=== PATIENT | male | born 1945 | race Caucasian/White ===

== ENCOUNTER 2017-03-23 18:47 | Inpatient (IN) | payer MEDICARE, BC ==
[~2017-03-23] VITALS: Ht 182.9 cm; Wt 112.5 kg
[~2017-03-23 18:47] MED LIST: AMLO10TA2 PO; ASPI81TA2 PO; ATOR40TA59 PO; CEFE1FRO IV; CINN500C PO; GABA-585 PO; HYDR-2868 PO; HYDR1TAB12 PO; INSU100C4 SQ; LISI40TA PO; METR500T PO; MULT-208 PO; RANI300C PO; THYR30TA PO
--- NOTE | 2017-03-23 18:49 | ED.ADGEN ---
Past History Past Medical History: A-Fib, CAD, Diabetes, High Cholesterol, Heart Disease, Hypertension, [place], Renal Failure, Other Past Surgical History: Cervical Fusion, Pacemaker, Other Smoking: Non-smoker Alcohol Use: None Drug Use: None Adult General Chief Complaint Chief Complaint " I got this Lt. hand.. and facial numbness like I had before... it started yesterday... the hand was probably my neck problems.... But the facial numbness and the area around my Lt. eye was still yenifer numb tonight.. .. I was here in .. this year for same thing...they just upped my Gabapentin to 300 three times a day... and it got better.. I usually see Dr. Jean-Baptiste... and I do see the 's at for everything else..." HPI HPI Patient is a 71 year old male who presents with above hx and complaints of Lt facial numbness and Lt hand numbness starting yesterday. Currently only has Lt. facial numbness primarily area upper trigeminal. Slight upper lid lag Lt eye. Pt. denies any visual changes. Patient denies any mental status changes. Patient denies any changes in meds. reports no mental status changes or motor changes. Both and patient states presentation is similar to prior episode in December and previous episodes last year. Patient has recently had a pacer placement. Patient has been taking his meds as directed. The Pt. did Increased his gabapentin to 300mg three times a day for this current complaint as directed directed in December of this year. Patient has been given a diagnosis of Trigeminal and cervical neuralgia. Patient has long- standing cervical neuropathy and cervical stenosis . Pt. had prior cervical surgeries with hardware placement for his cervical DJD and stenosis. Patient reports his sugars have been fairly well controlled with the checks been between 80-120. No history of trauma. No history of travel. No history of specific immunosuppression. Patient is ambulatory without problems from his baseline. 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 Patient does have a [id number] amputation on right limb secondary PVDz and diabetic osteomyelitis. Patient has had multiple medical problems including diabetes, hypertension, hyper cholesterol, peripheral vascular disease, coronary artery disease, renal insufficiency, and renal insufficiency. Patient states the left betty orbital numbness usually goes away within a day. Review of Systems Review of Systems Constitutional: Denies fever or chills [] Eyes: Denies change in visual acuity, redness, or eye pain [] HENT: Denies nasal congestion or sore throat [] complaints of left trigeminal numbness Respiratory: Denies cough or shortness of breath [] Cardiovascular: No additional information not addressed in HPI [] GI: Denies abdominal pain, nausea, vomiting, bloody stools or diarrhea [] : Denies dysuria or hematuria [] Musculoskeletal: Denies back pain or joint pain [] Integument: Denies rash or skin lesions [] Neurologic: Denies headache, focal weakness or sensory changes [] Endocrine: Denies polyuria or polydipsia [] Family History Family History Diabetes hypertension Current Medications Current Medications Current Medications Medications (Trade) Dose Ordered Sig/Rain Start Time Stop Time Status Last Admin Dose Admin Aspirin (Children'S Aspirin) 324 mg 1X ONCE 03/23/17 19:30 03/23/17 19:31 DC 03/23/17 20:01 324 MG Ondansetron HCl (Zofran) 4 mg PRN Q4HRS PRN 03/23/17 20:45 03/24/17 20:44 Allergies Allergies Allergies Coded Allergies Type Severity Reaction Last Updated Verified NKMA Allergy Unknown 03/23/17 Yes oxaprozin Adverse Reaction Intermediate 11/20/15 Yes Physical Exam Physical Exam Constitutional: no acute distress, non-toxic appearance. [] HENT: Normocephalic, atraumatic, bilateral external ears normal, oropharynx moist, no oral exudates, nose normal. Left periorbital numbness as per HPI. TM' s intact. No rash Eyes: PERRLA, EOMI, conjunctiva normal, no discharge. Glasses. Lens implants Neck: Decreased range of motion, no tenderness, supple, no stridor. No bruit appreciated in carotids. Old surgical scars Cardiovascular: Slightly irregular Heart rate and rhythm, no murmur, PMI to Lt. Lungs & Thorax: Bilateral breath sounds clear to auscultation in the apexes. Pacer scar lt. Abdomen: Bowel sounds normal, soft, no tenderness, no masses, no pulsatile masses. [] Skin: Warm, dry, no erythema, no rash. [] Back: No tenderness, no CVA tenderness. [] Extremities: No tenderness, no cyanosis, no clubbing, ROM intact, no edema. Rt. below knee amputation Rt. left. toe amputations and foot scars. Pt. ambulates extremely well with the prosthesis. Neurologic: Alert and oriented X 3, no gross motor function deficits, no gross sensory function deficits other than noted in HPI. Slight decreased Vib. distal Lt. leg. Subjective Lt betty orbital numbness. Numbness appears to be upper trigeminal distribution. No drift. Band Booker equal. DTR +2 brachial. AC >BC, No lateralization. Slight decrease AC on Lt. Psychologic: Affect normal, judgement normal, mood normal. [] Current Patient Data Vital Signs Vital Signs Date Time Temp Pulse Resp B/P Pulse Ox O2 Delivery O2 Flow Rate FiO2 03/23/17 18:50 98.2 70 20 97 Room Air Lab Results Laboratory Tests Test 03/23/17 19:30 03/23/17 19:50 White Blood Count 6.9x10^3/uL (4.0-11.0) Red Blood Count 3.75x10^6/uL (4.30-5.70) L Hemoglobin 11.1g/dL (13.0-17.5) L Hematocrit 33.7% (39.0-53.0) L Mean Corpuscular Volume 90fL (79-100) Mean Corpuscular Hemoglobin 30pg (25-35) Mean Corpuscular Hemoglobin Concent 33g/dL (31-37) Red Cell Distribution Width 14.6% (11.5-14.5) H Platelet Count 187x10^3/uL (140-400) Neutrophils (%) (Auto) 62% (31-73) Lymphocytes (%) (Auto) 22% (24-48) L Monocytes (%) (Auto) 10% (0-9) H Eosinophils (%) (Auto) 5% (0-3) H Basophils (%) (Auto) 1% (0-3) Neutrophils # (Auto) 4.3x10^3uL (1.8-7.7) Lymphocytes # (Auto) 1.5x10^3/uL (1.0-4.8) Monocytes # (Auto) 0.7x10^3/uL (0.0-1.1) Eosinophils # (Auto) 0.3x10^3/uL (0.0-0.7) Basophils # (Auto) 0.1x10^3/uL (0.0-0.2) Prothrombin Time 10.5SEC (9.4-11.4) Prothrombin Time INR 1.0 (0.9-1.1) PTT 23SEC (23-33) Sodium Level 141mmol/L (136-145) Potassium Level 5.3mmol/L (3.5-5.1) H Chloride Level 106mmol/L (98-107) Carbon Dioxide Level 24mmol/L (21-32) Anion Gap 11 (6-14) Blood Urea Nitrogen 47mg/dL (8-26) H Creatinine 2.1mg/dL (0.7-1.3) H Estimated GFR (Cockcroft-Gault) 31.1 Glucose Level 138mg/dL (70-99) H Calcium Level 8.5mg/dL (8.5-10.1) Magnesium Level 2.3mg/dL (1.8-2.4) Total Bilirubin 0.3mg/dL (0.2-1.0) Direct Bilirubin 0.1mg/dL (0.0-0.2) Aspartate Amino Transferase (AST) 22U/L (15-37) Alanine Aminotransferase (ALT) 24U/L (16-63) Alkaline Phosphatase 98U/L (46-116) Creatine Kinase 264U/L (39-308) Creatine Kinase MB (Mass) 2.6ng/mL (0.0-3.6) Creatine Kinase MB Relative Index 1.0% (0-4) Troponin I Quantitative 0.026ng/mL (0-0.055) TW-Eub-O-Type Natriuretic Peptide 942pg/mL (0-124) H Total Protein 6.9g/dL (6.4-8.2) Albumin 3.7g/dL (3.4-5.0) Lipase 238U/L (73-393) Urine Collection Type Unknown Urine Color Yellow Urine Clarity Clear Urine pH 7.0 Urine Specific Bivins 1.015 Urine Protein 30 mg/dl (NEG-TRACE) Urine Glucose (UA) Negmg/dL (NEG) Urine Ketones (Stick) Negmg/dL (NEG) Urine Blood Neg (NEG) Urine Nitrite Neg (NEG) Urine Bilirubin Neg (NEG) Urine Urobilinogen Dipstick 0.2mg/dL (0.2 mg/dL) Urine Leukocyte Esterase Neg (NEG) Urine RBC 3-5/HPF (0-2) Urine WBC Occ/HPF (0-4) Urine Squamous Epithelial Cells Few/LPF Urine Bacteria 0/HPF (0-FEW) Urine Opiates Screen Neg (NEG) Urine Methadone Screen Neg (NEG) Urine Barbiturates Neg (NEG) Urine Phencyclidine Screen Neg (NEG) Urine Amphetamine/Methamphetamine Neg (NEG) Urine Benzodiazepines Screen Neg (NEG) Urine Cocaine Screen Neg (NEG) Urine Cannabinoids Screen Neg (NEG) Urine Ethyl Alcohol Neg (NEG) EKG EKG My interpretation EKG shows a irregular rhythm with marked intraventricular block. Does appear to have a P-wave . However Do notice occasional paced rhythm on monitor [] Radiology/Procedures Radiology/Procedures My interpretation chest x-ray shows borderline cardiomegaly. But no acute cardiopulmonary changes. Does have a pacer placement since last comparison x- ray. My interpretation CT head shows no shift, mass, edema, bleed, fracture or findings acute CVA. No findings of sinusitis. Cervical shows marked cervical degenerative joint changes and cervical fusions C3-4-5 6 and 7 . Patient does have narrowing and facet arthritic changes. No obvious acute fracture. Hardware appears to be stable. See formal report when available Course & Med Decision Making Course & Med Decision Making Pertinent Labs and Imaging studies reviewed. (See chart for details) Stress presentation, testing and treatment plan with . Will admit pt. for observation and consult with Dr. Barnard. [] Final Impression Final Impression 1. Facial Numbness[] periorbital 2. Hx. Trigeminal Neuralgia Lt. (appears primarily in I, & II) 3. Cervical Neuropathy- cervical stenosis 4. DM 5. HTN 6. CADz 7. Elevated Creat. 8. Anemia 9. Hyperkalemia 10. Possible TIA vs CVA- 11. Hx. PVDz 12. Hyperkalemia Problems: Dragon Disclaimer Dragon Disclaimer This electronic medical record was generated, in whole or in part, using a voice recognition dictation system. VASILIY GRAVES MD Mar 23, 2017 18:49
[2017-03-23] MEDS ORDERED: ASPIRIN 81 MG TAB.CHEW PO ONE (19:30)
--- NOTE | 2017-03-23 19:35 | RAD ---
PROCEDURE CT brain without contrast, CT cervical spine without contrast HISTORY LEFT SIDE FACIAL AND ARM NUMBNESS, NECK STIFFNESS,
PRIOR CT HEAD SENT
TECHNIQUE CT scan of the brain was done without contrast. CT scan of the cervical spine was done without contrast, sagittal and coronal reconstructed images were reviewed. One or more of the following individualized dose reduction techniques were utilized for this examination: 1. Automated exposure control; 2. Adjustment of the mA and/or kV according to patient size; 3. Use of iterative reconstruction technique.One or more of the following individualized dose reduction techniques were utilized for this examination: 1. Automated exposure control; 2. Adjustment of the mA and/or kV according to patient size; 3. Use of iterative reconstruction technique. COMPARISON Comparison made with a CT brain from December 26, [address] brain There is no mass or shift of the midline. There is no intracranial hemorrhage or subdural hematoma. An acute CVA is not identified. A skull fracture is not evident. Sinuses are clear. CT cervical spine Axial CT images were obtained through the cervical spine. Sagittal and coronal reconstructed images were reviewed. Patient had previous anterior cervical fusion. A focal disc protrusion is not identified. The right thyroid is enlarged, the patient apparently is had left thyroidectomy. Patient has had previous cervical fusions from C3 to C5 and at C6-7. There is disc space narrowing at C5-6. There is facet arthritis at C2-3 on the left and C3-4 on the left. An acute fracture is not identified. Plates and screws remain in good position from the previous fusions. IMPRESSION No intracranial hemorrhage or mass or acute finding noted intracranially Previous cervical fusions. Degenerative changes in the cervical spine No C-spine fracture noted Electronically signed by: Johan Fong MD (Mar 23, 2017 19:33:11)
[2017-03-23 19:53] LABS: BASO # 0.1 x10^3/uL (0.0-0.2); BASO % 1 % (0-3); EOS # 0.3 x10^3/uL (0.0-0.7); EOS % 5 % (0-3); HEMATOCRIT 33.7 % (39.0-53.0); HEMOGLOBIN 11.1 g/dL (13.0-17.5); LYMPH # 1.5 x10^3/uL (1.0-4.8); LYMPH % 22 % (24-48); MEAN CORPUSCULAR HEMOGLOBIN 30 pg (25-35); MEAN CORPUSCULAR HGB CONC 33 g/dL (31-37); MEAN CORPUSCULAR VOLUME 90 fL (79-100); MONO # 0.7 x10^3/uL (0.0-1.1); MONO % 10 % (0-9); NEUT # 4.3 x10^3uL (1.8-7.7); NEUT % 62 % (31-73); PLATELET COUNT 187 x10^3/uL (140-400); RED BLOOD COUNT 3.75 x10^6/uL (4.30-5.70); RED CELL DISTRIBUTION WIDTH 14.6 % (11.5-14.5); WHITE BLOOD COUNT 6.9 x10^3/uL (4.0-11.0)
[2017-03-23 20:10] LABS: ALBUMIN 3.7 g/dL (3.4-5.0); CALCIUM 8.5 mg/dL (8.5-10.1); CREATININE 2.1 mg/dL (0.7-1.3); DIRECT BILIRUBIN 0.1 mg/dL (0.0-0.2); GFR 31.1; MAGNESIUM 2.3 mg/dL (1.8-2.4); POTASSIUM 5.3 mmol/L (3.5-5.1); TOTAL BILIRUBIN 0.3 mg/dL (0.2-1.0); TOTAL PROTEIN 6.9 g/dL (6.4-8.2)
[2017-03-23 20:22] LABS: AMPHETAMINE/METHAMPHETAMINE NEG (NEG); BARBITURATES NEG (NEG); BENZODIAZEPINES NEG (NEG); CANNABINOIDS NEG (NEG); COCAINE NEG (NEG); METHADONE NEG (NEG); OPIATES NEG (NEG); PHENCYCLIDINE NEG (NEG)
[2017-03-23 20:31] LABS: BILIRUBIN,URINE NEG (NEG); CLARITY,URINE CLEAR; COLOR,URINE YELLOW; GLUCOSE,URINE NEG (NEG)
[2017-03-23 20:32] LABS: BACTERIA,URINE 0 /HPF (0-FEW); NITRITE,URINE NEG (NEG); SQUAMOUS EPITHELIAL CELL,UR FEW /LPF; UROBILINOGEN,URINE 0.2 mg/dL (0.2 mg/dL); WBC,URINE OCC /HPF (0-4)
[2017-03-23] MEDS ORDERED: ONDANSETRON PF 4 MG/2 ML VIAL. IV PRN (20:45)
[2017-03-23] MEDS: ENOXAPARIN ** NOTE DOSE ** SYRINGE SQ SCH ×2 (21:00→21:24)
[2017-03-23] MEDS: GABAPENTIN 100 MG CAPSULE. PO ONE ×2 (21:08→21:24)
--- NOTE | 2017-03-23 23:20 | NUR ---
The patient, HAVEN DOMINGUEZ, 71 y/o, M admitted by SULTANA RODRIGUEZ MD, was given written information regarding hospital policies, unit procedures and contact persons. Valuables were checked and logged. Will continue to monitor.
[2017-03-23 23:37] VITALS: BP 151/62
[2017-03-23] MEDS ORDERED: HYDR-2869 PO (23:51)
[2017-03-23] MEDS ORDERED: GABA300C8 PO (23:51)
[2017-03-24] MEDS ORDERED: OMEG-33 PO (00:18)
--- NOTE | 2017-03-24 05:13 | EKG ---
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
[2017-03-24 06:35] VITALS: BP 155/66
[2017-03-24 06:53] LABS: BASO % 1 % (0-3); EOS # 0.3 x10^3/uL (0.0-0.7); EOS % 5 % (0-3); HEMATOCRIT 34.7 % (39.0-53.0); HEMOGLOBIN 11.4 g/dL (13.0-17.5); LYMPH # 1.3 x10^3/uL (1.0-4.8); LYMPH % 21 % (24-48); MEAN CORPUSCULAR HEMOGLOBIN 30 pg (25-35); MEAN CORPUSCULAR HGB CONC 33 g/dL (31-37); MEAN CORPUSCULAR VOLUME 91 fL (79-100); MONO # 0.6 x10^3/uL (0.0-1.1); MONO % 10 % (0-9); NEUT # 3.9 x10^3uL (1.8-7.7); NEUT % 63 % (31-73); PLATELET COUNT 181 x10^3/uL (140-400); RED BLOOD COUNT 3.83 x10^6/uL (4.30-5.70); RED CELL DISTRIBUTION WIDTH 14.3 % (11.5-14.5); WHITE BLOOD COUNT 6.1 x10^3/uL (4.0-11.0)
[2017-03-24 07:06] LABS: ALBUMIN 3.5 g/dL (3.4-5.0); CALCIUM 8.7 mg/dL (8.5-10.1); CREATININE 1.9 mg/dL (0.7-1.3); GFR 34.9; POTASSIUM 4.8 mmol/L (3.5-5.1); TOTAL BILIRUBIN 0.3 mg/dL (0.2-1.0); TOTAL PROTEIN 7.1 g/dL (6.4-8.2)
--- NOTE | 2017-03-24 07:25 | NUR ---
Neuro consult paged to Dr. Barnard.
--- NOTE | 2017-03-24 10:05 | RAD ---
PA and lateral chest radiographs 03/23/2017 Clinical history: Hypertension. Diabetes. Left face and arm numbness. PA and lateral digital radiographs of the chest were obtained. Comparison study is dated 03/19/2016. The right arm PICC has been removed. Anterior plates and bone screws overlie the mid and lower cervical spine, unchanged. A pacemaker has been placed into the left anterior chest. Leads extends to the right atrium and right ventricle of the heart. The cardiac silhouette is borderline enlarged. Atherosclerotic calcification of the thoracic aorta is seen. The thoracic aorta is mildly tortuous. No acute pulmonary infiltrate is seen. No pleural effusion or pneumothorax is noted. Degenerative changes are seen involving the thoracic spine. Impression: No acute abnormality is seen.
[2017-03-24] MEDS: ENOXAPARIN ** NOTE DOSE ** SYRINGE SQ SCH ×2 (10:07→20:56)
[2017-03-24 11:28] VITALS: BP 136/61
[2017-03-24] MEDS: MULTIVITAMIN with MINERAL TABLET. PO SCH (13:07)
[2017-03-24] MEDS: OMEGA-3 FATTY ACIDS/FISH OIL 1,000 MG CAPSULE. PO SCH ×2 (13:07→20:55)
[2017-03-24] MEDS: LISINOPRIL 20 MG TABLET PO SCH (13:08)
[2017-03-24] MEDS: ASPIRIN 81 MG TAB.CHEW PO SCH (13:09)
[2017-03-24] MEDS: HYDRALAZINE 50 MG TABLET PO SCH ×2 (13:10→20:55)
--- NOTE | 2017-03-24 13:29 | HP ---
ADMIT DATE: 03/23/2017 HISTORY OF PRESENT ILLNESS: This is a 71-year-old gentleman, who is complaining of left hand and facial numbness. This has occurred before and he has been extensively investigated in the past. He continues to have intermittent left facial parathesias. He has had an MRI and MRA showing trigeminal nerve to be normal, but it is assumed that he does have trigeminal neuralgia. In December his gabapentin had been increased to 300 mg 3 times a day and he felt that that was helping except yesterday it was persistent. PAST MEDICAL HISTORY: The patient has longstanding diabetes, which has been poorly controlled in the past. He states his last hemoglobin A was 6.1. He uses an insulin pump. He also has hypothyroidism, hypertension and coronary artery disease. 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 He had chronic osteomyelitis of the right foot and leg. 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 Chronic staph infections. PAST SURGICAL HISTORY: Extensive, but recent surgeries he had a right BKA, 04/11/2016; 07/09/2016 he had a pacemaker placed. MEDICATIONS: Reviewed. Current medications coming from his first in the list, he is on insulin pump 2 units an hour, amlodipine 10 mg a day, lisinopril 40 mg a day, hydralazine 50 mg t.i.d., aspirin 81 mg 2 daily, total of 160; atorvastatin 40 mg a day, Capulin Thyroid 30 mg a day, gabapentin 300 mg 3 times a day, fish oil 1000 mg b.i.d., multivitamin 1 a day, cinnamon 1000 mg daily, and ranitidine 300 mg b.i.d. IMMUNIZATIONS: The patient has got a pneumonia shot in 2010 and flu shot in 08/2015. REVIEW OF SYSTEMS: As per HPI, this intermittent left facial and left arm numbness. Denies sore throat. Denies fever. Denies chest pain, shortness of breath. SOCIAL HISTORY: The patient is retired. He worked. 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 No smoking or alcohol, been for 50 years. OBJECTIVE: VITAL SIGNS: Blood pressure is 136/61, pulse 70, respirations 20, temperature 97.9, and pulse ox 98% on room air. HEENT: The patient's hearing is normal. His eyes are clear. He wears glasses. His nose is patent. His throat is clear. NECK: Supple. LUNGS: Clear to auscultation. CARDIOVASCULAR: Regular rhythm and rate with a paced rhythm. ABDOMEN: Soft, nontender. EXTREMITIES: Left extremity, he has with appearance of a Charcot joint. Right, he has a right BKA. NEUROLOGIC: The patient went through all of the cranial nerves without difficulty, could not discern any deficits related to the trigeminal nerve. Reflexes are 2+/4. Follows directions. LABORATORY DATA: Fairly unremarkable. BUN 45, creatinine 1.9; improved from 47 and 2.1. BNP is 942. Troponin 0.026 and 0.027. ASSESSMENT: 1. Recurrence of left facial numbness/trigeminal neuralgia with a history of trigeminal neuralgia. 2. Acute kidney injury, improved with fluids. 3. Type 2 diabetes, longstanding. 4. Peripheral neuropathy. 5. Normochromic normocytic anemia. PLAN: Dr. Barnard to see. It appears that if this episode resolves, he could probably discharge later on in the day. I will increase his gabapentin to 400 mg t.i.d. as recommended by Dr. Jean-Baptiste. TOMAS NG DO DR: ISRRAEL/regine JOB#: [id number] / [id number]
[2017-03-24] MEDS: THYROID PORK 15 MG PO SCH (13:31)
[2017-03-24] MEDS ORDERED: GABAPENTIN 300 MG CAPSULE. PO SCH (14:00)
--- NOTE | 2017-03-24 16:14 | RAD ---
Bilateral carotid arterial duplex study 03/24/2017 Clinical History: Numbness and tingling in head. Technique: Using a combination of real-time ultrasound imaging and color-flow and pulse Doppler imaging techniques, duplex evaluation of the carotid and vertebral arterial structures within the neck was performed. Multiple images were obtained. Findings: Mild to moderate atheromatous/atherosclerotic plaque formation is seen involving both carotid bifurcations and proximal internal carotid arteries, right greater than left. The peak systolic velocities are not significantly elevated. No hemodynamically significant stenosis is seen. The vertebral arteries demonstrate normal antegrade flow. Impression: Mild to moderate atheromatous/atherosclerotic plaque formation is seen involving both carotid bifurcations and proximal internal carotid arteries, right greater than left.. No hemodynamically significant stenosis or area of occlusion is seen. Please note that stenosis calculations for carotid ultrasound studies are derived from validated velocity criteria which are known to correlate with the NASCET methodology.
[2017-03-24 16:37] VITALS: BP 143/65
[2017-03-24] MEDS: GABAPENTIN 400 MG CAPSULE. PO SCH ×2 (17:02→20:53)
[2017-03-24 19:45] VITALS: BP 128/68
[2017-03-24] MEDS: FAMOTIDINE 20 MG TABLET PO SCH (20:55)
[2017-03-24] MEDS ORDERED: NON FORMULARY ITEM (Cinnamon Bark (Cinnamon) 1,000 MG) PO SCH (21:00)
[2017-03-24] MEDS ORDERED: ATORVASTATIN CALCIUM 20 MG TABLET PO SCH (21:00)
[2017-03-24] MEDS ORDERED: AMLODIPINE BESYLATE 10 MG TABLET PO SCH (21:00)
[2017-03-24 21:03] VITALS: BP 128/52
[2017-03-25 05:25] VITALS: BP 142/71
[2017-03-25] MEDS: MULTIVITAMIN with MINERAL TABLET. PO SCH (07:32)
[2017-03-25] MEDS: THYROID PORK 15 MG PO SCH (07:32)
[2017-03-25] MEDS: OMEGA-3 FATTY ACIDS/FISH OIL 1,000 MG CAPSULE. PO SCH (07:32)
[2017-03-25] MEDS: HYDRALAZINE 50 MG TABLET PO SCH ×2 (07:33→13:20)
[2017-03-25] MEDS: GABAPENTIN 400 MG CAPSULE. PO SCH ×2 (07:33→13:20)
[2017-03-25] MEDS: FAMOTIDINE 20 MG TABLET PO SCH (07:33)
[2017-03-25] MEDS: ASPIRIN 81 MG TAB.CHEW PO SCH (07:33)
[2017-03-25] MEDS: LISINOPRIL 20 MG TABLET PO SCH (07:34)
[2017-03-25] MEDS: ENOXAPARIN ** NOTE DOSE ** SYRINGE SQ SCH (07:34)
[2017-03-25 11:14] VITALS: BP 140/68
--- NOTE | 2017-03-25 12:12 | PN ---
DATE: 03/25/2017 SUBJECTIVE: The patient continues to have numbness of the right face and left upper extremity. The patient feels like he doing better. He denies any new medical neurological complaints. Carotid Doppler study revealed mild to moderate bilateral epithelial sclerotic plaque formation in both carotid bifurcation and proximal internal carotid arteries but no hemodynamic significant stenosis. OBJECTIVE: GENERAL: Obese white male, not in acute distress. VITAL SIGNS: Blood pressure 142/71, respiratory rate 18, pulse is 75, afebrile, oxygen saturation 99% on room air. HEENT: Normocephalic, atraumatic, otherwise unremarkable. NECK: Supple. Negative for carotid bruit, lymphadenopathy or thyromegaly. LUNGS: Clear to A and P. CARDIOVASCULAR: Regular rate and rhythm, normal S1, S2. Abdomen: Soft. Bowel sounds positive. EXTREMITIES: Negative for cyanosis, clubbing or pitting edema. NEUROLOGICAL EXAM: Mental Status: The patient is alert and oriented x 3. Speech is fluent. There is no language dysfunction, otherwise unremarkable. Cranial nerves are intact. Motor Examination: No focal muscle bulk was seen. The tone is normal. The strength is 5/5 throughout. Sensory examination revealed moderately diminished pinprick and light touch senses over the left face and upper extremity, otherwise unremarkable. Deep tendon reflexes were symmetric and hypoactive with absent Achilles responses. Gait not tested as the patient had artificial right lower extremity. IMPRESSION: 1. Numbness and paresthesia of the left face and upper extremity with history of left trigeminal neuralgia. 2. Radicular neck pain radiating into the left upper extremity. 3. Multiple risk factors for stroke and includes hypertension, hyperlipidemia, diabetes mellitus, peripheral vascular disease, coronary artery disease and age. RECOMMENDATIONS: 1. Increase aspirin to 325 mg coated aspirin once daily. 2. Continue with current management and medications. 3. Follow up with Dr. Sheets. We will arrange for EMG/NCS of the left upper extremity to rule out entrapment neuropathy versus cervical radiculopathy. M Al SHEETS MD DR: MARCUS/regine JOB#: [id number] / [id number]
--- NOTE | 2017-03-25 13:17 | CONS ---
DATE OF CONSULTATION: 03/23/2017 REFERRING PHYSICIAN: Dr. Jean-Baptiste/Gualberto. REASON FOR CONSULTATION: Recurrent numbness and tingling of the left face and left arm and hand. HISTORY OF PRESENT ILLNESS: This is a 71-year-old male, who was admitted through Emergency Room yesterday on 03/23/2017 after he presented with 3-day history of recurrent numbness and tingling confined to the left face, upper and lower extremities. The patient stated on occasions he will have left facial pain. He has had this kind of symptoms for at least 1-1/2 years and he was diagnosed with possible trigeminal neuralgia and placed on gabapentin. According to the patient, gabapentin 300 mg t.i.d. usually alleviated his symptoms. The patient also complains of neck pain radiating to the left upper extremity. He denies any recent fall or injuries. He denies headaches, visual disturbances, nausea, vomiting, chest pain, shortness of breath or palpitation, dysarthria or dysphagia. However, when he had severe symptoms of pain and numbness he would have slurred speech. Initial nonenhanced head CT scan revealed no abnormalities. The patient denies weakness of the upper extremities or left lower extremity. PAST MEDICAL HISTORY: Quite significant for multiple medical problems includes hypertension, hyperlipidemia, coronary artery disease, myocardial infarctions, recurrent left facial numbness and possible paresthesia consistent with trigeminal neuralgia, hypothyroidism, diabetes mellitus, obesity and renal disease. PAST SURGICAL HISTORY: Significant for pacemaker placement, cervical spine surgeries x 3. The first one was to remove a cervical bony spur and the second and third one had cervical fusion in early 1999. Status post pacemaker placement, skin graft, status post right below knee amputation secondary to peripheral vascular disease and osteomyelitis, history of GERD. SOCIAL HISTORY: The patient denies smoking, alcohol drinking, or illicit drug use. He is and retired. FAMILY HISTORY: Noncontributory. REVIEW OF SYSTEMS: As mentioned above in history of present illness, otherwise unremarkable. CURRENT MEDICATIONS: Aspirin 162 mg daily, Lipitor 40 mg at bedtime, amlodipine 10 mg at bedtime, hydralazine 50 mg t.i.d., gabapentin 300 mg t.i.d., Zofran IV p.r.n. ALLERGIES: OXAPROZIN. PHYSICAL EXAMINATION: GENERAL: Obese white male, not in acute distress. He weighs 251 pounds. VITAL SIGNS: Blood pressure 136/61, respiratory rate 20, pulse is 70 and regular, temperature 97.9, oxygen saturation is 98% on room air. HEENT: Normocephalic, atraumatic, otherwise unremarkable. NECK: Supple. Negative for carotid bruit, lymphadenopathy or thyromegaly. LUNGS: Clear to A and P. CARDIOVASCULAR: Regular rate and rhythm, normal S1, S2. There is no S3, S4 or murmur. ABDOMEN: Soft. Bowel sounds positive. EXTREMITIES: Negative for cyanosis, clubbing or pitting edema. NEUROLOGICAL EXAM: Mental Status: The patient is alert and oriented x 3. The speech is fluent. There is no language dysfunction. Memory is intact. Judgment and abstract thinking is normal. The patient denies hallucination or delusion. Visual walker are full. The pupils are reactive to light and accommodation. The extraocular movements are intact. There is no nystagmus. There is no facial motor or sensory deficit. Hearing is intact bilaterally. The palate is elevated symmetrically. Sternocleidomastoid muscles are powerful bilaterally. The patient shrugs his shoulders symmetrically and protrudes his tongue in the midline without fasciculation or atrophy. MOTOR: No focal muscle bulk was seen. The tone is normal. The strength is 5/5 throughout. Sensory examination revealed normal pinprick, light touch, vibratory and position senses. Deep tendon reflexes are symmetric and hypoactive without pathology responses. GAIT: Gait and coordination are normal. DIAGNOSTIC: Head nonenhanced head CT scan as described above. Chest x-ray, no acute abnormalities were seen. LABORATORY DATA: CBC revealed white blood cells of 6.1 thousand, hemoglobin 11.4, hematocrit 34.7, platelet count 181,000. Chemistry revealed sodium of 140, potassium 4.8, chloride 107, CO2 of ____, BUN 45, creatinine 1.9, glucose 186, calcium 8.7. Liver enzymes are normal. Troponin level 0.027. IMPRESSION: 1. Intermittent numbness and paresthesia of the left face and upper extremity, rule out transient ischemic attack. 2. Chronic radicular neck pain radiating into the left upper extremity and associated with numbness and paresthesia, rule out radiculopathy versus entrapment neuropathy in the left upper extremity. 3. Multiple medical problems and risk factor for stroke and transient ischemic attack includes diabetes mellitus, hypertension, hyperlipidemia, age, coronary artery disease and cardiac arrhythmia. RECOMMENDATIONS: 1. We will obtain carotid Doppler study. 2. Continue with current home medications and care initiated by Dr. Jean-Baptiste. 3. We will arrange for chemical EMG/NCS to be done on outpatient basis to rule out entrapment neuropathy versus cervical radiculopathy. M Al SHEETS MD DR: MARCUS/regine JOB#: [id number] / [id number]
[2017-03-25 13:20] VITALS: BP 140/68
[2017-03-25] MEDS ORDERED: ASPI325T11 PO (13:38)
[2017-03-25] MEDS ORDERED: GABA-585 PO (13:38)
--- NOTE | 2017-03-25 14:14 | NUR ---
discharge note- Pt. is discharged home with self-care, pt. and received D/C teaching including. prescriptions given to pt., pt. walked out to car by aide. Pt. aware of follow up appointment with neurology and iv taken out.
--- NOTE | 2017-03-25 15:12 | DS ---
DATE OF DISCHARGE: 03/25/2017 HOSPITAL COURSE: The patient is a 71-year-old male patient who was admitted with complaint of tingling and numbness in his left face and upper extremity with history of left trigeminal neuralgia. He has also had particular neck pain radiating to his left upper extremity. He is obviously known to have type 2 diabetes mellitus with peripheral vascular disease, hypertension, hyperlipidemia. He was evaluated by Dr. Barnard who recommended increasing his gabapentin to 400 mg 3 times a day, increase his aspirin to 325 mg once a day and to be discharged home to follow with him for an EMG and nerve conduction studies of his left upper extremity to rule out entrapment neuropathy versus cervical radiculopathy. When I saw him this afternoon, he was resting slightly propped up in bed, in no apparent distress. He was awake, alert. He stated that his tingling and numbness is way much better compared to the day he came in. PHYSICAL EXAMINATION: GENERAL: When I examined him, he looked well and was clearly in no apparent respiratory distress, pale, but no jaundice, cyanosis, or thyromegaly. No jugular venous distention. No limb edema. VITAL SIGNS: His heart rate was 71, blood pressure was 140/68, temperature was 97.7, respiratory rate 20 and oxygen saturation was 97%. HEAD, EYES, EARS, NOSE AND THROAT: Showed normocephalic, atraumatic. NECK: Supple. HEART: Showed normal first and second sounds. No gallop, rub or murmur. CHEST: Clear to auscultation. No crepitation or rhonchi. ABDOMEN: Distended, soft, nontender. NEUROLOGIC: He is awake, alert, responding appropriately. Cranial nerves intact. He moves upper extremities to much good extent than his lower extremities. EXTREMITIES: He has right below knee amputation. LABORATORY DATA: As of this morning showed a white cell count 6100, hemoglobin 11.4, hematocrit 34.7, MCV 91, and platelet count of 181,000 with normal manual differential. His chemistry showed a serum sodium 140, potassium 4.8, chloride 107, bicarbonate 24, anion gap of 9, BUN of 45, creatinine 1.9. Estimated GFR was 35 mL per minute. His glucose was 186. Calcium was 8.7. Total bilirubin, AST, ALT, alkaline phosphatase were normal. His total protein was 7.1, albumin 3.5. TSH was 0.720. His prothrombin time was ____ INR of 1, aPTT was 23. Urinalysis was essentially unremarkable and toxic screen was negative. His nasal screen for MRSA by PCR was negative. DISCHARGE MEDICATIONS: The patient was discharged home to continue on aspirin enteric coated 325 mg once a day, gabapentin 400 mg 3 times a day, amlodipine 10 mg once a day, atorvastatin 40 mg at bedtime, Cinnamon Bark 500 mg capsules 6000 mg twice a day, hydralazine 50 mg p.o. t.i.d., NovoLog insulin as insulin sliding scale, lisinopril 40 mg once a day, multivitamin 1 tablet once a day, omega-3 fatty acid 1000 mg twice a day, ranitidine 300 mg twice a day, thyroid pork for [place] Thyroid 30 mg once a day. FINAL DISCHARGE DIAGNOSES: 1. Recurrence of left facial numbness/trigeminal neuralgia with history of trigeminal neuralgia. 2. Acute kidney injury, improving. 3. Type 2 diabetes, longstanding with multiple complications. 4. Peripheral neuropathy. 5. Normochromic normocytic anemia. PLAN: For him to be discharged home with increased gabapentin to 400 mg 3 times a day, aspirin enteric coated 325 mg once a day, should follow with Dr. Barnard as an outpatient for EMG and/or nerve conduction studies. MO VELASCO MD DR: JASEN/regine JOB#: [id number] / [id number]
== END 2017-03-25 14:16 | disposition home or self-care (01) | DRG 73 ==
LOC: ER 18:48 → ICU 20:57
PROVIDERS: ADMIT Family Medicine; ATTEND Family Medicine
DX: G50.0 Trigeminal neuralgia (principal); N17.0 Acute kidney failure with tubular necrosis; M86.9 Osteomyelitis, unspecified; D64.9 Anemia, unspecified; E03.9 Hypothyroidism, unspecified; E11.51 Type 2 diabetes mellitus with diabetic peripheral angiopathy without gangrene; E11.69 Type 2 diabetes mellitus with other specified complication; E78.00 Pure hypercholesterolemia, unspecified; E78.5 Hyperlipidemia, unspecified; Z96.41 Presence of insulin pump (external) (internal); I10 Essential (primary) hypertension; E87.5 Hyperkalemia; M48.02 Spinal stenosis, cervical region; I25.10 Atherosclerotic heart disease of native coronary artery without angina pectoris; E66.9 Obesity, unspecified; I48.91 Unspecified atrial fibrillation; K21.9 Gastro-esophageal reflux disease without esophagitis; Z79.899 Other long term (current) drug therapy; Z82.49 Family history of ischemic heart disease and other diseases of the circulatory system; Z89.511 Acquired absence of right leg below knee; Z83.3 Family history of diabetes mellitus; Z95.0 Presence of cardiac pacemaker; Z88.8 Allergy status to other drugs, medicaments and biological substances; Z68.33 Body mass index [BMI] 33.0-33.9, adult
CPT/HCPCS: 36415; 70450; 71020; 72125; 80048; 80053; 80076; 81001; 82553; 82947; 83036; 83690; 83735; 83880; 84443; 84484; 85027; 85610; 85730; 87641; 93005; 93880; G0481; J1650; 99285-25

== ENCOUNTER 2017-05-20 14:36 | Observation (INO) | payer MEDICARE, BC ==
[~2017-05-20] VITALS: Ht 182.9 cm; Wt 114.1 kg
[~2017-05-20 14:36] MED LIST changes: +ASPI-630 PO; +ASPI325T11 PO; -ASPI81TA2 PO; -CINN500C PO; +CINN500C2 PO; +GABA300C8 PO; +HYDR-2869 PO; +OMEG-33 PO
--- NOTE | 2017-05-20 15:13 | RAD ---
CT head without contrast History: Code stroke, left eye closed for 2 hours. Comparison: None. Procedure: Axial images are obtained of the head from the skull base through the vertex without IV contrast. Findings: The ventricles and sulci are normal for the patient's age. No mass-effect, intracranial mass, midline shift, hemorrhage or obvious acute infarction is identified. Basilar cisterns are patent. Bone windows demonstrate no significant calvarial abnormality. The visualized paranasal sinuses appear clear. Impression: 1. No acute intracranial process. Results called to [facility] at 3:08 PM. PQRS Compliance Statement: One or more of the following individualized dose reduction techniques were utilized for this examination: 1. Automated exposure control 2. Adjustment of the mA and/or kV according to patient size 3. Use of iterative reconstruction technique faint
[2017-05-20] MEDS: IV NORMAL SALINE 1,000ML 1,000 ML IV SCH ×2 (15:15→20:57)
[2017-05-20 15:16] LABS: BASO # 0.1 x10^3/uL (0.0-0.2); BASO % 1 % (0-3); EOS # 0.3 x10^3/uL (0.0-0.7); EOS % 5 % (0-3); HEMATOCRIT 34.9 % (39.0-53.0); HEMOGLOBIN 11.7 g/dL (13.0-17.5); LYMPH # 1.4 x10^3/uL (1.0-4.8); LYMPH % 20 % (24-48); MEAN CORPUSCULAR HEMOGLOBIN 30 pg (25-35); MEAN CORPUSCULAR HGB CONC 34 g/dL (31-37); MEAN CORPUSCULAR VOLUME 90 fL (79-100); MONO # 0.7 x10^3/uL (0.0-1.1); MONO % 10 % (0-9); NEUT # 4.4 x10^3uL (1.8-7.7); NEUT % 65 % (31-73); PLATELET COUNT 187 x10^3/uL (140-400); RED BLOOD COUNT 3.88 x10^6/uL (4.30-5.70); RED CELL DISTRIBUTION WIDTH 14.5 % (11.5-14.5); WHITE BLOOD COUNT 6.9 x10^3/uL (4.0-11.0)
--- NOTE | 2017-05-20 15:19 | EKG ---
[address] [address] Test Date: 2017-05-20 Test Time: 14:58:13 Pat Name: HAVEN DOMINGUEZ Department: Room: Gender: M [employer]: : 1945 Requested By: JESSICA CONTI Order Number: [id number] Reading MD: Jerrod Guido Measurements Intervals Robinson Rate: 71 P: ME: QRS: 9 QRSD: 144 T: 144 QT: 436 QTc: 479 Interpretive Statements PROBABLE V PACED Electronically Signed On 05-22-2017 11:16:38 CDT by Jerrod Guido
[2017-05-20 15:25] LABS: ALBUMIN 3.8 g/dL (3.4-5.0); ALBUMIN/GLOBULIN RATIO 1.1 (1.0-1.7); CALCIUM 8.7 mg/dL (8.5-10.1); CREATININE 2.1 mg/dL (0.7-1.3); GFR 31.1; TOTAL BILIRUBIN 0.4 mg/dL (0.2-1.0); TOTAL PROTEIN 7.4 g/dL (6.4-8.2)
[2017-05-20] MEDS ORDERED: ASPIRIN ENTERIC COATED 325 MG TABLET.DR. PO ONE (15:30)
--- NOTE | 2017-05-20 15:37 | RAD ---
Indication shortness of air. A single view of the chest was obtained and is compared to an examination 03/23/2017. The heart and pulmonary vessels appear normal. There is no acute parenchymal infiltrate in either lung. A significant change compared to the previous exam is not seen. Bipolar cardiac pacing device is noted as well as postoperative changes in the lower cervical spine IMPRESSION: No acute finding. No significant change
--- NOTE | 2017-05-20 15:53 | PHYS DOC ---
Past History Past Medical History: Diabetes, High Cholesterol, Hypertension, [place] Past Surgical History: Pacemaker, Other Smoking: Non-smoker Alcohol Use: None Drug Use: None Adult General Chief Complaint Chief Complaint: FACE PROBLEM HPI HPI Patient is a 71 year old man who presents with left facial weakness and some loss of strength in his left hand. He states that these symptoms occurred about an hour and a half prior to his arrival in the emergency department. The patient has had these kind of problems in the past however felt to be neuropathies involving his face and his upper extremity. He has been followed by with these problems. He was last admitted with these problems in March. She has numerous other medical problems including diabetes mellitus, peripheral vascular disease and a right below the knee amputation secondary to osteomyelitis. He also has a history of coronary artery disease and renal insufficiency. His neuropathies in the past have been considered as possible TIAs and strokes however the final diagnoses have been neuropathies. Patient does take one aspirin daily Review of Systems Review of Systems Constitutional: Denies fever or chills [] Eyes: Denies change in visual acuity, redness, or eye pain [] HENT: Denies nasal congestion or sore throat [] Respiratory: Denies cough or shortness of breath [] Cardiovascular: No additional information not addressed in HPI [] GI: Denies abdominal pain, nausea, vomiting, bloody stools or diarrhea [] : Denies dysuria or hematuria [] Musculoskeletal: Denies back pain or joint pain [] Integument: Denies rash or skin lesions [] Neurologic: Denies headache, please see history of present illness and review old charts [] Endocrine: Denies polyuria or polydipsia [] Current Medications Current Medications Current Medications Medications (Trade) Dose Ordered Sig/[facility] Start Time Stop Time Status Last Admin Dose Admin Aspirin (Aspirin Enteric Coated) 325 mg 1X ONCE 05/20/17 15:30 05/20/17 15:31 DC 05/20/17 15:26 325 MG Sodium Chloride 1,000 ml @ 100 mls/hr Q10H 05/20/17 15:15 05/21/17 01:14 05/20/17 15:15 100 MLS/HR Allergies Allergies Allergies Coded Allergies Type Severity Reaction Last Updated Verified NKMA Allergy Unknown 03/23/17 Yes oxaprozin Adverse Reaction Intermediate 11/20/15 Yes Physical Exam Physical Exam Constitutional: Well developed, well nourished, no acute distress, non-toxic appearance. [] HENT: Normocephalic, atraumatic, bilateral external ears normal, oropharynx moist, no oral exudates, nose normal. There does seem to be some left facial droop and closing of the left eyelid Eyes: PERRLA, EOMI, conjunctiva normal, no discharge. Left eyelid lags Neck: Normal range of motion, no tenderness, supple, no stridor. [] Cardiovascular:Heart rate regular rhythm, no murmur [] Lungs & Thorax: Bilateral breath sounds clear to auscultation [] Abdomen: Bowel sounds normal, soft, no tenderness, no masses, no pulsatile masses. [] Skin: Warm, dry, no erythema, no rash. [] Back: No tenderness, no CVA tenderness. [] Extremities: No tenderness is some edema of the left lower extremity which is about 2+, there is a right [id number] amputation Neurologic: Alert and oriented X 3, there is decreased motion of the right face , there is no drift of either upper extremity or lower extremity however there does seem to be some slight decreased customer service receptionist on the left hand, normal sensory function, no focal deficits noted with the exception of his left face and possibly left hand NIHSS Score is 1 because of his decreased L facial motion. Psychologic: Affect normal, judgement normal, mood normal. [] Current Patient Data Vital Signs Vital Signs Date Time Temp Pulse Resp B/P (MAP) Pulse Ox O2 Delivery O2 Flow Rate FiO2 05/20/17 14:40 97.8 71 18 97 Room Air Lab Results Laboratory Tests Test 05/20/17 14:41 05/20/17 14:50 Glucose (Fingerstick) 137 mg/dL (70-99) H White Blood Count 6.9 x10^3/uL (4.0-11.0) Red Blood Count 3.88 x10^6/uL (4.30-5.70) L Hemoglobin 11.7 g/dL (13.0-17.5) L Hematocrit 34.9 % (39.0-53.0) L Mean Corpuscular Volume 90 fL (79-100) Mean Corpuscular Hemoglobin 30 pg (25-35) Mean Corpuscular Hemoglobin Concent 34 g/dL (31-37) Red Cell Distribution Width 14.5 % (11.5-14.5) Platelet Count 187 x10^3/uL (140-400) Neutrophils (%) (Auto) 65 % (31-73) Lymphocytes (%) (Auto) 20 % (24-48) L Monocytes (%) (Auto) 10 % (0-9) H Eosinophils (%) (Auto) 5 % (0-3) H Basophils (%) (Auto) 1 % (0-3) Neutrophils # (Auto) 4.4 x10^3uL (1.8-7.7) Lymphocytes # (Auto) 1.4 x10^3/uL (1.0-4.8) Monocytes # (Auto) 0.7 x10^3/uL (0.0-1.1) Eosinophils # (Auto) 0.3 x10^3/uL (0.0-0.7) Basophils # (Auto) 0.1 x10^3/uL (0.0-0.2) Prothrombin Time 10.3 SEC (9.4-11.4) Prothrombin Time INR 1.0 (0.9-1.1) PTT 24 SEC (23-33) Sodium Level 140 mmol/L (136-145) Potassium Level 5.0 mmol/L (3.5-5.1) Chloride Level 106 mmol/L (98-107) Carbon Dioxide Level 23 mmol/L (21-32) Anion Gap 11 (6-14) Blood Urea Nitrogen 50 mg/dL (8-26) H Creatinine 2.1 mg/dL (0.7-1.3) H Estimated GFR (Cockcroft-Gault) 31.1 BUN/Creatinine Ratio 24 (6-20) H Glucose Level 147 mg/dL (70-99) H Calcium Level 8.7 mg/dL (8.5-10.1) Total Bilirubin 0.4 mg/dL (0.2-1.0) Aspartate Amino Transferase (AST) 19 U/L (15-37) Alanine Aminotransferase (ALT) 23 U/L (16-63) Alkaline Phosphatase 104 U/L (46-116) Troponin I Quantitative 0.017 ng/mL (0-0.055) Total Protein 7.4 g/dL (6.4-8.2) Albumin 3.8 g/dL (3.4-5.0) Albumin/Globulin Ratio 1.1 (1.0-1.7) EKG EKG [] Radiology/Procedures Radiology/Procedures CT scan of the head is negative [] Impressions: Left facial weakness left arm weakness neuropathies Course & Med Decision Making Course & Med Decision Making Pertinent Labs and Imaging studies reviewed. (See chart for details) CT scan of the head is negative for any acute abnormalities. His BUNs 50 creatinine is 2.1 The remainder of his laboratory evaluation is essentially unremarkable I talked with Dr. Barnard early in his evaluation and the neurologist did not feel any intervention with TPA was warranted at this time He apparently has had these episodes in the past with resolution. Dr. Barnard suggested we admit the patient to observation and he will see the patient I have talked with who will accept the patient. [] Dragon Disclaimer Dragon Disclaimer This chart was dictated in whole or in part using Voice Recognition software in a busy, high-work load, and often noisy Emergency Department environment. It may contain unintended and wholly unrecognized errors or omissions. Departure Departure: Referrals: SULTANA RODRIGUEZ MD (PCP) JESSICA CONTI MD May 20, 2017 15:53
[2017-05-20 17:27] VITALS: BP 145/72
--- NOTE | 2017-05-20 17:29 | NUR ---
patient weight is with prosthetic leg and both shoes on Addendum: 05/20/17 at 1730 by JOSE FOX CNA Amended: Links added.
--- NOTE | 2017-05-20 18:00 | NUR ---
Admission: Patient admitted from the ER to room 122. Patient transferred to room via gurney accompanied by EMS. Recieved report from JOSH Ortega. Oriented patient to room. Patient reported numbness and tingling in hands and facial droop since 1300. Te provided list of current medications and past medical history. at bedside. Reviewed orders and plan of care. Xitent verbalized understanding and agreement of goals. Call light with in reach. Will continue to monitor.
--- NOTE | 2017-05-20 18:39 | NUR ---
Consult: Routine consult called to Dr. Al Barnard
[2017-05-20] MEDS ORDERED: ASPI325T11 PO (20:00)
[2017-05-20] MEDS ORDERED: GABA-587 PO (20:00)
--- NOTE | 2017-05-20 20:21 | NUR ---
RENAL DOSING: patient normally takes ranitidine 300mg BID at home, formulary substitution would be famotidine 40mg BID however, patient's creatinine clearance <50mL/min, dose limited to 20mg q24hrs, pharmacy will continue to monitor renal function and dose adjust accordingly.
[2017-05-20] MEDS: OMEGA-3 FATTY ACIDS/FISH OIL 1,000 MG CAPSULE. PO SCH (20:58)
[2017-05-20] MEDS: GABAPENTIN 400 MG CAPSULE. PO SCH (20:58)
[2017-05-20] MEDS ORDERED: amLODIPine BESYLATE 10 MG TABLET PO SCH (21:00)
[2017-05-20] MEDS ORDERED: ATORVASTATIN CALCIUM 20 MG TABLET PO SCH (21:00)
[2017-05-20 23:05] VITALS: BP 105/68
--- NOTE | 2017-05-21 01:25 | CONS ---
DATE OF CONSULTATION: 05/20/2017 REFERRING PHYSICIAN: Dr. Vee. REASON FOR CONSULTATION: Left facial numbness and weakness. HISTORY OF PRESENT ILLNESS: This is a 71-year-old right-handed white male who was admitted through Emergency Room after he presented with 1.5-2 hours history of sudden onset of numbness and paresthesia confined to the left face and associated with left facial drooping. The patient denies headaches, diplopia, dysphagia, dysarthria, chest pain, shortness of breath, or palpitations. On arrival to the Emergency Room, he was found to have mild left facial drooping, which has improved. The patient was alert and oriented. His blood pressure was 140/69. Initial nonenhanced head CT scan revealed no evidence of acute intracranial process. The patient had similar episode in 03/2017, required admission with diagnosis of possible TIA. His carotid Doppler study revealed [id number] atherosclerotic without significant occlusive lesions. The patient has been on aspirin 325 mg p.o. daily. During the interview, the patient denies any new medical or neurological complaints. He stated he is almost back to normal, but still have some strange feeling confined to the left face and intermittent closing of his left eye. PAST MEDICAL HISTORY: Significant for hypertension, hyperlipidemia, hypothyroidism, peripheral neuropathy of the lower extremity, coronary artery disease, status post myocardial infarction, status post pacemaker placement and coronary stent placement, GERD, renal disease, osteomyelitis of the left lower extremity required amputation. PAST SURGICAL HISTORY: Status post C5-C7 spinal surgery, status post cervical spine fusion x 2, status post insulin pump placement, thyroidectomy. SOCIAL HISTORY: The patient denies smoking, alcohol drinking, or illicit drug use. CURRENT MEDICATIONS: Aspirin 325 mg p.o. daily. CURRENT HOME MEDICATIONS: Includes Lipitor 40 mg p.o. daily, amlodipine 10 mg p.o. daily, gabapentin 400 mg t.i.d., insulin NovoLog, lisinopril 40 mg p.o. daily, multivitamins, fish oil, ranitidine 300 mg p.o. daily and [place] Thyroid 30 mg p.o. daily. ALLERGIES: NKMA, OXAPROZIN. REVIEW OF SYSTEMS: A 10-point review of systems was performed and consistent with intermittent left facial weakness and paresthesia along with intermittent ptosis. PHYSICAL EXAMINATION: GENERAL: Obese white male, not in acute distress. He weighs 253 pounds. VITAL SIGNS: Blood pressure 145/72, respiratory rate 20, pulse is 70 and regular, temperature 97.5, oxygen saturation 97% on room air. HEENT: Normocephalic, atraumatic, otherwise unremarkable. NECK: Supple. Negative for carotid bruit, lymphadenopathy or thyromegaly. LUNGS: Clear to A and P. CARDIOVASCULAR: Regular rate and rhythm, normal S1, S2. There is no S3, S4 or murmur. ABDOMEN: Soft. Bowel sounds positive. EXTREMITIES: Status post right lower extremity prosthesis due to previous amputation. NEUROLOGICAL: Mental Status: The patient is alert and oriented x 3. Speech is fluent. There is no language dysfunction. Memory, judgment, and abstract thinking are normal. The patient denies hallucination or delusion. CRANIAL NERVES: Visual walker are full. The pupils are reactive to light and accommodation. The extraocular movements are intact. There is no nystagmus. There is intermittent ptosis of the left eye, but the patient is able to open his eye. There is no facial motor or sensory deficit. Hearing is intact bilaterally. Palate is elevated symmetrically. Sternocleidomastoid muscles are powerful bilaterally. The patient shrugs his shoulders symmetrically and protrudes his tongue in the midline without fasciculation or atrophy. III MOTOR: No focal muscle bulk was seen. The tone is normal. The strength is 5/5 throughout. IV SENSORY: Revealed normal pinprick, light touch, vibratory and position senses. V: Deep tendon reflexes were symmetric and hypoactive at 1/4 throughout. Gait: The patient uses a cane for ambulation. LABORATORY DATA: CBC revealed white blood cells of 6.9 thousand, hemoglobin 11.7, hematocrit 34.9, platelet count 187,000. Chemistry reveals sodium 140, potassium 5, chloride 106, CO2 23, BUN 50, creatinine 2.1 and glucose 147, and calcium 8.7. Liver enzymes are normal. Troponin level is normal. Coagulation, INR is 1, PT is 10.3. DIAGNOSTIC DATA: Head CT scan as described above and chest x-ray revealed no evidence of acute findings. IMPRESSION: 1. Questionable transient ischemic attack. 2. Intermittent left eye ptosis. 3. Multiple medical problems include hypertension, hyperlipidemia, diabetes mellitus, gastroesophageal reflux disease, peripheral neuropathy in the lower extremities, coronary artery disease, status post pacemaker placement, chronic renal disease. RECOMMENDATIONS: Continue with current management and home medications. M Al SHEETS MD DR: MARCUS/regine JOB#: [id number] / [id number]
[2017-05-21 05:50] VITALS: BP 120/71
[2017-05-21 06:40] LABS: BASO # 0.1 x10^3/uL (0.0-0.2); BASO % 1 % (0-3); EOS # 0.4 x10^3/uL (0.0-0.7); EOS % 6 % (0-3); HEMATOCRIT 34.1 % (39.0-53.0); HEMOGLOBIN 11.5 g/dL (13.0-17.5); LYMPH # 1.4 x10^3/uL (1.0-4.8); LYMPH % 24 % (24-48); MEAN CORPUSCULAR HEMOGLOBIN 30 pg (25-35); MEAN CORPUSCULAR HGB CONC 34 g/dL (31-37); MEAN CORPUSCULAR VOLUME 90 fL (79-100); MONO # 0.6 x10^3/uL (0.0-1.1); MONO % 10 % (0-9); NEUT # 3.5 x10^3uL (1.8-7.7); NEUT % 59 % (31-73); PLATELET COUNT 166 x10^3/uL (140-400); RED CELL DISTRIBUTION WIDTH 14.5 % (11.5-14.5); WHITE BLOOD COUNT 5.9 x10^3/uL (4.0-11.0)
[2017-05-21 06:57] LABS: ALBUMIN 3.5 g/dL (3.4-5.0); CALCIUM 8.3 mg/dL (8.5-10.1); CREATININE 1.8 mg/dL (0.7-1.3); GFR 37.2; POTASSIUM 4.8 mmol/L (3.5-5.1); TOTAL BILIRUBIN 0.3 mg/dL (0.2-1.0)
[2017-05-21] MEDS ORDERED: THYROID PORK 15 MG PO SCH (07:00)
[2017-05-21] MEDS: OMEGA-3 FATTY ACIDS/FISH OIL 1,000 MG CAPSULE. PO SCH (08:20)
[2017-05-21] MEDS: GABAPENTIN 400 MG CAPSULE. PO SCH ×2 (08:20→13:00)
[2017-05-21] MEDS ORDERED: FAMOTIDINE 20 MG TABLET PO SCH ×2 (09:00→21:00)
[2017-05-21] MEDS ORDERED: MULTIVITAMIN with MINERAL TABLET. PO SCH (09:00)
[2017-05-21] MEDS ORDERED: NON FORMULARY ITEM (Cinnamon Bark (Cinnamon) 1,000 MG) PO SCH (09:00)
[2017-05-21] MEDS ORDERED: LISINOPRIL 20 MG TABLET PO SCH (09:00)
[2017-05-21] MEDS ORDERED: ASPIRIN ENTERIC COATED 325 MG TABLET.DR. PO SCH (09:00)
--- NOTE | 2017-05-21 09:29 | PN ---
DATE: 05/20/2017 SUBJECTIVE: The patient continues to have intermittent numbness and parathesias confined to the left side of his face. He denies headaches, visual disturbance, nausea, vomiting, chest pain, shortness of breath, palpitation, dysarthria, dysphagia, or weakness. OBJECTIVE: GENERAL: A well-developed and well-nourished white male, not in acute distress. VITAL SIGNS: Stable. Blood pressure 120/71, respiratory rate 20, pulse 72 and regular, temperature 97.8, and oxygen saturation 95% on room air. HEENT: Normocephalic and atraumatic. Otherwise, unremarkable. NECK: Supple. Negative for carotid bruits, lymphadenopathy, JVD, or thyromegaly. LUNGS: Clear to A and P. CARDIOVASCULAR: Regular rate and rhythm. Normal S1 and S2. There is no S3, S4, or murmur. ABDOMEN: Soft. Bowel sounds positive. EXTREMITIES: Negative for cyanosis, clubbing, or pitting edema. 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 NEUROLOGIC EXAMINATION: Normal mental status and intact cranial nerves. There are no focal motor or sensory deficits. Deep tendon reflexes are symmetrical and hypoactive with absent Achilles responses. Gait not tested. LABORATORY DATA: White blood cells of 5.9 thousands, hemoglobin 11.5, hematocrit 34.1, and platelet count 166,000. Chemistries, sodium 142, potassium 4.8, chloride 108, CO2 24, BUN 42, creatinine 1.8, and glucose 92. IMPRESSION: 1. Intermittent left facial numbness with normal neurological examination. 2. Multiple medical problem includes hypertension, hyperlipidemia, diabetes mellitus, gastroesophageal reflux disease, peripheral neuropathy, coronary artery disease, and status post pacemaker placement. 3. Chronic renal disease. 4. Chronic disease type anemia. RECOMMENDATION: Continue with current management initially by Dr. Vee and home medications. RISHABH ALMEIDA MD DR: HERBIE/regine JOB#: [id number] / [id number]
--- NOTE | 2017-05-21 09:37 | NUR ---
RENAL DOSING NOTE: The patient's renal function has improved, and his home dose of Pepcid (autosub for ranitidine 300mg bid) was reordered. Signed: 05/21/17 at 0939 by ATA EDWARDS
[2017-05-21 11:38] VITALS: BP 133/68
--- NOTE | 2017-05-21 14:52 | HP ---
ADMIT DATE: 05/21/2017 HISTORY OF PRESENT ILLNESS: The patient is a 71-year-old male patient, who came to the Emergency Room complaining of left facial weakness and some loss of strength in his left hand. He stated these symptoms occurred about an hour and half prior to the arrival to the Emergency Room Department. Apparently, he has had these kinds of problems in the past; however, felt to be neuropathies involving his face and his upper extremity. He has been followed by Dr. Barnard with these problems. He was last admitted with these problems in March of this year. He apparently was extensively investigated and CT scan of the head was negative and Dr. Barnard was contacted, who did not feel that the patient needs any TPA and recommended admission for evaluation. The patient was admitted to monitor him and to consult Dr. Barnard for further evaluation and treatment. PAST MEDICAL HISTORY: Significant for hypertension, hyperlipidemia, hypothyroidism, peripheral neuropathy of both lower extremities, coronary artery disease, status post myocardial infarction, status post pacemaker placement and coronary stent deployment, gastroesophageal reflux disease, chronic renal disease, osteomyelitis of his right lower extremity requiring amputation. PAST SURGICAL HISTORY: Significant for C5-C7 spinal surgery, status post cervical spine fusion x 2, status post insulin pump placement, thyroidectomy and right below knee amputation. ALLERGIES: He is allergic to OXAPROZIN. MEDICATIONS: He is currently on following medications: Amlodipine 10 mg once a day, aspirin 325 mg once a day, atorvastatin calcium 40 mg at bedtime, cinnamon Bark 1000 mg once a day, gabapentin 400 mg 4 times a day, hydralazine 50 mg 3 times a day and NovoLog insulin as insulin sliding scale. He is on lisinopril 40 mg once a day, multivitamin 1 tablet once a day, omega-3 fatty acids 1000 mg twice a day, ranitidine 300 mg p.o. b.i.d. and 30 mg once a day. FAMILY HISTORY: Unremarkable. SOCIAL HISTORY: The patient has been for 50 years. He is retired. He does not smoke, drink alcohol or use any illicit drugs. REVIEW OF SYSTEMS: As per history of present illness. PHYSICAL EXAMINATION: GENERAL: On arrival to the Emergency Room, he looked well and was clearly in no apparent respiratory distress, pale, but no jaundice, cyanosis, or thyromegaly. No jugular venous distention. No limb edema. VITAL SIGNS: His heart rate was 71, blood pressure was 149/69, temperature was 97.8, respiratory rate was 18 and oxygen saturation was 97% on room air. HEAD, EYES, EARS, NOSE AND THROAT: Showed normocephalic, atraumatic. NECK: Supple, with no lymphadenopathy, no thyromegaly. No jugular distention. No audible bruit. HEART: Showed normal first and second heart sounds with no gallop, rub or murmur. CHEST: Clear to auscultation. No crepitation or rhonchi. ABDOMEN: Distended, soft, nontender. No guarding or rigidity. No organomegaly. All hernial orifices intact. Bowel sounds normal. NEUROLOGIC: He was alert and oriented x 3. There is decreased motion of the right. 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 Normal sensory function. No focal deficits noted except of his left facial and possibly left hand weakness. His affect, judgment and mood were normal. LABORATORY DATA: His lab work while in the Emergency Room showed a white cell count of 6900, hemoglobin 11.7, hematocrit 35, MCV 90 and platelet count of 187,000. His chemistry showed a serum sodium 140, potassium 5, chloride 106, bicarbonate 23, anion gap of 11, BUN 50, creatinine 2.1, estimated GFR was 51 mL per minute. His glucose was 147, calcium was 8.7. Total bilirubin, AST, ALT, alkaline phosphatase were normal. Total protein 7.4, albumin 3.8. His prothrombin time was 10.3, INR 1, aPTT was 24. IMPRESSION: In summary, this is a 71-year-old male patient with multiple medical problems, who came in with left facial weakness and left arm weakness. He has also mild acute on chronic kidney injury. His CT scan was basically unremarkable and showed that there is no acute intracranial process. The patient was admitted for further observation and to consult Dr. Barnard. He has his own insulin infusion pump. MO VELASCO MD DR: JASEN/regine JOB#: [id number] / [id number]
--- NOTE | 2017-05-21 15:00 | NUR ---
Discharge: Teaching verbal and written. Reviewed medications, follow-up, neuropathy, ect. Patient and verbalized understanding. IV removed without complications, catheter tip in-tact. All belongings with patient. Patient ambulated off of unit independently with nurse and .
--- NOTE | 2017-05-21 21:03 | DS ---
DATE OF DISCHARGE: 05/21/2017 HOSPITAL COURSE: The patient was admitted yesterday with a complaint of left facial numbness and weakness. He has had a CT scan, which was unremarkable. He has been extensively investigated before, had a Doppler ultrasound only about 6 weeks ago, which was normal and he is already on aspirin and atorvastatin. He was evaluated by Dr. Barnard, who did not recommend any changes in his medication. When I saw him this afternoon, he looked well and was clearly in no apparent distress. All his symptoms have disappeared and therefore a decision was made to discharge him home to continue on all his current medication. PHYSICAL EXAMINATION: GENERAL: When I examined him, he looked pale, but no jaundice, cyanosis, or thyromegaly. No jugular venous distention. No limb edema. VITAL SIGNS: His heart rate was 69, blood pressure 133/68, temperature was 97.8, respiratory rate 20, and oxygen saturation was 96% on room air. HEAD, EYES, EARS, NOSE AND THROAT: Showed normocephalic, atraumatic. NECK: Supple. HEART: Showed normal first and second heart sounds with no gallop, rub or murmur. CHEST: Clear to auscultation. No crepitation or rhonchi. ABDOMEN: Distended, soft, nontender. NEUROLOGIC: He is awake, alert, responding appropriately. All cranial nerves are intact. EXTREMITIES: He moves extremities without difficulty. He ambulates with a walker. He has right below-knee amputation, using prostheses. LABORATORY DATA: His lab work today showed a white cell count of 5900, hemoglobin 11.5, hematocrit 34, MCV 90 and platelet count 266,000. His chemistry this morning showed a serum sodium 142, potassium 4.8, chloride 108, bicarbonate 24, anion gap of 10, BUN 42, creatinine 1.8. Estimated GFR was 37 mL per minute. His glucose was 92, calcium was 8.3. Total bilirubin, AST, ALT, alkaline phosphatase were normal. His total protein was 7 and albumin 3.5. DISCHARGE MEDICATIONS: The patient was discharged home to continue on amlodipine 10 mg once a day, aspirin 325 mg once a day, atorvastatin calcium 40 mg at bedtime, cinnamon bark 1000 mg once a day, gabapentin 400 mg 4 times a day, hydralazine 50 mg 3 times a day. He has insulin infusion pump, lisinopril 40 mg once a day, multivitamin 1 tablet once a day, omega-3 fatty acid 1000 mg twice a day, ranitidine 300 mg twice a day, [place] Thyroid 30 mg once a day. FINAL DISCHARGE DIAGNOSES: Questionable transient ischemic attack, intermittent left eye ptosis, hypertension, hyperlipidemia, type 2 diabetes, gastroesophageal reflux disease, peripheral neuropathy, coronary artery disease, status post pacemaker placement, and chronic renal disease and he has actually [id number] kidney injury. His creatinine came down from 2.1 to 1.8. MO VELASCO MD DR: JASEN/regine JOB#: [id number] / [id number]
== END 2017-05-21 15:00 | disposition home or self-care (01) ==
LOC: ER 14:36 → 1 SOUTH 16:19
PROVIDERS: ADMIT Internal Medicine; ATTEND Internal Medicine
DX: R20.0 Anesthesia of skin (principal); R29.810 Facial weakness; R53.1 Weakness; H02.402 Unspecified ptosis of left eyelid; I25.10 Atherosclerotic heart disease of native coronary artery without angina pectoris; E78.5 Hyperlipidemia, unspecified; K21.9 Gastro-esophageal reflux disease without esophagitis; N17.9 Acute kidney failure, unspecified; I12.9 Hypertensive chronic kidney disease with stage 1 through stage 4 chronic kidney disease, or unspecified chronic kidney disease; N18.9 Chronic kidney disease, unspecified; E11.42 Type 2 diabetes mellitus with diabetic polyneuropathy; E11.51 Type 2 diabetes mellitus with diabetic peripheral angiopathy without gangrene; E11.69 Type 2 diabetes mellitus with other specified complication; M86.8X6 Other osteomyelitis, lower leg; E03.9 Hypothyroidism, unspecified; E11.22 Type 2 diabetes mellitus with diabetic chronic kidney disease; E78.00 Pure hypercholesterolemia, unspecified; I25.2 Old myocardial infarction; D63.8 Anemia in other chronic diseases classified elsewhere; Z96.41 Presence of insulin pump (external) (internal); Z95.5 Presence of coronary angioplasty implant and graft; Z79.4 Long term (current) use of insulin; Z95.0 Presence of cardiac pacemaker; Z98.1 Arthrodesis status; Z79.82 Long term (current) use of aspirin; Z89.511 Acquired absence of right leg below knee
CPT/HCPCS: 36415; 70450; 71010; 80053; 82947; 84484; 85027; 85610; 85730; 93005; 96360; 96361; 97162; 97166; 99285; G0378; G8978; G8979; G8980; J7030; G0379

== ENCOUNTER → 2017-06-25 | Outpatient (CLI) | payer MEDICARE, BC ==
[~2017-06-25] MED LIST changes: +GABA-587 PO
[2017-06-25 08:54] LABS: ALBUMIN 3.7 g/dL (3.4-5.0); CALCIUM 8.8 mg/dL (8.5-10.1); CREATININE 2.1 mg/dL (0.7-1.3); GFR 31.1; MAGNESIUM 2.3 mg/dL (1.8-2.4); POTASSIUM 4.7 mmol/L (3.5-5.1)
[2017-06-25 08:55] LABS: HEMOGLOBIN 11.9 g/dL (13.0-17.5)
[2017-06-26 00:07] LABS: CALCIUM PTH 8.8 mg/dL (8.6-10.2); CREATININE PTH 1.84 mg/dL (0.76-1.27); MICRO CREAT RATIO 283.9 mg/g creat (0.0-30.0); PTH INTACT 45 pg/mL (15-65); TOTAL PROTEIN CREATININE RATIO 493 mg/g creat (0-200); UR PROTEIN RD 26.9 mg/dL (Not Estab.)
== END | disposition home or self-care (01) ==
LOC: LAB 07:43
PROVIDERS: ATTEND Internal Medicine Nephrology
DX: N18.3 Chronic kidney disease, stage 3 (moderate) (principal); D63.1 Anemia in chronic kidney disease
CPT/HCPCS: 36415; 80069; 82043; 82570; 82728; 83540; 83550; 83735; 83970; 84156; 85014; 85018

== ENCOUNTER → 2018-01-29 | Outpatient (CLI) | payer MEDICARE, BC ==
--- NOTE | 2018-01-29 16:58 | RAD ---
Examination: Ultrasound thyroid History: History of left thyroidectomy, thyroid nodule Comparison: None available. Findings: The right lobe of thyroid gland measures 6.0 x 2.9 x 3.2 cm. The left lobe of the thyroid gland is not identified. There are multiple solid nodules identified in the right lobe of the thyroid gland with the largest measuring 2.1 cm in the inferior right lobe of thyroid gland. Small cystic structure identified in the right lower thyroid gland measuring 1.6 cm likely a colloid cyst. The isthmus demonstrates a 1 cm small nodule. Impression 1. Multiple solid nodules identified in the right lobe of the thyroid gland with the largest being 2.1 cm. Fine-needle aspiration can be considered.
== END | disposition home or self-care (01) ==
LOC: US 15:34
PROVIDERS: ATTEND Internal Medicine Endocrinology, Diabetes & Metabolism
DX: E04.2 Nontoxic multinodular goiter (principal); Z86.39 Personal history of other endocrine, nutritional and metabolic disease
CPT/HCPCS: 76536

== ENCOUNTER 2018-02-16 12:38 | Emergency (ER) | payer MEDICARE, BC ==
[2018-02-16 12:45] VITALS: BP 146/75
--- NOTE | 2018-02-16 12:52 | PHYS DOC ---
Past History Past Medical History: Diabetes, High Cholesterol, Hypertension, [place] Past Surgical History: Pacemaker, Other Smoking: Non-smoker Alcohol Use: None Drug Use: None Adult General Chief Complaint Chief Complaint: hand laceration HPI HPI Patient is a 72 year old male who presents with laceration to the thenar area of his left hand. He is right-hand dominant. He is diabetic. He was using his pocket knife when it slipped and stabbed him thenar aspect of his right hand. He states it bled profusely. He was able pressure and it to stop bleeding. He denies any loss of sensation or strength in his thumb. He is unsure when his last tetanus shot was. Review of Systems Review of Systems Constitutional: Denies fever or chills [] Eyes: Denies change in visual acuity, redness, or eye pain [] HENT: Denies nasal congestion or sore throat [] Respiratory: Denies cough or shortness of breath [] Cardiovascular: No additional information not addressed in HPI [] GI: Denies abdominal pain, nausea, vomiting, bloody stools or diarrhea [] : Denies dysuria or hematuria [] Musculoskeletal: Denies back pain or joint pain [] Integument: Denies rash or skin lesions [] Neurologic: Denies headache, focal weakness or sensory changes [] Endocrine: Denies polyuria or polydipsia [] All other systems were reviewed and found to be within normal limits, except as documented in this note. Allergies Allergies Allergies Coded Allergies Type Severity Reaction Last Updated Verified NKMA Allergy Unknown 03/23/17 Yes oxaprozin Adverse Reaction Intermediate 11/20/15 Yes Physical Exam Physical Exam Constitutional: Well developed, well nourished, no acute distress, non-toxic appearance. [] HENT: Normocephalic, atraumatic, bilateral external ears normal, oropharynx moist, no oral exudates, nose normal. [] Eyes: PERRLA, EOMI, conjunctiva normal, no discharge. [] Neck: Normal range of motion, no tenderness, supple, no stridor. [] Cardiovascular:Heart rate regular rhythm, no murmur [] Lungs & Thorax: Bilateral breath sounds clear to auscultation [] Abdomen: Bowel sounds normal, soft, no tenderness, no masses, no pulsatile masses. [] Skin: Warm, dry, no erythema, no rash. 1 cm laceration over the base of his left thumb on the palmar aspect Back: No tenderness, no CVA tenderness. [] Extremities: No tenderness, no cyanosis, no clubbing, ROM intact, no edema. [] Neurologic: Alert and oriented X 3, normal motor function, normal sensory function, no focal deficits noted. [] Psychologic: Affect normal, judgement normal, mood normal. [] EKG EKG [] Radiology/Procedures Radiology/Procedures [] Impressions: Hand laceration Course & Med Decision Making Course & Med Decision Making Pertinent Labs and Imaging studies reviewed. (See chart for details) Head and this was updated. Wound closed with Dermabond. Patient being discharged with 5 days of Augmentin. Return precautions given. Dragon Disclaimer Dragon Disclaimer This electronic medical record was generated, in whole or in part, using a voice recognition dictation system. Laceration Repair Lac Repair Indication: Laceration Procedure: The patient was placed in the appropriate position. The area was then sterile water. The laceration was and closed with Dermabond. The wound area was then dressed with a sterile dressing. Total repaired wound length: 1 cm in length. The patient tolerated the procedure well. Complications: No complications. Departure Departure: Impression: Primary Impression: Laceration Disposition: 01 HOME, SELF-CARE Condition: STABLE Referrals: SULTANA RODRIGUEZ MD (PCP) Patient Instructions: Laceration Care, Adult Additional Instructions: Your tetanus was updated. The laceration was closed with glue. The glue should follow off in the next 5-7 days. If it opens up and start bleeding please return back to the ER for sutures. Do not use antibiotic ointment on the wound as this will dissolve the glue prematurely. If you develop fevers, swelling, pain, decreased sensation or weakness in your hand return back to the ER immediately. Scripts Amoxicillin/Potassium Clav (AUGMENTIN 875-125 TABLET) 1 Each Tablet 1 TAB PO BID, #14 TAB Prov: ANEUDY LEMUS MD 02/16/18 ANEUDY LEMUS MD Feb 16, 2018 12:52
[2018-02-16] MEDS ORDERED: DIPHTH,PERTUSS(ACELL),TET TOX 0.5 ML DISP.SYRIN. VAX IM ONE (13:00)
[2018-02-16] MEDS ORDERED: AMOX1TAB61 PO (13:02)
== END 2018-02-16 13:46 | disposition home or self-care (01) ==
LOC: ER 12:38
DX: S61.412A Laceration without foreign body of left hand, initial encounter (principal); E11.9 Type 2 diabetes mellitus without complications; E78.00 Pure hypercholesterolemia, unspecified; I10 Essential (primary) hypertension; I25.2 Old myocardial infarction; Z95.0 Presence of cardiac pacemaker; Z88.8 Allergy status to other drugs, medicaments and biological substances; W26.0XXA Contact with knife, initial encounter; Y93.89 Activity, other specified; Y99.8 Other external cause status; Y92.89 Other specified places as the place of occurrence of the external cause
CPT/HCPCS: 12001; 90471; 90715; 99283-25

== ENCOUNTER 2018-05-17 07:08 | Emergency (ER) | payer MEDICARE, BC ==
[~2018-05-17] VITALS: Ht 182.9 cm; Wt 117.6 kg
[~2018-05-17 07:08] MED LIST changes: +AMOX1TAB61 PO
[2018-05-17 07:15] VITALS: BP 149/79
[2018-05-17] MEDS ORDERED: CEPH-264 PO (07:35)
--- NOTE | 2018-05-17 07:36 | PHYS DOC ---
Past History Past Medical History: CAD, Diabetes, GERD, Heart Disease, Hypertension, [place], Renal Disease, Other Past Surgical History: Pacemaker, Other Smoking: Non-smoker Alcohol Use: None Drug Use: None Adult General Chief Complaint Chief Complaint: left forearm injury HPI HPI 72-year-old male patient with history of diabetes mellitus states he scratched left forearm yesterday and had leaking bloody discharge last night with redness of affected area and is concern for possible infection because he had right below knee amputation after infection of his foot. Patient is up-to-date with his tetanus immunization. Review of Systems Review of Systems Constitutional: Denies fever or chills [] Eyes: Denies change in visual acuity, redness, or eye pain [] HENT: Denies nasal congestion or sore throat [] Respiratory: Denies cough or shortness of breath [] Cardiovascular: No additional information not addressed in HPI [] GI: Denies abdominal pain, nausea, vomiting, bloody stools or diarrhea [] : Denies dysuria or hematuria [] Musculoskeletal: Denies back pain or joint pain [] Integument: Denies rash or skin lesions [] Neurologic: Denies headache, focal weakness or sensory changes [] Endocrine: Denies polyuria or polydipsia [] All other systems were reviewed and found to be within normal limits, except as documented in this note. Allergies Allergies Allergies Coded Allergies Type Severity Reaction Last Updated Verified NKMA Allergy Unknown 03/23/17 Yes oxaprozin Adverse Reaction Intermediate 11/20/15 Yes Physical Exam Physical Exam Constitutional: Well developed, well nourished, no acute distress, non-toxic appearance. [] HENT: Normocephalic, atraumatic Eyes: PERRLA, EOMI, conjunctiva normal, no discharge. [] Neck: Normal range of motion, no tenderness, supple, no stridor. [] Cardiovascular:Heart rate regular rhythm, no murmur [] Lungs & Thorax: Bilateral breath sounds clear to auscultation [] Skin: Left forearm with 0.5 cm abrasion with mild erythema without sign of infection in hid shaft of forearm and 2 areas of abrasion in lateral side of elbow Back: No tenderness, no CVA tenderness. [] Extremities: No tenderness, no cyanosis, no clubbing, ROM intact, no edema. [] Neurologic: Alert and oriented X 3, normal motor function, normal sensory function, no focal deficits noted. [] Psychologic: Affect normal, judgement normal, mood normal. [] EKG EKG [] Radiology/Procedures Radiology/Procedures [] Course & Med Decision Making Course & Med Decision Making Evaluation of patient in ER showed 72-year-old male patient with history of diabetes mellitus presented with abrasion of left forearm since yesterday with erythema involving and concent for infection. Patient did not have sign of infection and laceration was repaired with Dermabond and Steri-Strip and prescription for Keflex was given. Dragon Disclaimer Dragon Disclaimer This electronic medical record was generated, in whole or in part, using a voice recognition dictation system. Departure Departure: Impression: Primary Impression: Forearm abrasion Disposition: HOME, SELF-CARE (At 0731) Condition: IMPROVED Referrals: SULTANA RODRIGUEZ MD (PCP) Patient Instructions: Abrasions Additional Instructions: Follow-up at your primary care physician in 3-4 days Return to emergency room as needed Scripts Cephalexin (KEFLEX) 500 Mg Capsule 1 CAP PO TID, #21 CAP Prov: AARON BYRNES MD 05/17/18 Laceration Repair Lac Repair Indication: [left forearm abrasion] Procedure: The patient was placed in the appropriate position x 2 of 0.5 cm abrasion of left forearm was repaired with Dermabond and Steri-Strip. Total repaired wound length: [1 cm]. Other Items: [OTHER ITEMS] The patient tolerated the procedure [well Complications: none]. AARON BYRNES MD May 17, 2018 07:35
== END 2018-05-17 07:37 | disposition home or self-care (01) ==
LOC: ER 07:08
DX: S50.812A Abrasion of left forearm, initial encounter (principal); I25.810 Atherosclerosis of coronary artery bypass graft(s) without angina pectoris; E11.9 Type 2 diabetes mellitus without complications; K21.9 Gastro-esophageal reflux disease without esophagitis; I11.9 Hypertensive heart disease without heart failure; I25.2 Old myocardial infarction; Z95.0 Presence of cardiac pacemaker; Z88.8 Allergy status to other drugs, medicaments and biological substances; W50.4XXA Accidental scratch by another person, initial encounter; Y93.89 Activity, other specified; Y99.8 Other external cause status; Y92.89 Other specified places as the place of occurrence of the external cause
CPT/HCPCS: 12001; 99283

== ENCOUNTER 2018-12-27 16:14 | Observation (INO) | payer MEDICARE, BC ==
[~2018-12-27] VITALS: Ht 182.9 cm; Wt 104.5 kg
[~2018-12-27 16:14] MED LIST changes: -AMLO10TA2 PO; +AMLO10TA6 PO; +CEPH-264 PO
--- NOTE | 2018-12-27 16:28 | ED.ADGEN ---
Past History Past Medical History: CAD, Diabetes, GERD, Heart Disease, Hypertension, [place], Renal Disease, Other Past Surgical History: Pacemaker, Other Smoking: Non-smoker Alcohol Use: None Drug Use: None Adult General Chief Complaint Chief Complaint Chest pain HPI HPI Patient is a 73-year-old male with history of GERD, diabetes, CAD, pacemaker placement who presents left-sided chest pain radiating to left shoulder. Pain is described as sharp, lasting for seconds followed by a dull component lasting for hours. Current episode started 3 hours prior to ED arrival. Is not associated with nausea, shortness of breath or sweats. Denies leg pain or swelling. No history of DVT or PE. No abdominal pain or tenderness. Last stress test was less than 6 month ago and reported as normal per patient.[] Review of Systems Review of Systems Review symptoms as per history of present illness. All other review symptoms are negative. All other systems were reviewed and found to be within normal limits, except as documented in this note. Current Medications Current Medications Current Medications Medications (Trade) Dose Ordered Sig/Rain Start Time Stop Time Status Last Admin Dose Admin Iohexol (Omnipaque 350 Mg/ml) 80 ml 1X ONCE 12/27/18 17:15 12/27/18 17:22 DC Nitroglycerin (Nitrostat) 0.4 mg 1X ONCE 12/27/18 17:15 12/27/18 17:16 DC 12/27/18 17:18 0.4 MG Allergies Allergies Allergies Coded Allergies Type Severity Reaction Last Updated Verified NKMA Allergy Unknown 03/23/17 Yes oxaprozin Adverse Reaction Intermediate 11/20/15 Yes Physical Exam Physical Exam Constitutional: Well developed, well nourished, no acute distress, non-toxic appearance. [] HENT: Normocephalic, atraumatic, bilateral external ears normal, nose normal. [] Eyes: PERRLA, EOMI, conjunctiva normal, no discharge. [] Neck: Normal range of motion, no tenderness, supple, no stridor. [] Cardiovascular:Heart rate regular rhythm, no murmur, left chest wall pain, no tenderness swelling or subcutaneous emphysema [] Lungs & Thorax: Bilateral breath sounds clear to auscultation [] Abdomen: Bowel sounds normal, soft, no tenderness, no masses, no pulsatile masses. [] Skin: Warm, dry, no erythema, no rash. [] Back: No tenderness. [] Extremities: Right BKA. [] Neurologic: Alert and oriented X 3, normal motor function, normal sensory function, no focal deficits noted. [] Psychologic: Affect normal, judgement normal, mood normal. [] Current Patient Data Vital Signs Vital Signs Date Time Temp Pulse Resp B/P (MAP) Pulse Ox O2 Delivery O2 Flow Rate FiO2 12/27/18 17:18 71 148/78 12/27/18 16:41 20 98 Room Air 12/27/18 16:15 97.4 Lab Results Laboratory Tests Test 12/27/18 16:18 White Blood Count 7.0 x10^3/uL (4.0-11.0) Red Blood Count 4.58 x10^6/uL (4.30-5.70) Hemoglobin 13.9 g/dL (13.0-17.5) Hematocrit 42.4 % (39.0-53.0) Mean Corpuscular Volume 92 fL (79-100) Mean Corpuscular Hemoglobin 30 pg (25-35) Mean Corpuscular Hemoglobin Concent 33 g/dL (31-37) Red Cell Distribution Width 14.1 % (11.5-14.5) Platelet Count 174 x10^3/uL (140-400) Neutrophils (%) (Auto) 61 % (31-73) Lymphocytes (%) (Auto) 24 % (24-48) Monocytes (%) (Auto) 9 % (0-9) Eosinophils (%) (Auto) 5 % (0-3) H Basophils (%) (Auto) 1 % (0-3) Neutrophils # (Auto) 4.3 x10^3uL (1.8-7.7) Lymphocytes # (Auto) 1.7 x10^3/uL (1.0-4.8) Monocytes # (Auto) 0.7 x10^3/uL (0.0-1.1) Eosinophils # (Auto) 0.3 x10^3/uL (0.0-0.7) Basophils # (Auto) 0.1 x10^3/uL (0.0-0.2) Sodium Level 140 mmol/L (136-145) Potassium Level 4.0 mmol/L (3.5-5.1) Chloride Level 103 mmol/L (98-107) Carbon Dioxide Level 27 mmol/L (21-32) Anion Gap 10 (6-14) Blood Urea Nitrogen 41 mg/dL (8-26) H Creatinine 1.7 mg/dL (0.7-1.3) H Estimated GFR (Cockcroft-Gault) 39.5 BUN/Creatinine Ratio 24 (6-20) H Glucose Level 66 mg/dL (70-99) L Calcium Level 9.0 mg/dL (8.5-10.1) Total Bilirubin 0.4 mg/dL (0.2-1.0) Aspartate Amino Transferase (AST) 26 U/L (15-37) Alanine Aminotransferase (ALT) 29 U/L (16-63) Alkaline Phosphatase 93 U/L (46-116) Troponin I Quantitative < 0.017 ng/mL (0-0.055) Total Protein 7.6 g/dL (6.4-8.2) Albumin 3.9 g/dL (3.4-5.0) Albumin/Globulin Ratio 1.1 (1.0-1.7) EKG EKG [EKG: Normal sinus rhythm, no acute ST-T wave changes.] Radiology/Procedures Radiology/Procedures [Chest x-ray: No acute findings per radiology report] Course & Med Decision Making Course & Med Decision Making Pertinent Labs and Imaging studies reviewed. (See chart for details) [Typical chest pain not relieved with nitroglycerin. EKG, troponin nonacute. Patient is not a candidate for CTA of chest due to decreased kidney function. Dr. Higgins to admit for cardiac rule out and VQ scan. Aspirin not given due to ocular surgery scheduled this upcoming week. Aspirin will be withheld unless troponin is positive or patient otherwise demonstrates positive findings of acute CAD Final Impression Final Impression [1. Chest pain] Dragon Disclaimer Dragon Disclaimer This electronic medical record was generated, in whole or in part, using a voice recognition dictation system. CELINE HUFF DO Dec 27, 2018 16:28
[2018-12-27 16:37] LABS: BASO # 0.1 x10^3/uL (0.0-0.2); BASO % 1 % (0-3); EOS # 0.3 x10^3/uL (0.0-0.7); EOS % 5 % (0-3); HEMATOCRIT 42.4 % (39.0-53.0); HEMOGLOBIN 13.9 g/dL (13.0-17.5); LYMPH # 1.7 x10^3/uL (1.0-4.8); LYMPH % 24 % (24-48); MEAN CORPUSCULAR HEMOGLOBIN 30 pg (25-35); MEAN CORPUSCULAR HGB CONC 33 g/dL (31-37); MEAN CORPUSCULAR VOLUME 92 fL (79-100); MONO # 0.7 x10^3/uL (0.0-1.1); MONO % 9 % (0-9); NEUT # 4.3 x10^3uL (1.8-7.7); NEUT % 61 % (31-73); PLATELET COUNT 174 x10^3/uL (140-400); RED BLOOD COUNT 4.58 x10^6/uL (4.30-5.70); RED CELL DISTRIBUTION WIDTH 14.1 % (11.5-14.5)
--- NOTE | 2018-12-27 16:38 | EKG ---
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
--- NOTE | 2018-12-27 16:49 | RAD ---
Single view chest dated 12/27/2018. Comparison made to 06/19/2017. CLINICAL INDICATION: Chest pain for one to 2 days. FINDINGS: Single upright portable exam performed. Heart and mediastinal contours are stable. There is a 3-lead left subclavian pacer in place, unchanged. Lungs are somewhat hypoinflated but otherwise clear. No consolidation or pleural effusion. No pneumothorax. IMPRESSION: No acute radiographic abnormality. Stable findings compared to 12/20/2016. Electronically signed by: Denys Meredith MD (12/27/2018 4:45 PM) [facility] – [place], [place]
[2018-12-27 16:52] LABS: ALBUMIN 3.9 g/dL (3.4-5.0); ALBUMIN/GLOBULIN RATIO 1.1 (1.0-1.7); CREATININE 1.7 mg/dL (0.7-1.3); GFR 39.5; TOTAL BILIRUBIN 0.4 mg/dL (0.2-1.0); TOTAL PROTEIN 7.6 g/dL (6.4-8.2)
[2018-12-27] MEDS ORDERED: IOHEXOL 350 MG/ML 100 ML VIAL. IV ONE (17:15)
[2018-12-27] MEDS ORDERED: NITROGLYCERIN SUBLINGUAL 0.4 MG BOTTLE OF 25. SL ONE (17:15)
[2018-12-27] MEDS ORDERED: ONDANSETRON PF 4 MG/2 ML VIAL. IV PRN (18:00)
[2018-12-27] MEDS ORDERED: HYDROcodone/APAP 5/325MG 1 TAB TABLET PO PRN ×2 (18:00)
--- NOTE | 2018-12-27 19:23 | RAD ---
CT of the chest without contrast Clinical indications: Shortness of breath. TECHNIQUE: Noncontrast helical CT scanning of the chest was performed. No IV contrast was given due to decreased GFR. Without contrast, the sensitivity to detect organ pathology is decreased. PQRS compliance Statement One or more of the following individualized dose reduction techniques were utilized for this study: 1. Automated exposure control 2. Adjustment of the mA and/or kV according to patient size 3. Use of iterative reconstruction technique FINDINGS: Enlarged right lobe of the thyroid gland is seen displacing the trachea towards the left side. The heart size is normal without pericardial effusion. Calcified atheromatous disease of coronary arteries is seen. No focal aneurysmal dilatation of the thoracic aorta is seen. Evaluation for dissection or intimal flap cannot be made without contrast. However the thoracic aorta does not appear to be abnormally enlarged. No enlarged thoracic lymphadenopathy is evident. No lung mass or lung consolidation or pleural effusion or pneumothorax is seen. The proximal bronchial tree is patent. No adrenal mass is evident. No lytic process is seen. IMPRESSION: No acute lung infiltrate. Calcified atheromatous disease of coronary arteries. Enlarged right lobe of the thyroid gland displacing the trachea towards the left side. This may be further evaluated with outpatient thyroid sonography. Electronically signed by: Balbir Taveras MD (12/27/2018 7:19 PM) [facility]
[2018-12-27 19:37] VITALS: BP 156/79
--- NOTE | 2018-12-27 21:36 | RAD ---
V/Q LUNG SCAN CLINICAL INDICATIONS: Chest pain and shortness of breath for 2 days. Positive d-dimer. COMPARISON: Chest x-ray performed today. V/Q lung scan dated March 15, 2016. TECHNIQUE: After inhalation of 12.4 mCi of Xenon 133 gas, anterior and posterior planar images of the lung walker were performed in the single breath and equilibrium and washout phases. After IV infusion of 5.5 mCi of technetium 99m MAA, multiplanar images of both lung walker were performed. FINDINGS: No ventilatory defect or significant retention of radiotracer activity is seen. Normal physiologic perfusion is seen. IMPRESSION: Normal V/Q lung scan. Electronically signed by: Balbir Taveras MD (12/27/2018 9:32 PM) [facility]
[2018-12-27] MEDS ORDERED: ASPI-630 PO (22:09)
[2018-12-27] MEDS ORDERED: LISI-334 PO (22:10)
[2018-12-27] MEDS ORDERED: THYR30TA PO (22:13)
[2018-12-27] MEDS ORDERED: GABA600T2 PO (22:13)
[2018-12-27] MEDS ORDERED: RANI300C PO (22:15)
[2018-12-27] MEDS ORDERED: CARV25TA2 PO (22:16)
[2018-12-27] MEDS ORDERED: THYR15TA PO (22:19)
[2018-12-27] MEDS ORDERED: FURO-68 PO (22:19)
[2018-12-28 00:30] VITALS: BP 124/66
[2018-12-28] MEDS ORDERED: LISINOPRIL 20 MG TABLET PO SCH (11:00)
[2018-12-28] MEDS ORDERED: FUROSEMIDE 40 MG TABLET PO SCH (11:00)
[2018-12-28] MEDS ORDERED: FAMOTIDINE 20 MG TABLET PO SCH (11:00)
[2018-12-28] MEDS ORDERED: THYROID,PORK 60 MG TABLET PO SCH (11:00)
[2018-12-28] MEDS ORDERED: MULTIVITAMIN with MINERAL TABLET. PO SCH (11:00)
[2018-12-28] MEDS ORDERED: CARVEDILOL 12.5 MG TABLET PO SCH (11:00)
[2018-12-28] MEDS: GABAPENTIN 300 MG CAPSULE. PO SCH ×2 (11:28→13:56)
[2018-12-28 11:32] VITALS: BP 154/78
--- NOTE | 2018-12-28 11:45 | HP ---
ADMIT DATE: 12/28/2018 HISTORY OF PRESENT ILLNESS: A 73-year-old male with long history of coronary artery disease as well as pacemaker placement, complains of left-sided chest discomfort radiating down into his left shoulder. Pain is described as sharp, lasting for several seconds, still component sometimes for hours. He has had this previously. This was of the pacemakers apparently. The patient noted mild diaphoresis, but he said his sugar was also only 66, so that may have been precipitated. In any case, by the time the patient came to the Emergency Room within 3 hours from the onset till when he got into the Emergency Room and was admitted for rule out PA protocol as well as further evaluation of this chest discomfort. PAST MEDICAL HISTORY: Includes thyroid disease, neurological symptoms of facial droop, peripheral neuropathy, numbness. He has had previous PA, cardiac surgery, cardiac catheterization with stent placement, pacemaker placement x 2, respiratory symptoms, obesity, type 2 diabetes. He has had C6 and C7 spinal surgery, cervical fusion, prosthesis of the right leg, endocrine disorders, thyroidectomy, renal disease, GERD. Influenza and pneumococcal vaccinations are up-to-date. SURGERIES: Bilateral optic lens implants, skin graft, right lower extremity existing wound FAMILY HISTORY: Father apparently passed with asthma. ALLERGIES: OXAPROZIN. MEDICATIONS: Lipitor 40, omega 3, carvedilol 25 b.i.d., lisinopril 20, aspirin, gabapentin, furosemide 40, Zantac 300 b.i.d., NovoLog insulin sliding scale, [place] Thyroid 15 mg daily, cinnamon bark. SOCIAL HISTORY: No recorded history of smoking or drinking presently. REVIEW OF SYSTEMS: Positive for diabetic peripheral neuropathy, trigeminal neuralgia left side of the face, weakness and pain on the left side of the face. Otherwise, denies any headaches, visual changes, blurred vision, double vision. Denies any shortness of breath, but does have chest discomfort, brought underneath the pacemaker in the left upper lobe of the chest wall. No clubbing, cyanosis, nor edema. No problems with urination. No bowel problems. Chronic problems with his leg as indicated. PHYSICAL EXAMINATION: GENERAL: White male. VITAL SIGNS: Blood pressure 156/82, respiratory rate 25, pulse 70, afebrile, 98% oxygen saturation. HEENT: Head is atraumatic, normocephalic. Eyes: PERRLA without jaundice. LUNGS: Diminished, but clear. CARDIOVASCULAR: Regular sinus rhythm. The area over the pacemaker showed some tenderness. ABDOMEN: Protuberant, soft, nontender, no rebound or guarding. Positive bowel sounds, no hepatosplenomegaly was noted. The patient has a right BKA. Left leg appropriate. NEUROLOGIC: Alert and oriented x 3. Speech fluent, but is appropriate. Cranial nerves 2-12 grossly intact. The patient otherwise affect normal, judgment normal. SKIN: Warm and dry. IMPRESSION AND PLAN: Chest pain, chest discomfort, type 2 diabetes, peripheral neuropathy with BKA, history of trigeminal neuralgia left side of the face, facial paresis, paresthesia that is facial paresthesia, history of coronary artery disease, history of GERD, history of hypothyroidism, history of type 2 diabetes as I mentioned. The patient continued to be monitored cardiac enzymes with Dr. Rodas and branch credit counselor to review. He normally sees doctor and make further evaluation on him as indicated. RISHABH ALMEIDA MD DR: HERBIE/regine JOB#: [id number] / [id number]
[2018-12-28 14:32] VITALS: BP 116/69
--- NOTE | 2018-12-28 14:54 | RAD ---
CT HEAD WO CONTRAST Clinical indications: left arm numbness, no hx of strokes COMPARISON: May 20, 2017. Technique: Noncontrast axial cross sectional scanning of the head was performed. PQRS compliance Statement One or more of the following individualized dose reduction techniques were utilized for this study: 1. Automated exposure control 2. Adjustment of the mA and/or kV according to patient size 3. Use of iterative reconstruction technique Findings: No acute intracranial hemorrhage or midline shift or mass-effect or hydrocephalus or extra-axial fluid collection is seen. No focal hypodense area or sulci effacement is seen to indicate an acute infarct or edema radiographically. No skull fracture or pneumocephalus is seen. No opacification of the mastoid sinuses or the paranasal sinuses is seen. The maxillary sinuses are not completely seen in this study. Impression: No acute intracranial abnormality is seen. Electronically signed by: Balbir Taveras MD (12/28/2018 2:50 PM) [facility]
[2018-12-28] MEDS ORDERED: ATORVASTATIN CALCIUM 20 MG TABLET PO SCH (21:00)
[2018-12-28] MEDS ORDERED: OMEGA-3 FATTY ACIDS/FISH OIL 1,000 MG CAPSULE. PO SCH (21:00)
[2018-12-28] MEDS ORDERED: NON FORMULARY ITEM (Ranitidine Hcl 300 MG) PO SCH (21:00)
[2018-12-29] MEDS ORDERED: ASPIRIN 81 MG TAB.CHEW PO SCH (08:00)
[2018-12-29] MEDS ORDERED: NON FORMULARY ITEM (Cinnamon Bark (Cinnamon) 1,000 MG) PO SCH (09:00)
--- NOTE | 2018-12-29 10:43 | CONS ---
DATE OF CONSULTATION: 12/28/2018 REFERRING PHYSICIAN: Mitesh Severino MD REASON FOR CONSULTATION: Rule out TIA versus stroke. HISTORY OF PRESENT ILLNESS: This is a 73-year-old right-handed male, who was admitted through Emergency Room yesterday after he presented with chief complaint of left-sided chest pain radiating into the left upper extremity and associated with diaphoresis. The patient described his chest pain at the beginning as intermittent, sharp pain lasted few seconds. He continued to have intermittent chest pain for several hours. Today, the patient stated his pain has somewhat improved, but did not respond to nitroglycerin. On arrival to Emergency Room, his blood sugar was 66, which is low for him. The patient did have a pacemaker placement, which was centigrade and revealed no abnormalities. Currently; the patient denies headaches, visual disturbances, nausea, vomiting, dysarthria, or dysphagia. He also complains of intermittent numbness and paresthesia of the left upper extremity, but these symptoms has been ongoing and intermittently for the last 2 weeks. Initial EKG revealed normal sinus rhythm without acute changes. Chemistry revealed normal troponin level. The patient was not given any aspirin because he has been scheduled for an eye surgery this week. PAST MEDICAL HISTORY: Significant for coronary artery disease, peripheral neuropathy in the lower extremities, history of myocardial infarction, status post cardiac surgeries and catheterization required placement x 2, diabetes mellitus type 2, C6-C7 spinal fusion, status post right below knee amputation required prosthesis, hypothyroidism, renal insufficiency, GERD, influenza, hyperlipidemia, and hypertension. PAST SURGICAL HISTORY: As mentioned above are consistent with cardiac surgery and cervical spine fusion. FAMILY HISTORY: Father , had asthma. CURRENT MEDICATIONS: Lisinopril 20 mg daily, gabapentin, furosemide 40 mg daily, Zantac 300 mg t.i.d., carvedilol 25 mg b.i.d., Lipitor 40 mg, fish oil, [place] Thyroid 15 mg daily. REVIEW OF SYSTEMS: A 10-point review of system was performed as mentioned above in history of present illness consistent with left-sided chest pain radiating to the shoulder plate and left upper extremity and associated with mild diaphoresis. Intermittent numbness and paresthesia of the left upper extremity, otherwise unremarkable. PHYSICAL EXAMINATION: GENERAL: Well-developed, well-nourished male, not in acute distress. He weighs 230 pounds. VITAL SIGNS: Blood pressure 116/69, respiratory rate 20, pulse is 70, temperature 98.1, oxygen saturation 98% on room air. HEENT: Normocephalic, atraumatic, otherwise unremarkable. NECK: Supple. Negative for carotid bruit, lymphadenopathy or thyromegaly. LUNGS: Clear to A and P. CARDIOVASCULAR: Regular rate and rhythm, normal S1, S2. There is no S3, S4 or murmur. ABDOMEN: Soft. Bowel sounds positive. EXTREMITIES: Status post right below-knee amputation and negative for pitting edema or cyanosis, NEUROLOGIC: Mental Status: The patient is alert and oriented x 3. The speech is fluent. There is no language dysfunction. Memory, judgment, and abstracting thinking are normal. The patient denies hallucination or delusion. CRANIAL NERVES: Visual walker are full. The pupils are reactive to light and accommodation. The extraocular movements are intact. There is no nystagmus. There is no facial motor or sensory deficit. Hearing is intact bilaterally. The palate is elevated symmetrically. Sternocleidomastoid muscles are powerful bilaterally. The patient shrugs his shoulder and protrudes his tongue symmetrically and protrudes his tongue without fasciculation or atrophy. MOTOR: No focal muscle bulk was seen. The tone is normal. The strength is 4/5 throughout. Sensory examination revealed normal pinprick, light touch, vibratory and position senses. Deep tendon reflexes were symmetric and hypoactive with absent Achilles responses. Gait not tested. DIAGNOSTIC: Initial nonenhanced CT scan revealed no evidence of acute intracranial process. Chest x-ray revealed cardiopulmonary process and pulmonary pressure and V/Q revealed negative for pulmonary embolism. LABORATORY DATA: CBC revealed white blood cells of 7000, hemoglobin 13.9, hematocrit 42.4, platelet count 174,000. Chemistry revealed sodium of 140, potassium 4, chloride 103, CO2 of 27, BUN 41, creatinine 1.7, glucose 66. Hemoglobin A1c is 6, lactic acid is 1.4. Calcium 9, magnesium 2.3. Iron 447. Troponin level is 0.018. IMPRESSION: 1. Intermittent numbness and paresthesia of the left upper extremity, rule out neuropathy. 2. Intermittent chest pain, probably noncardiac. 3. History of myocardial infarction, coronary artery disease, status post stent placement x 2 and cardiac surgery. 4. Multiple medical problems include hypertension, hyperlipidemia, diabetes mellitus type 2, GERD. RECOMMENDATIONS: 1. Continue with current management initiated by Dr. Severino. 2. The patient has a followup with us on 01/08/2019. 3. The patient is neurologically stable. M Al SHEETS MD DR: MARCUS/regine JOB#: [id number] / [id number]
== END 2018-12-28 16:38 | disposition home or self-care (01) ==
LOC: ER 16:14 → 1 SOUTH 19:08
PROVIDERS: ADMIT Family Medicine; ATTEND Family Medicine
DX: R07.89 Other chest pain (principal); I25.10 Atherosclerotic heart disease of native coronary artery without angina pectoris; K21.9 Gastro-esophageal reflux disease without esophagitis; E11.42 Type 2 diabetes mellitus with diabetic polyneuropathy; E89.0 Postprocedural hypothyroidism; E78.5 Hyperlipidemia, unspecified; I10 Essential (primary) hypertension; I25.2 Old myocardial infarction; Z88.8 Allergy status to other drugs, medicaments and biological substances; Z79.899 Other long term (current) drug therapy; Z82.5 Family history of asthma and other chronic lower respiratory diseases; Z95.0 Presence of cardiac pacemaker; Z95.5 Presence of coronary angioplasty implant and graft; Z96.1 Presence of intraocular lens; Z97.13 Presence of artificial right leg (complete) (partial)
CPT/HCPCS: 36415; 70450; 71045; 71250; 78582; 80053; 82947; 84484; 85025; 85379; 93005; 99284; A9540; A9558; G0378; 96374; G0379

== ENCOUNTER → 2019-01-07 | Outpatient (CLI) | payer MEDICARE, BC ==
[2018-12-28 14:32] VITALS: BP 116/69
[~2019-01-07] MED LIST changes: -AMLO10TA6 PO; +AMLO10TA8 PO; +CARV25TA2 PO; +FURO-68 PO; +GABA600T7 PO; -HYDR1TAB12 PO; +HYDR1TAB13 PO; +LISI-334 PO; +THYR15TA PO
--- NOTE | 2019-01-07 14:42 | RAD ---
Examination: Ultrasound thyroid HISTORY: History of thyroid nodules COMPARISON: 01/21/2018 FINDINGS: The right lobe of the thyroid gland measures 6.3 x 2.7 x 3.3 cm. The isthmus measures 2.4 mm in AP dimension. The left lower thyroid gland could not be identified. There are multiple small nodules identified in the right lobe of the thyroid gland with the largest measuring 2.1 cm in the inferior right lobe of the thyroid gland similar to prior exam. There are small hypoechogenic nodules identified in the right lobe of thyroid gland. There is a small cyst identified in the right lobe of the thyroid gland measuring 1.3 cm. IMPRESSION: Multiple nodules right lobe of the thyroid gland with the largest measuring 2.1 cm similar to prior exam. Electronically signed by: Kana Obrien MD (01/07/2019 2:37 PM) [facility]
== END | disposition home or self-care (01) ==
LOC: US 12:42
PROVIDERS: ATTEND Family Medicine
DX: E04.2 Nontoxic multinodular goiter (principal)
CPT/HCPCS: 76536

== ENCOUNTER 2019-03-06 19:37 | Inpatient (IN) | payer MEDICARE, BC ==
[~2019-03-06] VITALS: Ht 182.9 cm; Wt 104.9 kg
[2019-03-06] MEDS ORDERED: IV NORMAL SALINE 1,000ML 1,000 ML IV SCH (19:48)
--- NOTE | 2019-03-06 19:48 | ED.ADGEN ---
Past History Past Medical History: Arthritis, CAD, Diabetes, GERD, Heart Disease, Hypertension, IA, Renal Disease, Other Past Surgical History: Pacemaker, Other Past Surgical History cardiac stents x 2 Smoking: Non-smoker Alcohol Use: None Drug Use: None Adult General Chief Complaint Chief Complaint ".. I got a couple episodes of chest pain today..." HPI HPI Patient is a 73 year old male who presents with know CADz and complaints of central chest pain. No specific radiation. Patient does have a history coronary artery disease with pacer and fibular placement as well as stents 2. Patient's invasive cardiac evaluation to have been done at . Patient does have a history of diabetes, elevated cholesterol, hyper tension. Chronic renal insufficiency, arthritis, and IA. Patient has followed with Dr. Jean-Baptiste, and at . Patient's interrogation of his monitor defibrillator was reportedly normal from the past year. Review of Systems Review of Systems Constitutional: Denies fever or chills [] Eyes: Denies change in visual acuity, redness, or eye pain [] HENT: Denies nasal congestion or sore throat [] Respiratory: Denies cough or shortness of breath [] Cardiovascular: No additional information not addressed in HPI [] GI: Denies abdominal pain, nausea, vomiting, bloody stools or diarrhea [] : Denies dysuria or hematuria [] Musculoskeletal: Denies back pain or joint pain [] Integument: Denies rash or skin lesions [] Neurologic: Denies headache, focal weakness or sensory changes [] Endocrine: Denies polyuria or polydipsia [] All other systems were reviewed and found to be within normal limits, except as documented in this note. Family History Family History Noncontributory Current Medications Current Medications Current Medications Medications (Trade) Dose Ordered Sig/Rain Start Time Stop Time Status Last Admin Dose Admin Enoxaparin Sodium (Lovenox 100mg Syringe) 100 mg 1X ONCE 03/06/19 20:15 03/06/19 20:16 DC 03/06/19 20:15 100 MG Nitroglycerin (Nitro-Bid Oint) 1 inch 1X ONCE 03/06/19 20:00 03/06/19 20:01 DC Sodium Chloride 1,000 ml @ 100 mls/hr Q10H 03/06/19 19:48 03/07/19 05:47 03/06/19 20:48 100 MLS/HR Allergies Allergies Allergies Coded Allergies Type Severity Reaction Last Updated Verified oxaprozin Adverse Reaction Intermediate 11/20/15 Yes Physical Exam Physical Exam Constitutional: , no acute distress, non-toxic appearance. [] HENT: Normocephalic, atraumatic, bilateral external ears normal, oropharynx moist, no oral exudates, nose normal. [] Eyes: PERRLA, EOMI, conjunctiva normal, no discharge. [] Glasses Neck: Normal range of motion, no tenderness, supple, no stridor. [] Cardiovascular:Heart rate regular rhythm, no murmur [], PMI to the left Lungs & Thorax: Bilateral breath sounds equal at apex on auscultation []pacer scar left Abdomen: Bowel sounds normal, soft, no tenderness, no masses, no pulsatile masses. [] Obese Skin: Warm, dry, no erythema, no rash. [] Back: No tenderness, no CVA tenderness. [] Extremities: No tenderness, no cyanosis, no clubbing, ROM intact, no edema. [] No cording noted Neurologic: Alert and oriented X 3, normal motor function, normal sensory function, no focal deficits noted. [] Psychologic: Affect anxious, judgement normal, mood normal. [] Current Patient Data Vital Signs Vital Signs Date Time Temp Pulse Resp B/P (MAP) Pulse Ox O2 Delivery O2 Flow Rate FiO2 03/06/19 20:40 71 18 121/59 (79) 95 Room Air 03/06/19 19:41 97.7 Lab Results Laboratory Tests Test 03/06/19 19:53 03/06/19 20:25 White Blood Count 5.4 x10^3/uL (4.0-11.0) Red Blood Count 4.20 x10^6/uL (4.30-5.70) L Hemoglobin 12.9 g/dL (13.0-17.5) L Hematocrit 38.0 % (39.0-53.0) L Mean Corpuscular Volume 91 fL (79-100) Mean Corpuscular Hemoglobin 31 pg (25-35) Mean Corpuscular Hemoglobin Concent 34 g/dL (31-37) Red Cell Distribution Width 14.4 % (11.5-14.5) Platelet Count 167 x10^3/uL (140-400) Neutrophils (%) (Auto) 54 % (31-73) Lymphocytes (%) (Auto) 30 % (24-48) Monocytes (%) (Auto) 10 % (0-9) H Eosinophils (%) (Auto) 5 % (0-3) H Basophils (%) (Auto) 1 % (0-3) Neutrophils # (Auto) 3.0 x10^3uL (1.8-7.7) Lymphocytes # (Auto) 1.6 x10^3/uL (1.0-4.8) Monocytes # (Auto) 0.6 x10^3/uL (0.0-1.1) Eosinophils # (Auto) 0.3 x10^3/uL (0.0-0.7) Basophils # (Auto) 0.0 x10^3/uL (0.0-0.2) Prothrombin Time 10.4 SEC (9.4-11.4) Prothrombin Time INR 1.0 (0.9-1.1) PTT 24 SEC (23-33) D-Dimer ([place]) 1.95 mg/L (0.00-0.50) H Sodium Level 141 mmol/L (136-145) Potassium Level 4.1 mmol/L (3.5-5.1) Chloride Level 105 mmol/L (98-107) Carbon Dioxide Level 26 mmol/L (21-32) Anion Gap 10 (6-14) Blood Urea Nitrogen 53 mg/dL (8-26) H Creatinine 1.9 mg/dL (0.7-1.3) H Estimated GFR (Cockcroft-Gault) 34.7 Glucose Level 121 mg/dL (70-99) H Calcium Level 9.0 mg/dL (8.5-10.1) Magnesium Level 2.0 mg/dL (1.8-2.4) Total Bilirubin 0.3 mg/dL (0.2-1.0) Direct Bilirubin 0.1 mg/dL (0.0-0.2) Aspartate Amino Transferase (AST) 24 U/L (15-37) Alanine Aminotransferase (ALT) 23 U/L (16-63) Alkaline Phosphatase 85 U/L (46-116) Creatine Kinase 166 U/L (39-308) Troponin I Quantitative < 0.017 ng/mL (0-0.055) VM-Wam-M-Type Natriuretic Peptide 464 pg/mL (0-449) H Total Protein 7.1 g/dL (6.4-8.2) Albumin 3.6 g/dL (3.4-5.0) Lipase 225 U/L (73-393) Urine Collection Type Unknown Urine Color Yellow Urine Clarity Clear Urine pH 6.0 Urine Specific [place] 1.010 Urine Protein Neg (NEG-TRACE) Urine Glucose (UA) Neg mg/dL (NEG) Urine Ketones (Stick) Neg mg/dL (NEG) Urine Blood Neg (NEG) Urine Nitrite Neg (NEG) Urine Bilirubin Neg (NEG) Urine Urobilinogen Dipstick 0.2 mg/dL (0.2 mg/dL) Urine Leukocyte Esterase Neg (NEG) Urine RBC 0 /HPF (0-2) Urine WBC Occ /HPF (0-4) Urine Squamous Epithelial Cells Occ /LPF Urine Bacteria 0 /HPF (0-FEW) Urine Opiates Screen Neg (NEG) Urine Methadone Screen Neg (NEG) Urine Barbiturates Neg (NEG) Urine Phencyclidine Screen Neg (NEG) Urine Amphetamine/Methamphetamine Neg (NEG) Urine Benzodiazepines Screen Neg (NEG) Urine Cocaine Screen Neg (NEG) Urine Cannabinoids Screen Neg (NEG) Urine Ethyl Alcohol Neg (NEG) EKG EKG My interpretation EKG shows a paced rhythm at 72 bpm. Does have patient spikes. No findings acute STEMI with contralateral changes[] Radiology/Procedures Radiology/Procedures I interpretation chest x-ray shows no acute cardiopulmonary findings. Does have pacer. Borderline cardiomegaly.[] Course & Med Decision Making Course & Med Decision Making Pertinent Labs and Imaging studies reviewed. (See chart for details). Heart Score 4-5 Patient to be admitted to Dr. Vee- for further eval. and tx. Cardiology consult and interrogation of pacer/defib. [] Final Impression Final Impression 1. Chest Pain 2. HTN 3. DM 121 4. Elevated Cholesterol 5. Hx. CADz, Pacer -Dif. and Stents x 2, - approximately 1 yr ago[] 6. History chronic renal disease Creat 1.9 7. Elev. D-dimer 1.95 Dragon Disclaimer Dragon Disclaimer This electronic medical record was generated, in whole or in part, using a voice recognition dictation system. Discharge Summary Visit Information Final Diagnosis Problems Medical Problems: (1) Chest pain Status: Acute Brief Hospital Course Allergies Allergies Coded Allergies Type Severity Reaction Last Updated Verified oxaprozin Adverse Reaction Intermediate 11/20/15 Yes Vital Signs Vital Signs Date Time Temp Pulse Resp B/P (MAP) Pulse Ox O2 Delivery O2 Flow Rate FiO2 03/06/19 20:40 71 18 121/59 (79) 95 Room Air 03/06/19 19:41 97.7 Lab Results Laboratory Tests Test 03/06/19 19:53 03/06/19 20:25 White Blood Count 5.4 x10^3/uL (4.0-11.0) Red Blood Count 4.20 x10^6/uL (4.30-5.70) Hemoglobin 12.9 g/dL (13.0-17.5) Hematocrit 38.0 % (39.0-53.0) Mean Corpuscular Volume 91 fL (79-100) Mean Corpuscular Hemoglobin 31 pg (25-35) Mean Corpuscular Hemoglobin Concent 34 g/dL (31-37) Red Cell Distribution Width 14.4 % (11.5-14.5) Platelet Count 167 x10^3/uL (140-400) Neutrophils (%) (Auto) 54 % (31-73) Lymphocytes (%) (Auto) 30 % (24-48) Monocytes (%) (Auto) 10 % (0-9) Eosinophils (%) (Auto) 5 % (0-3) Basophils (%) (Auto) 1 % (0-3) Neutrophils # (Auto) 3.0 x10^3uL (1.8-7.7) Lymphocytes # (Auto) 1.6 x10^3/uL (1.0-4.8) Monocytes # (Auto) 0.6 x10^3/uL (0.0-1.1) Eosinophils # (Auto) 0.3 x10^3/uL (0.0-0.7) Basophils # (Auto) 0.0 x10^3/uL (0.0-0.2) Prothrombin Time 10.4 SEC (9.4-11.4) Prothromb Time International Ratio 1.0 (0.9-1.1) Activated Partial Thromboplast Time 24 SEC (23-33) D-Dimer ([place]) 1.95 mg/L (0.00-0.50) Sodium Level 141 mmol/L (136-145) Potassium Level 4.1 mmol/L (3.5-5.1) Chloride Level 105 mmol/L (98-107) Carbon Dioxide Level 26 mmol/L (21-32) Anion Gap 10 (6-14) Blood Urea Nitrogen 53 mg/dL (8-26) Creatinine 1.9 mg/dL (0.7-1.3) Estimated GFR (Cockcroft-Gault) 34.7 Glucose Level 121 mg/dL (70-99) Calcium Level 9.0 mg/dL (8.5-10.1) Magnesium Level 2.0 mg/dL (1.8-2.4) Total Bilirubin 0.3 mg/dL (0.2-1.0) Direct Bilirubin 0.1 mg/dL (0.0-0.2) Aspartate Amino Transf (AST/SGOT) 24 U/L (15-37) Alanine Aminotransferase (ALT/SGPT) 23 U/L (16-63) Alkaline Phosphatase 85 U/L (46-116) Creatine Kinase 166 U/L (39-308) Troponin I Quantitative < 0.017 ng/mL (0-0.055) DD-Fwo-H-Type Natriuretic Peptide 464 pg/mL (0-449) Total Protein 7.1 g/dL (6.4-8.2) Albumin 3.6 g/dL (3.4-5.0) Lipase 225 U/L (73-393) Urine Collection Type Unknown Urine Color Yellow Urine Clarity Clear Urine pH 6.0 Urine Specific [place] 1.010 Urine Protein Neg (NEG-TRACE) Urine Glucose (UA) Neg mg/dL (NEG) Urine Ketones (Stick) Neg mg/dL (NEG) Urine Blood Neg (NEG) Urine Nitrite Neg (NEG) Urine Bilirubin Neg (NEG) Urine Urobilinogen Dipstick 0.2 mg/dL (0.2 mg/dL) Urine Leukocyte Esterase Neg (NEG) Urine RBC 0 /HPF (0-2) Urine WBC Occ /HPF (0-4) Urine Squamous Epithelial Cells Occ /LPF Urine Bacteria 0 /HPF (0-FEW) Urine Opiates Screen Neg (NEG) Urine Methadone Screen Neg (NEG) Urine Barbiturates Neg (NEG) Urine Phencyclidine Screen Neg (NEG) Urine Amphetamine/Methamphetamine Neg (NEG) Urine Benzodiazepines Screen Neg (NEG) Urine Cocaine Screen Neg (NEG) Urine Cannabinoids Screen Neg (NEG) Urine Ethyl Alcohol Neg (NEG) Brief Hospital Course Mr. Castro is a 73 old male who presented with CP. Admitted Dr. Mariusz roberson. tx. Discharge Information Condition at Discharge: Improved, Stable Dischare Medications Current Medications Sodium Chloride 1,000 ml @ 100 mls/hr Q10H IV Last administered on 03/06/19at 20 :48; Admin Dose 100 MLS/HR; Start 03/06/19 at 19:48; Stop 03/07/19 at 05:47 Nitroglycerin (Nitro-Bid Oint) 1 inch 1X ONCE TP ; Start 03/06/19 at 20:00; Stop 03/06/19 at 20:01; Status DC Enoxaparin Sodium (Lovenox 100mg Syringe) 100 mg 1X ONCE SQ Last administered on 03/06/19at 20:15; Admin Dose 100 MG; Start 03/06/19 at 20:15; Stop 03/06/19 at 20 :16; Status DC Active Scripts Active Reported Lasix (Furosemide) 40 Mg Tablet 1 Tab PO DAILY [place] Thyroid (Thyroid,Pork) 15 Mg Tablet 15 Mg PO DAILY07 Carvedilol 25 Mg Tablet 25 Mg PO BIDWMEALS Gabapentin 600 Mg Tablet 600 Mg PO TID Lisinopril 20 Mg Tablet 1 Tab PO DAILY Aspirin 81 Mg Tab.chew 81 Mg PO DAILY [place] 3 1,000 Mg Softgel ([place]-3 Fatty Acids/Fish Oil) 1 Each Capsule 1,000 Mg PO BID LAST DOSE GIVEN: DATE: TIME: NEXT DOSE DUE: DATE: TIME: Ranitidine Hcl 300 Mg Capsule 300 Mg PO BID LAST DOSE GIVEN: DATE: TIME: NEXT DOSE DUE: DATE: TIME: Cinnamon (Cinnamon Bark) 500 Mg Capsule 1,000 Mg PO DAILY LAST DOSE GIVEN: DATE: TIME: NEXT DOSE DUE: DATE: TIME: Multi-Day Vitamins (Multivitamin) 1 Each Tablet 1 Tab PO DAILY LAST DOSE GIVEN: DATE: TIME: NEXT DOSE DUE: DATE: TIME: Atorvastatin Calcium 40 Mg Tablet 40 Mg PO DAILY LAST DOSE GIVEN: DATE: TIME: NEXT DOSE DUE: DATE: TIME: Novolog (Insulin Aspart) 100 Unit/1 Ml Cartridge 1 Unit SQ LAST DOSE GIVEN: DATE: TIME: NEXT DOSE DUE: DATE: TIME: [place] Disclaimer This chart was dictated in whole or in part using Voice Recognition software in a busy, high-work load, and often noisy Emergency Department environment. It may contain unintended and wholly unrecognized errors or omissions. VASILIY GRAVES MD Mar 06, 2019 19:48
[2019-03-06] MEDS ORDERED: NITROGLYCERIN OINT 1 GM PACKET. TP ONE (20:00)
[2019-03-06 20:12] LABS: BASO % 1 % (0-3); EOS # 0.3 x10^3/uL (0.0-0.7); EOS % 5 % (0-3); HEMOGLOBIN 12.9 g/dL (13.0-17.5); LYMPH # 1.6 x10^3/uL (1.0-4.8); LYMPH % 30 % (24-48); MEAN CORPUSCULAR HEMOGLOBIN 31 pg (25-35); MEAN CORPUSCULAR HGB CONC 34 g/dL (31-37); MEAN CORPUSCULAR VOLUME 91 fL (79-100); MONO # 0.6 x10^3/uL (0.0-1.1); MONO % 10 % (0-9); NEUT % 54 % (31-73); PLATELET COUNT 167 x10^3/uL (140-400); RED CELL DISTRIBUTION WIDTH 14.4 % (11.5-14.5); WHITE BLOOD COUNT 5.4 x10^3/uL (4.0-11.0)
[2019-03-06] MEDS ORDERED: ENOXAPARIN ** NOTE DOSE ** SYRINGE SQ ONE (20:15)
[2019-03-06 20:35] LABS: ALBUMIN 3.6 g/dL (3.4-5.0); CREATININE 1.9 mg/dL (0.7-1.3); DIRECT BILIRUBIN 0.1 mg/dL (0.0-0.2); GFR 34.7; POTASSIUM 4.1 mmol/L (3.5-5.1); TOTAL BILIRUBIN 0.3 mg/dL (0.2-1.0); TOTAL PROTEIN 7.1 g/dL (6.4-8.2)
[2019-03-06 20:58] LABS: BARBITURATES NEG (NEG); BENZODIAZEPINES NEG (NEG); CANNABINOIDS NEG (NEG); COCAINE NEG (NEG); METHADONE NEG (NEG); OPIATES NEG (NEG); PHENCYCLIDINE NEG (NEG)
[2019-03-06 21:01] LABS: BILIRUBIN,URINE NEG (NEG); CLARITY,URINE CLEAR; COLOR,URINE YELLOW; GLUCOSE,URINE NEG (NEG)
[2019-03-06 21:02] LABS: BACTERIA,URINE 0 /HPF (0-FEW); NITRITE,URINE NEG (NEG); RBC,URINE 0 /HPF (0-2); SQUAMOUS EPITHELIAL CELL,UR OCC /LPF; UROBILINOGEN,URINE 0.2 mg/dL (0.2 mg/dL); WBC,URINE OCC /HPF (0-4)
--- NOTE | 2019-03-06 21:03 | RAD ---
PROCEDURE: PORTABLE CHEST 1V CLINICAL INDICATION: CHEST PAIN, PACEMAKER COMPARISON: None FINDINGS: Left chest wall cardiac pacer is seen with its leads projecting over the heart. No pneumothorax identified. Cardiac and mediastinal contours unremarkable. No pulmonary consolidation or acute airspace disease. No acute osseous abnormalities identified. IMPRESSION: No pulmonary consolidation or acute airspace disease. Electronically signed by: Abhi Bruno DO (03/06/2019 9:00 PM) [facility]
[2019-03-06 21:04] LABS: AMPHETAMINE/METHAMPHETAMINE NEG (NEG)
[2019-03-06] MEDS ORDERED: MORPHINE SULFATE 4 MG/ML DISP.SYRIN. IV PRN (21:45)
[2019-03-06] MEDS ORDERED: ONDANSETRON PF 4 MG/2 ML VIAL. IV PRN (21:45)
[2019-03-06 23:15] VITALS: BP 113/62
[2019-03-07 05:36] VITALS: BP 147/80
[2019-03-07 06:51] LABS: BASO # 0.1 x10^3/uL (0.0-0.2); BASO % 2 % (0-3); EOS # 0.3 x10^3/uL (0.0-0.7); EOS % 6 % (0-3); HEMATOCRIT 38.8 % (39.0-53.0); HEMOGLOBIN 12.9 g/dL (13.0-17.5); LYMPH # 1.4 x10^3/uL (1.0-4.8); LYMPH % 27 % (24-48); MEAN CORPUSCULAR HEMOGLOBIN 31 pg (25-35); MEAN CORPUSCULAR HGB CONC 33 g/dL (31-37); MEAN CORPUSCULAR VOLUME 92 fL (79-100); MONO # 0.6 x10^3/uL (0.0-1.1); MONO % 12 % (0-9); NEUT # 2.8 x10^3uL (1.8-7.7); NEUT % 53 % (31-73); PLATELET COUNT 147 x10^3/uL (140-400); RED BLOOD COUNT 4.21 x10^6/uL (4.30-5.70); RED CELL DISTRIBUTION WIDTH 14.6 % (11.5-14.5); WHITE BLOOD COUNT 5.3 x10^3/uL (4.0-11.0)
[2019-03-07 07:04] LABS: CALCIUM 8.7 mg/dL (8.5-10.1); CREATININE 1.8 mg/dL (0.7-1.3); POTASSIUM 4.1 mmol/L (3.5-5.1)
[2019-03-07] MEDS ORDERED: IPRATRPIUM/ALBUTEROL 0.5/2.5MG 3 ML NEBU. NEB SCH (08:00)
[2019-03-07] MEDS ORDERED: ASPIRIN 81 MG TAB.CHEW PO SCH (09:00)
[2019-03-07] MEDS ORDERED: ENOXAPARIN ** NOTE DOSE ** SYRINGE SQ SCH (09:00)
--- NOTE | 2019-03-07 10:18 | RAD ---
Exam: VENOUS LOWER EXT BILATERAL Indication: Elevated d-dimer Technique: Color-flow and pulsed wave duplex ultrasound with compression of venous structures of the bilateral lower extremities. Comparison: None Available. Findings: Duplex ultrasound with compression of the deep venous structures of the bilateral lower extremities from the common femoral vein through the popliteal vein is negative for DVT. 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 The left posterior tibial vein is segmentally visualized and patent where seen. The left peroneal vein could not be clearly identified. Normal venous waveforms and augmentation are noted throughout the visualized venous structures. Impression: No evidence for DVT in the bilateral lower extremities. Of note, patient has a right below-knee amputation. Electronically signed by: Fer Ponce MD (03/07/2019 10:14 AM) [facility]
[2019-03-07 10:21] LABS: THYROID STIM HORMONE (TSH) 1.626 uIU/mL (0.358-3.740)
[2019-03-07 10:34] VITALS: BP 135/77
[2019-03-07] MEDS: NITROGLYCERIN OINT 1 GM PACKET. TP SCH ×2 (10:43→14:06)
--- NOTE | 2019-03-07 11:57 | RAD ---
NUCLEAR MEDICINE VENTILATION PERFUSION SCAN History: Shortness of air, chest pain Comparison: Chest radiograph dated 03/06/2019, VQ scan dated 12/27/2018 Technique: Ventilation portion performed after inhalation from a vial containing 12.8 mCi 133 xenon aerosol. Perfusion portion performed after intravenous administration of 5.5 mCi Technetium 99m MAA. Multiple projection planar images of the lungs were obtained. Findings: Ventilation images appear within normal limits. Perfusion images demonstrate no perfusion defects. IMPRESSION: No mismatched defect to indicate pulmonary embolism. Electronically signed by: Fer Ponce MD (03/07/2019 11:54 AM) [facility]
--- NOTE | 2019-03-07 14:24 | PDOC2 ---
CONSULT Date of Admission DATE: 03/07/19 TIME: 14:16 Reason for Consult: Chest pressure Referring Physician: Dr. Vee Chief Complaint Chest pressure Source: Chart review, Patient Problem List Problems Medical Problems: (1) Chest pain Status: Acute History of Present Illness The patient is a 73-year-old male with a history of a device as well as coronary artery disease with previous stent placement by report. He was admitted through the emergency room for episodes of discomfort in his chest. This discomfort is in the area of his device. It mildly increased with palpation. His EKG shows a paced rhythm. His cardiac enzymes were normal. The patient reports his discomfort has improved. He also reports a similar episode of discomfort approximately 3 months ago. He was then followed up by his primary wood sash and frame carpenter at and had reportedly normal stress test. The pain as outlined above is in the area of the device. It is not generalized. It is not increased with exertion. Cardiovascular: CAD, HTN, hyperipidemia, Other (pacemaker or ICD.) Musculoskeletal: Osteoarthritis Endocrine: Diabetes Past Surgical History: Other (coronary stent, implantable device, right BKA) Family History: Hypertension Smoke: No ALCOHOL: none Current Medications Current Medications Sodium Chloride 1,000 ml @ 100 mls/hr Q10H IV Last administered on 03/06/19at 20 :48; Start 03/06/19 at 19:48; Stop 03/07/19 at 05:48; Status DC Nitroglycerin (Nitro-Bid Oint) 1 inch 1X ONCE TP ; Start 03/06/19 at 20:00; Stop 03/06/19 at 20:01; Status DC Enoxaparin Sodium (Lovenox 100mg Syringe) 100 mg 1X ONCE SQ Last administered on 03/06/19at 20:15; Start 03/06/19 at 20:15; Stop 03/06/19 at 20:16; Status DC Ondansetron HCl (Zofran) 4 mg PRN Q4HRS PRN IV NAUSEA/VOMITING; Start 03/06/19 at 21:45; Stop 03/07/19 at 21:44 Morphine Sulfate (Morphine 4mg Syringe) 2 mg PRN Q2HR PRN IV PAIN; Start at 21:45; Stop 03/07/19 at 21:44 Albuterol/ Ipratropium (Duoneb) 3 ml RTQID NEB ; Start 03/07/19 at 08:00; Stop at 13:30; Status DC Enoxaparin Sodium (Lovenox 100mg Syringe) 100 mg BID SQ Last administered on 03/07/19at 10:41; Start 03/07/19 at 09:00 Nitroglycerin (Nitro-Bid Oint) 0.5 inch TID TP Last administered on 03/07/19at 14 :06; Start 03/07/19 at 09:00 Aspirin (Children'S Aspirin) 81 mg DAILY PO Last administered on 03/07/19at 10:41 ; Start 03/07/19 at 09:00 Active Scripts Active Reported Lasix (Furosemide) 40 Mg Tablet 1 Tab PO DAILY [place] Thyroid (Thyroid,Pork) 15 Mg Tablet 15 Mg PO DAILY07 Carvedilol 25 Mg Tablet 25 Mg PO BIDWMEALS Gabapentin 600 Mg Tablet 600 Mg PO TID Lisinopril 20 Mg Tablet 1 Tab PO DAILY Aspirin 81 Mg Tab.chew 81 Mg PO DAILY [place] 3 1,000 Mg Softgel ([place]-3 Fatty Acids/Fish Oil) 1 Each Capsule 1,000 Mg PO BID LAST DOSE GIVEN: DATE: TIME: NEXT DOSE DUE: DATE: TIME: Ranitidine Hcl 300 Mg Capsule 300 Mg PO BID LAST DOSE GIVEN: DATE: TIME: NEXT DOSE DUE: DATE: TIME: Cinnamon (Cinnamon Bark) 500 Mg Capsule 1,000 Mg PO DAILY LAST DOSE GIVEN: DATE: TIME: NEXT DOSE DUE: DATE: TIME: Multi-Day Vitamins (Multivitamin) 1 Each Tablet 1 Tab PO DAILY LAST DOSE GIVEN: DATE: TIME: NEXT DOSE DUE: DATE: TIME: Atorvastatin Calcium 40 Mg Tablet 40 Mg PO DAILY LAST DOSE GIVEN: DATE: TIME: NEXT DOSE DUE: DATE: TIME: Novolog (Insulin Aspart) 100 Unit/1 Ml Cartridge 1 Unit SQ LAST DOSE GIVEN: DATE: TIME: NEXT DOSE DUE: DATE: TIME: Allergies: Coded Allergies: oxaprozin (Verified Adverse Reaction, Intermediate, 11/20/15) BLOOD IN URIN General: YES: Fatigue Cardiovascular: yes: Chest Pain General: No acute distress HEENT: Atraumatic Lungs: Clear to auscultation Heart: Other (regular rate and rhythm. Mildly tender in the area of his previously implanted device.) Abdomen: Normal bowel sounds VITALS Vital Signs Date Time Temp Pulse Resp B/P (MAP) Pulse Ox O2 Delivery O2 Flow Rate FiO2 03/07/19 14:06 72 135/77 03/07/19 10:34 97.7 20 97 Room Air Labs Laboratory Tests Test 03/06/19 19:53 03/06/19 20:25 03/07/19 06:03 03/07/19 06:35 White Blood Count 5.4 x10^3/uL (4.0-11.0) 5.3 x10^3/uL (4.0-11.0) Red Blood Count 4.20 x10^6/uL (4.30-5.70) 4.21 x10^6/uL (4.30-5.70) Hemoglobin 12.9 g/dL (13.0-17.5) 12.9 g/dL (13.0-17.5) Hematocrit 38.0 % (39.0-53.0) 38.8 % (39.0-53.0) Mean Corpuscular Volume 91 fL (79-100) 92 fL (79-100) Mean Corpuscular Hemoglobin 31 pg (25-35) 31 pg (25-35) Mean Corpuscular Hemoglobin Concent 34 g/dL (31-37) 33 g/dL (31-37) Red Cell Distribution Width 14.4 % (11.5-14.5) 14.6 % (11.5-14.5) Platelet Count 167 x10^3/uL (140-400) 147 x10^3/uL (140-400) Neutrophils (%) (Auto) 54 % (31-73) 53 % (31-73) Lymphocytes (%) (Auto) 30 % (24-48) 27 % (24-48) Monocytes (%) (Auto) 10 % (0-9) 12 % (0-9) Eosinophils (%) (Auto) 5 % (0-3) 6 % (0-3) Basophils (%) (Auto) 1 % (0-3) 2 % (0-3) Neutrophils # (Auto) 3.0 x10^3uL (1.8-7.7) 2.8 x10^3uL (1.8-7.7) Lymphocytes # (Auto) 1.6 x10^3/uL (1.0-4.8) 1.4 x10^3/uL (1.0-4.8) Monocytes # (Auto) 0.6 x10^3/uL (0.0-1.1) 0.6 x10^3/uL (0.0-1.1) Eosinophils # (Auto) 0.3 x10^3/uL (0.0-0.7) 0.3 x10^3/uL (0.0-0.7) Basophils # (Auto) 0.0 x10^3/uL (0.0-0.2) 0.1 x10^3/uL (0.0-0.2) Prothrombin Time 10.4 SEC (9.4-11.4) Prothromb Time International Ratio 1.0 (0.9-1.1) Activated Partial Thromboplast Time 24 SEC (23-33) D-Dimer ([place]) 1.95 mg/L (0.00-0.50) Sodium Level 141 mmol/L (136-145) 143 mmol/L (136-145) Potassium Level 4.1 mmol/L (3.5-5.1) 4.1 mmol/L (3.5-5.1) Chloride Level 105 mmol/L (98-107) 110 mmol/L (98-107) Carbon Dioxide Level 26 mmol/L (21-32) 25 mmol/L (21-32) Anion Gap 10 (6-14) 8 (6-14) Blood Urea Nitrogen 53 mg/dL (8-26) 50 mg/dL (8-26) Creatinine 1.9 mg/dL (0.7-1.3) 1.8 mg/dL (0.7-1.3) Estimated GFR (Cockcroft-Gault) 34.7 37.0 Glucose Level 121 mg/dL (70-99) 90 mg/dL (70-99) Calcium Level 9.0 mg/dL (8.5-10.1) 8.7 mg/dL (8.5-10.1) Magnesium Level 2.0 mg/dL (1.8-2.4) Total Bilirubin 0.3 mg/dL (0.2-1.0) Direct Bilirubin 0.1 mg/dL (0.0-0.2) Aspartate Amino Transf (AST/SGOT) 24 U/L (15-37) Alanine Aminotransferase (ALT/SGPT) 23 U/L (16-63) Alkaline Phosphatase 85 U/L (46-116) Creatine Kinase 166 U/L (39-308) Troponin I Quantitative < 0.017 ng/mL (0-0.055) TV-Fzp-I-Type Natriuretic Peptide 464 pg/mL (0-449) Total Protein 7.1 g/dL (6.4-8.2) Albumin 3.6 g/dL (3.4-5.0) Triglycerides Level 141 mg/dL (0-150) Cholesterol Level 107 mg/dL (0-200) LDL Cholesterol, Calculated 45 mg/dL (0-100) VLDL Cholesterol, Calculated 28 mg/dL (0-40) Non-HDL Cholesterol Calculated 73 mg/dL (0-129) HDL Cholesterol 34 mg/dL (40-60) Cholesterol/HDL Ratio 3.0 Lipase 225 U/L (73-393) Thyroid Stimulating Hormone (TSH) 1.626 uIU/mL (0.358-3.740) Urine Collection Type Unknown Urine Color Yellow Urine Clarity Clear Urine pH 6.0 Urine Specific [place] 1.010 Urine Protein Neg (NEG-TRACE) Urine Glucose (UA) Neg mg/dL (NEG) Urine Ketones (Stick) Neg mg/dL (NEG) Urine Blood Neg (NEG) Urine Nitrite Neg (NEG) Urine Bilirubin Neg (NEG) Urine Urobilinogen Dipstick 0.2 mg/dL (0.2 mg/dL) Urine Leukocyte Esterase Neg (NEG) Urine RBC 0 /HPF (0-2) Urine WBC Occ /HPF (0-4) Urine Squamous Epithelial Cells Occ /LPF Urine Bacteria 0 /HPF (0-FEW) Urine Opiates Screen Neg (NEG) Urine Methadone Screen Neg (NEG) Urine Barbiturates Neg (NEG) Urine Phencyclidine Screen Neg (NEG) Urine Amphetamine/Methamphetamine Neg (NEG) Urine Benzodiazepines Screen Neg (NEG) Urine Cocaine Screen Neg (NEG) Urine Cannabinoids Screen Neg (NEG) Urine Ethyl Alcohol Neg (NEG) Glucose (Fingerstick) 49 mg/dL (70-99) 85 mg/dL (70-99) Test 03/07/19 11:30 Glucose (Fingerstick) 118 mg/dL (70-99) Images Chest x-ray with no acute changes. V/Q scan which is low probability for pulmonary emboli. Lower extremity ultrasound with no evidence of DVTs. Assessment/Plan 1. Chest pressure. Patient is feeling better today. He has no elevation in troponin. His EKG shows a V paced rhythm. The episodes of discomfort are in the area of his previously implanted device. He reports a similar episode 3 months ago with a follow-up normal stress test through his wood sash and frame carpenter. VQ scan shows low probability for PE. At this time will continue present medications increase activity. Patient will be following up with his routine wood sash and frame carpenter at . 2. Shortness of breath. VQ scan shows low probability for PE and lower venous ultrasound study showed no DVT. 3. Hypertension. Under better control this morning. Continue present medications. 4. Device implant. Probable permanent pacemaker. Recently checked through his primary wood sash and frame carpenter office with reportedly normal function. No episodes of dizziness or lightheadedness. 5. Diabetes mellitus. Continuing present treatment. 6. Chronic kidney disease. Would continue present treatment. Thank you for allowing us to participate in the care of your patient. ZOILA GOVEA MD Mar 07, 2019 14:24
[2019-03-07 15:14] VITALS: BP 145/74
[2019-03-07] MEDS ORDERED: CARVEDILOL 12.5 MG TABLET PO SCH (17:00)
--- NOTE | 2019-03-07 18:17 | EKG ---
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
--- NOTE | 2019-03-07 18:58 | HP ---
ADMIT DATE: 03/06/2019 HISTORY OF PRESENT ILLNESS: The patient is a 73-year-old male who was brought to the Emergency Room complaining of chest pain that is described as stabbing, staying around the area of his pacemaker, which lasts only for few seconds. He has a continuous discomfort, it happened when they were seating, playing cards. He denied any nausea or vomiting. Denied any shortness of breath. Denied any diaphoresis. He did complain of some tingling and numbness on the right side of the face that he attributes to the fact that he has not taken his Neurontin. He was evaluated in the Emergency Room. His EKG showed paced rhythm at 72 beats per minute. There is no ST segment elevation myocardial infarction. Chest x-ray showed no acute cardiopulmonary findings. Does have a pacer, borderline cardiomegaly. He has had lab work that is mostly unremarkable except that he has hypoglycemia on arrival. His D-dimer was high at 1.95 mg/dL. His urinalysis is unremarkable. Tox screen was negative and the patient was admitted to do 2 more troponins. Consult the Cardiology team. Given the elevated D-dimer and abnormal kidney function, he also was admitted to arrange for him to have a pulmonary perfusion imaging and also bilateral lower extremity venous Doppler ultrasound. PAST MEDICAL HISTORY: Significant for hypertension, hyperlipidemia, hypothyroidism, peripheral neuropathy of both lower extremities, coronary artery disease, status post myocardial infarction, status post pacemaker placement and coronary stent deployment, gastroesophageal reflux disease, chronic renal disease, osteomyelitis of his right lower extremity requiring amputation. PAST SURGICAL HISTORY: Significant for C5-C7 spinal surgery, status post cervical spine fusion x 2, status post insulin pump placement, thyroidectomy and right below knee amputation. ALLERGIES: HE IS ALLERGIC TO CARBAMAZEPINE AND OXAPROZIN. MEDICATIONS: He is currently on following medications: He is on atorvastatin calcium 40 mg daily, omega 3 fatty acid 1000 mg twice a day, carvedilol 25 mg twice a day with meals, lisinopril 20 mg daily, aspirin 81 mg once a day, gabapentin 600 mg 3 times a day, furosemide 40 mg daily, ranitidine 300 mg twice a day, NovoLog insulin as insulin sliding scale before meals, [place] Thyroid 15 mg daily, multivitamin 1 tablet once a day, and cinnamon bark 1000 mg daily. FAMILY HISTORY: He is the only child. His father of committing suicide; however, he is known to have severe COPD and alcoholism. Mother at the age of 75 because of brain tumor. SOCIAL HISTORY: He is , has 1 daughter. He does not smoke, drink alcohol or use recreational drugs. REVIEW OF SYSTEMS: The patient denied any blurring of vision, cataract, glaucoma or macular degeneration. Denied any earache, tinnitus or sensorineural deafness. Denied any nosebleeds, stuffy nose or postnasal drip. Denied any sore throat, sore tongue, toothache, hoarseness of voice or difficulty swallowing. Denied any nausea, vomiting, diarrhea or constipation. Denied any hematemesis, melena or hematochezia. Denied any dysuria, frequency or hematuria. He did complain of left-sided chest discomfort and stabbing chest pain that lasts only few seconds. PHYSICAL EXAMINATION: GENERAL: On arrival to the Emergency Room, he looked well and was clearly in no apparent respiratory distress, pale, but no jaundice, cyanosis, or thyromegaly. No jugular venous distention. No limb edema. VITAL SIGNS: His heart rate was 71, blood pressure was 125/63, temperature was 98, respiratory rate was 16 and oxygen saturation was 96% on room air. HEAD, EYES, EARS, NOSE, AND THROAT: Showed normocephalic, atraumatic. NECK: Supple. HEART: Showed normal first and second heart sounds with no gallop, rub or murmur. CHEST: Clear to auscultation. No crepitation or rhonchi. ABDOMEN: Distended, soft, nontender. NEUROLOGIC: He is awake, alert, responding appropriately. All cranial nerves intact. EXTREMITIES: He moves extremities without difficulty, ambulates with a walker. LABORATORY DATA: On arrival to the Emergency Room showed a white cell count of 5400, hemoglobin 12.9, hematocrit 38, MCV 91, and platelet count of 167,000. His chemistry showed a serum sodium of 141, potassium 4.1, chloride 105, bicarbonate 26, anion gap of 10, BUN 53, creatinine was 1.9, estimated GFR was 54 mL per minute. His glucose 121, calcium was 9, magnesium was 2. Total bilirubin, AST, ALT, alkaline phosphatase were normal. CK was 166, troponin I was less than 0.017. Beta natriuretic peptide was 464. Total protein was 7.1, albumin was 3.6. Lipase was 225. His prothrombin time was 10.4, INR of 1, aPTT was 24 and D-dimer was 1.95. Urinalysis showed the urine was yellow, clear with a pH of 6, specific gravity of 1.010. The urine was negative for protein, glucose, ketones, blood, nitrite and leukocyte esterase. There are no rbc's, no wbc's, and no bacteria. His tox screen was negative. His chest x-ray showed that his left chest wall projecting over the heart. No pneumothorax identified. Cardiac and mediastinal contours unremarkable. No pulmonary consolidation or acute airspace disease, no acute osseous abnormalities identified. ASSESSMENT AND PLAN: The patient was admitted to consult the cardiology team and to arrange given his elevated D-dimer and abnormal kidney function. We will arrange for him to have pulmonary perfusion imaging and lower extremity ultrasound. MO VELASCO MD DR: JASEN/regine JOB#: [id number] / [id number]
[2019-03-07] MEDS ORDERED: FAMOTIDINE 20 MG TABLET PO SCH (21:00)
[2019-03-07] MEDS ORDERED: GABAPENTIN 300 MG CAPSULE. PO SCH (21:00)
[2019-03-07] MEDS ORDERED: OMEGA-3 FATTY ACIDS/FISH OIL 1,000 MG CAPSULE. PO SCH (21:00)
[2019-03-08] MEDS ORDERED: THYROID,PORK 60 MG TABLET PO SCH (07:00)
[2019-03-08] MEDS ORDERED: ASPIRIN 81 MG TAB.CHEW PO SCH (08:00)
[2019-03-08] MEDS ORDERED: ATORVASTATIN CALCIUM 20 MG TABLET PO SCH (09:00)
[2019-03-08] MEDS ORDERED: MULTIVITAMIN with MINERAL TABLET. PO SCH (09:00)
[2019-03-08] MEDS ORDERED: LISINOPRIL 20 MG TABLET PO SCH (09:00)
[2019-03-08] MEDS ORDERED: NON FORMULARY ITEM (Cinnamon Bark (Cinnamon) 1,000 MG) PO SCH (09:00)
[2019-03-08] MEDS ORDERED: FUROSEMIDE 40 MG TABLET PO SCH (09:00)
--- NOTE | 2019-03-08 09:07 | DS ---
DATE OF DISCHARGE: 03/07/2019 HOSPITAL COURSE: The patient was admitted with a sharp pain that lasts only seconds in the left side of his chest around his pacemaker, had about 3-4 episodes of that. He has also dull constant pain. He was extensively investigated. He came with chest pain that is sharp, started when they are sitting playing cards. The pain did not radiate and the pain is not associated with any exertion. Denied any shortness of breath, nausea, vomiting, diaphoresis or radiation. He was seen in the Emergency Room, his EKG showed a paced rhythm and cardiac enzyme was normal. He has elevated D-dimer and he has V/Q scan done, which showed no mismatch defect to indicate pulmonary embolism. He did have also bilateral lower extremity venous Doppler ultrasound, which showed no evidence of deep vein thrombosis in the bilateral lower extremities. He was seen in consultation by the cnc operator machinist and basically not recommend any further workup and that he should follow with his primary cnc operator machinist at [facility]. PHYSICAL EXAMINATION: GENERAL: When I examined him this afternoon, he looked well and was clearly in no apparent respiratory distress. No pallor, jaundice, cyanosis or thyromegaly. No jugular venous distention. No limb edema. VITAL SIGNS: His heart rate was 72, blood pressure was 128/69, temperature was 98, respiratory rate was 16, and oxygen saturation was 96% on room air. HEAD, EYES, EARS, NOSE AND THROAT: Showed normocephalic, atraumatic. NECK: Supple. HEART: Showed normal first and second sounds. No gallop, rub or murmur. CHEST: Clear to auscultation. No crepitation or rhonchi. ABDOMEN: Distended, soft, nontender. NEUROLOGIC: He was awake, alert, responding appropriately. All cranial nerves intact. EXTREMITIES: He moves extremities without difficulty. LABORATORY DATA: His lab work this morning showed a white cell count 5300, hemoglobin 13, hematocrit 39, MCV 92, and platelet count of 147,000. His chemistry showed a serum sodium 143, potassium 4.1, chloride 110, bicarbonate 25, anion gap of 8, BUN 50, creatinine 1.8, estimated GFR was 57 mL per minute. His glucose was 90, glucose was 118, calcium was 8.7. His serum triglycerides 141, total cholesterol 107, LDL cholesterol of 45, VLDL was 28, and HDL cholesterol was 54, the ratio was 3. TSH was normal at 1.66. DISCHARGE MEDICATIONS: He was discharged home to continue on his usual home medication including aspirin 81 mg once a day, atorvastatin calcium 40 mg daily, carvedilol 25 mg p.o. b.i.d. with meals, cinnamon bark 1000 mg daily, furosemide 40 mg once a day, gabapentin 600 mg two times a day, NovoLog insulin as insulin sliding scale, lisinopril 20 mg once a day, multivitamin 1 tablet once a day, omega-3 fatty acid 1000 mg twice a day, ranitidine 300 mg twice a day and [place] Thyroid 15 mg p.o. daily. FINAL DISCHARGE DIAGNOSES: 1. Atypical chest pain. 2. Hypertension. 3. Hyperlipidemia. 4. Chronic kidney disease. 5. Hypothyroidism. 6. Coronary artery disease status post myocardial infarction, status post PCI with stent deployment x 2. MO VELASCO MD DR: JASEN/regine JOB#: [id number] / [id number]
== END 2019-03-07 15:00 | disposition home or self-care (01) | DRG 313 ==
LOC: ER 19:37 → 1 SOUTH 21:00
PROVIDERS: ADMIT Internal Medicine; ATTEND Internal Medicine
DX: R07.89 Other chest pain (principal); I25.10 Atherosclerotic heart disease of native coronary artery without angina pectoris; K21.9 Gastro-esophageal reflux disease without esophagitis; M19.90 Unspecified osteoarthritis, unspecified site; I25.2 Old myocardial infarction; E78.00 Pure hypercholesterolemia, unspecified; N18.9 Chronic kidney disease, unspecified; E11.22 Type 2 diabetes mellitus with diabetic chronic kidney disease; I12.9 Hypertensive chronic kidney disease with stage 1 through stage 4 chronic kidney disease, or unspecified chronic kidney disease; E78.5 Hyperlipidemia, unspecified; E11.42 Type 2 diabetes mellitus with diabetic polyneuropathy; Z96.41 Presence of insulin pump (external) (internal); E89.0 Postprocedural hypothyroidism; Z95.5 Presence of coronary angioplasty implant and graft; Z88.8 Allergy status to other drugs, medicaments and biological substances; Z95.0 Presence of cardiac pacemaker; Z98.1 Arthrodesis status; Z89.511 Acquired absence of right leg below knee; Z79.4 Long term (current) use of insulin; Z79.899 Other long term (current) drug therapy; Z79.82 Long term (current) use of aspirin; Z82.5 Family history of asthma and other chronic lower respiratory diseases; Z82.49 Family history of ischemic heart disease and other diseases of the circulatory system
CPT/HCPCS: 36415; 71045; 78582; 80048; 80061; 80076; 80307; 81001; 82550; 82947; 83690; 83735; 83880; 84443; 84484; 85025; 85379; 85610; 85730; 93005; 93970; 96360; 96361; 96372; 96374; A9540; A9558; G0238; J1650; 99285-25; J7030

== ENCOUNTER 2019-05-10 12:34 | Emergency (ER) | payer MEDICARE, BC ==
[~2019-05-10] VITALS: Ht 182.9 cm; Wt 107.8 kg
[2019-05-10 12:47] VITALS: BP 109/67
--- NOTE | 2019-05-10 12:51 | PHYS DOC ---
Past History Past Medical History: Arthritis, CAD, Diabetes, GERD, Heart Disease, Hypertension, [place], Renal Disease, Other Past Surgical History: Angioplasty, Cervical Fusion, Pacemaker, Other Smoking: Non-smoker Alcohol Use: None Drug Use: None Adult General Chief Complaint Chief Complaint: HEAD INJURY/TRAUMA HPI HPI 73-year-old male presents with report of left temporal scalp laceration after being struck by pole part of a pole saw he was using to cut some branches in the trees in his yard. Denies loss of consciousness. Reports last tetanus shot less than 5 years ago. Denies nausea or vomiting. Denies neck pain. Patient does report using an 81 mg aspirin daily. Review of Systems Review of Systems Constitutional: Denies fever or chills Eyes: Denies redness or eye pain HENT: Denies nasal congestion or sore throat Respiratory: Denies cough or shortness of breath Cardiovascular: Denies chest pain or palpitations GI: Denies abdominal pain, nausea, or vomiting : Denies dysuria or hematuria Musculoskeletal: Denies back pain or joint pain Integument: Denies rash; reports laceration to scalp Neurologic: Denies headache, focal weakness or sensory changes Complete systems were reviewed and found to be within normal limits, except as documented in this note. Current Medications Current Medications Current Medications Medications (Trade) Dose Ordered Sig/Rain Start Time Stop Time Status Last Admin Dose Admin Lidocaine/ Epinephrine (Xylocaine 2%-Epi 1:100,000) 20 ml 1X ONCE 05/10/19 12:45 05/10/19 12:46 UNV Neomycin/ Polymyxin/ Bacitracin (Triple Antibiotic Ointment) 1 pkt 1X ONCE 05/10/19 12:45 05/10/19 12:46 UNV Allergies Allergies Allergies Coded Allergies Type Severity Reaction Last Updated Verified oxaprozin Adverse Reaction Intermediate 11/20/15 Yes Physical Exam Physical Exam Constitutional: Well developed, well nourished, no acute distress, non-toxic appearance HENT: Normocephalic, oropharynx moist, 3cm laceration to left temporal scalp, external canals clear, no Ter[place]as sign noted Eyes: PERRL, EOMI, conjunctiva normal, no discharge, no periorbital ecchymosis Neck: Normal range of motion, no midline tenderness, supple Cardiovascular: Heart rate normal, regular rhythm Lungs & Thorax: Bilateral breath sounds clear to auscultation, no wheezing Skin: Warm, dry, no erythema, laceration as above Extremities: No tenderness, ROM intact, no edema Neurologic: Alert and oriented X 3, normal motor function, normal sensory function, no focal deficits noted Psychologic: Affect normal, judgement normal EKG EKG [] Radiology/Procedures Radiology/Procedures [] Course & Med Decision Making Course & Med Decision Making Patient presents with temporal scalp laceration. Denies loss of consciousness. No active bleeding noted at this time. Patient without signs of skull fracture. Patient neurologically intact. Wound cleaned, anesthetized, and repaired with emmie. Empiric antibiotic ointment applied. Patient stable for discharge with outpatient follow-up with PCP. Discussed findings and plan with patient and family, who acknowledge understanding and agreement. Dragon Disclaimer Dragon Disclaimer This electronic medical record was generated, in whole or in part, using a voice recognition dictation system. Laceration/Wound Repair Laceration/Wound Repair : Wound Location: head Wound's Depth, Shape: superficial, flap Wound Length (cm): 3 Wound Explored: no foreign body removed Irrigated w/ Saline (ccs): 200 Anesthesia: Lidocaine w/ Epi (2%) Volume Anesthetic (ccs): 2 Wound Debrided: minimal Progress Verbal consent obtained. Time out performed. Hand hygiene utilized. Wound cleaned with ChloraPrep. Anesthesia obtained via a 25-gauge hypodermic needle with (2) mL's of lidocaine 2% with epinephrine. Copious irrigation performed. Wound well approximated with (emmie x 5). Patient tolerated procedure well and without difficulty. Empiric antibiotic ointment applied. Departure Departure: Impression: Primary Impression: Laceration of scalp Disposition: 01 HOME, SELF-CARE Condition: STABLE Referrals: SULTANA RODRIGUEZ MD (PCP) Patient Instructions: Head Injury, Adult, [id number], Laceration Care, Adult, [id number], Staple Wound Closure, [id number] Additional Instructions: Do not soak your wound. You may shower. Clean wound daily with soap and water. Change dressing 2 times daily. Use over the counter antibiotic ointment with each dressing change. Kim need to be removed in 7 days. Present to your family doctor or local urgent care for removal. You may also present to the ED but it will be an additional visit/charge. Use over the counter Tylenol and Ibuprofen for pain or discomfort. Problem Qualifiers Primary Impression: Laceration of scalp Encounter type: initial encounter Qualified Codes: S01.01XA - Laceration without foreign body of scalp, initial encounter FRANKY FIGUEROA DO May 10, 2019 12:51
[2019-05-10] MEDS ORDERED: NEOMY/BACITR/POLYMYXIN OINT PACKET. TP ONE (13:00)
[2019-05-10] MEDS ORDERED: LIDOCAINE 2%/EPI 1:100,000 20 ML VIAL. IJ ONE (13:00)
== END 2019-05-10 13:14 | disposition home or self-care (01) ==
LOC: ER 12:34
DX: S01.01XA Laceration without foreign body of scalp, initial encounter (principal); M19.90 Unspecified osteoarthritis, unspecified site; I25.10 Atherosclerotic heart disease of native coronary artery without angina pectoris; E11.9 Type 2 diabetes mellitus without complications; K21.9 Gastro-esophageal reflux disease without esophagitis; I11.9 Hypertensive heart disease without heart failure; I25.2 Old myocardial infarction; Z98.61 Coronary angioplasty status; Z95.0 Presence of cardiac pacemaker; Z88.8 Allergy status to other drugs, medicaments and biological substances; W27.8XXA Contact with other nonpowered hand tool, initial encounter; Y93.89 Activity, other specified; Y92.89 Other specified places as the place of occurrence of the external cause; Y99.8 Other external cause status
CPT/HCPCS: 12002; 99283

== ENCOUNTER 2019-09-28 12:19 | Inpatient (IN) | payer MEDICARE, BC ==
[~2019-09-28] VITALS: Ht 182.9 cm; Wt 105.8 kg
--- NOTE | 2019-09-28 12:34 | PHYS DOC ---
Past History Past Medical History: Arthritis, CAD, Diabetes, GERD, Heart Disease, Hypertension, [place], Renal Disease, Other Past Surgical History: Angioplasty, Cervical Fusion, Pacemaker, Other Smoking: Non-smoker Alcohol Use: None Drug Use: None Adult General Chief Complaint Chief Complaint: NEURO SYMPTOMS/DEFICITS [facility] Patient is a 73-year-old male who presents with report of left-sided facial droop that started yesterday. Patient's also indicates that patient was having some stuttering with his speech last night. He denies any lateralizing weakness of the extremities. He denies any sensory changes. He also denies any headache. Patient states that he is had a similar episode one time the past for which she was admitted to .[] Review of Systems Review of Systems Constitutional: Denies fever or chills [] Eyes: Denies change in visual acuity, redness, or eye pain [] HENT: Denies nasal congestion or sore throat [] Respiratory: Denies cough or shortness of breath [] Cardiovascular: No additional information not addressed in HPI [] GI: Denies abdominal pain, nausea, vomiting, bloody stools or diarrhea [] : Denies dysuria or hematuria [] Musculoskeletal: Denies back pain or joint pain [] Integument: Denies rash or skin lesions [] Neurologic: Denies headache, focal weakness or sensory changes [] Endocrine: Denies polyuria or polydipsia [] All other systems were reviewed and found to be within normal limits, except as documented in this note. Allergies Allergies Allergies Coded Allergies Type Severity Reaction Last Updated Verified oxaprozin Adverse Reaction Intermediate 11/20/15 Yes Physical Exam Physical Exam Constitutional: Well developed, well nourished, no acute distress, non-toxic appearance. [] HENT: Normocephalic, atraumatic, bilateral external ears normal, oropharynx moist, no oral exudates, nose normal. [] Eyes: PERRLA, EOMI, conjunctiva normal, no discharge. [] Neck: Normal range of motion, no tenderness, supple, no stridor. [] Cardiovascular:Heart rate regular rhythm, no murmur [] Lungs & Thorax: Bilateral breath sounds clear to auscultation [] Abdomen: Bowel sounds normal, soft, no tenderness, no masses, no pulsatile masses. [] Skin: Warm, dry, no erythema, no rash. [] Back: No tenderness, no CVA tenderness. [] Extremities: No tenderness, no cyanosis, no clubbing, ROM intact, no edema. [] Neurologic: Alert and oriented X 3, normal motor function, normal sensory function, no focal deficits noted. [] Psychologic: Affect normal, judgement normal, mood normal. [] EKG EKG EKG demonstrates normal sinus rhythm with rate of 70.[] Radiology/Procedures Radiology/Procedures [] Impressions: PROCEDURE: CT HEAD WO CONTRAST CT of the head Axial CT images of the head were obtained without IV contrast. Exposure: One or more of the following individualized dose reduction techniques were utilized for this examination: 1. Automated exposure control 2. Adjustment of the mA and/or kV according to patient size 3. Use of iterative reconstruction technique Comparison: 12/28/2018. Indication: Left-sided facial droop Findings: No mass, mass effect or hemorrhage is seen. The ventricles and cortical sulci are mildly enlarged. There are diffuse periventricular white matter hypodensities. The basilar cisterns are unremarkable. No midline shift is noted. There is no intra or extra axial fluid collection. There is diffuse calcification of the bilateral internal carotid arteries and vertebral arteries. No bony or soft tissue abnormality is seen. The visualized paranasal sinuses are clear. Impression: 1. No acute mass, mass effect or hemorrhage. 2. Periventricular white matter ischemic change. Age appropriate brain atrophy. 3. Diffuse mild atherosclerotic disease of the intracranial vessels. Electronically signed by: Jimmie Mak MD (09/28/2019 12:52 PM) [facility] Course & Med Decision Making Course & Med Decision Making Pertinent Labs and Imaging studies reviewed. (See chart for details) [] Dragon Disclaimer Dragon Disclaimer This electronic medical record was generated, in whole or in part, using a voice recognition dictation system. Departure Departure: Impression: Primary Impression: Facial droop Disposition: 09 ADMITTED INPATIENT Admitting Physician: Sharad Vee Condition: IMPROVED Referrals: SULTANA RODRIGUEZ MD (PCP) SWATI GRIFFIN Jr., DO Sep 28, 2019 12:34
--- NOTE | 2019-09-28 12:55 | RAD ---
CT of the head Axial CT images of the head were obtained without IV contrast. Exposure: One or more of the following individualized dose reduction techniques were utilized for this examination: 1. Automated exposure control 2. Adjustment of the mA and/or kV according to patient size 3. Use of iterative reconstruction technique Comparison: 12/28/2018. Indication: Left-sided facial droop Findings: No mass, mass effect or hemorrhage is seen. The ventricles and cortical sulci are mildly enlarged. There are diffuse periventricular white matter hypodensities. The basilar cisterns are unremarkable. No midline shift is noted. There is no intra or extra axial fluid collection. There is diffuse calcification of the bilateral internal carotid arteries and vertebral arteries. No bony or soft tissue abnormality is seen. The visualized paranasal sinuses are clear. Impression: 1. No acute mass, mass effect or hemorrhage. 2. Periventricular white matter ischemic change. Age appropriate brain atrophy. 3. Diffuse mild atherosclerotic disease of the intracranial vessels. Electronically signed by: Jimmie Mak MD (09/28/2019 12:52 PM) [facility]
--- NOTE | 2019-09-28 13:15 | EKG ---
[address] [address] Test Date: 2019-09-28 Test Time: 13:06:32 Pat Name: HAVEN DOMINGUEZ Department: Room: Gender: M [employer] Officer: DORI : 1945 Requested By: SWATI GRIFFIN Order Number: [id number] Reading MD: Wilbert Servin MD Measurements Intervals [place] Rate: 70 P: -56 AL: 70 QRS: -97 QRSD: 146 T: 98 QT: 446 QTc: 485 Interpretive Statements A-V PACED Electronically Signed On 10-12-2019 9:30:04 [employer] by Wilbert Servin MD
[2019-09-28 13:17] LABS: BASO % 1 % (0-3); EOS # 0.4 x10^3/uL (0.0-0.7); EOS % 6 % (0-3); HEMATOCRIT 40.3 % (39.0-53.0); HEMOGLOBIN 13.4 g/dL (13.0-17.5); LYMPH # 1.4 x10^3/uL (1.0-4.8); LYMPH % 23 % (24-48); MEAN CORPUSCULAR HEMOGLOBIN 31 pg (25-35); MEAN CORPUSCULAR HGB CONC 33 g/dL (31-37); MEAN CORPUSCULAR VOLUME 93 fL (79-100); MONO # 0.5 x10^3/uL (0.0-1.1); MONO % 9 % (0-9); NEUT # 3.6 x10^3uL (1.8-7.7); NEUT % 61 % (31-73); PLATELET COUNT 175 x10^3/uL (140-400); RED BLOOD COUNT 4.32 x10^6/uL (4.30-5.70); RED CELL DISTRIBUTION WIDTH 14.1 % (11.5-14.5); WHITE BLOOD COUNT 5.9 x10^3/uL (4.0-11.0)
[2019-09-28 13:43] LABS: BACTERIA,URINE 0 /HPF (0-FEW); BILIRUBIN,URINE NEG (NEG); CLARITY,URINE CLEAR; COLOR,URINE STRAW; GLUCOSE,URINE NEG (NEG); NITRITE,URINE NEG (NEG); RBC,URINE RARE /HPF (0-2); SQUAMOUS EPITHELIAL CELL,UR OCC /LPF; UROBILINOGEN,URINE 0.2 mg/dL (0.2 mg/dL); WBC,URINE OCC /HPF (0-4)
[2019-09-28] MEDS ORDERED: DEXTROSE 25% 10 ML DISP.SYRIN. IV ONE (15:45)
[2019-09-28 16:03] LABS: ALBUMIN 3.7 g/dL (3.4-5.0); CALCIUM 8.8 mg/dL (8.5-10.1); CREATININE 1.8 mg/dL (0.7-1.3); POTASSIUM 4.2 mmol/L (3.5-5.1); TOTAL BILIRUBIN 0.4 mg/dL (0.2-1.0); TOTAL PROTEIN 7.5 g/dL (6.4-8.2)
[2019-09-28 18:05] VITALS: BP 180/90
[2019-09-28 19:26] VITALS: BP 151/83
[2019-09-28] MEDS: GABAPENTIN 300 MG CAPSULE. PO SCH (20:28)
[2019-09-28] MEDS: FAMOTIDINE 20 MG TABLET PO SCH (20:28)
[2019-09-28] MEDS: OMEGA-3 FATTY ACIDS/FISH OIL 1,000 MG CAPSULE. PO SCH (20:28)
[2019-09-28] MEDS: CARVEDILOL 12.5 MG TABLET PO SCH (20:58)
[2019-09-28] MEDS ORDERED: LISINOPRIL 20 MG TABLET PO SCH (21:00)
[2019-09-28 23:18] VITALS: BP 143/74
[2019-09-29] MEDS ORDERED: THYROID,PORK 60 MG TABLET PO SCH (06:00)
[2019-09-29 06:12] VITALS: BP 101/74
[2019-09-29] MEDS ORDERED: CARVEDILOL 12.5 MG TABLET PO SCH (08:00)
[2019-09-29] MEDS: GABAPENTIN 300 MG CAPSULE. PO SCH (08:04)
[2019-09-29] MEDS: OMEGA-3 FATTY ACIDS/FISH OIL 1,000 MG CAPSULE. PO SCH (08:04)
[2019-09-29] MEDS: CARVEDILOL 12.5 MG TABLET PO SCH (08:05)
[2019-09-29] MEDS: FAMOTIDINE 20 MG TABLET PO SCH (08:05)
[2019-09-29] MEDS ORDERED: ATORVASTATIN CALCIUM 20 MG TABLET PO SCH (09:00)
[2019-09-29] MEDS ORDERED: NON FORMULARY ITEM (Cinnamon Bark (Cinnamon) 1,000 MG) PO SCH (09:00)
[2019-09-29] MEDS ORDERED: FUROSEMIDE 40 MG TABLET PO SCH (09:00)
[2019-09-29] MEDS ORDERED: MULTIVITAMIN with MINERAL TABLET. PO SCH (09:00)
[2019-09-29] MEDS ORDERED: LISINOPRIL 20 MG TABLET PO SCH (09:00)
[2019-09-29] MEDS ORDERED: ASPIRIN 81 MG TAB.CHEW PO SCH (09:00)
[2019-09-29 09:54] VITALS: BP 116/71
--- NOTE | 2019-09-29 10:30 | CONS ---
DATE OF CONSULTATION: 09/28/2019 REFERRING PHYSICIAN: Dr. Vee. REASON FOR CONSULTATION: Left facial numbness. HISTORY OF PRESENT ILLNESS: This is a 73-year-old right-handed male who was admitted through Emergency Room on account of left facial droop began yesterday night associated with stuttering speech. The patient has noticed numbness and paresthesia confined to the left face, which has improved gradually overnight. Currently, he denies headaches, diplopia, dysphagia, weakness, paresthesia, vertigo, headache, chest pain, shortness of breath or palpitation. The patient stated he had similar episode a few years back when he was admitted to to rule out stroke versus TIA. PAST MEDICAL HISTORY: Significant for coronary artery disease, hypertension, hyperlipidemia, hypothyroidism, peripheral neuropathy of the lower extremities, gastroesophageal reflux disease, chronic renal disease, history of osteomyelitis of the right ankle required below knee ambulation and diabetes mellitus. PAST SURGICAL HISTORY: Significant for pacemaker placement, coronary stent placement, cervical spine fusion x 2, post-insulin pump placement, thyroidectomy, right below knee amputation for osteomyelitis and status post left eye laser surgery for retinopathy.. FAMILY HISTORY: Father of suicide. He was alcoholic with COPD. Mother at age of 75 of brain tumor. SOCIAL HISTORY: The patient is , he has one daughter, he denies smoking, alcohol drinking, or illicit drug use. REVIEW OF SYSTEMS: A 10-point review of system was performed as mentioned above in the history of present illness, but also the patient had a cataract. The patient also had a blurred vision, probably due to cataract or macular degeneration. CURRENT MEDICATIONS: Multivitamins and calcium, Lipitor 40 mg daily, furosemide 40 mg daily, aspirin 81 mg p.o. daily, [place] Thyroid 15 mg daily, lisinopril 20 mg at bedtime, carvedilol 25 mg twice daily, Pepcid 40 mg twice daily, fish oil 1000 twice daily and gabapentin 600 mg 3 times daily. PHYSICAL EXAMINATION: GENERAL: Well-developed, well-nourished, obese male, not in acute distress. He weighs 105.7 kilos. VITAL SIGNS: Blood pressure 151/83, respiratory rate 18, pulse is 69 and regular, temperature 97.2, oxygen saturation 96% on room air. HEENT: Normocephalic, atraumatic, otherwise unremarkable. NECK: Supple. Negative for carotid bruit, lymphadenopathy, JVD or thyromegaly. LUNGS: Clear to A and P. CARDIOVASCULAR: Regular rate and rhythm, normal S1, S2. ABDOMEN: Soft. Bowel sounds positive. EXTREMITIES: Negative for cyanosis, clubbing or pitting edema, status post right below-knee amputation. NEUROLOGICAL EXAM: Mental Status: The patient is alert and oriented x 3. Speech is fluent. There is no language dysfunction. Memory, judgment, and abstracting thinking are normal. The patient denies hallucination or delusion. CRANIAL NERVES: Visual walker are full. The pupils are reactive to light and accommodation. The extraocular movements are intact. There is no nystagmus. There is no facial motor or sensory deficit. Hearing is intact bilaterally. The palate is elevated symmetrically. Sternocleidomastoid muscles are powerful bilaterally. The patient shrugs his shoulders symmetrically, protrudes his tongue in the midline without fasciculation or atrophy. MOTOR: No focal muscle bulk was seen. The tone is normal. The strength is 5/5 throughout. Sensory examination revealed diminished pinprick and light touch senses in patchy distributions in both distal lower extremities. Deep tendon reflexes were asymmetric and hypoactive with absent Achilles responses on the left side. Gait not tested. DIAGNOSTIC DATA: Nonenhanced head CT scan revealed no acute intracranial process, but showed periventricular white matter ischemic changes. LABORATORY DATA: CBC revealed white blood cells of 5.9, hemoglobin 13.4, hematocrit 40.3, platelet count 175,000. Chemistry revealed sodium of 141, potassium 4.2, chloride 105, CO2 of 25, BUN 46, creatinine 1.8, glucose 75 and calcium 8.8. Liver enzymes are normal. Troponin level is normal. Urinalysis is negative for urinary tract infections. IMPRESSION: 1. Acute onset of stuttering speech and left facial drooping and paresthesia - resolved, rule out transient ischemic attack. 2. Multiple medical problems include diabetes mellitus, hypertension, hyperlipidemia, coronary artery disease, hypothyroidism and peripheral neuropathy. RECOMMENDATIONS: 1. Continue with current medical care. 2. CT angio of the brain and neck. M Al SHEETS MD DR: MARCUS/regine JOB#: [id number] / [id number]
--- NOTE | 2019-09-29 15:37 | SSS ---
ADMIT DATE: HISTORY OF PRESENT ILLNESS: The patient is a 73-year-old male patient who presented with reported left sided facial droop that started yesterday for. His indicated that the patient was having some stuttering with his speech last night. He denies any lateralizing weakness of the extremities. He denies any sensory changes. He also denies any headache. The patient stated that he had multiple similar episode one time in the past for which he was admitted to [facility]. He was extensively investigated and has had lab work including CBC, which was unremarkable. His chemistry showed mildly impaired kidney function; however, that has been stable. Urinalysis was also unremarkable. He has had a CT scan of the head without contrast which basically showed that there is no mass, mass effect or hemorrhage seen and we did consult Dr. Barnard who basically recommended that the patient can be discharged home to follow him at his clinic with a plan to have outpatient MRI and MRA. PAST MEDICAL HISTORY: Significant for hypertension, hyperlipidemia, hypothyroidism, peripheral neuropathy of both lower extremities, coronary artery disease, status post myocardial infarction, status post pacemaker placement and coronary stent deployment, gastroesophageal reflux disease, chronic renal disease, osteomyelitis of his right lower extremity requiring amputation. PAST SURGICAL HISTORY: Significant for C5-C7 spinal surgery, status post cervical spine fusion x 2, status post insulin pump placement, thyroidectomy and right below knee amputation. ALLERGIES: HE IS ALLERGIC TO OXCARBAZEPINE. MEDICATIONS: As per list. FAMILY HISTORY: Unremarkable. SOCIAL HISTORY: The patient has been for 50 years. He retired. He does not smoke, drink alcohol or use any recreational drugs. REVIEW OF SYSTEMS: As per history of present illness. MEDICATIONS: He is currently on following medications: He is on atorvastatin 40 mg daily, omega-3 fatty acid 1000 mg twice a day, carvedilol 25 mg twice a day with meals, lisinopril 20 mg at bedtime, aspirin 81 mg once a day, gabapentin 600 mg 3 times a day, furosemide 40 mg daily, ranitidine 300 mg twice a day, thyroid pork for [place] Thyroid 15 mg p.o. daily. He is on multivitamin 1 tablet once a day and cinnamon bark 1000 mg daily. PHYSICAL EXAMINATION: GENERAL: On examining him on arrival, he looked well and was clearly in no apparent respiratory distress, was somewhat pale, but no jaundice, cyanosis or thyromegaly. No jugular venous distention. No limb edema. VITAL SIGNS: Heart rate was 70, blood pressure was slightly high at 178/100, temperature was 97.4, respiratory rate was 18 and oxygen saturation was 98%. HEAD, EYES, EARS, NOSE AND THROAT: Showed normocephalic, atraumatic. NECK: Supple. HEART: Showed normal first and second heart sounds. No gallop or murmur. CHEST: Clear to auscultation. No crepitation or rhonchi. ABDOMEN: Distended, soft, nontender. NEUROLOGIC: He was awake, alert, responding appropriately. All his cranial nerves are intact. EXTREMITIES: He moves upper extremities without difficulty. He has right below knee amputation with prosthesis. He ambulates with a prosthesis. LABORATORY DATA: Lab work on arrival showed that his white cell count was 5900, hemoglobin 13, hematocrit 40, MCV 93, and platelet count of 175,000. Serum sodium 141, potassium 4.2, chloride 105, bicarbonate 25, anion gap of 11, BUN 46, creatinine 1.8, estimated GFR was 37 mL per minute, his glucose was 75, calcium was 8.8, magnesium was 2.1. Total bilirubin, AST, ALT, alkaline phosphatase were normal. Total protein was 7.5, albumin was 3.7. Urinalysis showed the urine was straw colored, clear with a pH of 6, specific gravity 1.005. The urine was negative for protein, glucose, ketones, blood, nitrite and leukocyte esterase. There are no rbc's, no wbc's, no bacteria. His CT scan of the head showed that he has no mass, mass effect or hemorrhages seen. The ventricles and cortical sulci are mildly enlarged. There are diffuse periventricular white matter hypodensities. Basilar cisterns are unremarkable with midline shift noted. There is no intra or extraaxial fluid collection. There is diffuse calcification of the bilateral internal carotid arteries and vertebral arteries. No bony or soft tissue abnormalities seen. The visualized paranasal sinuses are clear. Apparently, he was admitted with a similar presentation before and has had a carotid Doppler ultrasound done, which showed no significant stenosis. As all symptoms have resolved and has had no further episode of tingling and numbness around his left side of the face, no ptosis and no stuttering, a decision was made in collaboration with Dr. Barnard to discharge him home to be followed in [facility] in a week's time and perhaps arrange an outpatient MRI and MRA of the head and neck. FINAL DISCHARGE DIAGNOSES: Possible transient ischemic attack. Other medical problems include type 2 diabetes, hypertension, hyperlipidemia, hypothyroidism, peripheral neuropathy. MO VELASCO MD DR: JASEN/regine JOB#: [id number] / [id number]
--- NOTE | 2019-09-29 20:14 | PN ---
DATE: SUBJECTIVE: The patient denies any new medical or neurological complaints. He denies headaches, visual disturbances, chest pain, shortness of breath or palpitation, dysarthria or dysphagia. OBJECTIVE: GENERAL: Well-developed, well-nourished male, not in acute distress. VITAL SIGNS: Blood pressure is 101/74, respiratory rate 18, pulse is 70 and regular, temperature 97.2, oxygen saturation 96% on room air. HEENT: Normocephalic, atraumatic, otherwise unremarkable. NECK: Supple. Negative for carotid bruit, lymphadenopathy or thyromegaly. LUNGS: Clear to A and P. CARDIOVASCULAR: Regular rate and rhythm, normal S1, S2. There is no S3, S4 or murmurs. ABDOMEN: Soft. Bowel sounds positive. EXTREMITIES: Negative for cyanosis, clubbing, pitting edema. NEUROLOGICAL EXAM: Normal mental status and intact cranial nerves. There is no motor deficit. Deep tendon reflexes are symmetric and hypoactive with absent Achilles responses. Gait not tested. IMPRESSION: 1. Acute onset of left facial drooping with paresthesia and slurred speech, resolved, rule out transient ischemic attack. 2. Multiple medical problems including coronary artery disease, hypertension, hyperlipidemia, chronic kidney disease, diabetes mellitus and arthritis. RECOMMENDATION: 1. Continue with current medical care. 2. Await for CT angio of the head and neck. M Al SHEETS MD DR: MARCUS/regine JOB#: [id number] / [id number]
== END 2019-09-29 15:12 | disposition home or self-care (01) | DRG 69 ==
LOC: ER 12:19 → 1 SOUTH 16:00
PROVIDERS: ADMIT Internal Medicine; ATTEND Internal Medicine
DX: G45.9 Transient cerebral ischemic attack, unspecified (principal); I25.10 Atherosclerotic heart disease of native coronary artery without angina pectoris; K21.9 Gastro-esophageal reflux disease without esophagitis; I25.2 Old myocardial infarction; M19.90 Unspecified osteoarthritis, unspecified site; E11.22 Type 2 diabetes mellitus with diabetic chronic kidney disease; I12.9 Hypertensive chronic kidney disease with stage 1 through stage 4 chronic kidney disease, or unspecified chronic kidney disease; N18.9 Chronic kidney disease, unspecified; R29.810 Facial weakness; E11.42 Type 2 diabetes mellitus with diabetic polyneuropathy; E78.5 Hyperlipidemia, unspecified; E89.0 Postprocedural hypothyroidism; Z96.41 Presence of insulin pump (external) (internal); E11.319 Type 2 diabetes mellitus with unspecified diabetic retinopathy without macular edema; Z79.4 Long term (current) use of insulin; Z82.5 Family history of asthma and other chronic lower respiratory diseases; Z98.1 Arthrodesis status; Z95.5 Presence of coronary angioplasty implant and graft; Z88.8 Allergy status to other drugs, medicaments and biological substances; Z95.0 Presence of cardiac pacemaker; Z89.511 Acquired absence of right leg below knee
CPT/HCPCS: 36415; 70450; 80053; 81001; 82947; 83735; 84484; 85025; 93005; 96374; J7060; 99285-25

== ENCOUNTER 2019-10-20 18:14 | Emergency (ER) | payer MEDICARE, BC ==
[~2019-10-20] VITALS: Ht 182.9 cm; Wt 112.0 kg
--- NOTE | 2019-10-20 18:28 | EKG ---
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 : 1945 Requested By: CELINE HUFF Order Number: [id number] Reading MD: Measurements Intervals [place] Rate: 75 P: 90 FL: 154 QRS: -99 QRSD: 150 T: 81 QT: 442 QTc: 497 Interpretive Statements SINUS RHYTHM ATRIAL PREMATURE COMPLEX(ES) ABNORMAL RIGHT SUPERIOR AXIS DEVIATION S1,S2,S3 PATTERN RIGHT BUNDLE BRANCH BLOCK QRS(T) CONTOUR ABNORMALITY CONSISTENT WITH ANTEROLATERAL INFARCT PROBABLY OLD ABNORMAL ECG RI6.01 Compared to ECG 09/28/2019 13:06:32 Right superior axis now present Right bundle-branch block now present Myocardial infarct finding now present AV dual-paced complex(es) or rhythm no longer present
--- NOTE | 2019-10-20 18:33 | RAD ---
STUDY: CT head without contrast INDICATION: Code stroke. COMPARISON: Most recently on 09/28/2019 TECHNIQUE: Axial CT imaging through the head without the use of intravenous contrast. Sagittal and coronal reformats were obtained. One or more of the following individualized dose reduction techniques were utilized for this examination: 1. Automated exposure control 2. Adjustment of the mA and/or kV according to patient size 3. Use of iterative reconstruction technique. FINDINGS: No localized area of john-white matter differentiation loss is identified. No acute intracranial hemorrhage. No mass effect, midline shift or hydrocephalus. Intracranial atherosclerotic calcifications. Parenchymal volume loss and ex vacuo ventricular prominence unchanged from the prior. Unchanged calvarium, orbits, paranasal sinuses and mastoid air cells IMPRESSION: No CT evidence for an acute cortical infarction. No acute intracranial hemorrhage. FOR INTERNAL CODING PURPOSES RESULT CODE: (C) The results the study were discussed with Dr. Kerns by telephone on 10/20/2019 at 1830 hours. Electronically signed by: MUSA LUJAN MD (10/20/2019 6:30 PM) [facility]
[2019-10-20 18:52] LABS: BASO # 0.1 x10^3/uL (0.0-0.2); BASO % 1 % (0-3); EOS # 0.3 x10^3/uL (0.0-0.7); EOS % 5 % (0-3); HEMATOCRIT 39.8 % (39.0-53.0); HEMOGLOBIN 13.3 g/dL (13.0-17.5); LYMPH # 1.7 x10^3/uL (1.0-4.8); LYMPH % 28 % (24-48); MEAN CORPUSCULAR HEMOGLOBIN 31 pg (25-35); MEAN CORPUSCULAR HGB CONC 33 g/dL (31-37); MEAN CORPUSCULAR VOLUME 94 fL (79-100); MONO # 0.6 x10^3/uL (0.0-1.1); MONO % 10 % (0-9); NEUT # 3.3 x10^3uL (1.8-7.7); NEUT % 56 % (31-73); PLATELET COUNT 175 x10^3/uL (140-400); RED BLOOD COUNT 4.26 x10^6/uL (4.30-5.70); RED CELL DISTRIBUTION WIDTH 14.6 % (11.5-14.5)
[2019-10-20] MEDS ORDERED: IV NORMAL SALINE 1,000ML 1,000 ML IV ONE (19:00)
[2019-10-20] MEDS ORDERED: PROCHLORPERAZINE 10 MG/2 ML VIAL. IM ONE (19:15)
[2019-10-20] MEDS ORDERED: diphenhydrAMINE 50 MG/ML VIAL IVP ONE (19:15)
[2019-10-20] MEDS ORDERED: METOCLOPRAMIDE HCL 10 MG/2 ML VIAL. IVP ONE (19:15)
[2019-10-20 19:16] LABS: ALBUMIN 3.7 g/dL (3.4-5.0); ALBUMIN/GLOBULIN RATIO 1.2 (1.0-1.7); CALCIUM 8.6 mg/dL (8.5-10.1); CREATININE 1.9 mg/dL (0.7-1.3); GFR 34.7; MAGNESIUM 2.2 mg/dL (1.8-2.4); POTASSIUM 4.3 mmol/L (3.5-5.1); TOTAL BILIRUBIN 0.3 mg/dL (0.2-1.0); TOTAL PROTEIN 6.9 g/dL (6.4-8.2)
[2019-10-20 20:10] VITALS: BP 132/68
--- NOTE | 2019-10-20 20:10 | RAD ---
CHEST AP ONLY INDICATION: Dyspnea, weakness, diabetes. COMPARISON STUDY: 03/06/2019. FINDINGS: Left pectoral transvenous dual-chamber biventricular pacemaker Lungs: Low lung volume. Bilateral perihilar and basilar opacities. Indistinct pulmonary vasculature. Pleura: No pleural effusion or pneumothorax. Heart and Mediastinum: Stable cardiac mediastinal silhouette and great vessels. IMPRESSION: Low lung volume with bilateral perihilar and basilar opacities, which may reflect subsegmental atelectasis and/or interstitial edema. Electronically signed by: Manpreet Holguin MD (10/20/2019 8:07 PM) [email or web address]
--- NOTE | 2019-10-21 05:46 | PHYS DOC ---
Past History Past Medical History: Arthritis, CAD, Diabetes, GERD, Heart Disease, Hypertension, [place], Renal Disease, Other Additional Past Medical Histor: NEUROPATHY Past Surgical History: Angioplasty, Cervical Fusion, Pacemaker, Other Additional Past Surgical Histo: right below the knee amp Smoking: Non-smoker Alcohol Use: None Drug Use: None Adult General Chief Complaint Chief Complaint: NEURO SYMPTOMS/DEFICITS HPI HPI Patient is a 73-year-old male with history of recurrent left facial palsy presents with left facial palsy and left retro-orbital headache. Symptom onset was one half hours prior to ED arrival. Patient also reports paresthesias of left face. Denies focal extremity or weakness. History of insulin-dependent diabetes. No other acute symptoms or complaints.[] Review of Systems Review of Systems ReView symptoms as per history of present illness. All other systems were reviewed and found to be within normal limits, except as documented in this note. Current Medications Current Medications Current Medications Medications (Trade) Dose Ordered Sig/Rain Start Time Stop Time Status Last Admin Dose Admin Diphenhydramine HCl (Benadryl) 25 mg 1X ONCE 10/20/19 19:15 10/20/19 19:16 DC 10/20/19 19:20 25 MG Metoclopramide HCl (Reglan Vial) 10 mg 1X ONCE 10/20/19 19:15 10/20/19 19:16 DC 10/20/19 19:22 10 MG Prochlorperazine Edisylate (Compazine) 10 mg 1X ONCE 10/20/19 19:15 10/20/19 19:16 DC 10/20/19 19:23 10 MG Sodium Chloride 1,000 ml @ 1,000 mls/hr 1X ONCE 10/20/19 19:00 10/20/19 19:59 DC 10/20/19 19:17 1,000 MLS/HR Allergies Allergies Allergies Coded Allergies Type Severity Reaction Last Updated Verified oxaprozin Adverse Reaction Intermediate 11/20/15 Yes Physical Exam Physical Exam Constitutional: Well developed, well nourished, no acute distress, non-toxic appearance. [] HENT: Normocephalic, atraumatic, bilateral external ears normal, nose normal. [] Eyes: PERRLA, EOMI, conjunctiva normal, no discharge. [] Neck: Normal range of motion, no tenderness, supple, no stridor. [] Cardiovascular:Heart rate regular rhythm, no murmur [] Lungs & Thorax: Bilateral breath sounds clear to auscultation [] Abdomen: Bowel sounds normal, soft, no tenderness, no masses, no pulsatile masses. [] Skin: Warm, dry, no erythema, no rash. [] Back: No tenderness, no CVA tenderness. [] Extremities: No tenderness, right BKA with prosthesis.. [] Neurologic: Alert and oriented X 3, left facial palsy with eyelid involvement, decreased sensation left face, normal motor function, normal sensory function, no focal deficits noted. NIH stroke score of 1. [] Psychologic: Affect normal, judgement normal, mood normal. [] Current Patient Data Vital Signs Vital Signs Date Time Temp Pulse Resp B/P (MAP) Pulse Ox O2 Delivery O2 Flow Rate FiO2 10/20/19 20:10 72 20 132/68 (89) 96 10/20/19 18:20 97.7 Room Air Lab Results Laboratory Tests Test 10/20/19 18:25 10/20/19 18:35 Glucose (Fingerstick) 104 mg/dL (70-99) H White Blood Count 6.0 x10^3/uL (4.0-11.0) Red Blood Count 4.26 x10^6/uL (4.30-5.70) L Hemoglobin 13.3 g/dL (13.0-17.5) Hematocrit 39.8 % (39.0-53.0) Mean Corpuscular Volume 94 fL (79-100) Mean Corpuscular Hemoglobin 31 pg (25-35) Mean Corpuscular Hemoglobin Concent 33 g/dL (31-37) Red Cell Distribution Width 14.6 % (11.5-14.5) H Platelet Count 175 x10^3/uL (140-400) Neutrophils (%) (Auto) 56 % (31-73) Lymphocytes (%) (Auto) 28 % (24-48) Monocytes (%) (Auto) 10 % (0-9) H Eosinophils (%) (Auto) 5 % (0-3) H Basophils (%) (Auto) 1 % (0-3) Neutrophils # (Auto) 3.3 x10^3uL (1.8-7.7) Lymphocytes # (Auto) 1.7 x10^3/uL (1.0-4.8) Monocytes # (Auto) 0.6 x10^3/uL (0.0-1.1) Eosinophils # (Auto) 0.3 x10^3/uL (0.0-0.7) Basophils # (Auto) 0.1 x10^3/uL (0.0-0.2) Prothrombin Time 10.4 SEC (9.4-11.4) Prothrombin Time INR 1.0 (0.9-1.1) Sodium Level 144 mmol/L (136-145) Potassium Level 4.3 mmol/L (3.5-5.1) Chloride Level 105 mmol/L (98-107) Carbon Dioxide Level 26 mmol/L (21-32) Anion Gap 13 (6-14) Blood Urea Nitrogen 45 mg/dL (8-26) H Creatinine 1.9 mg/dL (0.7-1.3) H Estimated GFR (Cockcroft-Gault) 34.7 BUN/Creatinine Ratio 24 (6-20) H Glucose Level 99 mg/dL (70-99) Calcium Level 8.6 mg/dL (8.5-10.1) Magnesium Level 2.2 mg/dL (1.8-2.4) Total Bilirubin 0.3 mg/dL (0.2-1.0) Aspartate Amino Transferase (AST) 28 U/L (15-37) Alanine Aminotransferase (ALT) 22 U/L (16-63) Alkaline Phosphatase 91 U/L (46-116) Troponin I Quantitative < 0.017 ng/mL (0-0.055) Total Protein 6.9 g/dL (6.4-8.2) Albumin 3.7 g/dL (3.4-5.0) Albumin/Globulin Ratio 1.2 (1.0-1.7) EKG EKG EKG: Reviewed] Radiology/Procedures Radiology/Procedures [CT head: No acute findings per radiology report.] Course & Med Decision Making Course & Med Decision Making Pertinent Labs and Imaging studies reviewed. (See chart for details) [Headaches resolved with migraine cocktail. Patient neurologic symptoms also resolved. Suspect complex migraine given the recurrent nature of the patient's neurologic deficits. Patient offered hospital admission for observation and neurology consult. Patient declines and prefers to follow-up with his local neurologist as an outpatient. Return precautions reviewed. Patient verbalizes understanding agreement discharge instructions prior to departure.] Dragon Disclaimer Dragon Disclaimer This electronic medical record was generated, in whole or in part, using a voice recognition dictation system. Departure Departure: Impression: Primary Impression: Migraine Additional Impression: Facial paralysis on left side Disposition: 01 HOME/RESIDENCE PRIOR TO ADM Condition: STABLE Patient Instructions: Migraine Headache, [id number], Paresthesia, Easy-to-Re ad Additional Instructions: You were evaluated in the emergency department for headache and left facial droop with paresthesias. CT and lab and EKG were performed and are nondiagnostic. The cause of your symptoms has not been determined but may be related to a complex migraine. Although, stroke and other neurologic phenomena remain active considerations. Please continue home medications and follow-up with your neurologist in the next 2-3 days for reevaluation. Return to the ED if new or worsening symptoms. Problem Qualifiers CELINE HUFF DO Oct 21, 2019 05:45
== END 2019-10-20 21:52 | disposition home or self-care (01) ==
LOC: ER 18:14
DX: G43.909 Migraine, unspecified, not intractable, without status migrainosus (principal); G51.0 Bell's palsy; M19.90 Unspecified osteoarthritis, unspecified site; I25.10 Atherosclerotic heart disease of native coronary artery without angina pectoris; K21.9 Gastro-esophageal reflux disease without esophagitis; E11.40 Type 2 diabetes mellitus with diabetic neuropathy, unspecified; I11.9 Hypertensive heart disease without heart failure; I25.2 Old myocardial infarction; Z95.0 Presence of cardiac pacemaker; Z88.8 Allergy status to other drugs, medicaments and biological substances
CPT/HCPCS: 36415; 70450; 71045; 80053; 82947; 83735; 84443; 84484; 85025; 85610; 93005; 96372; 96374; 96375; 99285; J0780; J1200; J2765; J7030

== ENCOUNTER → 2019-10-20 | Outpatient (CLI) | payer MEDICARE, BC ==
[2019-09-29 09:54] VITALS: BP 116/71
[2019-10-20 09:03] LABS: HEMATOCRIT 41.7 % (39.0-53.0); HEMOGLOBIN 13.8 g/dL (13.0-17.5)
[2019-10-20 09:08] LABS: ALBUMIN 3.7 g/dL (3.4-5.0); CALCIUM 8.8 mg/dL (8.5-10.1); CREATININE 1.7 mg/dL (0.7-1.3); GFR 39.5; MAGNESIUM 2.1 mg/dL (1.8-2.4); PHOSPHORUS 3.7 mg/dL (2.6-4.7); POTASSIUM 4.7 mmol/L (3.5-5.1)
[2019-10-20 09:51] LABS: BACTERIA,URINE 0 /HPF (0-FEW); BILIRUBIN,URINE NEG (NEG); CLARITY,URINE CLEAR; COLOR,URINE YELLOW; GLUCOSE,URINE NEG (NEG); NITRITE,URINE NEG (NEG); RBC,URINE 0 /HPF (0-2); UROBILINOGEN,URINE 0.2 mg/dL (0.2 mg/dL); WBC,URINE RARE /HPF (0-4)
[2019-10-21 00:07] LABS: MICRO CREAT RATIO 187.9 mg/g creat (0.0-30.0); MICROALB RD UR 90.2 ug/mL (Not Estab.)
== END | disposition home or self-care (01) ==
LOC: LAB 08:12
PROVIDERS: ATTEND Internal Medicine Nephrology
DX: E11.21 Type 2 diabetes mellitus with diabetic nephropathy (principal); E11.22 Type 2 diabetes mellitus with diabetic chronic kidney disease; I12.9 Hypertensive chronic kidney disease with stage 1 through stage 4 chronic kidney disease, or unspecified chronic kidney disease; N18.3 Chronic kidney disease, stage 3 (moderate); D64.9 Anemia, unspecified; R80.1 Persistent proteinuria, unspecified; I25.119 Atherosclerotic heart disease of native coronary artery with unspecified angina pectoris; Z68.32 Body mass index [BMI] 32.0-32.9, adult
CPT/HCPCS: 36415; 80069; 81001; 82043; 82570; 82607; 82728; 83540; 83550; 83735; 84156; 85014; 85018

== ENCOUNTER → 2019-12-21 | Outpatient (CLI) | payer MEDICARE, BC ==
--- NOTE | 2019-12-21 10:24 | RAD ---
KNEE LEFT 3V History: Left knee pain, twisting injury 1 month ago, leg deformity Comparison: December 25, 2010 Findings: 3 views of the left knee are submitted. There are prominent patellar enthesophytes. There is prominent vascular calcification which has progressed in the interval. No acute fracture is identified by radiographs. There is probable mild chondrocalcinosis of the lateral compartment. Impression: 1. No acute fractures is identified by radiographs. There is likely mild chondrocalcinosis of the lateral compartment. 2. There is prominent vascular calcification which has progressed since 2011 exam. Electronically signed by: Manpreet Bennett MD (12/21/2019 10:21 AM) [email or web address]
== END | disposition home or self-care (01) ==
LOC: DXRAD 09:54
PROVIDERS: ATTEND Family Medicine
DX: M25.562 Pain in left knee (principal)
CPT/HCPCS: 73562

== ENCOUNTER → 2019-12-24 | Outpatient (CLI) | payer MEDICARE, BC ==
--- NOTE | 2019-12-24 16:10 | RAD ---
Left lower extremity arterial duplex ultrasound Clinical History: Lower extremity pain, history of diabetes Technique: Using a combination of real time ultrasound imaging and color-flow and pulse Doppler imaging techniques, imaging of the major arteries of the left lower extremity was performed. Findings: There is significant diffuse atherosclerotic vascular disease throughout the left lower extremity. Left common femoral, and proximal profunda femoral arteries are patent. Left superficial femoral artery appears to be patent. Bulky calcification is seen within the left popliteal artery without evidence of high-grade stenosis. Posterior tibial artery appears to be occluded. The peroneal artery may be occluded. Limited flow seen within the anterior tibial artery with blunted monophasic flow in the distal dorsalis pedis artery. IMPRESSION: 1. Diffuse atherosclerotic vascular disease 2. No gross femoral popliteal stenosis is identified 3. Occlusion of the posterior tibial artery, and possible areas of anterior tibial and peroneal artery stenosis or occlusion with reconstitution. If clinically indicated, conventional angiography could be performed for further evaluation. Electronically signed by: Jalen Freeman MD (12/24/2019 4:07 PM) [id number]
== END | disposition home or self-care (01) ==
LOC: US 12:28
PROVIDERS: ATTEND Family Medicine
DX: I70.292 Other atherosclerosis of native arteries of extremities, left leg (principal); I70.208 Unspecified atherosclerosis of native arteries of extremities, other extremity
CPT/HCPCS: 93926

== ENCOUNTER 2020-02-02 13:07 | Inpatient (IN) | payer MEDICARE, BC ==
[~2020-02-02] VITALS: Ht 182.9 cm; Wt 113.6 kg
--- NOTE | 2020-02-02 13:29 | EKG ---
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
--- NOTE | 2020-02-02 13:47 | PHYS DOC ---
Past History Past Medical History: Arthritis, CAD, Diabetes, GERD, Heart Disease, Hypertension, RI, Renal Disease, Other Additional Past Medical Histor: NEUROPATHY Past Surgical History: Angioplasty, Cervical Fusion, Pacemaker, Other Additional Past Surgical Histo: right BKA; cardiac stents; partial thyroidectomy; left toes amputation Smoking: Non-smoker Alcohol Use: None Drug Use: None Adult General Chief Complaint Chief Complaint: CHEST PAIN HPI HPI Patient is a 74 year old male who presents with complaint of left-sided weakness and chest pain. Patient states that he has been having left-sided weakness "almost every day" but started having worsening weakness today at approximately 1100. Has had similar episode in the past and diagnosed with TIA. Currently follows with Dr. Barnard of neurology. Patient has history of coronary artery disease, hypertension, previous myocardial infarction, and has a ventricular pacemaker. Currently on Eliquis for anticoagulation. Notes that he has been having left-sided chest pain off and on in the left upper portion of his chest. States that he did wake with symptoms of chest pain today. Denies abdominal p ain, nausea, or vomiting. Does admit to fatigue. notes that patient's "smile does not look right." Also notes that she felt like he was slurring words around 1100. Review of Systems Review of Systems Constitutional: Fatigue, denies fever or chills [] Eyes: Denies change in visual acuity, redness, or eye pain [] HENT: Denies nasal congestion or sore throat [] Respiratory: Denies cough or shortness of breath [] Cardiovascular: Chest pain, denies edema[] GI: Denies abdominal pain, nausea, vomiting, bloody stools or diarrhea [] : Denies dysuria or hematuria [] Musculoskeletal: Denies back pain or joint pain [] Integument: Denies rash or skin lesions [] Neurologic: Left-sided weakness, facial droop[] All other systems were reviewed and found to be within normal limits, except as documented in this note. Allergies Allergies Allergies Coded Allergies Type Severity Reaction Last Updated Verified oxaprozin Adverse Reaction Intermediate 11/20/15 Yes Physical Exam Physical Exam Constitutional: Alert, afebrile, no acute distress. [] HENT: Normocephalic, atraumatic, bilateral external ears normal, oropharynx moist, no oral exudates, nose normal. [] Eyes: PERRLA, EOMI, conjunctiva normal, no discharge. [] Neck: Normal range of motion, no tenderness, supple, no stridor. [] Cardiovascular:Heart rate regular rhythm, no murmur [] Lungs & Thorax: Bilateral breath sounds clear to auscultation [] Abdomen: Bowel sounds normal, soft, no tenderness, no masses, no pulsatile masses. [] Skin: Warm, dry, no erythema, no rash. [] Back: No tenderness, no CVA tenderness. [] Extremities: No tenderness, no cyanosis, no clubbing, ROM intact, no edema. [] Neurologic: Alert and oriented X 3, left-sided facial droop, 4 out of 5 computer instructor strength in the left upper extremity, 5 out of 5 computer instructor strength in the right upper extremity, positive finger to nose test with left upper extremity, normal [id number] with left lower extremity, no pronator drift. [] Current Patient Data Vital Signs Vital Signs Date Time Temp Pulse Resp B/P (MAP) Pulse Ox O2 Delivery O2 Flow Rate FiO2 02/02/20 13:13 97.5 72 13 130/82 (98) 96 Room Air Lab Results Laboratory Tests Test 02/02/20 13:33 02/02/20 14:05 White Blood Count 7.7 x10^3/uL Red Blood Count 4.22 x10^6/uL Hemoglobin 13.1 g/dL Hematocrit 39.2 % Mean Corpuscular Volume 93 fL Mean Corpuscular Hemoglobin 31 pg Mean Corpuscular Hemoglobin Concent 34 g/dL Red Cell Distribution Width 14.4 % Platelet Count 167 x10^3/uL Neutrophils (%) (Auto) 69 % Lymphocytes (%) (Auto) 18 % Monocytes (%) (Auto) 10 % Eosinophils (%) (Auto) 3 % Basophils (%) (Auto) 1 % Neutrophils # (Auto) 5.3 x10^3uL Lymphocytes # (Auto) 1.4 x10^3/uL Monocytes # (Auto) 0.8 x10^3/uL Eosinophils # (Auto) 0.2 x10^3/uL Basophils # (Auto) 0.1 x10^3/uL Sodium Level 141 mmol/L Potassium Level 4.3 mmol/L Chloride Level 105 mmol/L Carbon Dioxide Level 26 mmol/L Anion Gap 10 Blood Urea Nitrogen 38 mg/dL Creatinine 1.5 mg/dL Estimated GFR (Cockcroft-Gault) 45.5 BUN/Creatinine Ratio 25 Glucose Level 126 mg/dL Calcium Level 9.0 mg/dL Magnesium Level 2.1 mg/dL Total Bilirubin 0.4 mg/dL Aspartate Amino Transf (AST/SGOT) 23 U/L Alanine Aminotransferase (ALT/SGPT) 23 U/L Alkaline Phosphatase 82 U/L Creatine Kinase 222 U/L Creatine Kinase MB (Mass) 2.6 ng/mL Creatine Kinase MB Relative Index 1.2 % Troponin I Quantitative 0.021 ng/mL Total Protein 6.9 g/dL Albumin 3.5 g/dL Albumin/Globulin Ratio 1.0 Urine Collection Type Unknown Urine Color Straw Urine Clarity Clear Urine pH 6.5 Urine Specific Langston 1.015 Urine Protein Neg Urine Glucose (UA) Neg mg/dL Urine Ketones (Stick) Neg mg/dL Urine Blood Neg Urine Nitrite Neg Urine Bilirubin Neg Urine Urobilinogen Dipstick 0.2 mg/dL Urine Leukocyte Esterase Trace Urine RBC 0 /HPF Urine WBC Occ /HPF Urine Squamous Epithelial Cells Occ /LPF Urine Bacteria 0 /HPF Current Medications Medications (Trade) Dose Ordered Sig/Rain Route PRN Reason Start Time Stop Time Status Last Admin Dose Admin Iohexol (Omnipaque 350 Mg/ml) 60 ml 1X ONCE IV 02/02/20 14:15 02/02/20 14:18 DC Info (Do NOT chart on this entry -- for MONITORING) 1 each PRN DAILY PRN MC SEE COMMENTS 02/02/20 14:30 02/04/20 14:29 EKG EKG Interpreted by me: Heart rate 79, ventricularly paced rhythm, frequent PVCs, right axis deviation, no acute ST elevation or depression[] Radiology/Procedures Radiology/Procedures [address] [id number] IMAGING REPORT Signed PATIENT: HAVEN DOMINGUEZ ACCOUNT: [id number] : 1945 LOCATION: ER AGE: 74 SEX: M EXAM STATUS: REG ER ORD. PHYSICIAN: NICK ARREAGA MD REASON: chest pain PROCEDURE: PORTABLE CHEST 1V PORTABLE CHEST 1V Clinical indications: Chest pain. COMPARISON: October 20, 2019. Findings: There is a new nodular infiltrate within the medial aspect of the right upper lobe. Bilateral perihilar upper lobe round densities are seen which have been noted previously unchanged. This may be due to prominent pulmonary vasculature therefore rather than lung infiltrate. There is mild chronic elevation of the right hemidiaphragm. There is mild bibasilar atelectasis. No pleural effusion or pneumothorax is seen. 3-lead pacemaker is again evident. The heart size is normal and stable. Mediastinum is unchanged. IMPRESSION: New nodular lung infiltrate within the medial aspect of the right upper lobe. Recommend chest CT with IV contrast for further evaluation. Electronically signed by: Jordon Taveras MD (02/02/2020 1:54 PM) [facility] [place] DICTATED AND SIGNED BY: JORDON TAVERAS MD DATE: 02/02/20 1783 CC: SULTANA RODRIGUEZ MD; NICK ARREAGA MD ~ [address] [address] IMAGING REPORT Signed PATIENT: HAVEN DOMINGUEZ ACCOUNT: [id number] : 1945 LOCATION: ER AGE: 74 SEX: M EXAM STATUS: REG ER ORD. PHYSICIAN: NICK ARREAGA MD REASON: chest pain, left-sided weakness, new symptom onset at 1100 PROCEDURE: CT CODE STROKE HEAD WO CT CODE STROKE HEAD WO History: Chest pain, left-sided weakness starting at 1100 today Comparison: October 20, 2019 Technique: Noncontrast CT imaging was performed of the head. Exposure: One or more of the following individualized dose reduction techniques were utilized for this examination: 1. Automated exposure control 2. Adjustment of the mA and/or kV according to patient size 3. Use of iterative reconstruction technique. Findings: No acute extra-axial or parenchymal hemorrhage is identified. There is no significant intra-axial mass effect, midline shift, or extra-axial fluid collection. The john-white differentiation of the major vascular territories is preserved. Ventricular size is stable, mild to moderate third ventriculomegaly and mild lateral ventriculomegaly probably due to atrophy. The mastoid air cells and the visualized paranasal sinuses are aerated. There is atherosclerotic calcification of the bilateral carotid siphons and intradural vertebral arteries. No acute calvarial abnormality is identified. Impression: 1. No acute intracranial hemorrhage is identified. 2. There is again third and lateral ventriculomegaly although probably due to supratentorial atrophy. Critical results were discussed with NICK ARREAGA at 02/02/2020 1:45 PM. Electronically signed by: Zina Small MD (02/02/2020 1:45 PM) [id number] DICTATED AND SIGNED BY: ZINA SMALL MD DATE: 02/02/20 2424 CC: SULTANA RODRIGUEZ MD; NICK ARREAGA MD ~ [address] [address] IMAGING REPORT Signed PATIENT: HAVEN DOMINGUEZ ACCOUNT: [id number] : 1945 LOCATION: ER AGE: 74 SEX: M EXAM STATUS: REG ER ORD. PHYSICIAN: NICK ARREAGA MD REASON: left sided weakness PROCEDURE: CT ANGIOGRAPHY HEAD AND NECK CTA head with and without and CTA neck with contrast History: Left-sided weakness Technique: Axial helical images were obtained of the head and neck after the intravenous administration of 75 mL of Isovue-370 IV contrast. Multiplanar reconstruction was performed on an independent work station including MIP imaging and 3D angiographic imaging. Comparison: none CTA head with and without contrast. Findings: Brain: The john and white matter appears symmetrical. There is no mass effect, extra-axial fluid collections or hydrocephalus. There is no gross bleed. Distal carotid arteries: There is calcification the daniels of the intercavernous portions of the internal carotid arteries without significant narrowing. Vertebral basilar system there is a focus of approximately 50 percent stenosis of the distal left vertebral artery at the level of the skull base. Major cerebral arteries: normal Impression: Approximately 50 percent stenosis the distal left vertebral artery. end impression CTA neck with contrast: Findings: Aortic arch and origin of great vessels: normal Common carotid arteries: There is significant plaque at the level of bulbs bilaterally with less than 50 percent stenosis. Internal carotid arteries: Right: normal Left: normal Vertebral basilar system normal There is multiple nodules in the right lobe of the thyroid. Left lobe of thyroid is not well seen and likely removed. There is marked degenerative changes of the cervical spine with prior anterior fusion. Impression: No significant stenosis. See CTA head. End impression PQRS Compliance Statement - Stenosis calculations for CT, MR and conventional angiography are based upon measurement of the distal ICA diameter in accordance with the NASCET methodology. Stenosis calculations for carotid ultrasound studies are derived from validated velocity criteria which are known to correlate with the NASCET methodology. PQRS Compliance Statement: One or more of the following individualized dose reduction techniques were utilized for this examination: 1. Automated exposure control 2. Adjustment of the mA and/or kV according to patient size 3. Use of iterative reconstruction technique Electronically signed by: Arun Thompson III, MD (02/02/2020 3:18 PM) [id number] DICTATED AND SIGNED BY: ARUN THOMPSON III, MD DATE: 02/02/20 1518 CC: SULTANA RODRIGUEZ MD; NICK ARREAGA MD ~[] Course & Med Decision Making Course & Med Decision Making Pertinent Labs and Imaging studies reviewed. (See chart for details) Due to reports of worsening neurologic symptoms at 1100, the patient was ordered for a code stroke head CT. Upon receiving results, I contacted the stroke neurologist, Dr. Kwan, at [facility] at 1400. After speaking with her, and in going over previous medical history, current NIH score of 3, and currently anticoagulated without with, we agreed the patient would not be a candidate for TPA. Low NIH score also raising low suspicion for acute large vessel occlusion. Dr. Kwan agreed that if patient's CT Angio is negative, patient is good candidate for medical management. CT angiogram was completed in the emergency department with a noted 50% left distal vertebral artery stenosis. Results were communicated to Dr. Kwan at 1540. She stated that no aggressive intervention would be necessary and recommended medical management. She stated that this patient would be appropriate for continued treatment here at [facility]. I spoke with the patient's neurologist, Dr. Barnard, who agreed to follow with patient in hospital. I spoke with Dr. Vee, hospitalist who will follow patient in hospital. Patient had a noted right upper lobe infiltrate versus vascular prominence that is recommended to have CT with IV contrast completed. As patient received IV contrast with his angiogram today, this study will be deferred for tomorrow and can be done inpatient. We will also continue with rule out of myocardial infarction while in patient with repeat troponin levels. Dragon Disclaimer Dragon Disclaimer This electronic medical record was generated, in whole or in part, using a voice recognition dictation system. Departure Departure: Impression: Primary Impression: Chest pain Additional Impressions: Left-sided weakness History of myocardial infarction Right upper lobe pulmonary infiltrate Disposition: ADMITTED INPATIENT Admitting Physician: Sharad Vee Condition: STABLE Referrals: SULTANA RODRIGUEZ MD (PCP) Problem Qualifiers Primary Impression: Chest pain Chest pain type: unspecified Qualified Codes: R07.9 - Chest pain, unspecified NICK ARREAGA MD Feb 02, 2020 13:47
[2020-02-02 13:57] LABS: BASO # 0.1 x10^3/uL (0.0-0.2); BASO % 1 % (0-3); EOS # 0.2 x10^3/uL (0.0-0.7); EOS % 3 % (0-3); HEMATOCRIT 39.2 % (39.0-53.0); HEMOGLOBIN 13.1 g/dL (13.0-17.5); LYMPH # 1.4 x10^3/uL (1.0-4.8); LYMPH % 18 % (24-48); MEAN CORPUSCULAR HEMOGLOBIN 31 pg (25-35); MEAN CORPUSCULAR HGB CONC 34 g/dL (31-37); MEAN CORPUSCULAR VOLUME 93 fL (79-100); MONO # 0.8 x10^3/uL (0.0-1.1); MONO % 10 % (0-9); NEUT # 5.3 x10^3uL (1.8-7.7); NEUT % 69 % (31-73); PLATELET COUNT 167 x10^3/uL (140-400); RED BLOOD COUNT 4.22 x10^6/uL (4.30-5.70); RED CELL DISTRIBUTION WIDTH 14.4 % (11.5-14.5); WHITE BLOOD COUNT 7.7 x10^3/uL (4.0-11.0)
--- NOTE | 2020-02-02 13:57 | RAD ---
PORTABLE CHEST 1V Clinical indications: Chest pain. COMPARISON: October 20, 2019. Findings: There is a new nodular infiltrate within the medial aspect of the right upper lobe. Bilateral perihilar upper lobe round densities are seen which have been noted previously unchanged. This may be due to prominent pulmonary vasculature therefore rather than lung infiltrate. There is mild chronic elevation of the right hemidiaphragm. There is mild bibasilar atelectasis. No pleural effusion or pneumothorax is seen. 3-lead pacemaker is again evident. The heart size is normal and stable. Mediastinum is unchanged. IMPRESSION: New nodular lung infiltrate within the medial aspect of the right upper lobe. Recommend chest CT with IV contrast for further evaluation. Electronically signed by: Balbir Taveras MD (02/02/2020 1:54 PM) [facility] [place]
[2020-02-02 13:59] LABS: CREATININE 1.5 mg/dL (0.7-1.3); GFR 45.5; POTASSIUM 4.3 mmol/L (3.5-5.1)
[2020-02-02 14:15] LABS: ALBUMIN 3.5 g/dL (3.4-5.0); MAGNESIUM 2.1 mg/dL (1.8-2.4); TOTAL BILIRUBIN 0.4 mg/dL (0.2-1.0); TOTAL PROTEIN 6.9 g/dL (6.4-8.2)
[2020-02-02] MEDS ORDERED: IOHEXOL 350 MG/ML 100 ML VIAL. IV ONE (14:15)
[2020-02-02] MEDS ORDERED: CONTRAST GIVEN MC PRN (14:30)
[2020-02-02 14:39] LABS: BACTERIA,URINE 0 /HPF (0-FEW); BILIRUBIN,URINE NEG (NEG); CLARITY,URINE CLEAR; COLOR,URINE STRAW; GLUCOSE,URINE NEG (NEG); NITRITE,URINE NEG (NEG); RBC,URINE 0 /HPF (0-2); SQUAMOUS EPITHELIAL CELL,UR OCC /LPF; UROBILINOGEN,URINE 0.2 mg/dL (0.2 mg/dL); WBC,URINE OCC /HPF (0-4)
--- NOTE | 2020-02-02 15:21 | RAD ---
CTA head with and without and CTA neck with contrast History: Left-sided weakness Technique: Axial helical images were obtained of the head and neck after the intravenous administration of 75 mL of Isovue-370 IV contrast. Multiplanar reconstruction was performed on an independent work station including MIP imaging and 3D angiographic imaging. Comparison: none CTA head with and without contrast. Findings: Brain: The john and white matter appears symmetrical. There is no mass effect, extra-axial fluid collections or hydrocephalus. There is no gross bleed. Distal carotid arteries: There is calcification the daniels of the intercavernous portions of the internal carotid arteries without significant narrowing. Vertebral basilar system there is a focus of approximately 50 percent stenosis of the distal left vertebral artery at the level of the skull base. Major cerebral arteries: normal Impression: Approximately 50 percent stenosis the distal left vertebral artery. end impression CTA neck with contrast: Findings: Aortic arch and origin of great vessels: normal Common carotid arteries: There is significant plaque at the level of bulbs bilaterally with less than 50 percent stenosis. Internal carotid arteries: Right: normal Left: normal Vertebral basilar system normal There is multiple nodules in the right lobe of the thyroid. Left lobe of thyroid is not well seen and likely removed. There is marked degenerative changes of the cervical spine with prior anterior fusion. Impression: No significant stenosis. See CTA head. End impression PQRS Compliance Statement - Stenosis calculations for CT, MR and conventional angiography are based upon measurement of the distal ICA diameter in accordance with the NASCET methodology. Stenosis calculations for carotid ultrasound studies are derived from validated velocity criteria which are known to correlate with the NASCET methodology. PQRS Compliance Statement: One or more of the following individualized dose reduction techniques were utilized for this examination: 1. Automated exposure control 2. Adjustment of the mA and/or kV according to patient size 3. Use of iterative reconstruction technique Electronically signed by: Iftikhar Vazquez III, MD (02/02/2020 3:18 PM) [id number]
[2020-02-02] MEDS: IV NORMAL SALINE 1,000ML 1,000 ML IV SCH (15:57)
[2020-02-02] MEDS ORDERED: ONDANSETRON PF 4 MG/2 ML VIAL. IV PRN (16:00)
[2020-02-02] MEDS ORDERED: ACETAMINOPHEN 325 MG TABLET PO PRN (16:00)
[2020-02-02 19:34] VITALS: BP 167/65
[2020-02-02] MEDS ORDERED: APIX5TAB3 PO (20:47)
[2020-02-02] MEDS: GABAPENTIN 300 MG CAPSULE. PO SCH (22:16)
[2020-02-02] MEDS: FAMOTIDINE 20 MG TABLET PO SCH (22:16)
[2020-02-02] MEDS: OMEGA-3 FATTY ACIDS/FISH OIL 1,000 MG CAPSULE. PO SCH (22:17)
[2020-02-02] MEDS: APIXABAN 5 MG TABLET. PO SCH (22:17)
[2020-02-02 23:00] VITALS: BP 105/68
[2020-02-03 03:00] VITALS: BP 110/56
[2020-02-03] MEDS: IV NORMAL SALINE 1,000ML 1,000 ML IV SCH (05:17)
[2020-02-03 06:19] VITALS: BP 150/76
[2020-02-03 06:25] LABS: BASO % 1 % (0-3); EOS # 0.3 x10^3/uL (0.0-0.7); EOS % 5 % (0-3); HEMATOCRIT 39.6 % (39.0-53.0); HEMOGLOBIN 12.9 g/dL (13.0-17.5); LYMPH # 1.3 x10^3/uL (1.0-4.8); LYMPH % 26 % (24-48); MEAN CORPUSCULAR HEMOGLOBIN 30 pg (25-35); MEAN CORPUSCULAR HGB CONC 33 g/dL (31-37); MEAN CORPUSCULAR VOLUME 93 fL (79-100); MONO # 0.6 x10^3/uL (0.0-1.1); MONO % 11 % (0-9); NEUT # 2.9 x10^3uL (1.8-7.7); NEUT % 57 % (31-73); PLATELET COUNT 159 x10^3/uL (140-400); RED BLOOD COUNT 4.24 x10^6/uL (4.30-5.70); RED CELL DISTRIBUTION WIDTH 14.5 % (11.5-14.5); WHITE BLOOD COUNT 5.2 x10^3/uL (4.0-11.0)
[2020-02-03 06:35] LABS: CALCIUM 8.7 mg/dL (8.5-10.1); CREATININE 1.4 mg/dL (0.7-1.3); GFR 49.3; POTASSIUM 4.1 mmol/L (3.5-5.1)
[2020-02-03] MEDS ORDERED: THYROID,PORK 60 MG TABLET PO SCH (07:00)
[2020-02-03] MEDS ORDERED: CARVEDILOL 12.5 MG TABLET PO SCH (08:00)
[2020-02-03] MEDS: FAMOTIDINE 20 MG TABLET PO SCH (08:10)
[2020-02-03] MEDS: GABAPENTIN 300 MG CAPSULE. PO SCH (08:11)
[2020-02-03] MEDS: APIXABAN 5 MG TABLET. PO SCH (08:11)
[2020-02-03] MEDS: OMEGA-3 FATTY ACIDS/FISH OIL 1,000 MG CAPSULE. PO SCH (08:12)
[2020-02-03] MEDS ORDERED: LEVOTHYROXINE 50 MCG TABLET PO SCH (08:15)
[2020-02-03] MEDS ORDERED: ATORVASTATIN CALCIUM 20 MG TABLET PO SCH ×3 (08:15→21:00)
--- NOTE | 2020-02-03 08:18 | PDOC2 ---
CARDIAC CONSULT DATE OF CONSULT Date Of Consult DATE: 02/03/20 TIME: 08:08 REASON FOR CONSULT Reason for Consult Chest pain REFERRING PHYSICIAN Referring Physician Dr. Wilson SOURCE Source: Chart review, Patient HPI History of Present Illness This is a 74 yo male who presented secondary to recurrent left-sided facial weakness. Noted left facial droop around 11:30 am yesterday. Previous history of trigeminal neuralgia. Has had previous episodes of left sided facial weakness that resolved without intervention. Concerns for possible TIA in past as stroke workup has muriel negative. Left facial droop slowly resolved yesterday afternoon. Was nearly resolved by 4pm. Additionally has history of CAD, CMP s/p ICD. [place]. Craft [place] [facility] Over the last week, has had brief burning/sharp pains in his left chest. No associated dizziness, diaphoresis, SOA, or nausea/vomiting. No specific precipitating factors. Pain resolves within seconds without intervention. PAST MEDICAL HISTORY Cardiovascular: AFIB, CAD (s/p PCI/stent ), CHF, HTN, hyperipidemia CENTRAL NERVOUS SYSTEM: Periperal neuropathy, TIA GI: GERD Heme/Onc: Cancer (thyroid ) Renal/: Chronic renal insuff Endocrine: Diabetes, Hypothyroidism PAST SURGICAL HISTORY Past Surgical History: Pacemaker (AICD), Other (cervical fusion, thyroidectomy, right BKA) FAMILY HISTORY Family History: Heart Disease SOCIAL HISTORY Smoke: No ALCOHOL: none Drugs: None Lives: with Family CURRENT MEDICATIONS Current Medications Current Medications Iohexol (Omnipaque 350 Mg/ml) 60 ml 1X ONCE IV ; Start 02/02/20 at 14:15; Stop 02/02/20 at 14:18; Status DC Info (Do NOT chart on this entry -- for MONITORING) 1 each PRN DAILY PRN MC SEE COMMENTS; Start 02/02/20 at 14:30; Stop 02/04/20 at 14:29 Ondansetron HCl (Zofran) 4 mg PRN Q4HRS PRN IV NAUSEA/VOMITING; Start 02/02/20 at 16:00; Stop 02/03/20 at 15:59 Sodium Chloride 1,000 ml @ 75 mls/hr [id number] IV ; Start 02/02/20 at 15:57; Stop 02/03/20 at 15:56 Acetaminophen (Tylenol) 650 mg PRN Q4HRS PRN PO FEVER; Start 02/02/20 at 16:00; Stop 02/03/20 at 15:59 Apixaban (Eliquis) 5 mg BID PO Last administered on 02/02/20at 22:17; Start 02/02/20 at 21:00 Furosemide (Lasix) 40 mg DAILY PO ; Start 02/03/20 at 09:00 Lisinopril (Prinivil) 20 mg DAILY PO ; Start 02/03/20 at 09:00 Atorvastatin Calcium (Lipitor) 40 mg DAILY PO ; Start 02/03/20 at 09:00 Carvedilol (Coreg) 25 mg BIDWMEALS PO ; Start 02/03/20 at 08:00 Non-Formulary Medication (Cinnamon Bark (Cinnamon)) 1,000 mg DAILY PO ; Start 02/03/20 at 09:00; Stop 02/02/20 at 21:37; Status DC Gabapentin (Neurontin) 600 mg TID PO Last administered on 02/02/20at 22:16; Start 02/02/20 at 21:00 Multivitamins/ Calcium (Thera-M Plus) 1 tab DAILY PO ; Start 02/03/20 at 09:00 Fish Oil (Fish Oil) 1,000 mg BID PO Last administered on 02/02/20at 22:17; Start 02/02/20 at 21:00 Famotidine (Pepcid) 20 mg BID PO Last administered on 02/02/20at 22:16; Start 02/02/20 at 21:00 Thyroid ([place] Thyroid) 15 mg DAILY07 PO ; Start 02/03/20 at 07:00 Active Scripts Active Reported Eliquis (Apixaban) 5 Mg Tablet 5 Mg PO BID Lasix (Furosemide) 40 Mg Tablet 1 Tab PO DAILY [place] Thyroid (Thyroid,Pork) 15 Mg Tablet 15 Mg PO DAILY07 Carvedilol 25 Mg Tablet 25 Mg PO BIDWMEALS Gabapentin 600 Mg Tablet 600 Mg PO TID Lisinopril 20 Mg Tablet 1 Tab PO DAILY [place] 3 1,000 Mg Softgel ([place]-3 Fatty Acids/Fish Oil) 1 Each Capsule 1,000 Mg PO BID LAST DOSE GIVEN: DATE: TIME: NEXT DOSE DUE: DATE: TIME: Ranitidine Hcl 300 Mg Capsule 300 Mg PO BID LAST DOSE GIVEN: DATE: TIME: NEXT DOSE DUE: DATE: TIME: Cinnamon (Cinnamon Bark) 500 Mg Capsule 1,000 Mg PO DAILY LAST DOSE GIVEN: DATE: TIME: NEXT DOSE DUE: DATE: TIME: Multi-Day Vitamins (Multivitamin) 1 Each Tablet 1 Tab PO DAILY LAST DOSE GIVEN: DATE: TIME: NEXT DOSE DUE: DATE: TIME: Atorvastatin Calcium 40 Mg Tablet 40 Mg PO DAILY LAST DOSE GIVEN: DATE: TIME: NEXT DOSE DUE: DATE: TIME: ALLERGIES Allergies: Coded Allergies: oxaprozin (Verified Adverse Reaction, Intermediate, 02/02/20) BLOOD IN URIN ROS Review of Systems 14 point ROS conducted with pertinent positives noted above in HPI PHYSICAL EXAM General: Alert, Oriented X3, Cooperative, No acute distress HEENT: Atraumatic, Mucous membr. moist/pink Lungs: Clear to auscultation Heart: Regular rate, Other (2/6 systolic murmur ) Abdomen: Soft, No tenderness Extremities: No edema, Normal pulses Skin: No breakdown Neuro: Normal speech, Sensation intact Psych/Mental Status: Mental status NL, Mood NL MUSCULOSKELETAL: Osteoarthritic changes both hands VITALS Vital Signs Vital Signs Date Time Temp Pulse Resp B/P (MAP) Pulse Ox O2 Delivery O2 Flow Rate FiO2 02/03/20 06:19 97.9 70 12 150/76 (100) 97 Room Air LABS LABS Laboratory Tests Test 02/02/20 13:33 02/02/20 14:05 02/02/20 16:53 02/02/20 19:00 White Blood Count 7.7 x10^3/uL (4.0-11.0) Red Blood Count 4.22 x10^6/uL (4.30-5.70) Hemoglobin 13.1 g/dL (13.0-17.5) Hematocrit 39.2 % (39.0-53.0) Mean Corpuscular Volume 93 fL (79-100) Mean Corpuscular Hemoglobin 31 pg (25-35) Mean Corpuscular Hemoglobin Concent 34 g/dL (31-37) Red Cell Distribution Width 14.4 % (11.5-14.5) Platelet Count 167 x10^3/uL (140-400) Neutrophils (%) (Auto) 69 % (31-73) Lymphocytes (%) (Auto) 18 % (24-48) Monocytes (%) (Auto) 10 % (0-9) Eosinophils (%) (Auto) 3 % (0-3) Basophils (%) (Auto) 1 % (0-3) Neutrophils # (Auto) 5.3 x10^3uL (1.8-7.7) Lymphocytes # (Auto) 1.4 x10^3/uL (1.0-4.8) Monocytes # (Auto) 0.8 x10^3/uL (0.0-1.1) Eosinophils # (Auto) 0.2 x10^3/uL (0.0-0.7) Basophils # (Auto) 0.1 x10^3/uL (0.0-0.2) Sodium Level 141 mmol/L (136-145) Potassium Level 4.3 mmol/L (3.5-5.1) Chloride Level 105 mmol/L (98-107) Carbon Dioxide Level 26 mmol/L (21-32) Anion Gap 10 (6-14) Blood Urea Nitrogen 38 mg/dL (8-26) Creatinine 1.5 mg/dL (0.7-1.3) Estimated GFR (Cockcroft-Gault) 45.5 BUN/Creatinine Ratio 25 (6-20) Glucose Level 126 mg/dL (70-99) Calcium Level 9.0 mg/dL (8.5-10.1) Magnesium Level 2.1 mg/dL (1.8-2.4) Total Bilirubin 0.4 mg/dL (0.2-1.0) Aspartate Amino Transf (AST/SGOT) 23 U/L (15-37) Alanine Aminotransferase (ALT/SGPT) 23 U/L (16-63) Alkaline Phosphatase 82 U/L (46-116) Creatine Kinase 222 U/L (39-308) Creatine Kinase MB (Mass) 2.6 ng/mL (0.0-3.6) Creatine Kinase MB Relative Index 1.2 % (0-4) Troponin I Quantitative 0.021 ng/mL (0-0.055) 0.034 ng/mL (0-0.055) Total Protein 6.9 g/dL (6.4-8.2) Albumin 3.5 g/dL (3.4-5.0) Albumin/Globulin Ratio 1.0 (1.0-1.7) Urine Collection Type Unknown Urine Color Straw Urine Clarity Clear Urine pH 6.5 Urine Specific [place] 1.015 Urine Protein Neg (NEG-TRACE) Urine Glucose (UA) Neg mg/dL (NEG) Urine Ketones (Stick) Neg mg/dL (NEG) Urine Blood Neg (NEG) Urine Nitrite Neg (NEG) Urine Bilirubin Neg (NEG) Urine Urobilinogen Dipstick 0.2 mg/dL (0.2 mg/dL) Urine Leukocyte Esterase Trace (NEG) Urine RBC 0 /HPF (0-2) Urine WBC Occ /HPF (0-4) Urine Squamous Epithelial Cells Occ /LPF Urine Bacteria 0 /HPF (0-FEW) Glucose (Fingerstick) 110 mg/dL (70-99) Test 02/02/20 23:17 02/03/20 05:46 02/03/20 07:41 Troponin I Quantitative 0.030 ng/mL (0-0.055) 0.030 ng/mL (0-0.055) White Blood Count 5.2 x10^3/uL (4.0-11.0) Red Blood Count 4.24 x10^6/uL (4.30-5.70) Hemoglobin 12.9 g/dL (13.0-17.5) Hematocrit 39.6 % (39.0-53.0) Mean Corpuscular Volume 93 fL (79-100) Mean Corpuscular Hemoglobin 30 pg (25-35) Mean Corpuscular Hemoglobin Concent 33 g/dL (31-37) Red Cell Distribution Width 14.5 % (11.5-14.5) Platelet Count 159 x10^3/uL (140-400) Neutrophils (%) (Auto) 57 % (31-73) Lymphocytes (%) (Auto) 26 % (24-48) Monocytes (%) (Auto) 11 % (0-9) Eosinophils (%) (Auto) 5 % (0-3) Basophils (%) (Auto) 1 % (0-3) Neutrophils # (Auto) 2.9 x10^3uL (1.8-7.7) Lymphocytes # (Auto) 1.3 x10^3/uL (1.0-4.8) Monocytes # (Auto) 0.6 x10^3/uL (0.0-1.1) Eosinophils # (Auto) 0.3 x10^3/uL (0.0-0.7) Basophils # (Auto) 0.0 x10^3/uL (0.0-0.2) Sodium Level 144 mmol/L (136-145) Potassium Level 4.1 mmol/L (3.5-5.1) Chloride Level 108 mmol/L (98-107) Carbon Dioxide Level 28 mmol/L (21-32) Anion Gap 8 (6-14) Blood Urea Nitrogen 37 mg/dL (8-26) Creatinine 1.4 mg/dL (0.7-1.3) Estimated GFR (Cockcroft-Gault) 49.3 Glucose Level 101 mg/dL (70-99) Calcium Level 8.7 mg/dL (8.5-10.1) Magnesium Level 2.0 mg/dL (1.8-2.4) Glucose (Fingerstick) 108 mg/dL (70-99) ECHOCARDIOGRAM Echocardiogram <Conclusion> Left ventricle systolic function is normal. The Ejection Fraction is estimated at 55%. There is normal LV segmental wall motion. Trace aortic regurgitation. Mild mitral regurgitation. Trace tricuspid regurgitation. The PA pressure was estimated at 24 mmHg. There is no evidence of significant pericardial effusion. DATE: 03/15/16 1451 Overall left ventricular systolic function is lownormal. EF~ 50- 55% No regional wall motion abnormalities identified Valves appear structurally normal for age without signficant stenosis or regurgitation (Mild aortic sclerosis and mild mitral annular calcification) No significant pericardial effusion Normal ventricular chamber dimensions with mild LA enlargement Normal LV wall thickness Normal aortic root dimensions Estimated peak systolic PA pressure = 31 mmHg Device leads in RV and RA Negative saline bubble study: no evidence of shunting 11/18/19 - 2-D + DOPPLER ECHOCARDIOGRAM HEART CATH Heart Cath 05/15 angio for CP, slight trop release. High grade RCA, had PCI of mid & prox area, non dom LCF is occluded, LAD with mild disease, nl EF 09/03/17- cardiac catheterization revealed known occluded Cx with collaterals, minimal LAD disease, patent RCA stent with 50% stenosis in distal RCA ASSESSMENT/PLAN Assessment/Plan 1. Chest pain, atypical. AMI ruled out. Recent echo with preserved LV systolic function as noted above. 01/2019 pharmacological stress test did not show any ischemia. 2. Left-sided weakness with h/o trigeminal neuralgia and possible TIA. Recent MRA head and neck without acute findings. Symptoms resolved without intervention 3. CAD s/p PCI/stent to the RCA. 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 [place] Dr. Craft of [facility] 4. 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 Recent device check with normal function. LVEF previously 15%. Most recent echo with LVEF recovery. Clinically compensated 5. PAFIB; AV paced with underlying SR. low burden per recent device check. On OAC with Eliquis 6. Hypertension; controlled 7. Hyperlipidemia; statin 8. Diabetes, II 9. CKD 10. Hypothyroidism Recommendations Continue secondary prevention measures Consider addition of Imdur given known MONOMER PURIFICATION OPERATOR Eliquis for stroke prophylaxis. HF optimization with ACEi, BB, Lasix Follow up with Dr. Craft as previously scheduled. If CP recurrent, could consider outpatient ischemic evaluation as per primary allergist. MAHOGANY QUAN APRN Feb 03, 2020 08:18
[2020-02-03] MEDS ORDERED: MULTIVITAMIN with MINERAL TABLET. PO SCH (09:00)
[2020-02-03] MEDS ORDERED: FUROSEMIDE 40 MG TABLET PO SCH (09:00)
[2020-02-03] MEDS ORDERED: NON FORMULARY ITEM (Cinnamon Bark (Cinnamon) 1,000 MG) PO SCH (09:00)
[2020-02-03] MEDS ORDERED: LISINOPRIL 20 MG TABLET PO SCH (09:00)
[2020-02-03 11:00] VITALS: BP 69/76
--- NOTE | 2020-02-03 13:10 | SSS ---
ADMIT DATE: 02/03/2020 HISTORY OF PRESENT ILLNESS: The patient is a 74-year-old male patient who was brought to the Emergency Room with complaint of sided weakness and chest pain. He apparently had similar episodes in the past and diagnosed with TIA, currently follows with Dr. Barnard for Neurology. She is also known to have history of coronary artery disease, hypertension, previous myocardial infarction, has rapid ventricular pacemaker and currently on Eliquis. He was investigated in the Emergency Room, had an EKG, which showed a heart rate of 79 beats per minute. Ventricular paced rhythm with frequent PVCs, right axis deviation, no acute ST segment elevation. His chest x-ray showed new nodular lung infiltrate within the medial aspect of the right upper lobe. Had a CT scan of the head, which showed no acute intracranial hemorrhage identified. There is again ____ lateral ventriculomegaly, although probably due to supratentorial atrophy and he did have CT angio of the head and neck, which basically showed that the patient has approximately 50% stenosis of distal left vertebral artery. There is calcification in the daniels of the intra-cavernous portion of the internal carotid arteries without significant narrowing of vertebral basilar system. There is a focus of approximately 50% stenosis of distal left vertebral artery at the level of the skull base. However, the major cerebral arteries are normal. CT angio of the neck with contrast showed that the aortic arch and the origin of the great vessels are normal. In common carotid arteries, there is significant plaque at the level of bulbs bilaterally with less than 50% stenosis. He did have multiple sets of cardiac enzymes, showed troponin is trending down and he was seen in consultation by the night shift supervisor as well as the neurologist and both recommended that he is stable and he can be discharged home. PAST MEDICAL HISTORY: Significant for hypertension, hyperlipidemia, hypothyroidism, peripheral neuropathy of both lower extremities, coronary artery disease. He is also known to have sick sinus syndrome, status post pacemaker placement and coronary stent deployment, gastroesophageal reflux disease, chronic renal disease, osteomyelitis of his right lower extremity requiring amputation. He has also trigeminal neuralgia. PAST SURGICAL HISTORY: Significant for C5-C7 spinal surgery, status post cervical spine fusion x 2, status post insulin pump placement, thyroidectomy and right below knee amputation. ALLERGIES: HE IS ALLERGIC TO CARBAMAZEPINE AND OXAPROZIN. FAMILY HISTORY: He is an only child. His father of committing suicide; however, he is known to have severe COPD and alcoholism. Mother at the age of 75 because of brain tumor. SOCIAL HISTORY: He is , has 1 daughter. He does not smoke, drink alcohol or use recreational drugs. REVIEW OF SYSTEMS: As per history of present illness. MEDICATIONS: He is apparently on following medications: He is on apixaban 5 mg twice a day, atorvastatin calcium 40 mg daily, carvedilol 25 mg twice a day, cinnamon bark 1000 mg daily, furosemide 40 mg daily, gabapentin 600 mg 3 times a day, lisinopril 20 mg daily, multivitamin 1 tablet once a day, omega-3 fatty acid 1000 mg twice a day, ranitidine 300 mg twice a day, thyroid pork. She is now on Synthroid, dose of which is not clear. FINAL DISCHARGE DIAGNOSES: 1. Atypical chest pain, acute myocardial infarction was ruled out. 2. Left-sided weakness that has resolved. Apparently, he has had an MRA and in fact he has CT angio of the head and neck, which showed no evidence of any major hemodynamically significant stenosis and intracranial and extracranial arteries. 3. Coronary artery disease, status post PCI with stent deployment to the right coronary artery known. He follows with Dr. Craft at [facility] [place]. Patient is known to have also ischemic cardiomyopathy with ejection fraction of only 15% for which she has an AICD, paroxysmal atrial fibrillation, hypertension, hyperlipidemia, type 2 diabetes, chronic kidney disease, and hypothyroidism. MO VELASCO MD DR: JASEN/regine JOB#: [id number] / [id number]
[2020-02-03 15:10] LABS: % BASOS 1 % (0-3); % EOS 8 % (0-5); % LYMPHS 29 % (24-48); % MONOS 9 % (0-10); % SEGS 53 % (35-66)
[2020-02-03 15:11] LABS: PLT ESTIMATE ADEQUATE (ADEQUATE)
--- NOTE | 2020-02-03 15:49 | CONS ---
DATE OF CONSULTATION: NEURO CONSULT REFERRING PHYSICIAN: Dr. Vee. REASON FOR CONSULTATION: Chest pain, pain, numbness and paresthesia of the left upper and lower extremities. HISTORY OF PRESENT ILLNESS: This is a 74-year-old right-handed male who was admitted through Emergency Room this morning after he presented with 1-week history of left-sided weakness along with chest pain. The patient also complains of left-sided numbness and paresthesia as well. He described chest pain as localized pain around the pacemaker on the left side. He denies radiating pain to the shoulder blades and upper extremity, nausea, vomiting, diaphoresis, neck pain, or recent neck injuries or fall. The patient also has recently noticed increased weakness of the left side of the left upper and lower extremities, more than usual. He denies headaches, visual disturbances, dysarthria or dysphagia. Initial nonenhanced head CT scan revealed no evidence of acute intracranial process. PAST MEDICAL HISTORY: Quite extensive includes coronary artery disease, hypothyroidism, peripheral neuropathy, history of TIA, coronary artery disease, cardiac arrhythmia, required pacemaker placement, obesity, gastroesophageal reflux disease, osteomyelitis. PAST SURGICAL HISTORY: Significant for coronary stent placement x 2, cervical fusion at C6-C7, cataract removal with lens implantation, partial thyroidectomy for cancer, status post pacemaker placement, status post coronary stent placement, status post defibrillator placement, status post left eye laser surgery for retinopathy. FAMILY HISTORY: Father by suicide. He was alcoholic with COPD. Mother at age of 75 of brain tumor. SOCIAL HISTORY: The patient is . He has one daughter. He denies smoking, alcohol drinking, or illicit drug use. REVIEW OF SYSTEMS: A 12-point review of system was performed as mentioned above in history of present illness, otherwise unremarkable. CURRENT HOME MEDICATIONS: Eliquis 5 mg twice daily, aspirin 81 mg p.o. daily, Lipitor 40 mg p.o. nightly, carvedilol 25 mg twice daily or b.i.d., Lasix 40 mg daily, gabapentin 600 mg t.i.d., lisinopril 20 mg daily, multivitamins, omega-3, ranitidine 300 mg twice daily and [place] Thyroid 15 mg daily. ALLERGIES: OXAPROZIN. PHYSICAL EXAMINATION: GENERAL: Obese male, not in acute distress. He weighs 113.5 pounds. VITAL SIGNS: Blood pressure 167/65, respiratory rate 15, pulse is 70, temperature 97.6, oxygen saturation 98% on room air. HEENT: Normocephalic, atraumatic, otherwise unremarkable. NECK: Supple. Negative for carotid bruit, lymphadenopathy or thyromegaly. LUNGS: Clear to A and P. CARDIOVASCULAR: Regular rate and rhythm, normal S1, S2. There is no S3, S4 or murmur. ABDOMEN: Soft. Bowel sounds positive. EXTREMITIES: Negative for cyanosis, clubbing or pitting edema, status post right below-knee amputation. NEUROLOGICAL EXAM: Mental Status: The patient is alert and oriented x 3. Speech is fluent. There is no language dysfunction. Memory, judgment, and abstracting thinking are normal. The patient denies hallucination or delusion. CRANIAL NERVES: Visual walker are full. The pupils are reactive to light and accommodation. The extraocular movements are intact. There is no nystagmus. There is no facial motor or sensory deficit. Hearing is intact bilaterally. The palate is elevated symmetrically. Sternocleidomastoid muscles are powerful bilaterally. The patient shrugs his shoulders symmetrically, protrudes his tongue in the midline without fasciculation or atrophy. MOTOR: No focal muscle bulk was seen. The tone is normal. The strength is 5/5 in the left upper and lower extremities. Sensory examination revealed normal pinprick, light touch, vibratory and position senses over the left upper and lower extremities. Deep tendon reflexes were asymmetric and hypoactive with absent Achilles responses. Gait not tested. DIAGNOSTIC DATA: Initial nonenhanced head CT scan revealed no acute intracranial process, but showed third and lateral ventriculomegaly. CT angio of the neck revealed no significant carotid artery stenosis, but showed 50% stenosis of the distal left vertebral artery. CT angio of the head revealed no abnormalities. A chest x-ray revealed new nodular lung infiltrate within the medial aspect of the right upper lobe. LABORATORY DATA: CBC revealed white blood cells of 7700, hemoglobin 13.1, hematocrit 39.2, platelet count 167,000. Chemistry revealed sodium 141, potassium 4.3, chloride 105, CO2 of 26, BUN 38, creatinine 1.5, glucose 126, calcium is 9. Liver enzymes are normal. Troponin level is 0.021. Urinalysis revealed trace leukocyte esterase. EKG revealed normal sinus rhythm at a rate of 79 with frequent PVCs. Otherwise, no acute ST changes. IMPRESSION: 1. One week history of localized left chest wall tenderness probably noncardiac. 2. Intermittent numbness and paresthesia of the left upper extremity, rule out residual from cervical radiculopathy. 3. Multiple medical problems include coronary artery disease, status post pacemaker and defibrillator placement, status post 2 coronary stents placement, hypothyroidism, hypertension, gastroesophageal reflux disease. 4. Renal disease with elevated BUN and creatinine. 5. New nodular infiltrate of the left and right upper lobe, unchanged. RECOMMENDATIONS: 1. Continue with current home medications and current care initiated by Dr. Vee. 2. Follow up with Dr. Sheets to rule out cervical radiculopathy or neuropathy. Numbness and paresthesia of the left upper extremities, rule out cervical radiculopathy or intermittent neuropathy. 3. We will arrange for acute EMG/NCS of the left upper extremity to rule out neuropathy versus cervical radiculopathy. M Al SHEETS MD DR: MARCUS/regine JOB#: [id number] / [id number]
== END 2020-02-03 11:45 | disposition home or self-care (01) | DRG 392 ==
LOC: ER 13:07 → ICU 15:35
PROVIDERS: ADMIT Internal Medicine; ATTEND Internal Medicine
DX: K21.9 Gastro-esophageal reflux disease without esophagitis (principal); I13.0 Hypertensive heart and chronic kidney disease with heart failure and stage 1 through stage 4 chronic kidney disease, or unspecified chronic kidney disease; E11.22 Type 2 diabetes mellitus with diabetic chronic kidney disease; E11.319 Type 2 diabetes mellitus with unspecified diabetic retinopathy without macular edema; E78.5 Hyperlipidemia, unspecified; G93.89 Other specified disorders of brain; I25.10 Atherosclerotic heart disease of native coronary artery without angina pectoris; I25.2 Old myocardial infarction; I25.5 Ischemic cardiomyopathy; I25.82 Chronic total occlusion of coronary artery; I48.0 Paroxysmal atrial fibrillation; I50.9 Heart failure, unspecified; N18.9 Chronic kidney disease, unspecified; R29.810 Facial weakness; Z79.01 Long term (current) use of anticoagulants; Z79.4 Long term (current) use of insulin; Z82.5 Family history of asthma and other chronic lower respiratory diseases; Z86.73 Personal history of transient ischemic attack (TIA), and cerebral infarction without residual deficits; Z89.511 Acquired absence of right leg below knee; Z95.0 Presence of cardiac pacemaker; Z95.5 Presence of coronary angioplasty implant and graft; Z96.41 Presence of insulin pump (external) (internal); Z98.1 Arthrodesis status; E66.9 Obesity, unspecified; M19.90 Unspecified osteoarthritis, unspecified site
CPT/HCPCS: 36415; 70450; 70496; 70498; 71045; 80048; 80053; 81001; 82553; 82947; 83735; 84484; 85007; 85025; 87086; 93005; 99285-25

== ENCOUNTER 2020-03-11 10:14 | Emergency (ER) | payer MEDICARE, BC ==
[~2020-03-11] VITALS: Ht 182.9 cm; Wt 113.0 kg
[~2020-03-11 10:14] MED LIST changes: +APIX5TAB3 PO
[2020-03-11] MEDS ORDERED: LIDOCAINE 1% Multi-Dose 20 ML VIAL. IJ ONE (10:30)
[2020-03-11] MEDS ORDERED: DIPH,PERTUSS(ACELL),TET VAC/PF 0.5 ML SYRINGE. VAX IM ONE (11:45)
[2020-03-11] MEDS ORDERED: cefTRIAXone IM 1 GM VIAL IM ONE (12:00)
[2020-03-11] MEDS ORDERED: HYDROcodone/APAP 5/325MG 1 TAB TABLET PO ONE (12:00)
--- NOTE | 2020-03-11 12:15 | RAD ---
FINGER(S) RIGHT History: Injury. Pain. Technique: PA view the hand and 2 additional views of the first digit. Comparison: None. Findings: First digit soft tissue swelling and irregularity. Small calcifications along the dorsal and volar aspect of the first interphalangeal joint. Normal alignment. Moderate first carpometacarpal and triscaphe DJD. Distal interphalangeal and proximal interphalangeal degenerative changes. Chronic ununited ulnar styloid fracture. Vascular calcifications. Impression: 1. Calcifications along the volar and dorsal aspect of the first interphalangeal joint, may represent avulsion fractures. Recommend further clinical evaluation. 2. First digit soft tissue injury. Electronically signed by: Isac Daly DO (03/11/2020 12:12 PM) [id number]
[2020-03-11 12:20] VITALS: BP 136/74
--- NOTE | 2020-03-11 13:36 | PHYS DOC ---
Past History Past Medical History: Arthritis, CAD, Diabetes, GERD, High Cholesterol, Heart Disease, Hypertension, AL, Renal Disease, Other Additional Past Medical Histor: NEUROPATHY Past Surgical History: Angioplasty, Cervical Fusion, Pacemaker, Other Additional Past Surgical Histo: right BKA; cardiac stents; partial thyroidectomy; left toes amputation Smoking: Non-smoker Alcohol Use: None Drug Use: None General Adult EDM: Chief Complaint: LACERATION/AVULSION HPI: HPI: Patient Name: Charli Castro Unit Number: [id number] Date of : 1945 Patient Status: Registered Emergency Room Attending Doctor: Mirza Baldwin DO Past Medical History Past History Past Medical History: Arthritis, CAD, Diabetes, GERD, Heart Disease, Hypertension, AL, Renal Disease, Other Additional Past Medical Histor: NEUROPATHY Past Surgical History: Angioplasty, Cervical Fusion, Pacemaker, Other Additional Past Surgical Histo: right BKA; cardiac stents; partial thyroidectomy; left toes amputation Smoking: Non-smoker Alcohol Use: None Drug Use: None General Adult General Adult EDM: Chief Complaint: LACERATION/AVULSION HPI: HPI: 74-year-old male presents with right thumb laceration. The patient was using a table saw when his thumb into this. It is cut from distal to proximal along the first half of the thumb. He is on Eliquis and it has been bleeding. The bleeding has slowed since he left the house. Has feeling on the distal finger to have a pressure but not sure about light pressure. He cannot fully flex his thumb. He denies any other injuries or complaints at this time. Review of Systems: Review of Systems: Constitutional: Denies fever or chills Eyes: Denies change in visual acuity HENT: Denies nasal congestion or sore throat Respiratory: Denies cough or shortness of breath Cardiovascular: Denies chest pain or edema GI: Denies abdominal pain, nausea, vomiting, bloody stools or diarrhea : Denies dysuria Musculoskeletal: Denies back pain or joint pain Integument: Laceration right first digit Neurologic: Denies headache, focal weakness or sensory changes Endocrine: Denies polyuria or polydipsia Lymphatic: Denies swollen glands Psychiatric: Denies depression or anxiety Heart Score: Risk Factors: Risk Factors: DM, Current or recent (<one month) smoker, HTN, HLP, family history of CAD, obesity. Risk Scores: Score 0 - 3: 2.5% MACE over next 6 weeks - Discharge Home Score 4 - 6: 20.3% MACE over next 6 weeks - Admit for Clinical Observation Score 7 - 10: 72.7% MACE over next 6 weeks - Early Invasive Strategies Current Medications: Current Meds: Current Medications Medications (Trade) Dose Ordered Sig/Rain Start Time Stop Time Status Last Admin Dose Admin Lidocaine HCl 20 ml 1X ONCE 03/11/20 10:30 03/11/20 10:31 Allergies: Allergies: Allergies Coded Allergies Type Severity Reaction Last Updated Verified oxaprozin Adverse Reaction Intermediate 02/02/20 Yes Physical Exam: PE: Constitutional: Well developed, well nourished, no acute distress, non-toxic appearance. [] HENT: Normocephalic, atraumatic, bilateral external ears normal, oropharynx moist, no oral exudates, nose normal. [] Eyes: PERRLA, EOMI, conjunctiva normal, no discharge. [] Neck: Normal range of motion, no tenderness, supple, no stridor. [] Cardiovascular:Heart rate regular rhythm, no murmur [] Lungs & Thorax: Bilateral breath sounds clear to auscultation [] Abdomen: Bowel sounds normal, soft, no tenderness, no masses, no pulsatile masses. [] Skin: 3 cm long laceration of the right thumb, complete laceration of the flexor tendon between the A1 and A2 chucky, complex U-shaped flap [] Back: No tenderness, no CVA tenderness. [] Extremities: No tenderness, no cyanosis, no clubbing, ROM intact, no edema. [] Neurologic: Alert and oriented X 3, normal motor function, normal sensory function, no focal deficits noted. [] Psychologic: Affect normal, judgement normal, mood normal. [] EKG: EKG: [] Radiology/Procedures: Radiology/Procedures: [] Course & Med Decision Making: Course & Med Decision Making Pertinent Labs and Imaging studies reviewed. (See chart for details) The patient has a history of 2 stents. He has not had a heart attack. He last ate at 630 this morning. He took his Eliquis at 630 this morning. 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 I spoke with Dr. Flynn Lester at [facility]. He is a surgeon and he has accepted the patient for transfer by private vehicle. He requested that I loose suture the patient's wound for now. See note below for more details. The patient will go by private vehicle. I have given him a [place] 5/325 before discharge. He is not driving. The patient's tetanus is up to date. I gave him 1 g of Rocephin IM as this is an open wound. The laceration note is not working in the EMR. Laceration note: I obtained verbal consent from the patient for suture repair of his complex thumb laceration. This is a loose suturing that is intended to be temporary as he is having definitive repair surgery later today at . I anesthetized the wound with a digital block with 6 cc of 1% lidocaine without epinephrine. Once good anesthesia was achieved, I placed a tourniquet at the base of the finger and irrigated it thoroughly with normal saline. No foreign bodies were found. I closed the wound with six 3-0 Ethilon sutures in interrupted fashion. There was still some minor bleeding. A nonadherent pad and compression dressing was applied. The patient's tetanus is up to date in 2018. [] Dragon Disclaimer: Dragon Disclaimer: This electronic medical record was generated, in whole or in part, using a voice recognition dictation system. Departure Departure Departure: Impression: Primary Impression: Laceration of right thumb with tendon involvement Qualified Codes: S61.011A - Laceration without foreign body of right thumb without damage to nail, initial encounter Disposition: XFER SHT-TRM HOSP Condition: IMPROVED Referrals: SULTANA RODRIGUEZ MD (PCP) MIRZA BALDWIN DO Mar 11, 2020 10:28 Review of Systems: Review of Systems: Constitutional: Denies fever or chills Eyes: Denies change in visual acuity HENT: Denies nasal congestion or sore throat Respiratory: Denies cough or shortness of breath Cardiovascular: Denies chest pain or edema GI: Denies abdominal pain, nausea, vomiting, bloody stools or diarrhea : Denies dysuria Musculoskeletal: Denies back pain or joint pain Integument: Denies rash Neurologic: Denies headache, focal weakness or sensory changes Endocrine: Denies polyuria or polydipsia Lymphatic: Denies swollen glands Psychiatric: Denies depression or anxiety Heart Score: Risk Factors: Risk Factors: DM, Current or recent (<one month) smoker, HTN, HLP, family history of CAD, obesity. Risk Scores: Score 0 - 3: 2.5% MACE over next 6 weeks - Discharge Home Score 4 - 6: 20.3% MACE over next 6 weeks - Admit for Clinical Observation Score 7 - 10: 72.7% MACE over next 6 weeks - Early Invasive Strategies Current Medications: Current Meds: Current Medications Medications (Trade) Dose Ordered Sig/Rain Start Time Stop Time Status Last Admin Dose Admin Acetaminophen/ Hydrocodone Bitart (Lortab 5/325) 1 tab 1X ONCE 03/11/20 12:00 03/11/20 12:07 DC 03/11/20 12:10 1 TAB Ceftriaxone Sodium (Rocephin Im) 1 gm 1X ONCE 03/11/20 12:00 03/11/20 12:01 DC 03/11/20 12:20 1 GM Diphtheria/ Pertussis/Tetanus Vacc (ADACEL TDap SYRINGE) 0.5 ml ONCE ONCE 03/11/20 11:45 03/11/20 11:50 DC Lidocaine HCl 20 ml 1X ONCE 03/11/20 10:30 03/11/20 10:31 DC Allergies: Allergies: Allergies Coded Allergies Type Severity Reaction Last Updated Verified oxaprozin Adverse Reaction Intermediate 02/02/20 Yes Physical Exam: PE: Constitutional: Well developed, well nourished, no acute distress, non-toxic appearance. [] HENT: Normocephalic, atraumatic, bilateral external ears normal, oropharynx moist, no oral exudates, nose normal. [] Eyes: PERRLA, EOMI, conjunctiva normal, no discharge. [] Neck: Normal range of motion, no tenderness, supple, no stridor. [] Cardiovascular:Heart rate regular rhythm, no murmur [] Lungs & Thorax: Bilateral breath sounds clear to auscultation [] Abdomen: Bowel sounds normal, soft, no tenderness, no masses, no pulsatile masses. [] Skin: Warm, dry, no erythema, no rash. [] Back: No tenderness, no CVA tenderness. [] Extremities: No tenderness, no cyanosis, no clubbing, ROM intact, no edema. [] Neurologic: Alert and oriented X 3, normal motor function, normal sensory func tion, no focal deficits noted. [] Psychologic: Affect normal, judgement normal, mood normal. [] Current Patient Data: Vital Signs: Vital Signs Date Time Temp Pulse Resp B/P (MAP) Pulse Ox O2 Delivery O2 Flow Rate FiO2 03/11/20 12:10 18 03/11/20 11:20 70 146/71 (96) 98 Room Air 03/11/20 10:25 97.9 EKG: EKG: [] Radiology/Procedures: Radiology/Procedures: [] Impressions: FINGER(S) RIGHT History: Injury. Pain. Technique: PA view the hand and 2 additional views of the first digit. Comparison: None. Findings: First digit soft tissue swelling and irregularity. Small calcifications along the dorsal and volar aspect of the first interphalangeal joint. Normal alignment. Moderate first carpometacarpal and triscaphe DJD. Distal interphalangeal and proximal interphalangeal degenerative changes. Chronic ununited ulnar styloid fracture. Vascular calcifications. Impression: 1. Calcifications along the volar and dorsal aspect of the first interphalangeal joint, may represent avulsion fractures. Recommend further clinical evaluation. 2. First digit soft tissue injury. Electronically signed by: Isac Daly DO (03/11/2020 12:12 PM) [id number] DICTATED AND SIGNED BY: ISAC DALY DO DATE: 03/11/20 1212 CC: SULTANA RODRIGUEZ MD; MIRZA BALDWIN DO ~ Course & Med Decision Making: Course & Med Decision Making Pertinent Labs and Imaging studies reviewed. (See chart for details) [] Dragon Disclaimer: Dragon Disclaimer: This electronic medical record was generated, in whole or in part, using a voice recognition dictation system. Departure Departure: Impression: Primary Impression: Laceration of right thumb with tendon involvement Qualified Codes: S61.011A - Laceration without foreign body of right thumb without damage to nail, initial encounter Disposition: 02 XFER SHT-TRM HOSP Condition: IMPROVED Referrals: SULTANA RODRIGUEZ MD (PCP) MIRZA BALDWIN DO Mar 11, 2020 13:36
== END 2020-03-11 12:45 | disposition short-term general hospital (02) ==
LOC: ER 10:14
DX: S61.011A Laceration without foreign body of right thumb without damage to nail, initial encounter (principal); M19.90 Unspecified osteoarthritis, unspecified site; I25.10 Atherosclerotic heart disease of native coronary artery without angina pectoris; I11.9 Hypertensive heart disease without heart failure; I25.2 Old myocardial infarction; E11.40 Type 2 diabetes mellitus with diabetic neuropathy, unspecified; Z95.0 Presence of cardiac pacemaker; Z98.61 Coronary angioplasty status; Z88.8 Allergy status to other drugs, medicaments and biological substances; W29.8XXA Contact with other powered hand tools and household machinery, initial encounter; Y93.89 Activity, other specified; Y92.89 Other specified places as the place of occurrence of the external cause; Y99.8 Other external cause status
CPT/HCPCS: 12002; 73140; 96372; 99285; J0696

== ENCOUNTER 2020-06-11 11:37 | Emergency (ER) | payer MEDICARE, BC ==
[~2020-06-11] VITALS: Ht 182.9 cm; Wt 113.0 kg
[2020-06-11 12:17] LABS: BASO % 1 % (0-3); EOS # 0.2 x10^3/uL (0.0-0.7); EOS % 4 % (0-3); HEMATOCRIT 37.4 % (39.0-53.0); HEMOGLOBIN 12.7 g/dL (13.0-17.5); LYMPH # 1.4 x10^3/uL (1.0-4.8); LYMPH % 22 % (24-48); MEAN CORPUSCULAR HEMOGLOBIN 31 pg (25-35); MEAN CORPUSCULAR HGB CONC 34 g/dL (31-37); MEAN CORPUSCULAR VOLUME 92 fL (79-100); MONO # 0.5 x10^3/uL (0.0-1.1); MONO % 9 % (0-9); NEUT # 4.1 x10^3uL (1.8-7.7); NEUT % 65 % (31-73); PLATELET COUNT 205 x10^3/uL (140-400); RED BLOOD COUNT 4.08 x10^6/uL (4.30-5.70); RED CELL DISTRIBUTION WIDTH 14.6 % (11.5-14.5); WHITE BLOOD COUNT 6.3 x10^3/uL (4.0-11.0)
[2020-06-11 12:24] LABS: CALCIUM 8.5 mg/dL (8.5-10.1); GFR 32.6; POTASSIUM 4.5 mmol/L (3.5-5.1)
--- NOTE | 2020-06-11 12:31 | EKG ---
[address] [address] Test Date: 2020-06-11 Test Time: 11:44:50 Pat Name: HAVEN DOMINGUEZ Department: Room: Gender: M Shade Bander: : 1945 Requested By: RISHABH MONTAGUE Order Number: [id number] Reading MD: Measurements Intervals [place] Rate: 70 P: 0 ND: 206 QRS: -81 QRSD: 110 T: 83 QT: 414 QTc: 450 Interpretive Statements SINUS RHYTHM ABNORMAL LEFT AXIS DEVIATION QRS(T) CONTOUR ABNORMALITY CONSISTENT WITH ANTERIOR INFARCT PROBABLY OLD CONSISTENT WITH INFEROLATERAL INFARCT PROBABLY OLD ABNORMAL ECG RI6.02 No previous ECG available for comparison
[2020-06-11 12:36] LABS: ALBUMIN 3.4 g/dL (3.4-5.0); TOTAL BILIRUBIN 0.4 mg/dL (0.2-1.0); TOTAL PROTEIN 6.8 g/dL (6.4-8.2)
[2020-06-11] MEDS ORDERED: IV NORMAL SALINE 1,000ML 1,000 ML IV ONE (12:45)
--- NOTE | 2020-06-11 13:21 | RAD ---
CT head without contrast 06/11/2020. Reason for exam: Dizziness. Noncontrast images were performed. Exposure: One or more of the following individualized dose reduction techniques were utilized for this examination: 1. Automated exposure control 2. Adjustment of the mA and/or kV according to patient size 3. Use of iterative reconstruction technique. Comparison is made with the prior exam of 02/02/2020. FINDINGS: There is no apparent intracranial mass, hemorrhage or abnormal extra-axial fluid collection. No new area of abnormal density is seen in the brain. The ventricles and basilar cisterns are normally positioned. The sinuses and mastoid air cells appear clear. IMPRESSION: No evidence of acute intracranial abnormality. Electronically signed by: Jerrod Downs Jr., MD (06/11/2020 1:18 PM) [id number]
--- NOTE | 2020-06-11 13:26 | PHYS DOC ---
Past History Past Medical History: Arthritis, CAD, Diabetes, GERD, High Cholesterol, Heart Disease, Hypertension, ND, Renal Disease, Other Additional Past Medical Histor: NEUROPATHY Past Surgical History: Angioplasty, Cervical Fusion, Pacemaker, Other Additional Past Surgical Histo: right BKA; cardiac stents; partial thyroidectomy; left toes amputation Smoking: Non-smoker Alcohol Use: None Drug Use: None General Adult EDM: Chief Complaint: DIZZY/LIGHT HEADED HPI: HPI: Patient is a 74-year-old male who was brought here by EMS from home after he experienced a dizziness episode. Patient said he was in his garage workshop, doing some woodwork, he was sitting on a stool there. Patient said he was there for about 45 minutes, and he stood up from the stool he become dizzy and lightheaded he feels like he might pass out but he never did, patient denies any chest pain or any headache. Patient then went inside the house. He was sweating profusely. EMS was then called, they checked her blood sugar and it was normal. Patient denies any headache, no weakness or numbness anywhere, no slurred speech. By the time he got here, patient felt much better. Patient said his workshop area in the garage HOTTER than inside HIS HOUSE. Review of Systems: Review of Systems: Constitutional: Denies fever or chills Eyes: Denies change in visual acuity HENT: Denies nasal congestion or sore throat Respiratory: Denies cough or shortness of breath Cardiovascular: Denies chest pain or edema GI: Denies abdominal pain, nausea, vomiting, bloody stools or diarrhea : Denies dysuria Musculoskeletal: Denies back pain or joint pain Integument: Denies rash Neurologic: Denies headache, focal weakness or sensory changes . Positive for dizziness Endocrine: Denies polyuria or polydipsia Lymphatic: Denies swollen glands Psychiatric: Denies depression or anxiety Heart Score: Risk Factors: Risk Factors: DM, Current or recent (<one month) smoker, HTN, HLP, family history of CAD, obesity. Risk Scores: Score 0 - 3: 2.5% MACE over next 6 weeks - Discharge Home Score 4 - 6: 20.3% MACE over next 6 weeks - Admit for Clinical Observation Score 7 - 10: 72.7% MACE over next 6 weeks - Early Invasive Strategies Current Medications: Current Meds: Current Medications Medications (Trade) Dose Ordered Sig/Rain Start Time Stop Time Status Last Admin Dose Admin Sodium Chloride 1,000 ml @ 1,000 mls/hr 1X ONCE 06/11/20 12:45 06/11/20 13:44 Allergies: Allergies: Allergies Coded Allergies Type Severity Reaction Last Updated Verified oxaprozin Adverse Reaction Intermediate 02/02/20 Yes Physical Exam: PE: Constitutional: Well developed, well nourished, no acute distress, non-toxic appearance. [] HENT: Normocephalic, atraumatic, bilateral external ears normal, oropharynx moist, no oral exudates, nose normal. [] Eyes: PERRLA, EOMI, conjunctiva normal, no discharge. [] Neck: Normal range of motion, no tenderness, supple, no stridor. [] Cardiovascular:Heart rate regular rhythm, no murmur [] Lungs & Thorax: Bilateral breath sounds clear to auscultation [] Abdomen: Bowel sounds normal, soft, no tenderness, no masses, no pulsatile ma sses. [] Skin: Warm, dry, no erythema, no rash. [] Back: No tenderness, no CVA tenderness. [] Extremities: No tenderness, no cyanosis, no clubbing, ROM intact, no edema. BKA ON RIGHT LEG. Neurologic: Alert and oriented X 3, normal motor function, normal sensory function, no focal deficits noted. [] Psychologic: Affect normal, judgement normal, mood normal. [] Current Patient Data: Labs: Laboratory Tests Test 06/11/20 11:45 White Blood Count 6.3 x10^3/uL (4.0-11.0) Red Blood Count 4.08 x10^6/uL (4.30-5.70) L Hemoglobin 12.7 g/dL (13.0-17.5) L Hematocrit 37.4 % (39.0-53.0) L Mean Corpuscular Volume 92 fL (79-100) Mean Corpuscular Hemoglobin 31 pg (25-35) Mean Corpuscular Hemoglobin Concent 34 g/dL (31-37) Red Cell Distribution Width 14.6 % (11.5-14.5) H Platelet Count 205 x10^3/uL (140-400) Neutrophils (%) (Auto) 65 % (31-73) Lymphocytes (%) (Auto) 22 % (24-48) L Monocytes (%) (Auto) 9 % (0-9) Eosinophils (%) (Auto) 4 % (0-3) H Basophils (%) (Auto) 1 % (0-3) Neutrophils # (Auto) 4.1 x10^3uL (1.8-7.7) Lymphocytes # (Auto) 1.4 x10^3/uL (1.0-4.8) Monocytes # (Auto) 0.5 x10^3/uL (0.0-1.1) Eosinophils # (Auto) 0.2 x10^3/uL (0.0-0.7) Basophils # (Auto) 0.0 x10^3/uL (0.0-0.2) Prothrombin Time 10.9 SEC (9.4-11.4) Prothrombin Time INR 1.1 (0.9-1.1) Activated Partial Thromboplast Time 25 SEC (23-33) Sodium Level 138 mmol/L (136-145) Potassium Level 4.5 mmol/L (3.5-5.1) Chloride Level 102 mmol/L (98-107) Carbon Dioxide Level 26 mmol/L (21-32) Anion Gap 10 (6-14) Blood Urea Nitrogen 44 mg/dL (8-26) H Creatinine 2.0 mg/dL (0.7-1.3) H Estimated GFR (Cockcroft-Gault) 32.6 BUN/Creatinine Ratio 22 (6-20) H Glucose Level 137 mg/dL (70-99) H Calcium Level 8.5 mg/dL (8.5-10.1) Magnesium Level 2.0 mg/dL (1.8-2.4) Total Bilirubin 0.4 mg/dL (0.2-1.0) Aspartate Amino Transferase (AST) 25 U/L (15-37) Alanine Aminotransferase (ALT) 24 U/L (16-63) Alkaline Phosphatase 91 U/L (46-116) Troponin I Quantitative < 0.017 ng/mL (0-0.055) IU-Hmw-M-Type Natriuretic Peptide 625 pg/mL (0-449) H Total Protein 6.8 g/dL (6.4-8.2) Albumin 3.4 g/dL (3.4-5.0) Albumin/Globulin Ratio 1.0 (1.0-1.7) Vital Signs: Vital Signs Date Time Temp Pulse Resp B/P (MAP) Pulse Ox O2 Delivery O2 Flow Rate FiO2 06/11/20 11:37 97.5 70 12 156/80 (105) 95 Room Air EKG: EKG: EKG was done at 1144, heart rate of 70 bpm, sinus rhythm, no ST segment elevatio n. Radiology/Procedures: Radiology/Procedures: [][address] [address] IMAGING REPORT Signed PATIENT: HAVEN DOMINGUEZ ACCOUNT: [id number] : 1945 LOCATION: ER AGE: 74 SEX: M EXAM STATUS: REG ER ORD. PHYSICIAN: RISHABH MONTAGUE DO REASON: DIZZINESS PROCEDURE: CT HEAD WO CONTRAST CT head without contrast 06/11/2020. Reason for exam: Dizziness. Noncontrast images were performed. Exposure: One or more of the following individualized dose reduction techniques were utilized for this examination: 1. Automated exposure control 2. Adjustment of the mA and/or kV according to patient size 3. Use of iterative reconstruction technique. Comparison is made with the prior exam of 02/02/2020. FINDINGS: There is no apparent intracranial mass, hemorrhage or abnormal extra-axial fluid collection. No new area of abnormal density is seen in the brain. The ventricles and basilar cisterns are normally positioned. The sinuses and mastoid air cells appear clear. IMPRESSION: No evidence of acute intracranial abnormality. Electronically signed by: Zoila Downs Jr., MD (06/11/2020 1:18 PM) [id number] DICTATED AND SIGNED BY: ZOILA DOWNS Jr, MD DATE: 06/11/20 1318 CC: SULTANA RODRIGUEZ MD; RISHABH MONTAGUE DO ~ Course & Med Decision Making: Course & Med Decision Making Pertinent Labs and Imaging studies reviewed. (See chart for details) Patient is a 74-year-old male who was evaluated in ER due to dizziness while he was in his workshop. Working this morning. Patient was sweaty, suspect that he was dehydrated from overheat. Patient lab work show elevated BUN and creatinine, patient was given IV fluid, patient feelS much better. CT scan his head did not show any acute problem. Patient had no neurological deficit in ER, had no chest pain or trouble breathing. Patient will be discharged home, instructed follow-up with her family doctor on Saturday. At 1505, Patient was discharged from the ER. He declined a wheelchair occupational therapy assistant, he and his was walking out of the room, walking down the hallway, he then tripped on his shoes and fell down on the knees. Patient had BKA on the right knee, had the prosthesis on. Patient was taken back to his r oom. Patient said now he cannot straighten his right knee. Patient complained of pain on his right knee and left knee. Patient denies any upper extremity pain, no head or neck injury. On examination, there is superficial skin contusion on left knee, patient can flex and extend his left knee without any problem. Examination of right knee shown patellar deformity distracting dis tally, patient cannot straight his right knee, RIGHT DISTAL FEMUR DEFORMED, NO OPEN WOUND. xray of both knees shonw displaced fracture of distal femur on the right side. Discussed with Dr. Vogt, orthopedic surgeon at [place], will accept patient there for surgery. Discussed with Dr. VELASCO, hospitalist, agreed to accept patient for transfer there. STAT COVID-19 TEST was ordered, swab was done, sent to [facility]. Chucho Disclaimer: Chucho Disclaimer: This electronic medical record was generated, in whole or in part, using a voice recognition dictation system. Departure Departure: Impression: Primary Impression: Dizziness Disposition: HOME/RESIDENCE PRIOR TO ADM Condition: IMPROVED Referrals: SULTANA RODRIGUEZ MD (PCP) please follow up with your doctor on Saturday Patient Instructions: Dizziness Additional Instructions: Thank you for visiting our Emergency Department. We appreciate you trusting us with your care. If any additional problems come up don't hesitate to return to visit us. Please follow up with your primary care provider so they can plan additional care if needed and know about the problem that you had. If symptoms worsen come back to the Emergency Department. Any concerning symptoms that start such as chest pain, shortness of air, weakness or numbness on one side of the body, running high fevers or any other concerning symptoms return to the ER. Justification of Admission: Justification of Admission: Justification of Admission Dx: N/A RISHABH MONTAGUE 11, 2020 13:26
[2020-06-11 14:39] VITALS: BP 177/82
[2020-06-11] MEDS: ONDANSETRON PF 4 MG/2 ML VIAL. IVP ONE ×2 (15:45→16:00)
--- NOTE | 2020-06-11 16:05 | RAD ---
KNEE BILAT 3V History: Reason: FELL, BILATERAL KNEES INJURED / Spl. Instructions: / History: Technique: 3 views bilateral knees Comparison: None. Findings: Left knee: Normal alignment. No fracture. Mild tricompartment knee degenerative changes. Evaluation for knee joint effusion is degraded because of positioning on lateral view. Vascular calcifications. Anterior knee soft tissue swelling. Right knee: Acute comminuted right distal femur fracture with posterior displacement and angulation of the distal fracture fragment. Potentially open fracture. Extensive vascular calcifications. Postoperative changes below the knee amputation. Right knee degenerative changes. Impression: 1. Acute comminuted right distal femur fracture. 2. Right [id number] amputation. 3. Left anterior knee soft tissue swelling. Electronically signed by: Isac Daly DO (06/11/2020 4:02 PM) MARIA T
== END 2020-06-11 15:03 | disposition home or self-care (01) ==
LOC: ER 11:37
DX: S72.401A Unspecified fracture of lower end of right femur, initial encounter for closed fracture (principal); S80.02XA Contusion of left knee, initial encounter; R42 Dizziness and giddiness; Z20.828 Contact with and (suspected) exposure to other viral communicable diseases; K21.9 Gastro-esophageal reflux disease without esophagitis; M19.90 Unspecified osteoarthritis, unspecified site; E78.00 Pure hypercholesterolemia, unspecified; I25.10 Atherosclerotic heart disease of native coronary artery without angina pectoris; I11.9 Hypertensive heart disease without heart failure; I25.2 Old myocardial infarction; E11.40 Type 2 diabetes mellitus with diabetic neuropathy, unspecified; Z98.61 Coronary angioplasty status; Z95.0 Presence of cardiac pacemaker; Z88.8 Allergy status to other drugs, medicaments and biological substances; W01.0XXA Fall on same level from slipping, tripping and stumbling without subsequent striking against object, initial encounter; Y93.89 Activity, other specified; Y92.89 Other specified places as the place of occurrence of the external cause; Y99.8 Other external cause status
CPT/HCPCS: 36415; 70450; 73562; 80053; 83735; 83880; 84484; 85025; 85610; 85730; 93005; 96360; 99285; C9803; J7030; U0003; J2405; J3010

== ENCOUNTER 2020-06-11 15:10 | Emergency (ER) | payer MEDICARE, BC ==
[~2020-06-11] VITALS: Ht 182.9 cm; Wt 113.0 kg
--- NOTE | 2020-06-11 16:21 | PHYS DOC ---
Past History Past Medical History: Arthritis, CAD, Diabetes, GERD, High Cholesterol, Heart Disease, Hypertension, [place], Renal Disease, Other Additional Past Medical Histor: NEUROPATHY Past Surgical History: Angioplasty, Cervical Fusion, Pacemaker, Other Additional Past Surgical Histo: right BKA; cardiac stents; partial thyroidectomy; left toes amputation Smoking: Non-smoker Alcohol Use: None Drug Use: None General Adult EDM: Chief Complaint: MECHANICAL FALL HPI: HPI: Patient was seen in the ER today for dizziness. He was just discharged from the ER. His was here to take him home. At 1505, Patient was discharged from the ER. 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 Patient had BKA on the right knee, had the prosthesis on. Patient was taken back to his room. Patient said now he cannot straighten his right knee. Patient complained of pain on his right knee and left knee. Patient denies any upper extremity pain, no head or neck injury. On examination, there is superficial skin contusion on left knee, patient can flex and extend his left knee without any problem. Examination of right knee shown patellar deformity distracting distally, patient cannot straight his right knee, RIGHT DISTAL FEMUR DEFORMED, NO OPEN WOUND. Patient was seen by this physician at 1507. Review of Systems: Review of Systems: Constitutional: Denies fever or chills Eyes: Denies change in visual acuity HENT: Denies nasal congestion or sore throat Respiratory: Denies cough or shortness of breath Cardiovascular: Denies chest pain or edema GI: Denies abdominal pain, nausea, vomiting, bloody stools or diarrhea : Denies dysuria Musculoskeletal: Denies back pain. Positive for right knee pain Integument: Denies rash Neurologic: Denies headache, focal weakness or sensory changes Endocrine: Denies polyuria or polydipsia Lymphatic: Denies swollen glands Psychiatric: Denies depression or anxiety Heart Score: Risk Factors: Risk Factors: DM, Current or recent (<one month) smoker, HTN, HLP, family history of CAD, obesity. Risk Scores: Score 0 - 3: 2.5% MACE over next 6 weeks - Discharge Home Score 4 - 6: 20.3% MACE over next 6 weeks - Admit for Clinical Observation Score 7 - 10: 72.7% MACE over next 6 weeks - Early Invasive Strategies Allergies: Allergies: Allergies Coded Allergies Type Severity Reaction Last Updated Verified oxaprozin Adverse Reaction Intermediate 02/02/20 Yes Physical Exam: PE: Constitutional: Well developed, well nourished, no acute distress, non-toxic appearance. [] HENT: Normocephalic, atraumatic, bilateral external ears normal, oropharynx moist, no oral exudates, nose normal. [] Eyes: PERRLA, EOMI, conjunctiva normal, no discharge. [] Neck: Normal range of motion, no tenderness, supple, no stridor. [] Cardiovascular:Heart rate regular rhythm, no murmur [] Lungs & Thorax: Bilateral breath sounds clear to auscultation [] Abdomen: Bowel sounds normal, soft, no tenderness, no masses, no pulsatile masses. [] Skin: Warm, dry, no erythema, no rash. [] Back: No tenderness, no CVA tenderness. [] Extremities: superficial skin contusion on left anterior knee. Right knee deformed, no open wound, patient cannot extend right knee. right BKA. Neurologic: Alert and oriented X 3, normal motor function, normal sensory function, no focal deficits noted. [] Psychologic: Affect normal, judgement normal, mood normal. [] EKG: EKG: [] Radiology/Procedures: Radiology/Procedures: []KNEE BILAT 3V History: Reason: FELL, BILATERAL KNEES INJURED / Spl. Instructions: / History: Technique: 3 views bilateral knees Comparison: None. Findings: Left knee: Normal alignment. No fracture. Mild tricompartment knee degenerative changes. Evaluation for knee joint effusion is degraded because of positioning on lateral view. Vascular calcifications. Anterior knee soft tissue swelling. Right knee: Acute comminuted right distal femur fracture with posterior displacement and angulation of the distal fracture fragment. Potentially open fracture. Extensive vascular calcifications. Postoperative changes below the knee amputation. Right knee degenerative changes. Impression: 1. Acute comminuted right distal femur fracture. 2. Right [id number]-[id number]-[id number] amputation. 3. Left anterior knee soft tissue swelling. Electronically signed by: Patel Daly DO (06/11/2020 4:02 PM) [facility] DICTATED AND SIGNED BY: PATEL DALY DO DATE: 06/11/20 5257 CC: SULTANA RODRIGUEZ MD; MONTAGUE,PETER T DO ~ Course & Med Decision Making: Course & Med Decision Making Pertinent Labs and Imaging studies reviewed. (See chart for details) Patient is a 74-year-old male who sustained a fall while walking out of the ER, injured his right knee, xray shown fracture of right distal femur, discussed with Dr. PASCUAL AT [facility], RECOMMEND TO TRANSFER PATIENT THERE FO SURGERY, DISCUSSED WITH DR. VEE WHO AGREED TO ACCEPTED PATIENT FOR TRANSFER THERE. STAT COVID19 TEST WAS ORDERED, SAMPLE COLLECTED, SENT TO [facility]. A SPLINT, POTERIOR/ANTERIOR FLAP, ORTHOGLASS MATERIAL, WAS APPLIED TO RIGHT THIGH BY THIS PHYSICIAN. Dragon Disclaimer: Dragon Disclaimer: This electronic medical record was generated, in whole or in part, using a voice recognition dictation system. Departure Departure: Impression: Primary Impression: Closed fracture of right distal femur Disposition: XFER T-TRM HOSP (Transferred to [facility], accepted by Dr. Vee. ) Condition: IMPROVED Referrals: SULTANA RODRIGUEZ MD (PCP) Justification of Admission: Justification of Admission: Justification of Admission Dx: Yes Fracture: Fracture RISHABH MONTAGUE DO Jun 11, 2020 16:21
[2020-06-11] MEDS ORDERED: ONDANSETRON PF 4 MG/2 ML VIAL. IVP ONE (16:30)
[2020-06-11 17:49] VITALS: BP 153/78
== END 2020-06-11 18:17 | disposition short-term general hospital (02) ==
LOC: ER 15:10
DX: S72.401A Unspecified fracture of lower end of right femur, initial encounter for closed fracture (principal); S80.02XA Contusion of left knee, initial encounter; R42 Dizziness and giddiness; M19.90 Unspecified osteoarthritis, unspecified site; I25.10 Atherosclerotic heart disease of native coronary artery without angina pectoris; K21.9 Gastro-esophageal reflux disease without esophagitis; E78.00 Pure hypercholesterolemia, unspecified; I11.9 Hypertensive heart disease without heart failure; I25.2 Old myocardial infarction; E11.40 Type 2 diabetes mellitus with diabetic neuropathy, unspecified; Z98.61 Coronary angioplasty status; Z95.0 Presence of cardiac pacemaker; Z89.511 Acquired absence of right leg below knee; Z88.8 Allergy status to other drugs, medicaments and biological substances; W18.09XA Striking against other object with subsequent fall, initial encounter; Y93.01 Activity, walking, marching and hiking; Y92.89 Other specified places as the place of occurrence of the external cause; Y99.8 Other external cause status
CPT/HCPCS: 29505; 96374; 96375; 96376; 99285; J2405; J3010; 73562; 99284

== ENCOUNTER → 2020-07-01 | Outpatient (CLI) | payer MEDICARE, BC ==
[2020-06-11 17:49] VITALS: BP 153/78
--- NOTE | 2020-07-01 14:49 | RAD ---
2 views the right femur without comparison for history right femur fracture, ORIF. FINDINGS: There is external plate and screw fixation of comminuted complex distal metaphyseal femoral fracture, with very subtle valgus angulation, but otherwise near-anatomic alignment. Small loose butterfly fragment medially. Extensive atherosclerosis. IMPRESSION: 1. Posterior traumatic and postsurgical changes of the distal right femur as described. Electronically signed by: Christ Lewis MD (07/01/2020 2:46 PM) [id number]
== END | disposition home or self-care (01) ==
LOC: DXRAD 08:43
PROVIDERS: ATTEND Physician Assistant
DX: S72.91XA Unspecified fracture of right femur, initial encounter for closed fracture (principal); I70.201 Unspecified atherosclerosis of native arteries of extremities, right leg; X58.XXXA Exposure to other specified factors, initial encounter; Y93.89 Activity, other specified; Y92.89 Other specified places as the place of occurrence of the external cause; Y99.8 Other external cause status
CPT/HCPCS: 73552

== ENCOUNTER → 2020-09-15 | Outpatient (CLI) | payer MEDICARE, BC ==
[~2020-09-15] MED LIST changes: +AMLO-187 PO; -AMLO10TA8 PO
--- NOTE | 2020-09-15 16:31 | RAD ---
3 views the right knee compared to similar exam dated June 072023 status post knee fracture. FINDINGS: There is been interval plate and screw fixation of a comminuted distal femoral metaphyseal fracture, with significant jewish of alignment. There is 5 mm of posterior displacement of the distal fracture fragment. Callus formation appears ongoing but is not robust. Vascular calcification are present. Postsurgical changes of the BTK amputation are seen. IMPRESSION: 1. Healing fixated comminuted fracture of the distal femoral metaphysis with jewish of near-anatomic alignment. Electronically signed by: Christ Lewis MD (09/15/2020 4:29 PM) [id number]
== END ==
LOC: DXRAD 13:29
PROVIDERS: ATTEND Orthopaedic Surgery
DX: S72.491D Other fracture of lower end of right femur, subsequent encounter for closed fracture with routine healing (principal); X58.XXXD Exposure to other specified factors, subsequent encounter
CPT/HCPCS: 73560

== ENCOUNTER → 2020-10-03 | Outpatient (CLI) | payer MEDICARE, BC ==
--- NOTE | 2020-10-03 13:48 | RAD ---
EXAM: Right femur, 2 views. HISTORY: Pain. COMPARISON: 09/15/2020 and 07/01/2020 FINDINGS: 2 views of the right femur are obtained. There is internal fixation of a comminuted distal femoral metaphyseal fracture with a plate and multiple screws. The fracture lines are slightly less distinct. However, there has been no significant interval bony bridging compared to the prior exam. There is no evidence of instrumentation loosening. The degree of displacement is unchanged. There is a below-knee amputation. There is right hip joint space narrowing with subchondral sclerosis and marginal spurring. There are vascular calcifications. There is suspected bone demineralization. IMPRESSION: 1. Internal fixation of a comminuted distal femoral metaphyseal fracture. The fracture lines are slightly less distinct. However, there has been no significant bony bridging compared to a study performed 07/01/2020. 2. Mild to moderate right hip osteoarthritis. 3. Below-knee amputation. 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 Electronically signed by: Elsa Gentile MD (10/03/2020 1:45 PM) [id number]
== END ==
LOC: DXRAD 11:41
PROVIDERS: ATTEND Physician Assistant
DX: S72.91XA Unspecified fracture of right femur, initial encounter for closed fracture (principal); M16.11 Unilateral primary osteoarthritis, right hip; Z89.511 Acquired absence of right leg below knee; X58.XXXA Exposure to other specified factors, initial encounter; Y93.89 Activity, other specified; Y92.89 Other specified places as the place of occurrence of the external cause; Y99.8 Other external cause status
CPT/HCPCS: 73552

== ENCOUNTER → 2020-10-10 | Outpatient (CLI) | payer MEDICARE, BC ==
--- NOTE | 2020-10-10 16:13 | RAD ---
CHEST PA LATERAL History: Reason: SOA, CONSOLIDATION / Spl. Instructions: / History: Comparison: February 02, 2020 Findings: Right upper medial lung opacity persists although less apparent compared to prior. Bibasilar linear opacities. Stable left-sided pacemaker. Unchanged heart size. Postoperative changes lower lumbar spine. Impression: 1. Persistent right upper medial nodular opacity, may represent summation artifact or underlying lesion. Recommend apical lordotic views to further assess. Alternatively CT chest can further assess. 2. Patchy bibasilar opacities, may represent atelectasis. Recommend attention on follow-up. Electronically signed by: Isac Daly DO (10/10/2020 4:10 PM) [id number]
== END ==
LOC: DXRAD 10:38
PROVIDERS: ATTEND Internal Medicine Pulmonary Disease
DX: R06.02 Shortness of breath (principal); Z95.0 Presence of cardiac pacemaker
CPT/HCPCS: 71046

== ENCOUNTER → 2020-11-04 | Outpatient (CLI) | payer MEDICARE, BC ==
--- NOTE | 2020-11-04 17:53 | RAD ---
EXAM: CT Chest without IV contrast INDICATION: Reason: Abnormal CXR with right upper nodular follow up / Spl. Instructions: / History: TECHNIQUE: Multi-detector row CT images were acquired from the thoracic inlet through the upper abdomen without the use of IV contrast. Sagittal and coronal images were acquired from the transaxial data. All CT scans performed at this facility utilize dose optimization techniques as appropriate to the exam, including the following: Automated exposure control and adjustment of the mA and/or KV according to patient size (this includes techniques or standardized protocols for targeted exams where dose is indication/reason for exam). COMPARISON: Chest x-ray of 10/10/2020, CT chest without IV contrast of 12/27/2018 FINDINGS: The absence of IV contrast limits evaluation of soft tissue pathology. CARDIOVASCULAR: Slight increase in small pericardial effusion. Normal heart size. Normal caliber thoracic aorta with normal density. Multivessel coronary calcifications with probable extensive coronary artery stenting. Left chest multichamber AICD redemonstrated. MEDIASTINUM & YUNI: Absent left thyroid lobe. No mass or adenopathy. LUNGS: Mild respiratory motion artifact degrades detail. A 6 mm nodule along the major fissure in the posterior right upper lobe (image 45 of series 5) is noted, likely incidental. No discrete lung nodule or mass is otherwise identified in the medial upper lung. There is interlobular septal thickening present in the dependent lungs but no focal infiltrates or consolidation. PLEURAL SPACE: Trace left greater than right bilateral pleural effusions are newly apparent, insufficient for thoracentesis.. OSSEOUS & SOFT TISSUE: Multilevel thoracic spinal degenerative spondylosis most conspicuous at T1-T2. Multiple ossific spurs in the lower thoracic spine resulting in multilevel partial fusion, notably from T8 through T11. No acute fracture or aggressive appearing osseous lesions. ABDOMEN: Included upper abdomen shows bilateral perirenal soft tissue stranding in the partially imaged lesion in the left kidney that is hypodense and measures at least 3.8 cm, statistically likely to be a cyst. Similar partially imaged lower density right renal lesion measuring at least 1.7 cm also noted, also likely a cyst. IMPRESSION: 1. The medial nodular opacity in the right upper lung reported previously is not as well seen on the current examination and may have either resolved or represented artifact. 2. A 6 mm pleural-based nodule in the posterior right upper lobe is however noted. Recommend 6 month follow-up chest CT to assess stability if the patient is at high risk for lung malignancy, otherwise, follow up in 12 months is recommended. Electronically signed by: Diaz Ramos MD (11/04/2020 5:51 PM) [id number]
== END ==
LOC: CT 08:34
PROVIDERS: ATTEND Internal Medicine Pulmonary Disease
DX: I31.3 Pericardial effusion (noninflammatory) (principal); R91.1 Solitary pulmonary nodule; J90 Pleural effusion, not elsewhere classified; I25.10 Atherosclerotic heart disease of native coronary artery without angina pectoris; M47.814 Spondylosis without myelopathy or radiculopathy, thoracic region; N28.89 Other specified disorders of kidney and ureter
CPT/HCPCS: 71250

== ENCOUNTER → 2020-11-11 | Outpatient (CLI) | payer MEDICARE, BC ==
--- NOTE | 2020-11-11 17:02 | RAD ---
Right knee 3 views: Reason for examination: Knee pain. History of fracture. Comparison is made to previous studies dated 09/15/2020 and 06/11/2020.. Lateral plate and multiple screws are present across the distal femoral fracture. There is no change in postop alignment. 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 No other site of fracture or dislocation is seen. Vascular calci fication is present. Postsurgical changes from the BTK amputation are seen. IMPRESSION: Lateral plate and screws remain present across the fracture of the distal femur with no change in ali gnment. There is callus formation and sclerosis at the fracture. There continues to be nonunion at th e fracture site. Electronically signed by: Argenis Moon MD (11/11/2020 5:00 PM) [facility]ON
== END ==
LOC: DXRAD 10:25
PROVIDERS: ATTEND Physician Assistant
DX: S72.491K Other fracture of lower end of right femur, subsequent encounter for closed fracture with nonunion (principal); L84 Corns and callosities; X58.XXXD Exposure to other specified factors, subsequent encounter
CPT/HCPCS: 73560

== ENCOUNTER 2020-12-03 13:31 | Inpatient (IN) | payer MEDICARE, BC ==
[2020-12-03] VITALS (7 sets, daily range): BP systolic 124–167; BP diastolic 56–88
[~2020-12-03] VITALS: Ht 182.9 cm; Wt 116.2 kg
[~2020-12-03 13:31] MED LIST changes: -LISI-334 PO; +LISI20TA18 PO; -LISI40TA PO; +LISI40TA6 PO
--- NOTE | 2020-12-03 13:41 | PHYS DOC ---
Past History Past Medical History: Arthritis, CAD, Diabetes, GERD, High Cholesterol, Heart Disease, Hypertension, [place], Renal Disease, Other Additional Past Medical Histor: NEUROPATHY Past Surgical History: Angioplasty, Cervical Fusion, Pacemaker, Other Additional Past Surgical Histo: right BKA; cardiac stents; partial thyroidectomy; left toes amputation Smoking: Non-smoker Alcohol Use: None Drug Use: None General Adult EDM: Chief Complaint: NEURO SYMPTOMS/DEFICITS HPI: HPI: 75-year-old male past medical history significant for CAD, CHF with AICD/lasix, CKD, HTN, HLD, hypothyroidism, diabetes and peripheral neuropathy (follows w/Dr. Barnard), presents to the ED brought in by EMS as a code stroke with concern for sudden onset left facial and slurred speech while playing cards just prior to arrival, last known well approximately 12:45 PM. Patient reports no prior history of stroke. States he did not notice his speech changed, his was concerned. EMS reported glucose of 125 and blood pressure 210/110. Reports femur fx 05/2020 and since discharge, had right lateral knee pain- asks if there could be a surgical infection. Review of Systems: Review of Systems: Constitutional: Denies fever or chills Eyes: Denies change in visual acuity HENT: Denies nasal congestion or sore throat Respiratory: Denies cough or shortness of breath Cardiovascular: Denies chest pain or edema GI: Denies abdominal pain, nausea, vomiting, bloody stools or diarrhea : Denies dysuria or hematuria Musculoskeletal: Denies back pain or joint pain Integument: Denies rash or cyanosis Neurologic: Denies headache, neck stiffness, focal weakness or sensory changes Endocrine: Denies polyuria or polydipsia Lymphatic: Denies swollen glands Psychiatric: Denies depression or anxiety Allergies: Allergies: Allergies Coded Allergies Type Severity Reaction Last Updated Verified oxaprozin Adverse Reaction Intermediate 02/02/20 Yes Physical Exam: PE: Constitutional: Well developed, well nourished,obese HENT: Normocephalic, atraumatic, bilateral external ears normal, oropharynx moist Eyes: PERRLA, EOMI, no nystagmus, conjunctiva normal, no discharge. [] Neck: Normal range of motion, no tenderness, supple, no stridor. [] Cardiovascular: irregular rhythm, no murmur [] Lungs & Thorax: Bilateral breath sounds clear to auscultation [] Abdomen: Bowel sounds normal, soft, no tenderness, Skin: Warm, dry, no erythema, no rash. [] Back: No tenderness, no CVA tenderness. [] Extremities: No tenderness, no cyanosis, no clubbing, ROM intact, +R AKA, LLE +2/4 edema Neurologic: Alert and oriented X 3, normal motor function, normal sensory function, NIHSS2 (L facial droop-forehead sparing w/L eyelid droop) - no dysarthria or aphasia, Psychologic: Affect normal, judgement normal, mood normal. [] EKG: EKG: Sinus rhythm?, extreme rad, Suspect ventricular paced rhythm with right bundle branch block, QRS 140, QTc 473, T wave inversion V1 through 3 which could represent strain, T wave inversion aVL, no ST elevations or ST depressions Radiology/Procedures: Radiology/Procedures: IMAGING REPORT Signed PATIENT: HAVEN DOMINGUEZ ACCOUNT: [id number] : 1945 LOCATION: ER AGE: 75 SEX: M EXAM STATUS: REG ER ORD. PHYSICIAN: ANDERSON ARCE DO REASON: left facial droop PROCEDURE: CT HEAD WO CONTRAST Examination: CT HEAD/BRAIN WO History: left facial droop /hypertensive. Comparison/Correlation: 06/11/2020 Findings: Axial images of the head were obtained without contrast. Atrophy is present. No intracranial hemorrhage, midline shift, or mass effect. Ca lcification along the falx again seen. Bony structures are intact. Left maxillary sinus mucous retention cyst is present. Impression: No suspicious process. On 12 03 2020 at 1:48 PM, results discussed with the referring ED physician. PQRS Compliance Statement: One or more of the following individualized dose reduction techniques were utilized for this examination: 1. Automated exposure control 2. Adjustment of the mA and/or kV according to patient size 3. Use of iterative reconstruction technique Electronically signed by: Wesley Jimenes MD (12/03/2020 1:48 PM) [id number] DICTATED AND SIGNED BY: WESLEY JIMENES MD DATE: 12/03/20 1344 CC: SULTANA RODRIGUEZ MD; ANDERSON ARCE DO ~MTH0 0 IMAGING REPORT Signed PATIENT: HAVEN DOMINGUEZ ACCOUNT: [id number] : 1945 LOCATION: ER AGE: 75 SEX: M EXAM STATUS: REG ER ORD. PHYSICIAN: ANDERSON ARCE DO REASON: lateral nkee/femur pain s/p femur fx PROCEDURE: KNEE RIGHT 2V EXAM: Right knee, 2 views. HISTORY: Pain. COMPARISON: 11/11/2020 FINDINGS: 2 views of the right knee are obtained. There is a below knee amputation. There is internal fixation of a distal femoral metaphyseal fracture with a plate and multiple screws. There is callus formation along the fracture line. There is no bony bridging. There are vascular calcifications. IMPRESSION: 1. No significant change in an ununited distal femoral metaphyseal fracture status post internal fixation. 2. Below knee amputation. Electronically signed by: Elsa Martino MD (12/03/2020 2:46 PM) [facility] DICTATED AND SIGNED BY: ELSA MARTINO MD DATE: 12/03/20 1444 CC: SULTANA RODRIGUEZ MD; ANDERSON ARCE DO ~MTH0 0 Heart Score: Risk Factors: Risk Factors: DM, Current or recent (<one month) smoker, HTN, HLP, family history of CAD, obesity. Risk Scores: Score 0 - 3: 2.5% MACE over next 6 weeks - Discharge Home Score 4 - 6: 20.3% MACE over next 6 weeks - Admit for Clinical Observation Score 7 - 10: 72.7% MACE over next 6 weeks - Early Invasive Strategies Course & Med Decision Making: Course & Med Decision Making Pertinent Labs and Imaging studies reviewed. (See chart for details) Concern for left facial droop with dysarthria. Dysarthria resolved prior to ED arrival. Stroke scale of 2. Patient not a TPA candidate due to history of Eliquis. U/a pending. D/w Dr. Barnard-full consult to follow-does not recommend CTA head and neck for large vessel occlusion given patient's symptoms, low stroke scale and chronic kidney disease. Patient does not meet known criteria for LVO including gaze preference, extremity paralysis or weakness. Sxs are completely resolved which pt was observed in ed. D/w pt and at bedside who agree with above plan. Patient stable at time of admission. I have spoken with the patient and/or caregivers. I have explained the patient's condition, diagnosis and treatment plan based on the information available to me at this time. I have answered the patient's and/or caregivers questions and answered any concerns. The patient and/or caregivers have as good an understanding of the patient's diagnosis, condition and treatment plan as can be expected at this point. The patient has been stabilized within the capability of the emergency department. The patient will be transported for further care and management or will be moved to an observation or inpatient service. I have communicated with the staff or medical practitioner taking over this patient's care. Dragon Disclaimer: Dragon Disclaimer: This electronic medical record was generated, in whole or in part, using a voice recognition dictation system. Departure Departure: Impression: Primary Impression: Partial facial paralysis Additional Impressions: National Institutes of Health (NIH) Stroke Scale facial palsy score 2, partial paralysis (total or near-total paralysis of lower face) TIA (transient ischemic attack) CKD (chronic kidney disease) Disposition: 09 ADMITTED INPT THIS HOSP Admitting Physician: Sharad Vee Condition: STABLE Referrals: SULTANA RODRIGUEZ MD (PCP) ANDERSON ARCE DO Dec 03, 2020 13:41
--- NOTE | 2020-12-03 13:50 | RAD ---
Examination: CT HEAD/BRAIN WO History: left facial droop /hypertensive. Comparison/Correlation: 06/11/2020 Findings: Axial images of the head were obtained without contrast. Atrophy is present. No intracrania l hemorrhage, midline shift, or mass effect. Calcification along the falx again seen. Bony structures are intact. Left maxillary sinus mucous retention cyst is present. Impression: No suspicious process. On 12 03 2020 at 1:48 PM, results discussed with the referring ED physician. PQRS Compliance Statement: One or more of the following individualized dose reduction techniques were utilized for this examinat ion: 1. Automated exposure control 2. Adjustment of the mA and/or kV according to patient size 3. Use of iterative reconstruction technique Electronically signed by: Wesley Carranza MD (12/03/2020 1:48 PM) [id number]
[2020-12-03 14:22] LABS: BASO % 1 % (0-3); EOS # 0.2 x10^3/uL (0.0-0.7); EOS % 4 % (0-3); HEMATOCRIT 37.6 % (39.0-53.0); HEMOGLOBIN 12.4 g/dL (13.0-17.5); LYMPH # 1.1 x10^3/uL (1.0-4.8); LYMPH % 18 % (24-48); MEAN CORPUSCULAR HEMOGLOBIN 29 pg (25-35); MEAN CORPUSCULAR HGB CONC 33 g/dL (31-37); MEAN CORPUSCULAR VOLUME 90 fL (79-100); MONO # 0.5 x10^3/uL (0.0-1.1); MONO % 9 % (0-9); NEUT # 4.2 x10^3uL (1.8-7.7); NEUT % 69 % (31-73); PLATELET COUNT 168 x10^3/uL (140-400); RED CELL DISTRIBUTION WIDTH 17.6 % (11.5-14.5); WHITE BLOOD COUNT 6.1 x10^3/uL (4.0-11.0)
[2020-12-03 14:35] LABS: CALCIUM 9.8 mg/dL (8.5-10.1); CREATININE 1.6 mg/dL (0.7-1.3); GFR 42.1; POTASSIUM 4.6 mmol/L (3.5-5.1)
[2020-12-03 14:41] LABS: ALBUMIN 3.6 g/dL (3.4-5.0); ALBUMIN/GLOBULIN RATIO 0.9 (1.0-1.7); TOTAL BILIRUBIN 0.5 mg/dL (0.2-1.0); TOTAL PROTEIN 7.7 g/dL (6.4-8.2)
--- NOTE | 2020-12-03 14:48 | RAD ---
EXAM: Right knee, 2 views. HISTORY: Pain. COMPARISON: 11/11/2020 FINDINGS: 2 views of the right knee are obtained. There is a below knee amputation. There is internal fixation of a distal femoral metaphyseal fracture with a plate and multiple screws. There is callus formation along the fracture line. There is no bony bridging. There are vascular calcifications. IMPRESSION: 1. No significant change in an ununited distal femoral metaphyseal fracture status post internal fixa tion. 2. Below knee amputation. Electronically signed by: Elsa Gentile MD (12/03/2020 2:46 PM) [facility]
[2020-12-03] MEDS ORDERED: IOHEXOL 350 MG/ML 100 ML VIAL. IV ONE (15:00)
[2020-12-03] MEDS ORDERED: CONTRAST GIVEN. MC PRN (15:15)
[2020-12-03] MEDS ORDERED: ONDANSETRON PF 4 MG/2 ML VIAL. IVP PRN (16:00)
[2020-12-03] MEDS ORDERED: ACETAMINOPHEN 325 MG TABLET PO PRN (16:00)
[2020-12-03 17:01] LABS: BILIRUBIN,URINE NEG (NEG); CLARITY,URINE CLEAR; COLOR,URINE YELLOW; GLUCOSE,URINE NEG (NEG); NITRITE,URINE NEG (NEG); UROBILINOGEN,URINE 0.2 mg/dL (0.2 mg/dL)
[2020-12-03 17:22] LABS: BACTERIA,URINE FEW /HPF (0-FEW)
[2020-12-03 17:23] LABS: AMORPHOUS SEDIMENT,UR PRESENT /HPF; SQUAMOUS EPITHELIAL CELL,UR OCC /LPF
[2020-12-03] MEDS ORDERED: LEVO50TA5 PO (18:50)
--- NOTE | 2020-12-03 20:13 | EKG ---
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
[2020-12-03] MEDS: FAMOTIDINE 20 MG TABLET PO SCH (20:42)
[2020-12-03] MEDS: OMEGA-3 FATTY ACIDS/FISH OIL 1,000 MG CAPSULE. PO SCH (20:42)
[2020-12-03] MEDS: GABAPENTIN 300 MG CAPSULE. PO SCH (20:42)
[2020-12-03] MEDS: APIXABAN 5 MG TABLET. PO SCH (20:42)
[2020-12-03] MEDS: CARVEDILOL 12.5 MG TABLET PO SCH (20:43)
[2020-12-03] MEDS ORDERED: ATORVASTATIN CALCIUM 20 MG TABLET PO SCH (21:00)
[2020-12-04] VITALS (15 sets, daily range): BP systolic 109–168; BP diastolic 53–90
[2020-12-04] MEDS ORDERED: LEVOTHYROXINE 50 MCG TABLET PO SCH (06:00)
[2020-12-04] MEDS: OMEGA-3 FATTY ACIDS/FISH OIL 1,000 MG CAPSULE. PO SCH (08:41)
[2020-12-04] MEDS: FAMOTIDINE 20 MG TABLET PO SCH (08:41)
[2020-12-04] MEDS: GABAPENTIN 300 MG CAPSULE. PO SCH ×2 (08:41→14:47)
[2020-12-04] MEDS: CARVEDILOL 12.5 MG TABLET PO SCH (08:42)
[2020-12-04] MEDS: APIXABAN 5 MG TABLET. PO SCH (08:42)
[2020-12-04] MEDS ORDERED: MULTIVITAMIN with MINERAL TABLET. PO SCH (09:00)
[2020-12-04] MEDS ORDERED: LISINOPRIL 20 MG TABLET PO SCH (09:00)
[2020-12-04] MEDS ORDERED: FUROSEMIDE 40 MG TABLET PO SCH (09:00)
[2020-12-04] MEDS ORDERED: NON FORMULARY ITEM (Cinnamon Bark (Cinnamon) 1,000 MG) PO SCH (09:00)
--- NOTE | 2020-12-04 16:53 | DS ---
DATE OF DISCHARGE: 12/04/2020 HOSPITAL COURSE: The patient is a 75-year-old male patient who was admitted yesterday through the Emergency Room with the complaint of left-sided facial droop as well as dysarthria and slurring of speech of sudden onset. Apparently, by the time the patient arrived to the Emergency Room, the dysarthria has resolved. His stroke scale was only 2 and the patient was not found to be a candidate for TPA due to history of Eliquis. CT angio of the head and neck could not be done given that he has chronic kidney disease. The patient was admitted and was evaluated by Dr. Barnard. All his symptoms have completely resolved and Dr. Barnard recommended that the patient can be discharged home to arrange for bilateral carotid Doppler ultrasound as an outpatient. PHYSICAL EXAMINATION: GENERAL: When I saw him this afternoon, he looked well and was clearly in no apparent respiratory distress. No pallor, jaundice, cyanosis, or thyromegaly. No jugular venous distention. No limb edema. VITAL SIGNS: Her heart rate was 73, blood pressure was 149/66, temperature was 97.8, respiratory rate was 15, and oxygen saturation was 96% on room air. HEAD, EYES, EARS, NOSE AND THROAT: Showed he is normocephalic, atraumatic. NECK: Supple. HEART: Normal first and second heart sounds. No gallop or murmur. CHEST: Clear to auscultation. No crepitation or rhonchi. ABDOMEN: Distended, soft, nontender. NEUROLOGIC: He was grossly intact. All his dysarthria and left-sided facial droop has completely subsided. DISCHARGE MEDICATIONS: The patient was discharged home to continue on his apixaban 5 mg twice a day, atorvastatin calcium 40 mg daily, carvedilol 25 mg twice a day with meals, senna, cinnamon bark 1000 mg daily, furosemide 40 mg once a day, gabapentin 600 mg 3 times a day, levothyroxine sodium 50 mcg once a day, lisinopril 20 mg once a day, multivitamin 1 tablet once a day, omega-3 fatty acid 1000 mg twice a day, and ranitidine 300 mg twice a day for heartburn. FINAL DISCHARGE DIAGNOSES: Transient ischemic attack, presented with dysarthria, left-sided facial droop, which has completely resolved. The patient has multiple other medical problems including: A. Coronary artery disease, status post PCI with stent deployment. B. Gastroesophageal reflux disease. C. Type 2 diabetes mellitus with multiple complications. D. Hyperlipidemia. E. Hypertension F. Chronic kidney disease. G. Peripheral neuropathy. MO VELASCO MD DR: JASEN/regine JOB#: [id number] / [id number]
--- NOTE | 2020-12-04 18:11 | HP ---
ADMIT DATE: 12/03/2020 HISTORY OF PRESENT ILLNESS: The patient is a 75-year-old male patient who presented to the Emergency Room of [facility], as he was brought to the emergency medical service personnel as a code stroke with concern for sudden onset of left facial droop and slurred speech while playing cards just prior to arrival, last normal approximately 12:45 p.m. The patient reports no prior history of stroke. He did not notice any speech change. His was concerned. EMS reported glucose 125 and a blood pressure of 210/110. Reports femur fracture on 06/20/2020 and, since discharge, has right lateral knee pain. asked if this could be a surgical infection. The patient was extensively investigated. His EKG showed that the patient has ventricular paced rhythm with right bundle branch block, QRS of 140, corrected interval of 473. CT scan of the head without contrast done because of left facial droop and hypertension. The axial images of the head were obtained without contrast, atrophy is present. No intracranial hemorrhage, midline shift, or mass effect. Calcification along the falx cerebri again seen. Bony structures are intact. Left maxillary sinus mucous retention cyst is present and the impression is that the patient has no suspicious process. He has had x-ray of his right knee, which showed no significant change in an ununited distal femoral metaphyseal fracture, status post internal fixation and below-knee amputation. Apparently, by the time he arrived to the Emergency Room, his dysarthria has resolved prior to the Emergency Department arrival. The patient is not a candidate for TPA due to history of Eliquis. The presentation was discussed with Dr. Barnard and he does not recommend CT angio head and neck for the larger vessel occlusion given the patient's good kidney function and low stroke scale and chronic kidney disease. He does not meet criteria for LVO including gaze preference, extreme paralysis, or weakness. Symptoms are completely resolved, when the patient was observed in the Emergency Room. The plan was discussed with his at the bedside and she agreed to that plan and the patient was admitted for observation. We did consult Dr. Barnard for evaluation and treatment. PAST MEDICAL HISTORY: Significant for hypertension, hyperlipidemia, hypothyroidism, peripheral neuropathy of both lower extremities. He is known to have coronary artery disease, status post myocardial infarction, status post pacemaker placement and coronary stent deployment, gastroesophageal reflux disease, chronic renal disease, osteomyelitis of his right lower extremity that required right below-knee amputation. PAST SURGICAL HISTORY: Significant for C5-C7 spinal surgery, status post cervical spine fusion x 2, status post insulin pump placement, thyroidectomy, and right below-knee amputation. ALLERGIES: HE IS ALLERGIC TO OXCARBAZEPINE. FAMILY HISTORY: Unremarkable. SOCIAL HISTORY: The patient has been for 50 years. He is retired. He does not smoke, drink alcohol, or use recreational drugs. REVIEW OF SYSTEMS: As per history of present illness. MEDICATIONS: The patient is currently on following medications: He is on apixaban 5 mg twice a day, atorvastatin calcium 40 mg at bedtime, omega-3 fatty acid 1000 mg twice a day, carvedilol 25 mg twice a day, lisinopril 20 mg daily, gabapentin 600 mg 3 times a day, furosemide 40 mg once a day, ranitidine 300 mg twice a day, levothyroxine sodium 50 mcg once a day, multivitamin 1 tablet once a day, and cinnamon bark 500 mg capsule, take 2 capsules once a day. PHYSICAL EXAMINATION: GENERAL: On arrival to the Emergency Room, the patient looked well and was clearly in no apparent respiratory distress. No pallor, jaundice, cyanosis, or thyromegaly. No jugular venous distention. No limb edema. VITAL SIGNS: Her heart rate was 96, blood pressure was 143/83, temperature was 96.9, respiratory rate was 18, and oxygen saturation was 98% on room air. HEAD, EYES, EARS, NOSE AND THROAT: Showed he is normocephalic and atraumatic. NECK: Supple. No lymphadenopathy, no thyromegaly. HEART: Shows a regular rhythm. CHEST: Showed central trachea, equal bilateral chest expansion, air entry, vesicular sounds. No crepitation or rhonchi. ABDOMEN: Soft, nontender. NEUROLOGIC: He is alert, oriented x 3. Normal motor and sensory function. He has left facial droop forehead sparing with left eyelid droop. No dysarthria or aphasia. PSYCHOLOGICAL: His affect, judgment, and mood were normal. LABORATORY DATA: His EKG showed that he was in paced rhythm with right bundle branch block. The CT scan of the head without contrast showed the patient has atrophy with no intracranial hemorrhage, midline shift, or mass effect. Calcification along the falx cerebri again seen. Bony structures are intact. He has left maxillary sinus mucous retention cyst present. As he had recent surgery of his left femur fracture, the x-ray showed below-knee amputation. There is internal fixation of a distal femoral metaphyseal fracture with plate and multiple screws. There is callus formation along the fracture line. There is no bony bridging. There are vascular calcifications. His lab work showed a white cell count of 6100, hemoglobin 12.4, hematocrit 37.6, MCV 90, and platelet count of 168,000. His chemistry showed a serum sodium of 140, potassium 4.6, chloride 103, bicarbonate 24, anion gap of 13, BUN 36, creatinine 1.6, estimated GFR was 52 mL per minute. Her glucose 117, calcium was 9.8. Total bilirubin, AST, ALT, alkaline phosphatase were normal. Total protein 7.7, albumin 3.6. His prothrombin time, INR, and aPTT are all normal. Urinalysis was unremarkable. ASSESSMENT AND PLAN: The patient was admitted with left-sided facial droop. His [employer] [place] [employer] stroke scale facial palsy is close to partial paralysis ____ total paralysis of lower face and transient ischemic attack from kidney disease. The patient will be continued on all his medication and consulted the primary for evaluation and treatment. MO VELASCO MD DR: JASEN/regine JOB#: [id number] / [id number]
--- NOTE | 2020-12-04 19:23 | CONS ---
DATE OF CONSULTATION: 12/03/2020 NEUROLOGY CONSULTATION REFERRING PHYSICIAN: Sharad Vee MD REASON FOR CONSULTATION: Rule out stroke versus TIA. HISTORY OF PRESENT ILLNESS: This is a 75-year-old right-handed male who is known to me with longstanding history of hypertension, hyperlipidemia and coronary artery disease with congestive heart failure and diabetes mellitus, was admitted through Emergency Room after he presented with chief complaint of sudden onset of left facial drooping and some slurred speech. According to his , the patient was playing cards with his and all of sudden his left eye was shut down and he could not open the eyes. His speech was slightly slurred. The symptoms began around 12:45 prior to admission and lasted approximately 1 hour, but the left eye symptoms lasted for hours. According to the patient, slurred speech resolved shortly after arrival to the Emergency Room. Since that time, the patient has not had any new neurological complaints. The patient denies headaches, visual disturbances, chest pain, shortness of breath or palpitation, dysarthria or dysphagia or vertigo. According to the patient, after EMS was activated, his blood pressure was reported at 210/110 with blood sugar at the scene of 125. PAST MEDICAL HISTORY: Significant for coronary artery disease, hypothyroidism, peripheral neuropathy, history of TIA, cardiac arrhythmias, required pacemaker placement, obesity, gastroesophageal reflux disease and osteomyelitis. PAST SURGICAL HISTORY: Positive for coronary stent placement x 2, cervical fusion at C6-C7, cataract removal with lens implantation, partial thyroidectomy for cancer status post pacemaker placement, status post defibrillator placement and left eye laser surgery for retinopathy and right distal femur fracture required ORIF in summer. Status post above-knee amputation, probably due to osteoarthritis and diabetes mellitus. SOCIAL HISTORY: The patient is . He has one daughter. He denies smoking, alcohol drinking, or illicit drug use. FAMILY HISTORY: His father by suicide and he was alcoholic with COPD. Mother at age of 75 from brain tumor. REVIEW OF SYSTEMS: A 14-point review of system was performed as mentioned above in history of present illness. CURRENT MEDICATIONS: Multivitamins, lisinopril 20 mg daily, furosemide 40 mg daily, levothyroxine 50 mcg 1 tablet daily, Pepcid 20 mg b.i.d., fish oil 1000 mg b.i.d., Lipitor 40 mg at bedtime, carvedilol 25 mg b.i.d., Tylenol p.r.n. and Zofran 4 mg p.r.n., gabapentin 600 mg t.i.d. and Eliquis 5 mg b.i.d. ALLERGIES: OXAPROZIN. PHYSICAL EXAMINATION: GENERAL: Obese male, not in acute distress. He weighs 116.2 kilos. VITAL SIGNS: 149/66, respiratory rate 15, pulse is 73 and regular, temperature is 97.8, oxygen saturation 96% on room air. HEENT: Normocephalic, atraumatic, otherwise unremarkable. NECK: Supple. Negative for carotid bruit, lymphadenopathy or thyromegaly. LUNGS: Clear to A and P. CARDIOVASCULAR: Regular rate and rhythm, normal S1, S2. There is no S3, S4 or murmur. ABDOMEN: Soft. Bowel sounds positive. EXTREMITIES: Status post above-knee amputation. There is mild edema of the left lower extremity 2/4. NEUROLOGIC: Mental status: The patient is alert and oriented x 3. Speech is fluent. There is no language dysfunction. Memory, judgment, and abstracting thinking are normal. The patient denies hallucination or delusion. CRANIAL NERVES: The pupils are equal and reactive to light and accommodation. Extraocular movements are intact. There is no nystagmus. There is no facial motor or sensory deficits. Hearing is intact bilaterally. The palate is elevated symmetrically. Sternocleidomastoid muscles are powerful bilaterally. The patient shrugs his shoulders symmetrically, protrudes his tongue in the midline without fasciculation or atrophy. MOTOR EXAMINATION: No focal muscle bulk was seen. The tone is normal. The strength is 5/5 in the left upper and lower extremities. SENSORY EXAMINATION: Revealed normal pinprick, light touch, vibratory and position senses. Deep tendon reflexes were symmetric and hypoactive with absent Achilles responses on the left side. GAIT: The patient had gait not tested at this time. DIAGNOSTIC DATA: Initial head CT scan revealed generalized atrophy without acute intracranial process. LABORATORY DATA: CBC revealed white blood cells of 6.1 thousand, hemoglobin 12.4, hematocrit 37.6, and platelet count 168,000. Chemistry: Sodium of 140, potassium 4.5, chloride 108, CO2 is 24, BUN is 36, creatinine 1.6, estimated GFR 42.1, glucose 117. A1c is 6, normal lactic acid, normal magnesium. Liver enzymes are normal with elevated alkaline phosphatase. Troponin level is 0.04 and CRP is 1 and normal lipid profile except for low HDL. Urinalysis is negative leukocyte esterase and nitrite with white blood cells of 5-10 and few bacteria. Urine drug screen is negative. IMPRESSION: 1. Possible transient ischemic attack, presented with left facial asymmetry and slurred speech -- resolved, probably aggravated by severe hypertension. 2. Multiple medical problems include coronary artery disease, status post stent placement and defibrillator placement for cardiac arrhythmias, hypothyroidism, hypertension, hyperlipidemia, diabetes mellitus and gastroesophageal reflux disease. RECOMMENDATIONS: We will obtain a carotid Doppler study. We could not obtain his CT angiogram due to chronic kidney disease. Continue with current management initiated by Dr. Vee and continue his current home medications. M Al SHEETS MD DR: MARCUS/regine JOB#: [id number] / [id number]
== END 2020-12-04 17:47 | disposition home or self-care (01) | DRG 69 ==
LOC: ER 13:31 → ICU 15:50
PROVIDERS: ADMIT Internal Medicine; ATTEND Internal Medicine
DX: G45.9 Transient cerebral ischemic attack, unspecified (principal); I13.0 Hypertensive heart and chronic kidney disease with heart failure and stage 1 through stage 4 chronic kidney disease, or unspecified chronic kidney disease; E11.22 Type 2 diabetes mellitus with diabetic chronic kidney disease; E11.42 Type 2 diabetes mellitus with diabetic polyneuropathy; E78.00 Pure hypercholesterolemia, unspecified; E78.5 Hyperlipidemia, unspecified; E89.0 Postprocedural hypothyroidism; G51.0 Bell's palsy; I25.10 Atherosclerotic heart disease of native coronary artery without angina pectoris; I25.2 Old myocardial infarction; I45.10 Unspecified right bundle-branch block; I50.9 Heart failure, unspecified; K21.9 Gastro-esophageal reflux disease without esophagitis; N18.9 Chronic kidney disease, unspecified; Z79.4 Long term (current) use of insulin; Z82.5 Family history of asthma and other chronic lower respiratory diseases; Z86.73 Personal history of transient ischemic attack (TIA), and cerebral infarction without residual deficits; Z89.511 Acquired absence of right leg below knee; Z95.0 Presence of cardiac pacemaker; Z95.5 Presence of coronary angioplasty implant and graft; Z96.41 Presence of insulin pump (external) (internal); Z98.1 Arthrodesis status; E66.9 Obesity, unspecified; M19.90 Unspecified osteoarthritis, unspecified site; Z88.8 Allergy status to other drugs, medicaments and biological substances
CPT/HCPCS: 36415; 70450; 73560; 80053; 81001; 82947; 84484; 85025; 85610; 85730; 87086; 93005; 99285; 92610

== ENCOUNTER → 2020-12-15 | Outpatient (CLI) | payer MEDICARE, BC ==
[2020-12-04 16:55] VITALS: BP 168/90
[~2020-12-15] MED LIST changes: +LEVO50TA5 PO; +LISI-334 PO; -LISI20TA18 PO; +LISI40TA PO; -LISI40TA6 PO
--- NOTE | 2020-12-15 12:24 | RAD ---
US DPLX CAROTID BILAT History: Reason: Transient Ischemic Cerebral Attack / Spl. Instructions: / History: Multiple grayscale, color, and duplex spectral analysis waveform sonographic images were acquired of the carotid, subclavian, and vertebral arteries. Comparison: None Findings: RIGHT SIDE: Peak systolic flow velocity of the distal CCA is 59 cm/sec. Peak systolic flow velocity of the ICA is 153 cm/sec. The ICA/CCA ratio is 2.6. Peak end diastolic flow velocity of the ICA is 43 cm/sec. The peak systolic velocity of the ECA is 95 cm/sec. Atherosclerotic plaque formation is identified. LEFT SIDE: Peak systolic flow velocity of the distal CCA is 58 cm/sec. Peak systolic flow velocity of the ICA is 95 cm/sec. The ICA/CCA ratio is 1.6. Peak end diastolic flow velocity of the ICA is 27 cm/sec. Peak systolic flow velocity of the ECA is 69 cm/sec. Atherosclerotic plaque formation is identified. Vertebral arteries: Bilateral vertebral arteries demonstrate antegrade flow. Impression: Atherosclerosis of the cervical ICAs with velocities on the right consistent with 50-69 percent steno sis and on the left with less than 50 percent stenosis PQRS Compliance Statement - Stenosis calculations for carotid ultrasound studies are derived from yosi idated velocity criteria which are known to correlate with the NASCET methodology. Electronically signed by: Manpreet Holguin MD (12/15/2020 12:21 PM) [id number]
== END ==
LOC: US 10:22
PROVIDERS: ATTEND Family Medicine
DX: I65.23 Occlusion and stenosis of bilateral carotid arteries (principal)
CPT/HCPCS: 93880

== ENCOUNTER → 2021-01-13 | Outpatient (CLI) | payer MEDICARE, BC ==
[2020-12-04 16:55] VITALS: BP 168/90
[~2021-01-13] MED LIST changes: -LISI-334 PO; +LISI20TA18 PO; -LISI40TA PO; +LISI40TA6 PO
--- NOTE | 2021-01-13 15:49 | RAD ---
EXAM: 3 views right knee DATE: 01/13/2021 11:30 AM INDICATION: Reason: CLOSED FX OF DISTAL END OF RT FEMUR. FALL JUNE 2020 / Spl. Instructions: / Histo ry: COMPARISON: No Prior FINDINGS/ IMPRESSION: Reduction and fixation of the distal femoral fracture is stable in alignment with progressive healing along the fracture plane. No hardware complication. Changes of proximal tibial/fibular amputation. D ecreased bone mineral density Atherosclerotic vascular calcifications are seen. Electronically signed by: Anthony Salgado MD (01/13/2021 3:47 PM) [id number]
== END ==
LOC: RAD 11:10
PROVIDERS: ATTEND Physician Assistant
DX: S72.491K Other fracture of lower end of right femur, subsequent encounter for closed fracture with nonunion (principal); X58.XXXD Exposure to other specified factors, subsequent encounter; M85.88 Other specified disorders of bone density and structure, other site
CPT/HCPCS: 73560

== ENCOUNTER → 2021-02-15 | Outpatient (CLI) | payer MEDICARE, BC ==
[2020-12-04 16:55] VITALS: BP 168/90
--- NOTE | 2021-02-15 13:26 | RAD ---
3 views left foot without comparison for foot ulcer. FINDINGS: There is pes planus deformity. Bones are diffusely osteopenic. There is been amputation of the distal phalanx of the second digit. Vascular calcifications are seen in multiple distributions. D isorganization of the midfoot is present, perhaps degenerative and related to distant trauma. 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 Calcaneal bone spur is present. No focal lytic changes to suggest osteomye litis are identified, though radiographic sensitivity for such a diagnosis is low. IMPRESSION: 1. No acute osseous abnormality and no radiographic evidence of osteomyelitis, though sensitivity of radiographs for osteomyelitis is very low. 2. Extensive disorganization of the midfoot in particular, perhaps chronic and degenerative or relate d to distant injury. 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 3. Other chronic changes as described. Electronically signed by: Christ Lewis MD (02/15/2021 1:24 PM) [id number]
== END ==
LOC: RAD 09:44
PROVIDERS: ATTEND Podiatrist Foot & Ankle Surgery
DX: L97.529 Non-pressure chronic ulcer of other part of left foot with unspecified severity (principal); M77.32 Calcaneal spur, left foot; M85.872 Other specified disorders of bone density and structure, left ankle and foot
CPT/HCPCS: 73630

== ENCOUNTER → 2021-03-08 | Outpatient (CLI) | payer MEDICARE, BC ==
[2020-12-04 16:55] VITALS: BP 168/90
--- NOTE | 2021-03-08 13:21 | RAD ---
EXAMINATION: US DPLX VENOUS EXTREMITY LOWER LT (LOWER EXTREMITY VENOUS ULTRASOUND) CLINICAL HISTORY: Left lower extremity pain and swelling TECHNIQUE: Sonographic grayscale images obtained of the left lower extremity deep venous system with color flow Doppler, compression, and augmentation techniques as indicated. Images obtained and store d in a permanent archive. COMPARISON: None FINDINGS: No evidence of absent flow or incompressibility within the common femoral vein, femoral vein, or popl iteal vein. Calf veins poorly visualized. Subcutaneous edema in the leg. IMPRESSION: No evidence of left lower extremity DVT. Calf veins poorly visualized. Electronically signed by: Domingo Kaiser DO (03/08/2021 1:19 PM) [id number]
--- NOTE | 2021-03-09 10:03 | RAD ---
EXAM: XR FOOT_LEFT 3 VIEWS, XR LT TIBIA + FIBULA 03/08/2021 10:27 AM CLINICAL INDICATION: Left foot wound and leg pain COMPARISON: Left foot radiograph 02/15/2021 TECHNIQUE: 3 views of the left foot. 2 views of the left tibia and fibula FINDINGS: Left foot: There is been prior resection of the second toe through the middle phalanx. There are salena ertoe deformities of the third through fifth toes. There is questionable cortical indistinctness at t he distal lateral aspect of the fourth distal phalanx, unchanged. No acute fracture. Moderate joint d isease of the midfoot with pes planus is redemonstrated. There are calcaneal enthesophytes. Mild soft tissue swelling at the plantar aspect of the midfoot. No soft tissue gas. Left leg: No acute fracture. Alignment is normal. There is degenerative joint disease at the foot and ankle. Pes planus is noted. Mild diffuse soft tissue swelling. No soft tissue gas. IMPRESSION: 1. Questionable cortical indistinctness at the distal lateral aspect of the fourth distal phalanx. I f there is clinical concern for osteomyelitis in this location, MRI would be more sensitive to evalua te. 2. Pes planus and degenerative joint disease of the midfoot. 3. No acute osseous abnormality of the tibia or fibula. Electronically signed by: Flor Martin MD (03/09/2021 10:01 AM) [id number]
== END ==
LOC: DXRAD 09:54
PROVIDERS: ATTEND Podiatrist Foot & Ankle Surgery
DX: S91.302A Unspecified open wound, left foot, initial encounter (principal); M79.662 Pain in left lower leg; M21.42 Flat foot [pes planus] (acquired), left foot; M19.072 Primary osteoarthritis, left ankle and foot; L97.529 Non-pressure chronic ulcer of other part of left foot with unspecified severity; X58.XXXA Exposure to other specified factors, initial encounter; Y92.89 Other specified places as the place of occurrence of the external cause; Y93.89 Activity, other specified; Y99.8 Other external cause status; R60.0 Localized edema
CPT/HCPCS: 73590; 73630; 93971

== ENCOUNTER → 2021-03-08 | Outpatient (CLI) | payer MEDICARE, BC ==
[2020-12-04 16:55] VITALS: BP 168/90
[2021-03-08 10:57] LABS: HEMATOCRIT 38.2 % (39.0-53.0); HEMOGLOBIN 12.4 g/dL (13.0-17.5)
[2021-03-08 16:56] LABS: ALBUMIN 3.4 g/dL (3.4-5.0); CALCIUM 8.7 mg/dL (8.5-10.1); CREATININE 1.9 mg/dL (0.7-1.3); GFR 34.5; PHOSPHORUS 4.4 mg/dL (2.6-4.7); POTASSIUM 4.9 mmol/L (3.5-5.1)
[2021-03-09 00:12] LABS: CALCIUM PTH 8.8 mg/dL (8.6-10.2); CREATININE PTH 1.73 mg/dL (0.76-1.27); MICROALB RD UR 337.7 ug/mL (Not Estab.); PTH INTACT 64 pg/mL (15-65)
[2021-03-09 14:34] LABS: CREATININE,RANDOM URINE 69.5 mg/dL (Not Establ.)
== END ==
LOC: LAB 09:44
PROVIDERS: ATTEND Nurse Practitioner Adult Health
DX: I12.9 Hypertensive chronic kidney disease with stage 1 through stage 4 chronic kidney disease, or unspecified chronic kidney disease (principal); N17.9 Acute kidney failure, unspecified; E11.21 Type 2 diabetes mellitus with diabetic nephropathy; N18.32 Chronic kidney disease, stage 3b; D64.9 Anemia, unspecified; R80.1 Persistent proteinuria, unspecified; R60.0 Localized edema; E11.22 Type 2 diabetes mellitus with diabetic chronic kidney disease; Z79.4 Long term (current) use of insulin
CPT/HCPCS: 80069; 82043; 82570; 83970; 84156; 85014; 85018

== ENCOUNTER → 2021-04-17 | Outpatient (CLI) | payer MEDICARE, BC ==
[2020-12-04 16:55] VITALS: BP 168/90
--- NOTE | 2021-04-17 14:56 | RAD ---
EXAM: US LEFT LOWER EXTREMITY ARTERIAL DUPLEX EVAL. HISTORY: Peripheral vascular disease. Nonhealing ulcers. COMPARISON: None. FINDINGS: Grayscale and Doppler analysis of the left lower extremity arterial system was performed. There are triphasic waveforms from the common femoral artery through the popliteal artery. They becom e biphasic within the posterior tibial artery proximally and distally. There are monophasic in the pe roneal artery. They are triphasic within the proximal anterior tibial artery, monophasic in the dorsa lis pedis artery. Extensive subcutaneous edema is noted within the calf. IMPRESSION: 1. Findings consistent with significantly flow-limiting stenosis within the distal anterior tibial ar mitesh. The dorsalis pedis artery is patent with monophasic flow. 2. Significantly flow-limiting stenosis within the peroneal artery. 3. Mildly flow-limiting stenosis within the posterior tibial artery. Electronically signed by: Louise Everett MD (04/17/2021 2:54 PM) [id number]
== END ==
LOC: US 12:48
PROVIDERS: ATTEND Family Medicine
DX: I70.8 Atherosclerosis of other arteries (principal); R60.1 Generalized edema
CPT/HCPCS: 93926

== ENCOUNTER → 2021-05-17 | Outpatient (CLI) | payer MEDICARE, BC ==
[2020-12-04 16:55] VITALS: BP 168/90
--- NOTE | 2021-05-18 17:42 | RAD ---
EXAMINATION: CT LOWER LEFT EXTREMITY WITHOUT CONTRAST, 05/17/2021 12:53 PM CLINICAL INDICATION: Possible osteomyelitis of fourth toe COMPARISON: Left foot radiograph 03/08/2021 TECHNIQUE: Helical CT imaging performed of the left forefoot without the use of intravenous contrast. Sagittal and coronal reformats were obtained. One or more of the following individualized dose reduction techniques were utilized for this examinat ion: 1. Automated exposure control 2. Adjustment of the mA and/or kV according to patient size 3. Use of iterative reconstruction technique. FINDINGS: There is cortical indistinctness and irregularity at the tip of the fourth toe distal phala nx tuft, best seen on image 74 sagittal series and image 120-122, coronal series. This is indetermina te but osteomyelitis is possible. The bones are diffusely demineralized. There is sequela of the seco nd toe amputation. There is pes planovalgus and degenerative joint disease throughout the visualized foot. Hammertoe deformities are noted. There is mild diffuse soft tissue swelling. Diffuse muscular a trophy. IMPRESSION: 1. Cortical indistinctness and irregularity of the fourth distal phalanx tuft. This is indeterminate but osteomyelitis is possible. MRI would be more sensitive to further evaluate. 2. Pes planovalgus, osteopenia, and degenerative joint disease throughout the foot. Electronically signed by: Flor Martin MD (05/18/2021 5:40 PM) [id number]
== END ==
LOC: CT 12:49
PROVIDERS: ATTEND Podiatrist Foot & Ankle Surgery
DX: M19.072 Primary osteoarthritis, left ankle and foot (principal); M86.8X8 Other osteomyelitis, other site; M21.072 Valgus deformity, not elsewhere classified, left ankle
CPT/HCPCS: 73700

== ENCOUNTER 2021-07-24 19:22 | Inpatient (IN) | payer MEDICARE, BC ==
[~2021-07-24] VITALS: Ht 182.9 cm; Wt 109.3 kg
--- NOTE | 2021-07-24 19:41 | PHYS DOC ---
Past History Past Medical History: Arthritis, CAD, Diabetes, GERD, High Cholesterol, Heart Disease, Hypertension, ME, Renal Disease, Other Additional Past Medical Histor: NEUROPATHY Past Surgical History: Angioplasty, Cervical Fusion, Pacemaker, Other Additional Past Surgical Histo: right BKA; cardiac stents; partial thyroidectomy; left toes amputation Smoking: Non-smoker Alcohol Use: None Drug Use: None General Adult EDM: Chief Complaint: Fatigue HPI: HPI: 75-year-old male presents with fatigue and feeling under the weather. The patient went outside to water 3 of his tate and just began to feel worn out and had difficulty getting back inside. He denies chest pain, but admits he does have a cardiac history with a couple stents within the last 5 years. He was feeling well prior to going outside. He was at his baseline most of the day. He continues to feel "not right". He denies fever or chills. He has been vaccinated against COVID-19. He denies shortness of breath, diaphoresis. Review of Systems: Review of Systems: Constitutional: Denies fever or chills. Fatigue. Eyes: Denies change in visual acuity HENT: Denies nasal congestion or sore throat Respiratory: Denies cough or shortness of breath Cardiovascular: Denies chest pain or edema GI: Denies abdominal pain, nausea, vomiting, bloody stools or diarrhea : Denies dysuria Musculoskeletal: Denies back pain or joint pain Integument: Denies rash Neurologic: Denies headache, focal weakness or sensory changes Endocrine: Denies polyuria or polydipsia Lymphatic: Denies swollen glands Psychiatric: Denies depression or anxiety Allergies: Allergies: Allergies Coded Allergies Type Severity Reaction Last Updated Verified oxaprozin Adverse Reaction Intermediate 02/02/20 Yes Physical Exam: PE: Constitutional: Well developed, well nourished, no acute distress, non-toxic appearance. [] HENT: Normocephalic, atraumatic, bilateral external ears normal, oropharynx moist, no oral exudates, nose normal. [] Eyes: PERRLA, EOMI, conjunctiva normal, no discharge. [] Neck: Normal range of motion, no tenderness, supple, no stridor. [] Cardiovascular: Heart rate 72, regular rhythm, no murmur [] Lungs & Thorax: Bilateral breath sounds clear to auscultation [] Abdomen: Bowel sounds normal, soft, no tenderness, no masses, no pulsatile masses. [] Skin: Warm, dry, no erythema, no rash. [] Back: No tenderness, no CVA tenderness. [] Extremities: No tenderness, no cyanosis, no clubbing, ROM intact, no edema. [] Neurologic: Alert and oriented X 3, normal motor function, normal sensory function, no focal deficits noted. [] Psychologic: Affect normal, judgement normal, mood concerned. [] EKG: EKG: Sinus rhythm, rate 72, normal axis, no ST elevation, right bundle branch block. [] Radiology/Procedures: Radiology/Procedures: [] Impressions: XR CHEST 1V History: Reason: CP / Spl. Instructions: / History: Comparison: October 10, [address] November 04, 2020 Findings: No consolidation or pleural effusion. Unchanged heart size. No pneumothorax. Mildly elevated right hemidiaphragm, unchanged. Stable left-sided pacemaker. Postop changes cervical spine. Impression: 1. No acute cardiopulmonary process. Electronically signed by: Isac Daly DO (07/24/2021 8:07 PM) [facility] DICTATED AND SIGNED BY: ISAC DALY DO DATE: 07/24/212005 CC: SULTANA RODRIGUEZ MD; CELINE BALDWIN DO ~MTH0 0 Heart Score: C/O Chest Pain: Yes HEART Score for Chest Pain: HEART Score for Chest Pain Response (Comments) Value History Slighlty/Non-Suspicious 0 ECG Nonspecific Repolarizatio 1 Age > 65 2 Risk Factors >3 Risk Factors or Hx CAD 2 Troponin < Normal Limit 0 Total 5 Risk Factors: Risk Factors: DM, Current or recent (<one month) smoker, HTN, HLP, family history of CAD, obesity. Risk Scores: Score 0 - 3: 2.5% MACE over next 6 weeks - Discharge Home Score 4 - 6: 20.3% MACE over next 6 weeks - Admit for Clinical Observation Score 7 - 10: 72.7% MACE over next 6 weeks - Early Invasive Strategies Course & Med Decision Making: Course & Med Decision Making Pertinent Labs and Imaging studies reviewed. (See chart for details) The patient's initial EKG is negative for acute findings but there is some downsloping ST segments throughout. His troponin is within normal limits, but is not 0. His creatinine is 2.3. His baseline appears to be 1.7-2.0. I will give him a liter of normal saline. The patient should be admitted to the hospital for troponin trending and further evaluation. I spoke with Dr. Garcia and he has accepted the patient for admission. [] Radhaon Disclaimer: Dragsridhar Disclaimer: This electronic medical record was generated, in whole or in part, using a voice recognition dictation system. Departure Departure: Impression: Primary Impression: Chest pain Disposition: ADMITTED INPATIENT Admitting Physician: Alex Garcia Condition: STABLE Referrals: SULTANA RODRIGUEZ MD (PCP) CELINE BALDWIN DO Jul 24, 2021 19:41
--- NOTE | 2021-07-24 20:10 | RAD ---
XR CHEST 1V History: Reason: CP / Spl. Instructions: / History: Comparison: October 10, [address] November 04, 2020 Findings: No consolidation or pleural effusion. Unchanged heart size. No pneumothorax. Mildly elevated right he midiaphragm, unchanged. Stable left-sided pacemaker. Postop changes cervical spine. Impression: 1. No acute cardiopulmonary process. Electronically signed by: Isac Daly DO (07/24/2021 8:07 PM) [facility]
[2021-07-24 20:15] LABS: BASO % 1 % (0-3); EOS # 0.3 x10^3/uL (0.0-0.7); EOS % 5 % (0-3); HEMATOCRIT 39.9 % (39.0-53.0); HEMOGLOBIN 13.5 g/dL (13.0-17.5); LYMPH # 1.7 x10^3/uL (1.0-4.8); LYMPH % 32 % (24-48); MEAN CORPUSCULAR HEMOGLOBIN 31 pg (25-35); MEAN CORPUSCULAR HGB CONC 34 g/dL (31-37); MEAN CORPUSCULAR VOLUME 91 fL (79-100); MONO # 0.5 x10^3/uL (0.0-1.1); MONO % 9 % (0-9); NEUT # 2.8 x10^3uL (1.8-7.7); NEUT % 53 % (31-73); PLATELET COUNT 95 x10^3/uL (140-400); RED BLOOD COUNT 4.38 x10^6/uL (4.30-5.70); RED CELL DISTRIBUTION WIDTH 15.5 % (11.5-14.5); WHITE BLOOD COUNT 5.4 x10^3/uL (4.0-11.0)
[2021-07-24 20:28] LABS: CREATININE 2.3 mg/dL (0.7-1.3); GFR 27.7; POTASSIUM 4.5 mmol/L (3.5-5.1)
[2021-07-24 20:42] LABS: ALBUMIN 3.6 g/dL (3.4-5.0); TOTAL BILIRUBIN 0.4 mg/dL (0.2-1.0); TOTAL PROTEIN 7.3 g/dL (6.4-8.2)
--- NOTE | 2021-07-24 20:50 | EKG ---
[address] [address] Test Date: 2021-07-24 Test Time: 19:25:30 Pat Name: HAVEN DOMINGUEZ Department: Room: Gender: M Jewel Hole Cornerer: : 1945 Requested By: CELINE BALDWIN Order Number: [id number] Reading MD: Measurements Intervals [place] Rate: 72 P: 90 DE: 162 QRS: 88 QRSD: 142 T: -80 QT: 446 QTc: 490 Interpretive Statements SINUS RHYTHM LEFT ATRIAL ABNORMALITY RIGHT BUNDLE BRANCH BLOCK ABNORMAL ECG RI6.02 No previous ECG available for comparison
[2021-07-24] MEDS ORDERED: IV NORMAL SALINE 1,000ML 1,000 ML IV ONE (22:30)
[2021-07-24 22:34] LABS: BACTERIA,URINE 0 /HPF (0-FEW); BILIRUBIN,URINE NEG (NEG); CLARITY,URINE CLEAR; COLOR,URINE YELLOW; GLUCOSE,URINE NEG (NEG); NITRITE,URINE NEG (NEG); RBC,URINE OCC /HPF (0-2); SQUAMOUS EPITHELIAL CELL,UR FEW /LPF; UROBILINOGEN,URINE 0.2 mg/dL (0.2 mg/dL); WBC,URINE OCC /HPF (0-4)
[2021-07-24] MEDS ORDERED: ONDANSETRON PF 4 MG/2 ML VIAL. IVP PRN (22:45)
--- NOTE | 2021-07-25 00:52 | EKG ---
[address] [address] Test Date: 2021-07-24 Test Time: 22:25:25 Pat Name: HAVEN DOMINGUEZ Department: Room: 122 A Gender: M Prototype Special Build: : 1945 Requested By: JERMAINE YUEN Order Number: [id number] Reading MD: Measurements Intervals [place] Rate: 71 P: TN: QRS: -28 QRSD: 142 T: 155 QT: 450 QTc: 495 Interpretive Statements IRREGULAR RHYTHM, NO P-WAVE FOUND LEFTWARD AXIS NON SPECIFIC INTRAVENTRICULAR BLOCK ABNORMAL ECG RI6.02 No previous ECG available for comparison
[2021-07-25 01:01] VITALS: BP 168/88
[2021-07-25] MEDS ORDERED: SENN-142 PO (01:55)
[2021-07-25] MEDS ORDERED: INSU100V31 SQ (01:58)
[2021-07-25 06:21] VITALS: BP 156/83
--- NOTE | 2021-07-25 08:25 | PDOC2 ---
CARDIAC CONSULT DATE OF CONSULT DOS: DATE: 07/25/21 TIME: 08:19 REASON FOR CONSULT Reason for Consult Elevated troponin REFERRING PHYSICIAN Referring Physician Dr. Garcia SOURCE Source: Chart review, Patient HPI History of Present Illness This is a 75 yo male who presented secondary to chest pain. Patient reports he walked out to water plants and became very short and began having pain in his left chest. Describes as chest pressure. Radiates through to his back. Associated with tingling in his left arm. No dizziness, diaphoresis, or nausea/vomiting. noted that the left side of his face was a little more droopy, which has occurred previously under stress. reports he has been more fatigued and taking more naps recently, which is abnormal for him. Patient denies any significant worsening or relieving factors. Continues to have pressure in his left upper back. Chest pressure has improved. PAST MEDICAL HISTORY Past Medical History Cardiovascular: AFIB, CAD (s/p PCI/stent ), CHF, HTN, hyperipidemia, PAD, SSS CENTRAL NERVOUS SYSTEM: Periperal neuropathy, TIA GI: GERD Heme/Onc: Cancer (thyroid ) Renal/: Chronic renal insuff Endocrine: Diabetes, Hypothyroidism PAST SURGICAL HISTORY Past Surgical History Pacemaker (AICD), Other (cervical fusion, thyroidectomy, right BKA) FAMILY HISTORY Family History: Heart Disease SOCIAL HISTORY Social History Smoke: No ALCOHOL: none Drugs: None Lives: with Family CURRENT MEDICATIONS Current Medications Current Medications Sodium Chloride 1,000 ml @ 1,000 mls/hr 1X ONCE IV Last administered on 07/24/21at 23:00; Start 07/24/21 at 22:30; Stop 07/24/21 at 23:29; Status DC Ondansetron HCl (Zofran) 4 mg PRN Q4HRS PRN IVP NAUSEA/VOMITING; Start 07/24/21 at 22:45; Stop 07/25/21 at 22:44 Active Scripts Active Reported Novolog (Insulin Aspart) 100 Unit/1 Ml Vial 0-8 Unit SQ PRN PRN Senna-S Laxative Tablet (Sennosides/Docusate Sodium) 1 Each Tablet 1 Each PO PRN BID PRN Levothyroxine Sodium 50 Mcg Tablet 1 Tab PO DAILY Eliquis (Apixaban) 5 Mg Tablet 5 Mg PO BID Lasix (Furosemide) 40 Mg Tablet 1 Tab PO DAILY Carvedilol 25 Mg Tablet 25 Mg PO BIDWMEALS Gabapentin 600 Mg Tablet 600 Mg PO TID Lisinopril 20 Mg Tablet 1 Tab PO DAILY Woodruff 3 1,000 Mg Softgel (Woodruff-3 Fatty Acids/Fish Oil) 1 Each Capsule 1,000 Mg PO BID LAST DOSE GIVEN: DATE: TIME: NEXT DOSE DUE: DATE: TIME: Ranitidine Hcl 300 Mg Capsule 300 Mg PO BID LAST DOSE GIVEN: DATE: TIME: NEXT DOSE DUE: DATE: TIME: Cinnamon (Cinnamon Bark) 500 Mg Capsule 1,000 Mg PO DAILY LAST DOSE GIVEN: DATE: TIME: NEXT DOSE DUE: DATE: TIME: Multi-Day Vitamins (Multivitamin) 1 Each Tablet 1 Tab PO DAILY LAST DOSE GIVEN: DATE: TIME: NEXT DOSE DUE: DATE: TIME: Atorvastatin Calcium 40 Mg Tablet 40 Mg PO DAILY LAST DOSE GIVEN: DATE: TIME: NEXT DOSE DUE: DATE: TIME: ALLERGIES Allergies: Coded Allergies: oxaprozin (Verified Adverse Reaction, Intermediate, 07/24/21) BLOOD IN URIN ROS Review of Systems 14 point ROS conducted with pertinent positives noted above in HPI PHYSICAL EXAM General: Alert, Oriented X3, Cooperative, No acute distress HEENT: Atraumatic, Other (left eye lid droop) Lungs: Other (diminished bases) Heart: Regular rate Abdomen: Soft, No tenderness Extremities: No edema, Other (right BKA) Skin: No breakdown Neuro: Normal speech, Sensation intact Psych/Mental Status: Mental status NL, Mood NL MUSCULOSKELETAL: Osteoarthritic changes both hands VITALS Vital Signs Vital Signs Date Time Temp Pulse Resp B/P (MAP) Pulse Ox O2 Delivery O2 Flow Rate FiO2 07/25/21 06:21 97.6 71 18 156/83 (107) 98 Room Air LABS LABS Laboratory Tests Test 07/24/21 19:35 07/24/21 21:51 07/24/21 23:00 07/24/21 23:13 White Blood Count 5.4 x10^3/uL (4.0-11.0) Red Blood Count 4.38 x10^6/uL (4.30-5.70) Hemoglobin 13.5 g/dL (13.0-17.5) Hematocrit 39.9 % (39.0-53.0) Mean Corpuscular Volume 91 fL (79-100) Mean Corpuscular Hemoglobin 31 pg (25-35) Mean Corpuscular Hemoglobin Concent 34 g/dL (31-37) Red Cell Distribution Width 15.5 % (11.5-14.5) Platelet Count 95 x10^3/uL (140-400) Neutrophils (%) (Auto) 53 % (31-73) Lymphocytes (%) (Auto) 32 % (24-48) Monocytes (%) (Auto) 9 % (0-9) Eosinophils (%) (Auto) 5 % (0-3) Basophils (%) (Auto) 1 % (0-3) Neutrophils # (Auto) 2.8 x10^3uL (1.8-7.7) Lymphocytes # (Auto) 1.7 x10^3/uL (1.0-4.8) Monocytes # (Auto) 0.5 x10^3/uL (0.0-1.1) Eosinophils # (Auto) 0.3 x10^3/uL (0.0-0.7) Basophils # (Auto) 0.0 x10^3/uL (0.0-0.2) Sodium Level 136 mmol/L (136-145) Potassium Level 4.5 mmol/L (3.5-5.1) Chloride Level 101 mmol/L (98-107) Carbon Dioxide Level 23 mmol/L (21-32) Anion Gap 12 (6-14) Blood Urea Nitrogen 57 mg/dL (8-26) Creatinine 2.3 mg/dL (0.7-1.3) Estimated GFR (Cockcroft-Gault) 27.7 BUN/Creatinine Ratio 25 (6-20) Glucose Level 107 mg/dL (70-99) Calcium Level 9.0 mg/dL (8.5-10.1) Total Bilirubin 0.4 mg/dL (0.2-1.0) Aspartate Amino Transf (AST/SGOT) 34 U/L (15-37) Alanine Aminotransferase (ALT/SGPT) 30 U/L (16-63) Alkaline Phosphatase 106 U/L (46-116) Troponin I Quantitative 0.037 ng/mL (0-0.055) 0.067 ng/mL (0-0.055) Total Protein 7.3 g/dL (6.4-8.2) Albumin 3.6 g/dL (3.4-5.0) Albumin/Globulin Ratio 1.0 (1.0-1.7) Urine Collection Type Unknown Urine Color Yellow Urine Clarity Clear Urine pH 5.0 Urine Specific [place] 1.015 Urine Protein 30 mg/dl (NEG-TRACE) Urine Glucose (UA) Neg mg/dL (NEG) Urine Ketones (Stick) Neg mg/dL (NEG) Urine Blood Trace (NEG) Urine Nitrite Neg (NEG) Urine Bilirubin Neg (NEG) Urine Urobilinogen Dipstick 0.2 mg/dL (0.2 mg/dL) Urine Leukocyte Esterase Neg (NEG) Urine RBC Occ /HPF (0-2) Urine WBC Occ /HPF (0-4) Urine Squamous Epithelial Cells Few /LPF Urine Bacteria 0 /HPF (0-FEW) SARS-CoV-2 Antigen (Rapid) Negative (NEGATIVE) Test 07/25/21 02:05 07/25/21 07:42 Troponin I Quantitative 0.082 ng/mL (0-0.055) Glucose (Fingerstick) 94 mg/dL (70-99) ECHOCARDIOGRAM Echocardiogram 11/18/19 - 2-D + DOPPLER ECHOCARDIOGRAM Overall left ventricular systolic function is lownormal. EF~ 50- 55% No regional wall motion abnormalities identified Valves appear structurally normal for age without signficant stenosis or regurgitation (Mild aortic sclerosis and mild mitral annular calcification) No significant pericardial effusion Normal ventricular chamber dimensions with mild LA enlargement Normal LV wall thickness Normal aortic root dimensions Estimated peak systolic PA pressure = 31 mmHg Device leads in RV and RA Negative saline bubble study: no evidence of shunting 06/10/20 - 2D + DOPPLER ECHO Interpretation Summary The left ventricle is normal in size with borderline normal function, estimated ejection fraction is 50-55% The right ventricle is normal in size, mildly reduced function. Pacemaker or ICD lead is noted in right atrium and right ventricle The left atrium is mildly dilated, right atrium is normal in size There are no significant valvular abnormalities. The estimated PA systolic pressure is 28 mmHg Comparison is made to prior study of 11/18/19, there are no significant changes. HEART CATH Heart Cath 05/15 angio for CP, slight trop release. High grade RCA, had PCI of mid & prox area, non dom LCF is occluded, LAD with mild disease, nl EF 09/03/17- cardiac catheterization revealed known occluded Cx with collaterals, minimal LAD disease, patent RCA stent with 50% stenosis in distal RCA ASSESSMENT/PLAN Assessment/Plan 1. Chest pain, atypical. AMI ruled out. Echo 06/20 with preserved LV systolic function as noted above. 01/2019 pharmacological stress test did not show any ischemia. 2. Mild troponin elevation; highest 0.082. Possibly type II, demand ischemia 3. CAD s/p PCI/stent to the RCA. 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 [place] [facility]. Cardiomyopathy; s/p AICD SHAPER HAND-D ([employer]). Recent device check with normal function, stable lead impedances. LVEF previously 15%. Most recent echo with LVEF recovery. Clinically compensated 5. PAFIB; AV paced with underlying SR. low burden per recent device check. On OAC with Eliquis 6. Hypertension; controlled 7. Hyperlipidemia; statin 8. Diabetes, II 9. MARK on CKD; s/p IVFs 10. Hypothyroidism 11. PAD s/p right BKA Recommendations Resume secondary prevention measures Trend troponin HF optimization with ACEi, BB, Lasix Hold Eliquis Discussed further ischemic evaluation given presentation and significant history/risk factors in the setting of mildly elevated troponin. Patient would like to proceed with definitive evaluation with left heart cath. R/b/a, including risk for MARILYN discussed with patient and he is agreeable to proceed. MAHOGANY QUAN APRN Jul 25, 2021 08:24
--- NOTE | 2021-07-25 10:44 | HP ---
ADMIT DATE: 07/24/2021 ATTENDING PHYSICIAN: Dr. Garcia. CHIEF COMPLAINT: Chest pressure. HISTORY OF PRESENT ILLNESS: The patient is a 75-year-old gentleman with extensive cardiac history. He was at home. He began to feel short of breath, tired. He denied any chest pain, but he had some pressure. He was feeling more symptoms when he went out and did some yard work. He was admitted then with probable coronary ischemia. PAST MEDICAL HISTORY: Significant for vascular disease. He has a right below-knee amputation due to Charcot joint and diabetic foot ulcer. He is diabetic. He has last cath at [facility] in 2017 with stents placed. He has had gastroesophageal reflux disease, hyperlipidemia, hypertension and chronic kidney disease. ALLERGIES: OXAPROZIN. EXACT REACTION IS UNCLEAR. CURRENT MEDICATIONS: Include the following: He was scheduled to take apixaban 5 mg b.i.d., Lipitor, Coreg, Lasix, Neurontin, Reglan, Lantus insulin, Synthroid, lisinopril, ranitidine which has been stopped and Senna. 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 PAST SURGICAL HISTORY: Right qvrzy-vyn-hdni amputation. He also has a chronic foot wound in the remaining left foot that has been [facility]. PHYSICAL EXAMINATION: GENERAL: When I saw him, this is a pleasant gentleman, alert. VITAL SIGNS: Initial blood pressure was 129/61, pulse 75 and regular. He was afebrile, oxygen saturation 97% on room air. HEENT: Head is without trauma. Pupils are reactive. Sclerae are nonicteric. The oropharynx is clear. NECK: Supple, no bruits. LUNGS: Good breath sounds. CARDIOVASCULAR: Showed regular heart tones. ABDOMEN: Soft. EXTREMITIES: Shows surgical absence of the right foot [id number], stump is clean. The right foot has a Charcot joint in the ankle. There is a small amount of open wound with minimal serous drainage. SKIN: Warm and dry. PERTINENT LABORATORY STUDIES: Admission creatinine is 2.3 mg/dL which is baseline. BUN is 57 mg/dL. The first cardiac enzyme 0.03, second one increased to 0.06 and then 0.08. Chest x-ray was nondiagnostic. EKG is nondiagnostic. ASSESSMENT: 1. A 75-year-old gentleman with coronary ischemia. 2. Probable small non-ST elevation myocardial infarction. 3. Known coronary artery disease with previous catheterization and stents. 4. Type 2 diabetes. 5. Peripheral vascular disease. 6. Previous amputation. 7. Hyperlipidemia. 8. Chronic kidney disease stage IV. PLAN: 1. Cardiology consultation. 2. He will probably need a cardiac cath. We are trying to get him to [facility] and the [place] would be a second choice. No beds are available. 3. Continue home meds. KRZYSZTOF/TREMAINE DR: Josh TID: [id number] CC: SULTANA RODRIGUEZ MD
[2021-07-25 11:00] VITALS: BP 137/82
--- NOTE | 2021-07-25 13:27 | DS ---
DATE OF DISCHARGE: 07/25/2021 ATTENDING PHYSICIAN: Dr. Garcia. FINAL DISCHARGE DIAGNOSES: 1. Coronary ischemia. 2. Probable non-ST elevation myocardial infarction small. 3. Known coronary artery disease with previous catheterization and stents. 4. Type 2 diabetes. 5. Peripheral vascular disease. 6. Previous amputation of the right leg below the knee. 7. Charcot joints. 8. Hyperlipidemia. 9. Chronic kidney disease stage 4. HISTORY AND PHYSICAL: The patient is a very pleasant 75-year-old gentleman with known coronary artery disease. He is diabetic. He also has vascular disease resulting in a right [id number]-xrko amputation. He presented with chest pressure, discomfort consistent with coronary ischemia. PHYSICAL EXAMINATION: Please see the dictated note. PERTINENT LABORATORY AND X-RAY STUDIES: Admission hemoglobin is 13.5 g/dL, white count 5400. Electrolytes: Normal sodium and potassium, creatinine is 2.3 mg/dL. Hemoglobin A1c is from previous lab work. The patient had cardiac enzymes drawn, which were recorded as 0.067 second one was 0.082, third one was 0.066. Nonfasting blood sugar was 121. COURSE IN THE HOSPITAL: The patient was admitted. Serial enzymes are drawn. Cardiology consultation was obtained. Their recommendation is on the chart. The patient had a previous cardiac catheterization at [facility] in 2017. Because of his symptoms and his elevation of enzymes, it was reasonable for the patient to be transferred to [facility], which is his preference. He will probably need a repeat study. Arrangements were then made for transfer by ambulance to [facility] to their hospitalist service and see his vegetable cook, has seen him for the last 20 years. His discharge meds are unchanged. He will continue his apixaban 5 mg b.i.d., Lipitor, Coreg 25 mg b.i.d., Lasix, Neurontin, insulin, lisinopril, and senna. KRZYSZTOF/ALVA DR: KRZYSZTOF/regine TID: [id number] CC: SULTANA RODRIGUEZ MD
[2021-07-25 15:02] VITALS: BP 111/61
[2021-07-25] MEDS ORDERED: CARVEDILOL 12.5 MG TABLET PO SCH (17:00)
[2021-07-26] MEDS ORDERED: ATORVASTATIN CALCIUM 20 MG TABLET PO SCH (09:00)
[2021-07-26] MEDS ORDERED: LISINOPRIL 20 MG TABLET PO SCH (09:00)
== END 2021-07-25 17:31 | disposition short-term general hospital (02) | DRG 281 ==
LOC: ER 19:22 → 1 SOUTH 22:59
PROVIDERS: ADMIT Hospitalist; ATTEND Hospitalist
DX: I21.4 Non-ST elevation (NSTEMI) myocardial infarction (principal); I13.0 Hypertensive heart and chronic kidney disease with heart failure and stage 1 through stage 4 chronic kidney disease, or unspecified chronic kidney disease; N18.4 Chronic kidney disease, stage 4 (severe); N17.9 Acute kidney failure, unspecified; I42.9 Cardiomyopathy, unspecified; I25.10 Atherosclerotic heart disease of native coronary artery without angina pectoris; M19.90 Unspecified osteoarthritis, unspecified site; K21.9 Gastro-esophageal reflux disease without esophagitis; I49.5 Sick sinus syndrome; E78.00 Pure hypercholesterolemia, unspecified; E11.22 Type 2 diabetes mellitus with diabetic chronic kidney disease; E11.42 Type 2 diabetes mellitus with diabetic polyneuropathy; E89.0 Postprocedural hypothyroidism; E78.5 Hyperlipidemia, unspecified; E11.51 Type 2 diabetes mellitus with diabetic peripheral angiopathy without gangrene; I50.9 Heart failure, unspecified; I48.0 Paroxysmal atrial fibrillation; E11.610 Type 2 diabetes mellitus with diabetic neuropathic arthropathy; Z95.810 Presence of automatic (implantable) cardiac defibrillator; Z95.5 Presence of coronary angioplasty implant and graft; Z89.511 Acquired absence of right leg below knee; Z86.73 Personal history of transient ischemic attack (TIA), and cerebral infarction without residual deficits; Z79.01 Long term (current) use of anticoagulants; I25.2 Old myocardial infarction; Z20.822 Contact with and (suspected) exposure to COVID-19
CPT/HCPCS: 36415; 71045; 80053; 81001; 82947; 84484; 85025; 87426; 93005; 96360; U0003; 99285-25; J7030

== ENCOUNTER → 2021-08-29 | Outpatient (CLI) | payer MEDICARE, BC ==
[~2021-08-29] MED LIST changes: +INSU100V31 SQ; +SENN-142 PO
[2021-08-29 10:29] LABS: BASO % 1 % (0-3); EOS # 0.2 x10^3/uL (0.0-0.7); EOS % 5 % (0-3); HEMATOCRIT 37.4 % (39.0-53.0); HEMOGLOBIN 12.6 g/dL (13.0-17.5); LYMPH % 19 % (24-48); MEAN CORPUSCULAR HEMOGLOBIN 31 pg (25-35); MEAN CORPUSCULAR HGB CONC 34 g/dL (31-37); MEAN CORPUSCULAR VOLUME 92 fL (79-100); MONO # 0.5 x10^3/uL (0.0-1.1); MONO % 10 % (0-9); NEUT # 3.6 x10^3uL (1.8-7.7); NEUT % 66 % (31-73); PLATELET COUNT 148 x10^3/uL (140-400); RED BLOOD COUNT 4.08 x10^6/uL (4.30-5.70); RED CELL DISTRIBUTION WIDTH 15.9 % (11.5-14.5); WHITE BLOOD COUNT 5.5 x10^3/uL (4.0-11.0)
[2021-08-29 10:47] LABS: ALBUMIN 3.6 g/dL (3.4-5.0); CALCIUM 9.2 mg/dL (8.5-10.1); CREATININE 1.7 mg/dL (0.7-1.3); GFR 39.3; PHOSPHORUS 4.1 mg/dL (2.6-4.7); POTASSIUM 4.2 mmol/L (3.5-5.1)
[2021-08-29 19:36] LABS: FREE T4 1.04 ng/dL (0.76-1.46); THYROID STIM HORMONE (TSH) 0.235 uIU/mL (0.358-3.740)
[2021-08-29 19:37] LABS: CREATININE,RANDOM URINE 47.5 mg/dL (Not Establ.)
[2021-08-30 00:12] LABS: MICROALB RD UR 67.1 ug/mL (Not Estab.)
== END ==
LOC: LAB 08:19
PROVIDERS: ATTEND Internal Medicine Endocrinology, Diabetes & Metabolism
DX: Z01.812 Encounter for preprocedural laboratory examination (principal); E11.9 Type 2 diabetes mellitus without complications; I12.9 Hypertensive chronic kidney disease with stage 1 through stage 4 chronic kidney disease, or unspecified chronic kidney disease; E11.21 Type 2 diabetes mellitus with diabetic nephropathy; E11.22 Type 2 diabetes mellitus with diabetic chronic kidney disease; I70.1 Atherosclerosis of renal artery; N18.32 Chronic kidney disease, stage 3b; D64.9 Anemia, unspecified; R80.1 Persistent proteinuria, unspecified; R60.0 Localized edema; Z68.34 Body mass index [BMI] 34.0-34.9, adult; Z79.4 Long term (current) use of insulin
CPT/HCPCS: 80048; 80069; 82043; 82570; 82728; 83540; 83550; 84156; 84439; 84443; 85025

== ENCOUNTER 2021-10-04 21:53 | Inpatient (IN) | payer MEDICARE, BC ==
[~2021-10-04] VITALS: Ht 182.9 cm; Wt 108.8 kg
[2021-10-04] MEDS ORDERED: CONTRAST GIVEN. MC PRN (22:15)
--- NOTE | 2021-10-04 22:20 | EKG ---
[address] [address] Test Date: 2021-10-04 Test Time: 22:01:43 Pat Name: HAVEN DOMINGUEZ Department: Room: Gender: M Envelope Adjuster: THOMAS : 1945 Requested By: FRANKY FIGUEROA Order Number: [id number] Reading MD: Jerrod Guido Measurements Intervals [place] Rate: 73 P: 0 ND: 170 QRS: -76 QRSD: 144 T: 100 QT: 468 QTc: 520 Interpretive Statements A V PACED RHYTHM Electronically Signed On 10-09-2021 10:03:21 OR FIRST ASSIST REGISTERED NURSE by Jerrod Guido
--- NOTE | 2021-10-04 22:21 | PHYS DOC ---
Past History Past Medical History: Arthritis, CAD, Diabetes, GERD, High Cholesterol, Heart Disease, Hypertension, MA, Renal Disease, Other Additional Past Medical Histor: NEUROPATHY Past Surgical History: Angioplasty, Cervical Fusion, Pacemaker, Other Additional Past Surgical Histo: right BKA; cardiac stents; partial thyroidectomy; left toes amputation Smoking: Non-smoker Alcohol Use: None Drug Use: None General Adult EDM: Chief Complaint: DIZZY/LIGHT HEADED HPI: HPI: 75-year-old male presents via EMS from home with report of dizziness that occurred just prior to arrival while patient was getting into the shower. Patient reportedly had a similar episode in which he passed out while in the emergency department for his spouse at earlier today. Patient reportedly was worked up at in the emergency department and thought to have been dizzy secondary to taking his Imdur. Patient was previously admitted over the last weekend at for chest discomfort in which he did undergo a cardiac cath which was reportedly normal. Patient denies any current chest pain but does report some shortness of air. Denies trauma. Denies nausea or vomiting. Patient denies dizziness worsening with movement of head. Reports worse with standing. Review of Systems: Review of Systems: Constitutional: Denies fever or chills Eyes: Denies redness or eye pain HENT: Denies nasal congestion or sore throat Respiratory: Denies cough; reports shortness of breath Cardiovascular: Denies chest pain or palpitations GI: Denies abdominal pain, nausea, or vomiting : Denies dysuria or hematuria Musculoskeletal: Denies back pain or joint pain Integument: Denies rash or skin lesions Neurologic: Denies headache, focal weakness or sensory changes; reports dizziness Complete systems were reviewed and found to be within normal limits, except as documented in this note. Current Medications: Current Meds: Current Medications Medications (Trade) Dose Ordered Sig/Rain Start Time Stop Time Status Last Admin Dose Admin Info (Do NOT chart on this entry -- for MONITORING) 1 each PRN DAILY PRN 10/04/21 22:15 10/06/21 22:14 Iohexol (Omnipaque 350 Mg/ml) 100 ml 1X ONCE 10/04/21 22:30 10/04/21 22:31 Meclizine HCl (Antivert) 25 mg 1X ONCE 10/04/21 22:30 10/04/21 22:31 Sodium Chloride 1,000 ml @ 1,000 mls/hr 1X ONCE 10/04/21 22:30 10/04/21 23:29 Allergies: Allergies: Allergies Coded Allergies Type Severity Reaction Last Updated Verified carbamazepine Allergy Intermediate 10/04/21 Yes isosorbide Allergy Intermediate 10/04/21 Yes mexiletine Allergy Intermediate 10/04/21 Yes oxaprozin Adverse Reaction Intermediate 10/04/21 Yes Physical Exam: PE: Constitutional: Well developed, well nourished, no acute distress, non-toxic appearance HENT: Normocephalic, atraumatic Eyes: PERRL, EOMI, conjunctiva normal, no discharge, no nystagmus noted Neck: Normal range of motion, no tenderness, supple Lungs & Thorax: No respiratory distress, equal chest rise and fall Abdomen: Soft, no tenderness Skin: Warm, dry, no erythema, no rash Extremities: No tenderness, ROM intact, no edema, right BKA Neurologic: Alert and oriented X 3, normal motor function, normal sensory function, no focal deficits noted Psychologic: Affect normal, judgment normal Current Patient Data: Vital Signs: Vital Signs Date Time Temp Pulse Resp B/P (MAP) Pulse Ox O2 Delivery O2 Flow Rate FiO2 10/04/21 22:05 70 18 144/63 (90) 98 Room Air EKG: EKG: @2201 Paced at 73bpm Radiology/Procedures: Radiology/Procedures: PROCEDURE: CT HEAD WO CONTRAST PQRS Compliance Statement: One or more of the following individualized dose reduction techniques were utilized for this examination: 1. Automated exposure control 2. Adjustment of the mA and/or kV according to patient size 3. Use of iterative reconstruction technique CT head without contrast 10/04/2021 11:00 PM INDICATION: Dizziness COMPARISON: CT head 12/03/2020 TECHNIQUE: Multiple axial CT images of the head were obtained from skull base through the vertex without intravenous contrast. FINDINGS: Head: Ventricles, sulci and basal cisterns are prominent compatible with mild to moderate generalized cerebral volume loss. There is no hydrocephalus. Low- attenuation in the periventricular white matter is suggestive of chronic small vessel ischemic changes. Harper-white matter differentiation is normal. There is no acute intracranial hemorrhage. There is no mass, mass effect or midline shift. Posterior fossa is normal in appearance. Dural calcification identified at the vertex. Visualized portions of the orbits are normal the exception of bilateral lens replacement. Paranasal sinuses are well aerated. Mastoid air cells are well aerated. Scalp and calvaria are normal. IMPRESSION: No acute intracranial hemorrhage. Mild to moderate generalized cerebral volume loss. Low-attenuation in the periventricular white matter is suggestive of chronic small vessel ischemic changes. Electronically signed by: Melinda Perez MD (10/04/2021 11:46 PM) [facility]: CT ANGIOGRAPHY CHEST PQRS Compliance Statement: One or more of the following individualized dose reduction techniques were utilized for this examination: 1. Automated exposure control 2. Adjustment of the mA and/or kV according to patient size 3. Use of iterative reconstruction technique CTA CHEST 10/04/2021 11:00 PM INDICATION: Shortness of air, dizziness. COMPARISON: CT chest 11/04/2020 TECHNIQUE: Axial CT images of the chest were obtained after the intravenous administration of nonionic contrast. Coronal and sagittal reformats are provided. Maximum intensity projection images of the thoracic vasculature are provided. FINDINGS: The thyroid gland is similar in appearance. Left chest wall cardiac device is identified with leads terminating in the right atrium and right ventricle and coronary sinus. There are no pathologically enlarged axillary, mediastinal or hilar lymph nodes. The heart size is borderline enlarged. No significant pericardial effusion. Thoracic aorta is normal in course and caliber. There is adequate opacification of the pulmonary arterial system. There there are no filling defects within the pulmonary arterial system to suggest acute or chronic pulmonary embolus. There are no suspicious solid noncalcified pulmonary nodules. There are no pulmonary infiltrates. There are no pleural effusions. No pulmonary vascular congestion or pneumothorax. Visualized portions of the upper abdomen are within normal limits. No suspicious osseous lesions are visualized. Anterior cervical discectomy and fusion hardware within the cervical spine is partially profiled. Mild thoracic spondylosis. IMPRESSION: There is no evidence for acute or chronic pulmonary embolism. Electronically signed by: Melinda Perez MD (10/04/2021 11:51 PM) [facility] Heart Score: C/O Chest Pain: N/A Course & Med Decision Making: Course & Med Decision Making Pertinent Labs and Imaging studies reviewed. (See chart for details) Patient presents with episode of intractable dizziness after recent evaluation in the emergency department at . Patient does have some significant cardiac risk factors. History of recent cardiac cath. Patient denies any chest pain but does report some shortness of air. Patient neurologically intact. NIHSS 0. CT head without acute finding. EKG paced. Labs obtained and posted to chart. Initial troponin within normal limits. Renal insufficiency appears similar to prior per [facility] review. CTA chest obtained secondary to shortness of air. CT without signs of acute PE. Orthostatic vital signs obtained with report that patient did become "wobbly and dizzy "upon standing. IV fluid hydration given. Given this was second evaluation in the emergency department and patient did report some continued dizziness, decision for patient to be admitted for further evaluation and treatment. Discussed with Dr. Vee (hospitalist) who is in agreement with admission. Discussed findings and plan with patient, who acknowledges understanding and agreement. Dragon Disclaimer: Dragon Disclaimer: This electronic medical record was generated, in whole or in part, using a voice recognition dictation system. Departure Departure: Impression: Primary Impression: Dizziness Disposition: ADMITTED INPATIENT Admitting Physician: Sharad Vee Condition: STABLE Referrals: SULTANA RODRIGUEZ MD (PCP) NIHSS - ED NIH Stroke Scale: NIH Stroke Scale Response (Comments) Value Level of Consciousness: 0 Alert/Responsive 0 LOC Questions: 0 Answers both correctly 0 LOC Commands: 0 Performs both tasks 0 Best Gaze: 0 Normal 0 Visual: 0 No visual loss 0 Facial Palsy: 0 Normal, symmetrical 0 Motor - Left Arm 0 No drift 0 Motor - Right Arm 0 No drift 0 Motor - Left Leg 0 No drift 0 Motor: Right Leg 5 Amputation 0 Limb Ataxia: 0 Absent 0 Sensory: 0 No loss 0 Best Language: 0 Normal 0 Dysathria: 0 Normal 0 Extinction and Inattention: 0 Normal 0 Total 0 FIGUEROAFRANKY DO Oct 04, 2021 22:21
[2021-10-04] MEDS ORDERED: IOHEXOL 350 MG/ML 100 ML VIAL. IV ONE (22:30)
[2021-10-04] MEDS ORDERED: IV NORMAL SALINE 1,000ML 1,000 ML IV ONE (22:30)
[2021-10-04] MEDS ORDERED: MECLIZINE 12.5 MG TABLET. PO ONE (22:30)
[2021-10-04 22:53] LABS: BASO % 1 % (0-3); EOS # 0.1 x10^3/uL (0.0-0.7); EOS % 2 % (0-3); HEMATOCRIT 37.9 % (39.0-53.0); HEMOGLOBIN 12.5 g/dL (13.0-17.5); LYMPH # 0.7 x10^3/uL (1.0-4.8); LYMPH % 11 % (24-48); MEAN CORPUSCULAR HEMOGLOBIN 31 pg (25-35); MEAN CORPUSCULAR HGB CONC 33 g/dL (31-37); MEAN CORPUSCULAR VOLUME 93 fL (79-100); MONO # 0.5 x10^3/uL (0.0-1.1); MONO % 8 % (0-9); NEUT # 5.3 x10^3uL (1.8-7.7); NEUT % 79 % (31-73); PLATELET COUNT 168 x10^3/uL (140-400); RED BLOOD COUNT 4.05 x10^6/uL (4.30-5.70); RED CELL DISTRIBUTION WIDTH 15.2 % (11.5-14.5); WHITE BLOOD COUNT 6.7 x10^3/uL (4.0-11.0)
[2021-10-04 23:05] LABS: CALCIUM 9.6 mg/dL (8.5-10.1); CREATININE 2.1 mg/dL (0.7-1.3); GFR 30.8; POTASSIUM 4.6 mmol/L (3.5-5.1)
[2021-10-04 23:12] LABS: ALBUMIN 3.6 g/dL (3.4-5.0); ALBUMIN/GLOBULIN RATIO 0.9 (1.0-1.7); TOTAL BILIRUBIN 0.4 mg/dL (0.2-1.0); TOTAL PROTEIN 7.5 g/dL (6.4-8.2)
--- NOTE | 2021-10-04 23:48 | RAD ---
PQRS Compliance Statement: One or more of the following individualized dose reduction techniques were utilized for this examinat ion: 1. Automated exposure control 2. Adjustment of the mA and/or kV according to patient size 3. Use of iterative reconstruction technique CT head without contrast 10/04/2021 11:00 PM INDICATION: Dizziness COMPARISON: CT head 12/03/2020 TECHNIQUE: Multiple axial CT images of the head were obtained from skull base through the vertex with out intravenous contrast. FINDINGS: Head: Ventricles, sulci and basal cisterns are prominent compatible with mild to moderate generalized cereb ral volume loss. There is no hydrocephalus. Low-attenuation in the periventricular white matter is cooley ggestive of chronic small vessel ischemic changes. Harper-white matter differentiation is normal. There is no acute intracranial hemorrhage. There is no mass, mass effect or midline shift. Posterior fossa is normal in appearance. Dural calcification identified at the vertex. Visualized portions of the orbits are normal the exception of bilateral lens replacement. Paranasal s inuses are well aerated. Mastoid air cells are well aerated. Scalp and calvaria are normal. IMPRESSION: No acute intracranial hemorrhage. Mild to moderate generalized cerebral volume loss. Low-attenuation in the periventricular white matter is suggestive of chronic small vessel ischemic ch anges. Electronically signed by: Melidna Perez MD (10/04/2021 11:46 PM) [facility]
--- NOTE | 2021-10-04 23:53 | RAD ---
PQRS Compliance Statement: One or more of the following individualized dose reduction techniques were utilized for this examinat ion: 1. Automated exposure control 2. Adjustment of the mA and/or kV according to patient size 3. Use of iterative reconstruction technique CTA CHEST 10/04/2021 11:00 PM INDICATION: Shortness of air, dizziness. COMPARISON: CT chest 11/04/2020 TECHNIQUE: Axial CT images of the chest were obtained after the intravenous administration of nonioni c contrast. Coronal and sagittal reformats are provided. Maximum intensity projection images of the t horacic vasculature are provided. FINDINGS: The thyroid gland is similar in appearance. Left chest wall cardiac device is identified with leads t erminating in the right atrium and right ventricle and coronary sinus. There are no pathologically en larged axillary, mediastinal or hilar lymph nodes. The heart size is borderline enlarged. No signific ant pericardial effusion. Thoracic aorta is normal in course and caliber. There is adequate opacification of the pulmonary arterial system. There there are no filling defects within the pulmonary arterial system to suggest acute or chronic pulmonary embolus. There are no suspicious solid noncalcified pulmonary nodules. There are no pulmonary infiltrates. The re are no pleural effusions. No pulmonary vascular congestion or pneumothorax. Visualized portions of the upper abdomen are within normal limits. No suspicious osseous lesions are visualized. Anterior cervical discectomy and fusion hardware within the cervical spine is partially p rofiled. Mild thoracic spondylosis. IMPRESSION: There is no evidence for acute or chronic pulmonary embolism. Electronically signed by: Melinda Perez MD (10/04/2021 11:51 PM) [facility]
[2021-10-05] MEDS ORDERED: DEXTROSE 50% 25 GM / 50ML DISP.SYRIN. IV PRN (01:00)
[2021-10-05] MEDS ORDERED: ASPIRIN ENTERIC COATED 325 MG TABLET.DR. PO ONE (01:15)
[2021-10-05 02:21] VITALS: BP 172/83
--- NOTE | 2021-10-05 02:30 | NUR ---
Admission: The patient, HAVEN DOMINGUEZ, 75 y/o, M admitted by MO VELASCO MD, was given written information regarding hospital policies, unit procedures and contact persons. Pt arrived to room 123 via gurney, accompanied by [facility] and ED staff. Pt here for c/o dizziness. Pt reports he just discharged from [facility] earlier today after stay r/t chest pain and subsequent cardiac cath with no new stents placed. Pt received first dose of Imdur prior to DC and developed dizziness shortly after. Pt was then seen in their ED and found to be hypotensive, which was attributed to the new med. Pt was instructed to not take Imdur again until he follows up with his airfield operations specialist, Dr. Craft, in the office later this month. Pt was feeling better and drove home from the ED. Later became dizzy again while showering and called neighbor for help. Then brought to our ED by EMS for treatment. Pt denies any current CP or dizziness. PMH and home meds reviewed. Pt is diabetic and wears an insulin pump. Rt. BKA with prosthesis. Left medial foot has healing ulcer s/p skin graft which is scabbed. Pt taken, left JOCELYN. Discussed POC, V/U. Call light in reach. Valuables were checked and logged. Left in room with pt.
[2021-10-05] MEDS ORDERED: AMIO200T54 PO (05:44)
[2021-10-05] MEDS ORDERED: CLOP75TA57 PO (05:44)
[2021-10-05] MEDS ORDERED: NITR0.4T22 SL (05:44)
[2021-10-05] MEDS ORDERED: FAMO40TA4 PO (05:44)
[2021-10-05 06:26] VITALS: BP 123/68
[2021-10-05 06:29] LABS: BASO % 1 % (0-3); EOS # 0.1 x10^3/uL (0.0-0.7); EOS % 1 % (0-3); HEMATOCRIT 33.8 % (39.0-53.0); LYMPH # 1.3 x10^3/uL (1.0-4.8); LYMPH % 18 % (24-48); MEAN CORPUSCULAR HEMOGLOBIN 31 pg (25-35); MEAN CORPUSCULAR HGB CONC 33 g/dL (31-37); MEAN CORPUSCULAR VOLUME 94 fL (79-100); MONO # 0.7 x10^3/uL (0.0-1.1); MONO % 9 % (0-9); NEUT # 5.3 x10^3uL (1.8-7.7); NEUT % 71 % (31-73); PLATELET COUNT 168 x10^3/uL (140-400); RED BLOOD COUNT 3.59 x10^6/uL (4.30-5.70); RED CELL DISTRIBUTION WIDTH 15.8 % (11.5-14.5); WHITE BLOOD COUNT 7.5 x10^3/uL (4.0-11.0)
--- NOTE | 2021-10-05 06:30 | NUR ---
Dr. Vee notified of pt status. Home meds reconciled. New orders for cardio and neuro consults. Cardio consult called to [facility] with answering service.
[2021-10-05] MEDS ORDERED: SENNOSIDES/DOCUSATE 8.6/50MG TABLET. PO PRN (06:45)
[2021-10-05] MEDS ORDERED: NITROGLYCERIN SUBLINGUAL 0.4 MG BOTTLE OF 25. SL PRN (06:45)
[2021-10-05 07:09] LABS: ALBUMIN 3.1 g/dL (3.4-5.0); ALBUMIN/GLOBULIN RATIO 0.9 (1.0-1.7); CALCIUM 8.8 mg/dL (8.5-10.1); CREATININE 1.9 mg/dL (0.7-1.3); GFR 34.5; POTASSIUM 4.1 mmol/L (3.5-5.1); TOTAL BILIRUBIN 0.3 mg/dL (0.2-1.0); TOTAL PROTEIN 6.4 g/dL (6.4-8.2)
[2021-10-05] MEDS: INSULIN LISPRO 300 UNITS/3 ML VIAL. SQ SCH ×3 (07:33→16:52)
[2021-10-05 07:48] LABS: BACTERIA,URINE 0 /HPF (0-FEW); BILIRUBIN,URINE NEG (NEG); CLARITY,URINE CLEAR; COLOR,URINE YELLOW; GLUCOSE,URINE NEG (NEG); NITRITE,URINE NEG (NEG); RBC,URINE OCC /HPF (0-2); SQUAMOUS EPITHELIAL CELL,UR FEW /LPF; UROBILINOGEN,URINE 0.2 mg/dL (0.2 mg/dL); WBC,URINE OCC /HPF (0-4)
[2021-10-05] MEDS: CARVEDILOL 12.5 MG TABLET PO SCH ×2 (08:19→17:10)
[2021-10-05] MEDS: LISINOPRIL 20 MG TABLET PO SCH (08:19)
[2021-10-05] MEDS: APIXABAN 5 MG TABLET. PO SCH ×2 (08:20→20:07)
[2021-10-05] MEDS: FAMOTIDINE 20 MG TABLET PO SCH (08:20)
[2021-10-05] MEDS: CLOPIDOGREL BISULFATE 75 MG TABLET PO SCH (08:20)
[2021-10-05] MEDS: OMEGA-3 FATTY ACIDS/FISH OIL 1,000 MG CAPSULE. PO SCH ×2 (08:20→20:07)
[2021-10-05] MEDS: MULTIVITAMIN with MINERAL TABLET. PO SCH (08:20)
[2021-10-05] MEDS: GABAPENTIN 300 MG CAPSULE. PO SCH ×3 (08:21→20:07)
[2021-10-05] MEDS: FUROSEMIDE 40 MG TABLET PO SCH (08:21)
[2021-10-05] MEDS: ATORVASTATIN CALCIUM 20 MG TABLET PO SCH (08:21)
[2021-10-05] MEDS: LEVOTHYROXINE 50 MCG TABLET PO SCH (08:48)
[2021-10-05] MEDS: AMIODARONE HCL 200 MG TABLET. PO SCH (08:48)
--- NOTE | 2021-10-05 08:58 | PDOC2 ---
CARDIAC CONSULT DATE OF CONSULT DOS: DATE: 10/05/21 TIME: 08:46 REASON FOR CONSULT Reason for Consult Dizziness REFERRING PHYSICIAN Referring Physician Dr. Vee SOURCE Source: Chart review, Patient HPI History of Present Illness This is a 75 yo male who presented secondary to dizziness, near syncopal episode. Patient has a history of CAD, ischemic CMP s/p AICD, PAFIB, and PAD. Follows with [facility], Dr. Craft. Reports experiencing chest pain and shortness of breath Saturday. EMS was called and was taken to [facility]. Underwent stress Saturday. Reports this was abnormal and he underwent LHC on Saturday. Reports "everything was fine". No disease needing intervention was noted. On Saturday, was initiated on Imdur and discharged. That morning, his fell in the room and ended up in the ED due to her injuries. Once discharged, patient was taken down to the ED to his . While in the ED room, he attempted to stand up out of the wheelchair and became dizzy nearly passes out. Systolic blood pressure was noted in the 60's. Was treated in the ED and eventually discharged home. Patient reported felling enough to drive himself home. When he got home he unloaded his vehicle and gather things to get in the bathtub. Reports he took his prosthetic leg off and transferred into the shower chair. Once he got there, he began feeling very dizzy, like he could pass out. Reports he sat there for over 15 minutes before he felt well enough to put his prosthetic leg on and get out of the shower. He went and sat in his lift chair for while. He continued feeling slightly dizzy so he called his neighbor. Decision was made to called EMS. Requested to be taken back to [facility], but unfortunately they were diverting EMS and he was brought to [facility] for further evaluation and treatment. PAST MEDICAL HISTORY Cardiovascular: CAD, CHF, HTN CENTRAL NERVOUS SYSTEM: Periperal neuropathy GI: GERD Renal/: Chronic renal insuff Endocrine: Hypothyroidism PAST SURGICAL HISTORY Past Surgical History: Pacemaker (AICD), Other (right BKA, thyroidectomy ) FAMILY HISTORY Family History: Hypertension SOCIAL HISTORY Smoke: No ALCOHOL: none Drugs: None Lives: with Family CURRENT MEDICATIONS Current Medications Current Medications Sodium Chloride 1,000 ml @ 1,000 mls/hr 1X ONCE IV Last administered on 10/04/21at 22:28; Start 10/04/21 at 22:30; Stop 10/04/21 at 23:29; Status DC Meclizine HCl (Antivert) 25 mg 1X ONCE PO Last administered on 10/04/21at 22:26; Start 10/04/21 at 22:30; Stop 10/04/21 at 22:31; Status DC Iohexol (Omnipaque 350 Mg/ml) 100 ml 1X ONCE IV Last administered on 10/04/21at 23:18; Start 10/04/21 at 22:30; Stop 10/04/21 at 22:31; Status DC Info (Do NOT chart on this entry -- for MONITORING) 1 each PRN DAILY PRN MC SEE COMMENTS; Start 10/04/21 at 22:15; Stop 10/06/21 at 22:14 Insulin Human Lispro (HumaLOG) 0-5 UNITS TIDWMEALS SQ ; Start 10/05/21 at 08:00 Dextrose (Dextrose 50%-Water Syringe) 12.5 gm PRN Q15MIN PRN IV SEE COMMENTS; Start 10/05/21 at 01:00 Aspirin (Aspirin Enteric Coated) 325 mg 1X ONCE PO Last administered on at 02:45; Start 10/05/21 at 01:15; Stop 10/05/21 at 01:16; Status DC Amiodarone HCl (Cordarone) 200 mg DAILY PO ; Start 10/05/21 at 09:00 Apixaban (Eliquis) 5 mg BID PO Last administered on 10/05/21at 08:20; Start 10/05/21 at 09:00 Clopidogrel Bisulfate (Plavix) 75 mg DAILY PO Last administered on 10/05/21at 08:20; Start 10/05/21 at 09:00 Furosemide (Lasix) 40 mg DAILY PO Last administered on 10/05/21at 08:21; Start 10/05/21 at 09:00 Levothyroxine Sodium (Synthroid) 50 mcg DAILYAC PO ; Start 10/05/21 at 09:00 Lisinopril (Prinivil) 20 mg DAILY PO Last administered on 10/05/21at 08:19; Start 10/05/21 at 09:00 Nitroglycerin (Nitrostat) 0.4 mg PRN Q5MIN PRN SL CHEST PAIN; Start 10/05/21 at 06:45 Senna/Docusate Sodium (Senna Plus) 1 tab PRN BID PRN PO CONSTIPATION Last administered on 10/05/21 08:19; Start 10/05/21 at 06:45 Atorvastatin Calcium (Lipitor) 40 mg DAILY PO Last administered on 10/05/21at 08:21; Start 10/05/21 at 09:00 Carvedilol (Coreg) 25 mg BIDWMEALS PO Last administered on 10/05/21at 08:19; Start 10/05/21 at 08:00 Non-Formulary Medication (Cinnamon Bark (Cinnamon)) 1,000 mg DAILY PO ; Start 10/05/21 at 09:00; Status UNV Famotidine (Pepcid) 40 mg DAILY PO Last administered on 10/05/21at 08:20; Start 10/05/21 at 09:00 Gabapentin (Neurontin) 600 mg TID PO Last administered on 10/05/21at 08:21; Start 10/05/21 at 09:00 Multivitamins/ Calcium (Thera-M Plus) 1 tab DAILY PO Last administered on 10/05/21at 08:20; Start 10/05/21 at 09:00 Fish Oil (Fish Oil) 1,000 mg BID PO Last administered on 10/05/21at 08:20; Start 10/05/21 at 09:00 Active Scripts Active Reported NITROGLYCERIN SubLingual (Nitroglycerin) 0.4 Mg Tab.subl 0.4 Mg SL PRN Q5MIN PRN Plavix (Clopidogrel Bisulfate) 75 Mg Tablet 75 Mg PO DAILY Amiodarone Hcl 200 Mg Tablet 200 Mg PO DAILY Famotidine 40 Mg Tablet 40 Mg PO DAILY Novolog (Insulin Aspart) 100 Unit/1 Ml Vial 0-8 Unit SQ PRN PRN Senna-S Laxative Tablet (Sennosides/Docusate Sodium) 1 Each Tablet 1 Each PO PRN BID PRN Levothyroxine Sodium 50 Mcg Tablet 1 Tab PO DAILY Eliquis (Apixaban) 5 Mg Tablet 5 Mg PO BID Lasix (Furosemide) 40 Mg Tablet 1 Tab PO DAILY Carvedilol 25 Mg Tablet 25 Mg PO BIDWMEALS Gabapentin 600 Mg Tablet 600 Mg PO TID Lisinopril 20 Mg Tablet 1 Tab PO DAILY Swayzee 3 1,000 Mg Softgel (Swayzee-3 Fatty Acids/Fish Oil) 1 Each Capsule 1,000 Mg PO BID LAST DOSE GIVEN: DATE: TIME: NEXT DOSE DUE: DATE: TIME: Cinnamon (Cinnamon Bark) 500 Mg Capsule 1,000 Mg PO DAILY LAST DOSE GIVEN: DATE: TIME: NEXT DOSE DUE: DATE: TIME: Multi-Day Vitamins (Multivitamin) 1 Each Tablet 1 Tab PO DAILY LAST DOSE GIVEN: DATE: TIME: NEXT DOSE DUE: DATE: TIME: Atorvastatin Calcium 40 Mg Tablet 40 Mg PO DAILY LAST DOSE GIVEN: DATE: TIME: NEXT DOSE DUE: DATE: TIME: ALLERGIES Allergies: Coded Allergies: carbamazepine (Verified Allergy, Intermediate, 10/04/21) isosorbide (Verified Allergy, Intermediate, 10/04/21) mexiletine (Verified Allergy, Intermediate, 10/04/21) oxaprozin (Verified Adverse Reaction, Intermediate, 10/04/21) BLOOD IN URIN ROS Review of Systems 14 point ROS conducted with pertinent positives noted above in HPI PHYSICAL EXAM General: Alert, Oriented X3, Cooperative, No acute distress HEENT: Atraumatic Lungs: Clear to auscultation Heart: Regular rate (SR with v-pacing ) Abdomen: Soft, No tenderness Extremities: No edema, Other (right BKA ) Skin: No breakdown Neuro: Normal speech, Sensation intact Psych/Mental Status: Mental status NL, Mood NL MUSCULOSKELETAL: Osteoarthritic changes both hands VITALS Vital Signs Vital Signs Date Time Temp Pulse Resp B/P (MAP) Pulse Ox O2 Delivery O2 Flow Rate FiO2 10/05/21 08:19 70 123/68 10/05/21 06:26 97.8 18 97 Room Air LABS LABS Laboratory Tests Test 10/04/21 22:20 10/05/21 02:10 10/05/21 06:05 10/05/21 06:55 White Blood Count 6.7 x10^3/uL (4.0-11.0) 7.5 x10^3/uL (4.0-11.0) Red Blood Count 4.05 x10^6/uL (4.30-5.70) 3.59 x10^6/uL (4.30-5.70) Hemoglobin 12.5 g/dL (13.0-17.5) 11.0 g/dL (13.0-17.5) Hematocrit 37.9 % (39.0-53.0) 33.8 % (39.0-53.0) Mean Corpuscular Volume 93 fL (79-100) 94 fL (79-100) Mean Corpuscular Hemoglobin 31 pg (25-35) 31 pg (25-35) Mean Corpuscular Hemoglobin Concent 33 g/dL (31-37) 33 g/dL (31-37) Red Cell Distribution Width 15.2 % (11.5-14.5) 15.8 % (11.5-14.5) Platelet Count 168 x10^3/uL (140-400) 168 x10^3/uL (140-400) Neutrophils (%) (Auto) 79 % (31-73) 71 % (31-73) Lymphocytes (%) (Auto) 11 % (24-48) 18 % (24-48) Monocytes (%) (Auto) 8 % (0-9) 9 % (0-9) Eosinophils (%) (Auto) 2 % (0-3) 1 % (0-3) Basophils (%) (Auto) 1 % (0-3) 1 % (0-3) Neutrophils # (Auto) 5.3 x10^3uL (1.8-7.7) 5.3 x10^3uL (1.8-7.7) Lymphocytes # (Auto) 0.7 x10^3/uL (1.0-4.8) 1.3 x10^3/uL (1.0-4.8) Monocytes # (Auto) 0.5 x10^3/uL (0.0-1.1) 0.7 x10^3/uL (0.0-1.1) Eosinophils # (Auto) 0.1 x10^3/uL (0.0-0.7) 0.1 x10^3/uL (0.0-0.7) Basophils # (Auto) 0.0 x10^3/uL (0.0-0.2) 0.0 x10^3/uL (0.0-0.2) Sodium Level 140 mmol/L (136-145) 141 mmol/L (136-145) Potassium Level 4.6 mmol/L (3.5-5.1) 4.1 mmol/L (3.5-5.1) Chloride Level 104 mmol/L (98-107) 107 mmol/L (98-107) Carbon Dioxide Level 28 mmol/L (21-32) 24 mmol/L (21-32) Anion Gap 8 (6-14) 10 (6-14) Blood Urea Nitrogen 50 mg/dL (8-26) 52 mg/dL (8-26) Creatinine 2.1 mg/dL (0.7-1.3) 1.9 mg/dL (0.7-1.3) Estimated GFR (Cockcroft-Gault) 30.8 34.5 BUN/Creatinine Ratio 24 (6-20) 27 (6-20) Glucose Level 151 mg/dL (70-99) 156 mg/dL (70-99) Calcium Level 9.6 mg/dL (8.5-10.1) 8.8 mg/dL (8.5-10.1) Magnesium Level 2.3 mg/dL (1.8-2.4) Total Bilirubin 0.4 mg/dL (0.2-1.0) 0.3 mg/dL (0.2-1.0) Aspartate Amino Transf (AST/SGOT) 30 U/L (15-37) 32 U/L (15-37) Alanine Aminotransferase (ALT/SGPT) 29 U/L (16-63) 29 U/L (16-63) Alkaline Phosphatase 98 U/L (46-116) 88 U/L (46-116) Creatine Kinase 124 U/L (39-308) Creatine Kinase MB (Mass) 1.6 ng/mL (0.0-3.6) Creatine Kinase MB Relative Index 1.3 % (0-4) Troponin I High Sensitivity 41 ng/L (4-75) 44 ng/L (4-75) 52 ng/L (4-75) Total Protein 7.5 g/dL (6.4-8.2) 6.4 g/dL (6.4-8.2) Albumin 3.6 g/dL (3.4-5.0) 3.1 g/dL (3.4-5.0) Albumin/Globulin Ratio 0.9 (1.0-1.7) 0.9 (1.0-1.7) SARS-CoV-2 Antigen (Rapid) Negative (NEGATIVE) Urine Collection Type Unknown Urine Color Yellow Urine Clarity Clear Urine pH 5.0 Urine Specific Auberry 1.010 Urine Protein Neg (NEG-TRACE) Urine Glucose (UA) Neg mg/dL (NEG) Urine Ketones (Stick) Neg mg/dL (NEG) Urine Blood Neg (NEG) Urine Nitrite Neg (NEG) Urine Bilirubin Neg (NEG) Urine Urobilinogen Dipstick 0.2 mg/dL (0.2 mg/dL) Urine Leukocyte Esterase Neg (NEG) Urine RBC Occ /HPF (0-2) Urine WBC Occ /HPF (0-4) Urine Squamous Epithelial Cells Few /LPF Urine Bacteria 0 /HPF (0-FEW) Urine Mucus Slight /LPF Test 10/05/21 07:58 Glucose (Fingerstick) 138 mg/dL (70-99) ECHOCARDIOGRAM Echocardiogram <Conclusion> Left ventricle systolic function is normal. The Ejection Fraction is estimated at 55%. There is normal LV segmental wall motion. Trace aortic regurgitation. Mild mitral regurgitation. Trace tricuspid regurgitation. The PA pressure was estimated at 24 mmHg. There is no evidence of significant pericardial effusion. DATE: 03/15/16 1451 ASSESSMENT/PLAN Assessment/Plan 1. Dizziness, near syncope in the setting of hypovolemia and hypotension with addition of Imdur. 2. MARK on CKD; s/p IVFs 3. CAD; s/p previous PCI/stents with most recent 07/22. [facility] 10/03/21 reportedly without lesions needing intervention 4. Chronic diastolic CHF; compensated 5. H/o combined ICM, NICM; s/p [employer]-D ([employer]).Reports device check this week with normal function, no significant arrhythmias. Recent echo with LV recovery 6. PAFIB; v-paced with underlying SR 7. Hypertension; controlled 8. Hyperlipidemia; statin 9. PAD; s/p right BKA 10. H/o high PVC burden Recommendations Orthostatic VS Resume secondary prevention Discontinue Imdur Continue Amiodarone for rhythm maintenance Eliquis for stroke prophylaxis Follow up with [facility] next weeks as scheduled MAHOGANY QUAN APRN Oct 05, 2021 08:58
[2021-10-05] MEDS ORDERED: NON FORMULARY ITEM (Cinnamon Bark (Cinnamon) 1,000 MG) PO SCH (09:00)
[2021-10-05 11:03] VITALS: BP 130/66
[2021-10-05 14:57] VITALS: BP 146/73
--- NOTE | 2021-10-05 15:36 | HP ---
DATE OF SERVICE: 10/05/2021 ADMIT DATE: 10/05/2021 HISTORY OF PRESENT ILLNESS: The patient is a 75-year-old male patient who presented to the Emergency Room of [facility] via EMS from home with a report of dizziness that occurred just prior to arrival while the patient was getting into the shower. He apparently had a similar episode in which he passed out while in the Emergency Room of [facility] visiting his . He reported he was worked up at [facility] and it was felt that his dizziness is secondary to him taking Imdur that was discontinued. He was previously admitted over the last weekend at [facility] for chest discomfort and shortness of breath, and underwent cardiac catheterization that reportedly was unrevealing. His stents were still patent. On arrival to the Emergency Room, he denied any chest pain, nor did he report any shortness of air. He denied any fall or trauma. He denied any nausea, vomiting, or diaphoresis. He was again extensively investigated. His EKG showed that he was at a paced rhythm at 73 beats per minute. His CT scan of the head showed that the ventricles, sulci, and basal cisterns were prominent, compatible with mild to moderate generalized cerebral volume loss. There was no hydrocephalus. Low attenuation in the periventricular white matter was suggestive of chronic small vessel ischemic changes. Harper-white matter differentiation was preserved. There was no acute intracranial hemorrhage. There was no mass effect, mass, or midline shift. Cerebral sulci were normal in appearance and dural calcification identified at the vertex. The visualized portion of the orbits was normal with the exception of bilateral lens replacements. Paranasal sinuses were well aerated. Mastoid air cells were well aerated. Scalp and cavity area were normal. CT angiogram of the chest showed no evidence of acute or chronic pulmonary embolism. Apparently, when his orthostatic vital signs were obtained here, the patient reported that he became wobbly and dizzy upon standing. The patient was treated with IV fluids. Given that this was the second evaluation in the Emergency Department and he continued to complain of dizziness, a decision was made to admit him for further evaluation and treatment and to consult the Cardiology team as well as neurologist. PAST MEDICAL HISTORY: Significant for coronary artery disease, congestive heart failure, hypertension, chronic renal insufficiency, gastroesophageal reflux disease, type 2 diabetes mellitus, diabetic peripheral neuropathy, peripheral vascular disease, and hypothyroidism. He has also neuropathic arthropathy of his left foot. PAST SURGICAL HISTORY: Significant for AICD placement, right below-knee amputation, and thyroidectomy. ALLERGIES: HE IS ALLERGIC TO CARBAMAZEPINE, ISOSORBIDE, MEXILETINE, AND OXAPROZIN. MEDICATIONS: He is currently on the following medications: He is on apixaban 5 mg twice a day, Plavix 75 mg once a day, amiodarone 200 mg once a day, atorvastatin calcium 40 mg daily, omega-3 fatty acids 1000 mg twice a day, nitroglycerin 0.4 mg sublingually every 5 minutes as needed, carvedilol 25 mg twice a day, lisinopril 20 mg daily. He is on gabapentin 600 mg 2 times a day, furosemide 40 mg daily. He is on senna-S 1 tablet twice a day as needed for constipation, famotidine 40 mg once a day. He is on NovoLog insulin 0-8 units subcutaneously p.r.n. before meals. He is on levothyroxine sodium 50 mcg once a day, multivitamin 1 tablet once a day, and cinnamon bark 500 mg daily. FAMILY HISTORY: Noncontributory. SOCIAL HISTORY: He is . He does not smoke, drink alcohol, or use any recreational drugs. REVIEW OF SYSTEMS: As per history of present illness. PHYSICAL EXAMINATION: GENERAL: On arrival to the Emergency Room, the patient looked well and was clearly in no apparent respiratory distress. He was somewhat pale, not jaundiced or cyanosed. No lymphadenopathy, no thyromegaly, no jugular venous distention. No limb edema. VITAL SIGNS: His heart rate was 70, blood pressure was 144/63. His temperature was 97.5, respiratory rate was 18, and oxygen saturation was 98% on room air. HEAD, EYES, EARS, NOSE, AND THROAT: Normocephalic, atraumatic. NECK: Supple. HEART: Normal first and second heart sounds. No gallop, rub, or murmur. CHEST: Clear to auscultation. No crepitation or rhonchi. ABDOMEN: Distended, soft, nontender. NEUROLOGIC: He was awake, alert, responding appropriately. Cranial nerves were intact. He moves upper extremities without difficulty. He had right below-knee amputation. LABORATORY DATA: On admission showed a white cell count of 6700, hemoglobin 12.5, hematocrit 37, MCV 93, and platelet count of 168,000. His chemistry showed a serum sodium 141, potassium 4.1, chloride 107, bicarbonate 24, anion gap of 10, BUN 52, creatinine 1.9. Estimated GFR was 34 mL per minute. His glucose was 156, calcium was 8.8. Total bilirubin, AST, ALT, alkaline phosphatase were normal. Total protein 6.4, albumin was 3.1. As stated earlier, his CT scan of the head showed no acute intracranial hemorrhage, mild to moderate generalized cerebral atrophy, low attenuation in the periventricular white matter suggestive of chronic small vessel ischemic disease. His CT angiogram showed no evidence of acute or chronic pulmonary embolism. ASSESSMENT AND PLAN: The patient was admitted for further evaluation as he has had 2 episodes of similar nature, one at the [facility] Emergency Room and once again at home. He continued to have evidence of orthostatic hypotension. Obviously, his Imdur was discontinued. Meanwhile, we will continue with all other medication. We will consult the desktop support associate as well as the neurologist, and we will also consult physical and occupational therapy, and if need be we might have to cut down some of his antihypertensive medication if he continues to have evidence of postural hypotension. VIRIDIANA/RAYMOND DR: Juan TID: [id number]
--- NOTE | 2021-10-05 16:53 | NUR ---
PTS FSBS DONE AC THIS SHIFT. PT DEANNA OWN GLUCOSE WITH INSULIN PUMP.
[2021-10-05 18:48] VITALS: BP 106/67
[2021-10-05 22:57] VITALS: BP 144/77
--- NOTE | 2021-10-06 01:20 | CONS ---
NEUROLOGY CONSULT REFERRING PHYSICIAN: Dr. Vee. REASON FOR CONSULTATION: Severe dizziness. HISTORY OF PRESENT ILLNESS: This is a 75-year-old right-handed male who is known to me from previous admission, was admitted through Emergency Room on account of a severe onset of dizziness. According to the patient, he had an episode of "passing out" while in the Emergency Room Department for his spouse at earlier today. The patient was evaluated in the emergency room at and sent home. While patient was at home, he felt dizzy again. His neighbor called 911 and transferred the patient to Emergency Room at [facility] for further evaluation. The patient apparently took Imdur during his stay at [facility] and he was found with a blood pressure of 60 as to Imdur. The patient felt dizzy upon standing. Apparently, he was admitted last week to [facility] because of onset of chest pain. He underwent a cardiac catheterization, which showed no significant coronary artery stenosis. Currently, he denies headaches, visual disturbances, nausea, vomiting, chest pain, shortness of breath or palpitation, dysarthria or dysphagia. Initial nonenhanced head CT scan revealed no acute intracranial hemorrhage or stroke and a CT angio of the chest revealed no evidence of pulmonary embolism. PAST MEDICAL HISTORY: Significant for coronary artery disease, diabetes mellitus, hypertension, history of myocardial infarction, renal disease, GERD, hyperlipidemia and neuropathy in the lower extremity. PAST SURGICAL HISTORY: Positive for angioplasty, cervical fusion, pacemaker implant, right below-knee amputation, status post cardiac stent placement, partial thyroidectomy and left toes amputation. SOCIAL HISTORY: The patient is . He denies smoking, alcohol drinking or illicit drug use. MEDICATIONS: Include fish oil, multivitamins and calcium, gabapentin 600 mg t.i.d., famotidine 40 mg p.o. daily, Lipitor 40 mg daily, lisinopril 20 mg daily, levothyroxine 50 mcg daily, furosemide 40 mg daily, Plavix 75 mg daily, Eliquis 5 mg b.i.d., amiodarone 200 mg daily, carvedilol 25 mg b.i.d., insulin Humalog, nitroglycerin 0.4 mg sublingual p.r.n. for chest pain. ALLERGIES: CARBAMAZEPINE, ISOSORBIDE, MEXILETINE AND OXAPROZIN. FAMILY HISTORY: Noncontributory. PHYSICAL EXAMINATION: GENERAL: Obese male in no acute distress. He weighs 108.8 kilos. VITAL SIGNS: Blood pressure 130/66, respiratory rate 18, pulse is 71, temperature 97.7, oxygen saturation 97% on room air. HEENT: Normocephalic, atraumatic, otherwise unremarkable. NECK: Supple, negative for carotid bruit, lymphadenopathy or thyromegaly. LUNGS: Clear to A and P. CARDIAC: Regular rate and rhythm, normal S1, S2. There is no S3, S4 or murmur. ABDOMEN: Soft. Bowel sounds positive. EXTREMITIES: Negative for cyanosis, clubbing or pedal edema. The patient has the patient has a left toe amputation. NEUROLOGIC: Mental status: The patient is alert and oriented x3. Speech is clear. There is no language dysfunction. Memory, judgment and abstracting thinking are fair. The patient denies hallucination or delusion. Cranial nerves: Visual walker are full. The pupils are reactive to light and accommodation. The extraocular movements are intact. There is no nystagmus. There is no facial motor or sensory deficit. Hearing is intact bilaterally. The palate is elevated symmetrically. Sternocleidomastoid muscles are powerful bilaterally. The patient shrugs his shoulders symmetrically, protrudes his tongue in the midline without fasciculation or atrophy. Motor Examination: No focal muscle bulk wasting. The tone is normal. The strength is 4/5 throughout. Sensory examination revealed a normal pinprick and light touch senses throughout. Deep tendon reflexes were symmetric and hypoactive with absent Achilles responses. Gait not tested at this time. LABORATORY DATA: CBC revealed blood cells of 7.5 thousand, hemoglobin 11, hematocrit 33.8, platelet count 168,000. Chemistry revealed a sodium of 141, potassium 4.1, chloride 102, CO2 of 24, BUN is 52 and creatinine 1.9, glucose 156 and calcium 8.8. Urine drug screen is negative for urinary tract infection. Rapid COVID test was negative. DIAGNOSTIC DATA: Nonenhanced head CT scan of the head and CT angio of the chest were unremarkable as mentioned above in history of present illness. IMPRESSION: 1. Acute dizziness described as lightheadedness with 1 episode of passing out, likely due to medication side effects of Imdur. 2. Multiple medical problems include coronary artery disease, arthritis, diabetes mellitus, GERD, hypertension, hyperlipidemia. RECOMMENDATIONS: 1. Continue with current management initiated by Dr. Vee. 2. Check blood pressure and possible orthostatic hypotension. 3. Physical therapy evaluation. JOCELYNN DR: Melvi TID: [id number]
[2021-10-06 06:03] VITALS: BP 138/81
[2021-10-06 06:28] LABS: BASO % 1 % (0-3); EOS # 0.3 x10^3/uL (0.0-0.7); EOS % 6 % (0-3); HEMATOCRIT 36.3 % (39.0-53.0); HEMOGLOBIN 12.1 g/dL (13.0-17.5); LYMPH # 1.4 x10^3/uL (1.0-4.8); LYMPH % 24 % (24-48); MEAN CORPUSCULAR HEMOGLOBIN 31 pg (25-35); MEAN CORPUSCULAR HGB CONC 34 g/dL (31-37); MEAN CORPUSCULAR VOLUME 93 fL (79-100); MONO # 0.6 x10^3/uL (0.0-1.1); MONO % 10 % (0-9); NEUT # 3.5 x10^3uL (1.8-7.7); NEUT % 60 % (31-73); PLATELET COUNT 148 x10^3/uL (140-400); RED BLOOD COUNT 3.89 x10^6/uL (4.30-5.70); RED CELL DISTRIBUTION WIDTH 15.7 % (11.5-14.5); WHITE BLOOD COUNT 5.8 x10^3/uL (4.0-11.0)
[2021-10-06 06:51] LABS: ALBUMIN 3.3 g/dL (3.4-5.0); ALBUMIN/GLOBULIN RATIO 0.9 (1.0-1.7); CALCIUM 8.9 mg/dL (8.5-10.1); CREATININE 1.7 mg/dL (0.7-1.3); GFR 39.3; POTASSIUM 4.1 mmol/L (3.5-5.1); TOTAL BILIRUBIN 0.3 mg/dL (0.2-1.0); TOTAL PROTEIN 6.9 g/dL (6.4-8.2)
--- NOTE | 2021-10-06 07:08 | NUR ---
Pt denies any episodes of dizziness this shift. Slept well overnight. VSS. Pt hopeful to DC home today.
[2021-10-06] MEDS: INSULIN LISPRO 300 UNITS/3 ML VIAL. SQ SCH ×2 (08:00→12:00)
[2021-10-06] MEDS: GABAPENTIN 300 MG CAPSULE. PO SCH ×2 (08:10→13:43)
[2021-10-06] MEDS: ATORVASTATIN CALCIUM 20 MG TABLET PO SCH (08:10)
[2021-10-06] MEDS: LEVOTHYROXINE 50 MCG TABLET PO SCH (08:11)
[2021-10-06] MEDS: CARVEDILOL 12.5 MG TABLET PO SCH (08:11)
[2021-10-06] MEDS: MULTIVITAMIN with MINERAL TABLET. PO SCH (08:11)
[2021-10-06] MEDS: FAMOTIDINE 20 MG TABLET PO SCH (08:11)
[2021-10-06] MEDS: CLOPIDOGREL BISULFATE 75 MG TABLET PO SCH (08:11)
[2021-10-06] MEDS: FUROSEMIDE 40 MG TABLET PO SCH (08:11)
[2021-10-06] MEDS: AMIODARONE HCL 200 MG TABLET. PO SCH (08:12)
[2021-10-06] MEDS: APIXABAN 5 MG TABLET. PO SCH (08:12)
[2021-10-06] MEDS: LISINOPRIL 20 MG TABLET PO SCH (08:12)
[2021-10-06] MEDS: OMEGA-3 FATTY ACIDS/FISH OIL 1,000 MG CAPSULE. PO SCH (08:14)
--- NOTE | 2021-10-06 09:12 | NUR ---
PATIENT HAS INSULIN PUMP, PATIENT STATED HE PERFORM BLOOD SUGAR SELF CHECK, THE RESULT WAS 114 AND HE SELF ADMINISTERED 7 UNITS OF INSULIN.
[2021-10-06 10:49] VITALS: BP 135/81
--- NOTE | 2021-10-06 14:32 | NUR ---
PATIENT IS DISCHARGED, DISCHARGE INSTRUCTION REVIEWED, PATIENT VERBALIZED UNDERSTANDING. PATIENT LEFT UNIT VIA AMBULATION ACCOMP BY THIS RN. PATIENT IS TAKEN HOME BY HIS VIA PERSONAL VEHICLE.
--- NOTE | 2021-10-06 14:36 | PN ---
SUBJECTIVE: The patient denies any new medical or neurological complaints. He felt much better than yesterday. He denies any headaches, dizziness, chest pain, shortness of breath or palpitation, dysarthria or dysphagia. OBJECTIVE: GENERAL: Well-developed, well-nourished male not in acute distress. VITAL SIGNS: Stable, afebrile, blood pressure 138/81, respiratory rate 20, pulse is 70 and regular, oxygen saturation 97% on room air. HEENT: Normocephalic, atraumatic, otherwise unremarkable. NECK: Supple, negative for carotid bruit, lymphadenopathy or thyromegaly. LUNGS: Clear to A and P. CARDIOVASCULAR: Regular rate and rhythm, normal S1, S2. There is no S3, S4 or murmur. ABDOMEN: Soft. Bowel sounds positive. EXTREMITIES: Negative for cyanosis, clubbing or pedal edema. NEUROLOGIC: Normal mental status and intact cranial nerves. There is no focal muscle wasting. The strength is 4/5 throughout. Sensory examination revealed a normal pinprick and light touch senses throughout. Deep tendon reflexes were hypoactive with absent Achilles responses on the right side. Gait and coordination are normal for him. LABORATORY DATA: CBC revealed blood cells of 5.8 thousand, hemoglobin 12.1, hematocrit 36.3, platelet count 148,000. Chemistry revealed sodium of 142, potassium 4.1, chloride 107, CO2 of 25, BUN 47, creatinine 1.7, glucose 108, calcium 8.9. IMPRESSION: 1. Acute dizziness described as lightheadedness, likely due to blood pressure medication side effects - Imdur and orthostatic hypotension. 2. Multiple medical problems include coronary artery disease, arthritis, diabetes mellitus, GERD, hypertension and hyperlipidemia. 3. Chronic kidney disease. RECOMMENDATIONS: Continue with current management initiated by Dr. Vee along with physical therapy as needed and correct the underlying orthostatic hypotension. MARCUS/ALVA DR: MARCUS/regine TID: [id number]
--- NOTE | 2021-10-06 19:01 | DS ---
DATE OF DISCHARGE: 10/06/2021 HOSPITAL COURSE: The patient is a 75-year-old right-handed male patient who was admitted to the Emergency Room on account of severe onset of dizziness. His first episode was of what seemed to be passing out while in the Emergency Room of [facility], visiting his spouse. He was evaluated there and was discharged home. While at home, he felt dizzy again and his neighbor called 911, transferred the patient to the Emergency Room of [facility] for further evaluation. He apparently was started on Imdur while at [facility] and was found to have a low blood pressure of 60 after taking the Imdur. Therefore, that medication was discontinued. He was actually at [facility] for evaluation of chest pressure and has had cardiac catheterization, which showed that all his stents are patent. He basically was extensively investigated in the Emergency Room and was evaluated by the Cardiology team as well as neurologist and since admission, he has no further episode of dizziness or lightheadedness. No history of fall. He was seen by the physical therapist today and was able to walk around without any difficulty and as he expressed the desire to be discharged home, a decision was made to discharge him home. The patient declined home health. PHYSICAL EXAMINATION: GENERAL: When I saw him this afternoon, he was sitting at the edge of the bed comfortably, in no apparent respiratory distress. He was pale. No jaundiced, cyanosed. No lymphadenopathy, no thyromegaly, no jugular venous distention, no limb edema. VITAL SIGNS: His heart rate was 70, blood pressure was 135/81, temperature was 97.7, respiratory rate was 18, and oxygen saturation was 98% on room air. The rest of clinical exam stable. LABORATORY DATA: This morning showed a white cell count 5800, hemoglobin 12, hematocrit 36, MCV 93, and platelet count of 148,000. His chemistry showed a serum sodium 142, potassium 4.1, chloride 107, bicarbonate 25, anion gap of 10, BUN 47, creatinine 1.7. Estimated GFR was 39 mL per minute. His glucose was 108, calcium was 8.9. Total bilirubin, AST, ALT, alkaline phosphatase were normal. Total protein 6.9. Albumin was ____. DISCHARGE MEDICATIONS: The patient was discharged home to continue on his amiodarone 200 mg once a day, apixaban 5 mg twice a day, atorvastatin calcium 40 mg daily, carvedilol 25 mg twice a day, cinnamon bark 1000 mg daily, Plavix 75 mg once a day. He was discharged also on Plavix 75 mg once a day, famotidine 40 mg once a day, furosemide 40 mg daily, gabapentin 600 mg 3 times a day. He is on NovoLog insulin as per insulin sliding scale, levothyroxine sodium 50 mcg once a day, lisinopril 20 mg once a day, multivitamin 1 tablet once a day, nitroglycerin 0.4 mg sublingually every 5 minutes, omega 3 fatty acids 1000 mg twice a day, Senna-S 1 tablet twice a day. FINAL DISCHARGE DIAGNOSES: 1. Syncope, likely related to Imdur-induced hypertension. 2. Yidso-ua-eqvnqct kidney injury, improved. His creatinine came down from 2.1 to 1.7. 3. Coronary artery disease, status post previous percutaneous coronary intervention with stent deployment. Left heart catheterization done recently reportedly showing a patent stents. 4. Chronic diastolic congestive heart failure, clinically well compensated. 5. History of combined ischemic cardiomyopathy, nonischemic cardiomyopathy, for which, he has now automatic implantable cardioverter-defibrillator, paroxysmal atrial fibrillation ___ with underlying sinus rhythm; hypertension; well-controlled hyperlipidemia; peripheral arterial disease, status post right below-knee amputation; and history of high premature ventricular contraction burden. SALVADOR/RAYMOND DR: JASEN/regine TID: [id number]
== END 2021-10-06 14:30 | disposition home or self-care (01) | DRG 312 ==
LOC: ER 21:53 → 1 SOUTH 10-05 00:59
PROVIDERS: ADMIT Internal Medicine; ATTEND Internal Medicine
DX: I95.2 Hypotension due to drugs (principal); I50.32 Chronic diastolic (congestive) heart failure; I13.0 Hypertensive heart and chronic kidney disease with heart failure and stage 1 through stage 4 chronic kidney disease, or unspecified chronic kidney disease; I42.8 Other cardiomyopathies; N17.9 Acute kidney failure, unspecified; E11.22 Type 2 diabetes mellitus with diabetic chronic kidney disease; E11.42 Type 2 diabetes mellitus with diabetic polyneuropathy; E11.51 Type 2 diabetes mellitus with diabetic peripheral angiopathy without gangrene; E78.00 Pure hypercholesterolemia, unspecified; E11.610 Type 2 diabetes mellitus with diabetic neuropathic arthropathy; E78.5 Hyperlipidemia, unspecified; I25.10 Atherosclerotic heart disease of native coronary artery without angina pectoris; M19.90 Unspecified osteoarthritis, unspecified site; I48.0 Paroxysmal atrial fibrillation; K21.9 Gastro-esophageal reflux disease without esophagitis; E89.0 Postprocedural hypothyroidism; N18.9 Chronic kidney disease, unspecified; I25.5 Ischemic cardiomyopathy; Z20.822 Contact with and (suspected) exposure to COVID-19; E86.1 Hypovolemia; T46.3X5A Adverse effect of coronary vasodilators, initial encounter; Z95.810 Presence of automatic (implantable) cardiac defibrillator; Z95.5 Presence of coronary angioplasty implant and graft; Z89.511 Acquired absence of right leg below knee; Z82.49 Family history of ischemic heart disease and other diseases of the circulatory system; Z88.8 Allergy status to other drugs, medicaments and biological substances; I25.2 Old myocardial infarction; Y92.89 Other specified places as the place of occurrence of the external cause
CPT/HCPCS: 36415; 70450; 71275; 80053; 81001; 82553; 82947; 83735; 84484; 85025; 87426; 93005; 96360; 96361; Q9967; U0003; 97530; 99285-25; J7030

== ENCOUNTER 2021-10-23 08:07 | Emergency (ER) | payer MEDICARE, BC ==
[~2021-10-23] VITALS: Ht 182.9 cm; Wt 108.8 kg
[~2021-10-23 08:07] MED LIST changes: +AMIO200T54 PO; +CLOP75TA57 PO; +FAMO40TA4 PO; +NITR0.4T22 SL
[2021-10-23 08:13] VITALS: BP 135/81
--- NOTE | 2021-10-23 09:14 | RAD ---
CT Head without contrast 10/23/2021 8:45 AM Indication: Reason: fall Comparison: CT head without contrast October 04, 2021 Findings: No intracranial hemorrhage is seen. No evidence of acute territorial infarct is seen. Note that CT is limited in sensitivity for acute ischemia. Age-related atrophic changes are noted. Ther e is patchy periventricular and deep white matter hypoattenuation which is nonspecific, but most comm only relates to chronic small vessel disease. No abnormal extra axial fluid collection is identified . No mass effect or midline shift is seen. No acute osseous abnormalities are seen. Impression: 1. No acute intracranial abnormality or change from prior study is identified 2. Grossly similar age related atrophic changes, and evidence of chronic small vessel disease as desc ribed CT DOSING PQRS STATEMENT: One or more of the following individualized dose reduction techniques were utilized for this examinat ion: 1. Automated exposure control 2. Adjustment of the mA and/or kV according to patient size 3. Use of iterative reconstruction technique Electronically signed by: Jalen Freeman MD (10/23/2021 9:12 AM) [id number]
--- NOTE | 2021-10-23 09:27 | RAD ---
Study: XR ELBOW_LEFT Indication: Fall. Comparison: None recently. Findings: Suspected small elbow joint effusion. No acute fracture is identified on the obtained views. Alignmen t is within normal limits. Arthrosis is mild. Olecranon process enthesophyte. Chronic focus of minera lization, potentially a phlebolith, at the dorsal/medial aspect of the distal humerus. Irregular density at the lateral and dorsal aspects of the elbow. No retained radiopaque foreign body . Impression: 1. Possible small elbow joint effusion but no acute fracture is identified or malalignment. Arthrosis is mild. 2. Potential soft tissue injury at the dorsal/lateral elbow but this would be better assessed clinica lly. No retained radiopaque foreign body. Electronically signed by: MUSA LUJAN MD (10/23/2021 9:25 AM) [id number]
--- NOTE | 2021-10-23 09:29 | RAD ---
EXAM: Left tibia and fibula, 2 views; left ankle, 3 views. HISTORY: Pain. Fall. COMPARISON: CT dated 05/17/2021. FINDINGS: 2 views of the tibia and fibula and 3 views of the ankle are obtained. There is enthesopath y along the superior and inferior patella. There is a suspected small knee effusion, not formally ass essed on this exam. There are extensive vascular calcifications. There is pes planovalgus. There is b one demineralization There has been amputation of the second and fourth phalanges at the bases of the middle phalanges. Th ere is deformity of the fifth metatarsal head, suggesting a fracture of uncertain chronicity. There i s a fifth hammertoe deformity. There is first metatarsal phalangeal joint spurring. There is severe m id foot joint space narrowing, subchondral sclerosis and spurring. There is a small plantar spur. The re is enthesopathy at the Achilles tendon insertion. IMPRESSION: 1. Deformity of the fifth metatarsal head. This may be secondary to an osseous ridge or fracture of u ncertain chronicity. Correlate for pain in this location. 2. Second and fourth phalanx partial amputation. 3. Severe midfoot osteoarthritis. 4. Suspected knee effusion. 5. Extensive vascular calcifications. 6. Pes planovalgus and fifth hammertoe deformity. Electronically signed by: Elsa Gentile MD (10/23/2021 9:26 AM) [id number]
--- NOTE | 2021-10-23 10:10 | PHYS DOC ---
Past History Past Medical History: Arthritis, CAD, Diabetes, GERD, High Cholesterol, Heart Disease, Hypertension, [place], Renal Disease, Other Additional Past Medical Histor: NEUROPATHY Past Surgical History: Angioplasty, Cervical Fusion, Pacemaker, Other Additional Past Surgical Histo: right BKA; cardiac stents; partial thyroidectomy; left toes amputation, Smoking: Non-smoker Alcohol Use: None Drug Use: None General Adult EDM: Chief Complaint: MECHANICAL FALL HPI: HPI: Patient is a 75-year-old male coming in for left upper and lower extremity pain after a fall yesterday evening. Patient states that he tripped. Denies any loss of consciousness or syncope. Patient takes Plavix. Has a bleeding wound on his left elbow that him and his tried to bandage twice. Review of Systems: Review of Systems: All other systems within normal limits except for as noted in the HPI Allergies: Allergies: Allergies Coded Allergies Type Severity Reaction Last Updated Verified carbamazepine Allergy Intermediate 10/04/21 Yes isosorbide Allergy Intermediate 10/04/21 Yes mexiletine Allergy Intermediate 10/04/21 Yes oxaprozin Adverse Reaction Intermediate 10/04/21 Yes Physical Exam: PE: Constitutional: Well developed, well nourished, no acute distress, non-toxic appearance. [] HENT: Normocephalic, atraumatic, bilateral external ears normal, oropharynx moist, no oral exudates, nose normal. [] Eyes: PERRLA, EOMI, conjunctiva normal, no discharge. [] Neck: Normal range of motion, no tenderness, supple, no stridor. [] Cardiovascular:Heart rate regular rhythm, no murmur [] Lungs & Thorax: Bilateral breath sounds clear to auscultation [] Abdomen: Bowel sounds normal, soft, no tenderness, no masses, no pulsatile masses. [] Skin: Warm, dry, no erythema, no rash. [] Back: No tenderness, no CVA tenderness. [] Extremities: No tenderness, no cyanosis, no clubbing, ROM intact, no edema. [] Neurologic: Alert and oriented X 3, normal motor function, normal sensory function, no focal deficits noted. [] Psychologic: Affect normal, judgement normal, mood normal. [] Current Patient Data: Vital Signs: Vital Signs Date Time Temp Pulse Resp B/P (MAP) Pulse Ox O2 Delivery O2 Flow Rate FiO2 10/23/21 08:13 98.1 80 18 135/81 (99) 100 Room Air EKG: EKG: [] Radiology/Procedures: Radiology/Procedures: [address] [address] IMAGING REPORT Signed PATIENT: HAVEN DOMINGUEZ ACCOUNT: [id number] : 1945 LOCATION: ER AGE: 75 SEX: M EXAM STATUS: REG ER ORD. PHYSICIAN: GABI NICOLE MD REASON: fall PROCEDURE: CT HEAD WO CONTRAST CT Head without contrast 10/23/2021 8:45 AM Indication: Reason: fall Comparison: CT head without contrast October 04, 2021 Findings: No intracranial hemorrhage is seen. No evidence of acute territorial infarct is seen. Note that CT is limited in sensitivity for acute ischemia. Age-related atrophic changes are noted. There is patchy periventricular and deep white matter hypoattenuation which is nonspecific, but most commonly relates to chronic small vessel disease. No abnormal extra axial fluid collection is identified. No mass effect or midline shift is seen. No acute osseous abnormalities are seen. Impression: 1. No acute intracranial abnormality or change from prior study is identified 2. Grossly similar age related atrophic changes, and evidence of chronic small vessel disease as described CT DOSING PQRS STATEMENT: One or more of the following individualized dose reduction techniques were utili zed for this examination: 1. Automated exposure control 2. Adjustment of the mA and/or kV according to patient size 3. Use of iterative reconstruction technique Electronically signed by: Jalen Cronin MD (10/23/2021 9:12 AM) [id number] DICTATED AND SIGNED BY: JALEN CRONIN MD DATE: 10/23/21908 CC: SULTANA RODRIGUEZ MD; GABI NICOLE MD ~MTH0 0 [][address] [address] IMAGING REPORT Signed PATIENT: HAVEN DOMINGUEZ ACCOUNT: [id number] : 1945 LOCATION: ER AGE: 75 SEX: M EXAM STATUS: REG ER ORD. PHYSICIAN: GABI NICOLE MD REASON: fall PROCEDURE: TIBIA FIBULA LEFT EXAM: Left tibia and fibula, 2 views; left ankle, 3 views. HISTORY: Pain. Fall. COMPARISON: CT dated 05/17/2021. FINDINGS: 2 views of the tibia and fibula and 3 views of the ankle are obtained. There is enthesopathy along the superior and inferior patella. There is a suspected small knee effusion, not formally assessed on this exam. There are extensive vascular calcifications. There is pes planovalgus. There is bone demineralization There has been amputation of the second and fourth phalanges at the bases of the middle phalanges. There is deformity of the fifth metatarsal head, suggesting a fracture of uncertain chronicity. There is a fifth hammertoe deformity. There is first metatarsal phalangeal joint spurring. There is severe mid foot joint space narrowing, subchondral sclerosis and spurring. There is a small plantar spur. There is enthesopathy at the Achilles tendon insertion. IMPRESSION: 1. Deformity of the fifth metatarsal head. This may be secondary to an osseous ridge or fracture of uncertain chronicity. Correlate for pain in this location. 2. Second and fourth phalanx partial amputation. 3. Severe midfoot osteoarthritis. 4. Suspected knee effusion. 5. Extensive vascular calcifications. 6. Pes planovalgus and fifth hammertoe deformity. Electronically signed by: Elsa Martino MD (10/23/2021 9:26 AM) [id number] DICTATED AND SIGNED BY: ELSA MARTINO MD DATE: 10/23/21 0922 CC: SULTANA RODRIGUEZ MD; GABI NICOLE MD ~MTH0 0 Heart Score: C/O Chest Pain: No Risk Factors: Risk Factors: DM, Current or recent (<one month) smoker, HTN, HLP, family history of CAD, obesity. Risk Scores: Score 0 - 3: 2.5% MACE over next 6 weeks - Discharge Home Score 4 - 6: 20.3% MACE over next 6 weeks - Admit for Clinical Observation Score 7 - 10: 72.7% MACE over next 6 weeks - Early Invasive Strategies Course & Med Decision Making: Course & Med Decision Making Pertinent Labs and Imaging studies reviewed. (See chart for details) [] Chucho Disclaimer: Dragsridhar Disclaimer: This electronic medical record was generated, in whole or in part, using a voice recognition dictation system. Departure Departure: Impression: Primary Impression: Fall Additional Impression: Foot fracture, left Disposition: HOME / SELF CARE / HOMELESS Condition: STABLE Referrals: SULTANA RODRIGUEZ MD (PCP) Patient Instructions: Splint Care, Ohex-[id number] Additional Instructions: Follow-up with your assistant media buyer within the next week. GABI NICOLE MD Oct 23, 2021 10:10
[2021-10-23] MEDS ORDERED: NEOMY/BACITR/POLYMYXIN OINT PACKET. TP ONE (10:33)
== END 2021-10-23 11:00 | disposition home or self-care (01) ==
LOC: ER 08:07
DX: S92.352A Displaced fracture of fifth metatarsal bone, left foot, initial encounter for closed fracture (principal); M79.642 Pain in left hand; E11.40 Type 2 diabetes mellitus with diabetic neuropathy, unspecified; M19.90 Unspecified osteoarthritis, unspecified site; I25.10 Atherosclerotic heart disease of native coronary artery without angina pectoris; K21.9 Gastro-esophageal reflux disease without esophagitis; E78.00 Pure hypercholesterolemia, unspecified; I11.9 Hypertensive heart disease without heart failure; I25.2 Old myocardial infarction; Z95.0 Presence of cardiac pacemaker; Z88.8 Allergy status to other drugs, medicaments and biological substances; W01.0XXA Fall on same level from slipping, tripping and stumbling without subsequent striking against object, initial encounter; Y93.89 Activity, other specified; Y92.89 Other specified places as the place of occurrence of the external cause; Y99.8 Other external cause status
CPT/HCPCS: 29515; 70450; 73070; 73590; 73630; 99284